=== PATIENT | female | born 1995 | race African-American/Black ===

== ENCOUNTER 2022-11-06 07:58 | Day surgery (SDC) | payer MEDICAID, SELFPAY ==
[2022-11-06] VITALS (9 sets, daily range): BP systolic 87–108; BP diastolic 52–76; PULSE 59–82; RESP 16; TEMP 36.9; O2SAT 95–100; BMI 23.8
[2022-11-06] MEDS: DOXYCYCLINE HYCLATE 200 MG in 0.9 % SODIUM CHLORIDE Mini-bag 100 ML 100 MG IVPB (08:23)
[2022-11-06] MEDS: KETOROLAC 30 MG/ML inj IVP (08:23)
[2022-11-06] MEDS: LACTATED RINGERS 1000 ML 1,000 ML 100 ML IV ×2 (08:25→11:38)
[2022-11-06] MEDS: SODIUM CHLORIDE 0.9 % (FLUSH) 10 ML SYRINGE IVF (09:06)
[2022-11-06 09:10] LABS: Hemoglobin* 10.2 gm/dL (12.0-16.0)
--- NOTE | 2022-11-06 09:55 | W.ANESCHARGE ---
Anesthesia Charges Start Date/Time Anesthesia Start Date: 11/06/22 Anesthesia Start Time: 10:30 Stop Date/Time Anesthesia Stop Date: 11/06/22 Anesthesia Stop Time: 11:55
--- NOTE | 2022-11-06 10:05 | W.PM.H&PU ---
History & Physical Update History & Physical Update H&P Reviewed and patient assessed: No changes noted H&P Updates: Heart - RRR / no M/R/G Lungs - CTAB Hemoglobin 10.2 today.
--- NOTE | 2022-11-06 10:46 | W.ANESCHARGE ---
Anesthesia Charges Start Date/Time Anesthesia Start Date: 11/06/22 Anesthesia Start Time: 10:30 Stop Date/Time Anesthesia Stop Date: 11/06/22 Anesthesia Stop Time: 11:55
--- NOTE | 2022-11-06 12:49 | SUR.PREOP ---
1229: Patient states she needs to use restroom. Patient up to bedside commode with assist. Patient unable to urinate. REturned to bed. Bladder scan completed showing 431 ccs. Patient covered with xi crocker. Cutter Wet Machine will return to room to assist patient in using bedside commode at 1300. Patient has call light available and family at bedside if she needs anything in the mean time.
--- NOTE | 2022-11-06 13:14 | SUR.PHASEII ---
Patient up to bedside commode with stand by assist. Patient able to void. States feeling much better. She states she no longer feels pressure and denies pain.
--- NOTE | 2022-11-06 13:20 | P.GYNPRC_ITS ---
Procedure Note Date of procedure: 11/06/22 Pre-op diagnosis: Retained products of conception after spontaneous Post-op diagnosis: same Procedure: Hysteroscopy, dilation and curettage Anesthesia: MAC and local (10 mL of 1% lidocaine in paracervical block) Complications: None Surgeon: Dr. Brigid De Dios MD Estimated blood loss (mL): 15 IV fluids (mL): 1,000 Urine Output (mL): 15 Pathology: specimen obtained, sent to pathology Condition: stable Disposition: same day Findings: 1. Upon pelvic exam under anesthesia, the cervix and vagina were normal in appearance. Uterus was mobile and anteverted, of normal size and texture. There were no palpable adnexal masses. 2. Upon hysteroscopy, the cervix was noted to be quite patulous, making distension of the uterus and visualization very difficult throughout the procedure. There was abundant placental tissue noted within the uterus. The shape of the cavity was normal. Saline deficit: 10 80 mL, much of which was lost on the OR floor Procedure Description: Procedure in detail: Patient was taken to the operating room with IV running. She was positioned in dorsal lithotomy position with her legs fully supported in Yellofin stirrups. She received doxycycline in preoperative prophylaxis. Monitored anesthesia care was administered. She was prepped and draped in the usual sterile fashion. Exam under anesthesia was performed for the above-noted findings. Speculum was inserted. Cervix visualized and grasped along the anterior lip with an Allis clamp. Cervix was serially dilated to accommodate the TRUCLEAR hysteroscope. This was assembled with saline inflow and outflow in place. The line was flushed of bubbles. The hysteroscope was advanced through the cervix into the endometrial cavity for the above noted findings. The small soft tissue morcellator was then inserted through the operating channel. Window lock was performed. Under direct visualization, some of the retained placenta was removed with this device. However, given the patulous nature of the cervix, and the amount of retained products within the uterus, I was unable to complete the procedure with this smaller tissue morcellator, even after using a ring forcep to partially close off the external os. The hysteroscope was exchanged for slightly larger scope, enabling the use of the soft tissue plus morcellator. Hysteroscopic distention of the endometrial cavity remained difficult due to the patulous cervix, even after application of a ring forcep to the external os. The majority of the retained placental fragments were removed with this larger soft tissue morcellator, and till visualization was lost due to bleeding. The hysteroscope was then removed. Sharp curettage was performed in a circumferential fashion and gritty texture was noted throughout. The hysteroscope was again inserted, and I was able to get brief visualization of t he cavity. There were small irregularities in the endometrium anteriorly and posteriorly, and these were removed with the hysteroscope before visualization was again lost. At the end of the procedure, my impression was that all retained placenta was removed. The hysteroscope and morcellator were then removed from the uterus. Allis clamps was removed from the anterior lip of cervix. Hemostasis was noted. Patient tolerated procedure well. She was taken to recovery area in stable condition.
== END 2022-11-06 13:50 | disposition home or self-care (01) ==
PROVIDERS: PCP Physician Assistant; Visit Provider Obstetrics & Gynecology
PROC: 0UDB8ZZ Extraction of Endometrium, Via Natural or Artificial Opening Endoscopic (ICD-10-PCS; CPT 58558; principal; 2022-11-06 10:00)
DX: O03.4 Incomplete spontaneous abortion without complication (principal)
CPT/HCPCS: 59812; 00952; 36415; 85018; 86850; 86900; 86901; 88305; J1100; J1170; J1885; J2250; J2405; J3010; J7120

== ENCOUNTER 2023-04-09 18:16 | Emergency (ER) | payer MEDICAID, SELFPAY ==
[2023-04-09 18:32] VITALS: BP 99/65; PULSE 112; RESP 20; TEMP 37.7; O2SAT 99
--- NOTE | 2023-04-09 19:32 | ED.NURSE ---
pt. left ER without seeing MD. pt. did not sign refusal form for her and son.
== END 2023-04-09 19:58 | disposition left against medical advice (07) ==
LOC: ED 19:51
PROVIDERS: PCP Physician Assistant
DX: Z53.21 Procedure and treatment not carried out due to patient leaving prior to being seen by health care provider (principal)

== ENCOUNTER 2024-08-16 13:35 | Outpatient (CLI) | payer MEDICAID, SELFPAY | END 2024-08-16 13:36 | disposition home or self-care (01) | PROVIDERS: PCP Physician Assistant; Visit Provider Obstetrics & Gynecology | DX: N96 Recurrent pregnancy loss (principal); D64.9 Anemia, unspecified | CPT/HCPCS: 84146; 84443; 88262 ==

== ENCOUNTER 2025-01-28 19:09 | Emergency (ER) | payer MEDICAID, SELFPAY ==
--- OUTSIDE RECORDS SUMMARY | 2025-01-28 19:12 | XMS_ITS | Clinical Summary ---
Author Organization [employer] [facility] Address [facility] [place] [address] Care Team Providers Care Industrial Trainer Name Role Phone Maryjane Eldridge Unavailable Yen Mckinney MD Primary Care Prov ider Julisa Mc RN Unavailable Ana Maria Ely Unavailable Allergies Active Allergy Reactions Criticality Noted Date Comments Pork/Porcine Containing Products Other - Describe In Comment Field 12/20/2024 Sabian[employer] Medications folic acid 1 mg tabletIndications :Critical illness myopathy Take 1 Tablet (1 mg) by mouth once daily. PROTECT FROM LIGHT 30 Tablet 01/17/20 25 7:09 PM CDT 025 Active methIMAzole (TAPAZOLE) 5 mg tabletIndications :Hyperthyroidism Take one-half Tablet (2.5 mg) by mouth once daily. 15 Tablet 01/17/20 7:09 PM CDT Active valACYclovir (VALTREX) 500 mg tabletIndications :Critical illness myopathy,Cold sore Take 1 Tablet (500 mg) by mouth or nasogastric tube every 24 hours. Can take as 500 mg tablet needed for 7 days at the first sign of cold sores. Follow up with primary care provider. 7 Tablet 01/17/20 7:09 PM CDT Active lidocaine 4 % topical patchIndications: Critical illness myopathy Apply to intact skin to cover most painful area for max 12hr per 24hr period. Remove previous patch before adding new patch.Apply to intact skin to cover the most painful area.Remove old patch(s) and apply a new one if ordered. Patient may have more than one patch per dose. 15 Patch 01/17/20 7:09 PM CDT Active furosemide (LASIX) 40 mg tabletIndications :Critical illness myopathy,MADHAVI (acute kidney injury),Acute kidney failure with lesion of tubular necrosis Take 1 Tablet (40 mg) by mouth once daily if needed (weight gain of 2 pounds and edema). 30 Tablet 01/18/20 10:14 AM CDT Active nutritional supplements liqdIndications:W eight loss,Moderate malnutrition (HC) Take 237 mL by mouth two times daily. 98533 mL 2 Active ondansetron 4 mg disintegrating tabletIndications :Hyperemesis Place 1 Tablet (4 mg) on the tongue every 6 hours. 30 Tablet 3 025 2024 Discontinued(* IP Discontinued) polyethylene glycoL (MIRALAX) 17 gram/scoop powderIndications :Constipation in in first trimester (HC) Mix 1 scoop (17 g) in liquid then take by mouth once daily. 1700 g 025 2024 Discontinued(* IP Discontinued) sennosides (SENNA) 8.6 mg tabletIndications :Constipation in in first trimester (HC) Take 1 Tablet (8.6 mg) by mouth two times daily. 60 Tablet 1 025 2024 Discontinued(* IP Discontinued) scopolamine 1 mg over 3 days (TRANSDERM SCOP) patchIndications: Hyperemesis Apply 1 Patch on dry, clean, hairless skin every 72 hours. Remove old patch before applying new one. 10 Each 3 12/29/19 3:52 PM CDT 2024 Discontinued(* IP Discontinued) methIMAzole (TAPAZOLE) 5 mg tabletIndications :Hyperthyroidism Take 0.5 Tablets (2.5 mg) by mouth once daily. 30 Tablet 2024 Discontinued argatroban 1 mg/mL NaCl 0.9% infusionIndicatio ns:Acute kidney failure with lesion of tubular necrosis Inject 30 mcg/min intravenous continuous. 1 mL 2024 Discontinued(* IP Discontinued) Calcium Acetate (PHOS-LO) 667 mg capsuleIndication s:Acute kidney failure with lesion of tubular necrosis Take 1 Capsule (667 mg) by mouth three times daily with meals. 90 Capsule 2024 Discontinued(* IP Discontinued) b complex-vitamin c-folic acid 1 mg (NEPHROCAPS) 1 mg capsuleIndication s:MADHAVI (acute kidney injury) Take 1 Capsule by mouth once daily with evening meal. 1 Capsule 2024 Discontinued(* IP Discontinued) folic acid 1 mg tabletIndications :Acute kidney failure with lesion of tubular necrosis Take 1 Tablet (1 mg) by mouth once daily. 1 Tablet 2024 Discontinued(* IP Discontinued) valACYclovir (VALTREX) 500 mg tabletIndications :MADHAVI (acute kidney injury) Take 1 Tablet (500 mg) by mouth or nasogastric tube every 24 hours. 31 Tablet 3 025 2024 Discontinued(* IP Discontinued) Active Problems Problem Noted Date Diagnosed Date Acute heart failure, unspecified heart failure t ype 01/25/2025 Paroxysmal tachycardia 01/25/2025 Critical illness myopathy 01/06/2025 Puerperal sepsis with dissem inated intravascular coagulation and septic shock 12/24/2024 Bacteremia due to Klebsiella pneumoniae 12/25/19 ARDS (adult respiratory distress syndrome) 12/24 Acute hypoxemic respiratory failure 12/24/2024 MADHAVI (acute kidney injury) 12/24/2024 DIC (disseminated intravascular coagulation) Shock 12/24/2024 Acute kidney failure with lesion of tubular necr osis 12/23/2024 Acidosis 12/23/2024 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 Retained placenta 12/22/2024 Septic shock 12/22/2024 IUFD at less than 20 weeks of gestation 12/23/19 Acute chorioamnionitis 12/22/2024 Cervical insufficiency durin g in second trimester, antepartum 12/20/2024 Anemia during in second trimester 11/12 Hyperthyroidism 11/16/2024 Previous delivery in second trimester, a ntepartum 11/03/2024 MPP Supervision of high-risk Overview (12/20/2024): Harley Wade : 1995 REFERRING PROVIDER/CLINIC LOCATION/FAX #: Yen Mckinney MD - Marimar Slemp Rafa LOPES approves scheduling of recommended ultrasounds/testing: Yes [facility] ULTRASOUND/TESTING PATIENT [facility] CONSULT ON 12/20/24 Support person name: Its a Girl! ULTRASOUND TYPE: L2, TVUS REASON FOR VISIT: Hyperemesis on TPN, hx 39w IUFD, hx PPROM, hyperthyroid NEXT VISIT ALERTS: Final MONIQUE by LMP LMP Date: Patient's last menstrual period was 08/05/2024 (approximate). MONIQUE: 05/12/25 Early US: Date: 09/30/24 GA: 8w4d MONIQUE: 05/08/24 PrePregnancy Weight: 145 Height: 5ft4in BMI: 24.8 PLANS & FUTURE APPOINTMENTS: ULTRASOUND/GROWTH PLAN: - Through: - Growth: Next TESTING PLAN: - Testing: Through DELIVERY PLAN: - Scheduled delivery: - Preferred delivery location: PRIMARY DIAGNOSIS: 29 y.o. Estimated Date of Delivery: 05/12/25 Hyperemesis on TPN Hyperthyroidism Maternal karyotype was positive for low level Monosomy X 2017 32w6d (PPROM) 2016 39w2d IUFD FAVD (chorio, PPH requiring transfusion, nuchal cord) PREVIOUS ULTRASOUNDS: 12/20/24 19w4d ECHO: SPECIALISTS/CONSULTS: Include: Specialty MD Clinic Name Phone# [place] and ADDED TO PATIENT CARE TEAM Yes Endocrine: Conor Thomas MD [place] 11/07/24, [place] 01/05/25 GENETICS: Not completed Maternal karyotype was positive for low level Monosomy X CARE COORDINATION: PERTINENT LABS: Labs reviewed? Yes Normal? Yes Blood type: O Rh Positive Antibody screen: Negative 11/21/24 TSH 0.01; Free T3 3.15; Free T4 0.93 TPO AB: 1 TRAB: <1 TSI: <89 PERTINENT MEDS: TPN and lipids methimazole PROCEDURES: IF FGR <10% or EFW <2000 grams: Add FGRPCOM PLAN OF CARE: On peripheral parenteral nutrition 10/26/2024 Supervision of high risk in first trim stu 10/26/2024 Hyperemesis affecting , antepartum 09/12 09/21/2024 Overview (09/21/2024): Estimated Date of Delivery: 05/12/25 Patient's last menstrual period was 08/05/2024 (approximate). GBS: 28wk labs: Last Tdap: 2016 Last Flu vaccine: No record OB Labs: No Known Allergies OB History Para Term AB Living 5 2 1 1 2 1 SAB IAB Ectopic Multiple Live Births 2 0 0 0 1 # Outcome Date GA Lbr Mark/2nd Weight Sex Type Anes PTL Lv 5 Current 4 SAB 04/2024 3 SAB 10/2023 2 09/28/16 32w6d M Vag Y THMOAS 1 Term 10/07/15 39w2d F VAGINAL FORC EPI N FD Comments: transfusion PRBCs, RML episiotomy with repair in OR required Complications: Cord around neck with compression (HC), hemorrhage (HC), Chorioamnionitis (HC) Past Medical History: . Date History of blood transfusion Iron deficiency anemia of mother during (HC) Malaria Migraine headache TB lung, latent s/p treatment Vitamin B12 deficiency anemia Past Surgical History: . Laterality Date NO PAST SURGERIES Problems (from 09/21/24 to present) No problems associated with this episode. Minerva De La Cruz RN ....09/21/2024 12:19 PM (normal spontaneous vaginal delivery) 09/28 demise, greater than 22 weeks, antepartum 10/05/2015 Resolved Problems Problem Noted Date Diagnosed Date Resolved Date Cervical insufficiency durin g in first trimester, antepartum 12/20/2024 12/20/2024 labor 09/26/2016 05/28/2022 06/17/2016 11/05/2021 06/17/2016 11/05/2021 04/30/2015 05/28/2022 No Significant Past Medical History 05/28/2022 Encounters Date Type Department Care Team Description 01/27/2025 2:45 PM CDT Orders Only [facility] [address] [place] [address] Lab, [place] Lab 01/27/2025 Travel 01/25/2025 Telephone [facility] [address] [place] [address] Yen Mckinney MD Consult (Landscape Maintenance Internship consult ordered ) 01/24/2025 2:26 PM CDT - 01/24/2025 11:59 PM CDT Hospital Encounter [address] [address] Dominik Coyle DO Noble, Isaac J, PT 01/23/2025 1:00 PM CDT Office Visit [facility] [address] [place] [address] Yen Mckinney MD Hospital F/U (Spitting, nausea) 01/23/2025 8:24 AM CDT - 01/23/2025 11:59 PM CDT Hospital Encounter [address] [address] Dominik Coyle DO Tierney, Doreen A, ASSET PROTECTION SPECIALIST 01/23/2025 Telephone [facility] [address] [place] [address] Yen Mckinney MD Lab (Orders) 01/23/2025 Telephone [facility] [address] [facility] [address] [place] [id number] Unknown, Doctor Lab (Lab Orders) 01/23/2025 Travel 01/20/2025 1:25 PM CDT - 01/20/2025 11:59 PM CDT Hospital Encounter [address] [address] Dominik Coyle, Yen More, OT 01/20/2025 Travel 01/19/2025 Patient Outreach [facility] [address] [place] [id number] [place] [address] Julisa Mc, LINDEN Brain Injury Rehab Care Coordination - [facility] 01/18/2025 Telephone [facility] [address] [place] [address] Yen Mckinney MD Appointment 01/18/2025 Patient Outreach [facility] [address] [place] [address] Tara Cantu, RN Primary RN Care Management; Hospital F/U (D/C [facility] 01/17/25) 01/17/2025 Home Care Visit [facility] [address] [place] [address] Smita Luna, RN EPISODE DISCHARGE 01/06/2025 11:52 AM CDT - 01/17/2025 11:00 AM CDT Hospital Encounter [facility] [address] [place] [address] Justin Myles DO Querubin, Juan Rizal, DO Kalahar, Kari Ann, NP Covington, Susan W, NP Critical illness myopathy (Primary Dx); Hyperthyroidism; Bacteremia due to Klebsiella pneumoniae; Cold sore; MADHAVI (acute kidney injury); Acute kidney failure with lesion of tubular necrosis Discharge Disposition: Home Self Care 12/28/2024 Orders Only [facility] [phone] Yasir Pelaez MD Lab 12/26/2024 Telephone [facility] [address] [place] [address] Dana Bourgeois PA Medication Management (ALLERGIES ) 12/24/2024 Home Care Visit [facility] [address] [place] [address] Afshan Isabel, LINDEN SN - OASIS TRANSFER 12/23/2024 2:12 PM CDT Anesthesia Event [facility] [address] [place] [address] Chidi Arnold, DO Butts, Oswald Gonzalez, JOSE LUIS 12/23/2024 2:00 PM CDT - 12/23/2024 3:56 PM CDT Surgery [facility] [address] [place] [address] Estefanía Osborne MD PLACEMENT ECMO CANNULAS, GROINS TBD, DEFLATION AND REMOVAL OF UTERINE BALLOON, POSS. HYSTERECTOMY. 12/22/2024 8:09 PM CDT Anesthesia Event [facility] [address] [place] [address] Heidi Verma MD 12/22/2024 7:45 PM CDT - 12/22/2024 9:38 PM CDT Surgery [facility] [address] [place] [address] Eva Hogan MD DILATION AND CURETTAGE WITH ULTRASOUND GUIDANCE 12/22/2024 5:34 PM CDT - 01/06/2025 11:30 AM CDT Hospital Encounter [facility] [address] [place] [address] Sumit Thompson, Iker oKng MD Masood, Adnan, MBBS Huelster, Joshua Steffen, MD Onyamb, Karen Long, MD Shadi Gloria, Zac Montgomery MD [facility] Of Acute kidney failure with lesion of tubular necrosis (Primary Dx); MADHAVI (acute kidney injury) Discharge Disposition: Rehab Facility or Unit 12/22/2024 9:04 AM CDT - 12/22/2024 4:05 PM CDT Hospital Encounter [facility] [address] [place] [address] Vamsi Montgomery MD Cardenas-Stophel, Raquel Taresa, DO IUFD at less than 20 weeks of gestation (HC) (Primary Dx); Fever, unspecified fever cause; Nausea and vomiting, unspecified vomiting type Discharge Disposition: Crit Acc Hosp w Planned Readmission 12/22/2024 Orders Only [facility] Emergency Room [address] [place] [address] Katja Hale, Maria EugeniaD <No scans attached> 12/22/2024 Home Care Visit [facility] [address] [place] [address] Tess Trejo RN CARE TRANSITION NOTE 12/22/2024 Telephone [facility] [address] [facility] [address] [place] [address] Tayo Osman Questions 12/22/2024 Travel 12/22/2024 Telephone [facility] [address] [place] [address] Dana Bourgeois PA Appointment 12/21/2024 1:00 PM CDT Home Care Visit [facility] [address] [place] [address] Aiyana Slaughter RN SN - HOME VISIT 12/21/2024 9:50 AM CDT OB Encounter [facility] [address] [place] [address] Yne Mckinney MD Care (19 weeks 5 days ) 12/21/2024 Telephone [facility] [address] [facility] [address] [place] [address] Tayo Osman Care Coordination 12/20/2024 12:30 PM CDT - 12/20/2024 11:59 PM CDT Hospital Encounter [facility] [address] [facility] [address] [place] [address] Cervical insufficiency during in first trimester, antepartum (HC) (Primary Dx); Supervision of high risk in second trimester (HC); High-risk in first trimester (HC); Cervical insufficiency during in second trimester, antepartum (HC); Supervision of high risk in first trimester (HC) 12/20/2024 Orders Only [facility] [address]inder [address] [place] [address] Triny Mehta, MS, CGC <No scans attached> 12/20/2024 Telephone [facility] [address] [place] [address] Yen Mckinney MD Other (Therapy ) 12/20/2024 Travel 12/20/2024 Nurse Triage [facility] [address] [place] [address] Dana Bourgeois PA Medication Management 12/13/2024 1:25 PM CDT OB Encounter [facility] [address] [place] [address] Yen Mckinney MD Care (18 weeks 4 days ) 12/13/2024 4:00 AM CDT Home Care Visit [facility] [address] [place] [address] Afshan Isabel, RN SN - OASIS RECERTIFICATION 12/13/2024 Plan of Care Documentation [facility] [address] [place] [address] 12/13/2024 Home Care Visit [facility] [address] [place] [address] Afshan Isabel, RN CARE COORDINATION 12/13/2024 Travel 12/13/2024 Orders Only [facility] [address] [place] [id number] Dana Bourgeois PA Lab 12/13/2024 Orders Only [facility] [address] [place] [address] Dana Bourgeois PA Lab (Home health) 12/13/2024 Orders Only [facility] [address] [place] [address] Dana Bourgeois PA Lab 12/09/2024 11:00 AM CDT Home Care Visit [facility] [address] [place] [address] Tess Norris, LINDEN SN - HOME VISIT 12/07/2024 Orders Only [facility] [address] [place] [address] Yen Mckinney MD <No scans attached> 12/06/2024 11:30 AM CDT OB Encounter [facility] [address] [place] [address] Yen Mckinney MD Care (17 weeks 4 days ) 12/06/2024 9:30 AM CDT - 12/06/2024 11:59 PM CDT Hospital Encounter [facility] [address] [place] [address] Anemia during in second trimester (HC) (Primary Dx) 12/06/2024 Home Care Visit [facility] [address] [place] [phone] Afshan Isabel, RN CARE COORDINATION 12/06/2024 Orders Only [facility] [address] [place] [address] Yen Mckinney MD <No scans attached> 12/06/2024 Travel 12/05/2024 4:00 AM CDT Home Care Visit [facility] [address] [place] [address] Afshan Isabel, RN SN - HOME VISIT 12/05/2024 Orders Only [facility] [address] [place] [address] Dana Bourgeois PA Lab 12/02/2024 11:00 AM CDT Home Care Visit [facility] [address] [place] [phone] Afshan Isabel, RN SN - HOME VISIT 12/02/2024 Orders Only [facility] [address] [facility] [place] [address] Mercedez Monet MD <No scans attached> 11/30/2024 Telephone [facility] [address] [facility] [place] [address] Yen Mckinney MD Appointment 11/29/2024 2:40 PM CDT OB Encounter [facility] [address] [place] [address] Yen Mckinney MD Care (16 weeks 4 days) 11/29/2024 Travel 11/28/2024 10:30 AM CDT Home Care Visit [facility] [address] [place] [address] Afshan Isabel, RN SN - HOME VISIT 11/28/2024 Orders Only [facility] [address] [place] [address] Dana Bourgeois PA Lab 11/28/2024 Orders Only [facility] [address] [place] [address] Yen Mckinney MD <No scans attached> 11/25/2024 2:00 PM CDT Home Care Visit [facility] [address] [place] [address] Afshan Isabel, LINDEN SN - HOME VISIT 11/25/2024 Orders Only [facility] [address] [facility] [place] [address] Yen Mckinney MD <No scans attached> 11/23/2024 1:50 PM CDT OB Encounter [facility] [address] [facility] [place] [address] Yen Mckinney MD Care (15 weeks 5 days ) 11/23/2024 Travel 11/22/2024 Orders Only [facility] [address] [place] [address] Yen Mckinney MD <No scans attached> 11/21/2024 10:00 AM CDT Home Care Visit [facility] [address] [place] [address] Angie Bloom RN SN - HOME VISIT 11/21/2024 Telephone [facility] [address] [address] Conor Cagle MD Results 11/21/2024 Orders Only [facility] [address] [place] [address] Dana Bourgeois PA Lab 11/21/2024 Orders Only [facility] [address] [place] [phone] Dana Bourgeois PA Lab (Home Health) 11/19/2024 Orders Only [facility] [address] [address] Conor Cagle MD <No scans attached> 11/19/2024 Orders Only [facility] [address] [address] Conor Cagle MD <No scans attached> 11/18/2024 11:30 AM CDT Home Care Visit [facility] [address] [place] [phone] Afshan Isabel RN SN - HOME VISIT 11/18/2024 Telephone [facility] [address] [place] [address] Yen Mckinney MD Medication Management 11/17/2024 Telephone [facility] [address] [place] [address] Yen Mckinney MD TPN Orders 11/17/2024 Orders Only [facility] [address] [place] [address] Yen Mckinney MD 1 scan: (1-Ord) GRUPO MEREDITH, DNA SCREEN RESULTS, 11/09/2024 11/16/2024 1:50 PM CDT OB Encounter [facility] [address] [place] [address] Yen Mckinney MD Care (14weeks 5days) 11/16/2024 Travel 11/14/2024 11:00 AM CDT Home Care Visit [facility] [address] [place] [address] Afshan Isabel, LINDEN SN - HOME VISIT 11/14/2024 Telephone [facility] [address] [place] [address] Afshan Isabel, caramel cutter machine (Patient TPN updates) 11/14/2024 Orders Only [facility] [address] [place] [address] Dana Bourgeois PA Lab 11/11/2024 10:30 AM CDT Home Care Visit [facility] [address] [place] [phone] Afshan Isabel, LINDEN SN - HOME VISIT 11/09/2024 1:50 PM CDT OB Encounter [facility] [address] [place] [address] Yen Mckinney MD Care (13 weeks 5 days) 11/09/2024 Orders Only [facility] [address] [place] [address] Jaja Valencia, R.TJuany (ARRT) 1 scan: (1-Ord) NFLD-EKG-11/09/2024 11/09/2024 Travel 11/07/2024 11:45 AM CDT Office Visit [facility] [address] [place] [address] Conor Cagle MD Consult (Hyperthyroidism) 11/07/2024 9:41 AM CDT Home Care Visit [facility] [address] [place] [address] Afshan Isabel, LINDEN SN - HOME VISIT 11/07/2024 Orders Only [facility] [address] [place] [address] Dana Bourgeois PA Lab 11/07/2024 Travel 11/04/2024 11:58 AM CDT Home Care Visit [facility] [address] [place] [address] Afshan Isabel, LINDEN SN - HOME VISIT 11/03/2024 Telephone [facility] [address] [address] Alysha England CNA 11/03/2024 Telephone [facility] [address] [address] Tayo Osman Appointment 11/03/2024 Telephone [facility] [address] [place] [address] Yen Mckinney MD call back 11/02/2024 9:50 AM CDT OB Encounter [facility] [address] [place] [address] Yen Mckinney MD Care (12 weeks 5 days ) 11/02/2024 Transcribe Orders [facility] [address] [address] Yen Mckinney MD 11/02/2024 Travel 11/02/2024 Telephone [facility] [address] [place] [address] Dana Bourgeois PA Results 11/02/2024 Nurse Triage [facility] [address] [place] [address] Dana Bourgeois PA Home Care 11/02/2024 Orders Only [facility] [address] [place] [address] Dana Bourgeois PA <No scans attached> 11/01/2024 Orders Only [facility] [address] [place] [address] Dana Bourgeois PA <No scans attached> 10/31/2024 12:00 PM CDT Home Care Visit [facility] [address] [place] [address] Afshan Isabel, LINDEN SN - HOME VISIT 10/31/2024 Orders Only [facility] [address] [place] [address] Dana Bourgeois PA Lab 10/31/2024 Orders Only [facility] [address] [place] [address] Dana Bourgeois PA <No scans attached> 10/28/2024 1:00 PM CDT Home Care Visit [facility] [address] [place] [address] Afshan Isabel, LINDEN SN - LONG VISIT (>90 MINUTES) 10/28/2024 Telephone [facility] [place] [address] [place] [address] [phone] [place] [address] Brigid Parnell, PharmD Medication Management ([employer] [facility] Prescription Assistance- Scopolamine Patches/) from Last 3 Months Immunizations Immunization Administration Dates Next Due COVID-19 vaccine ([employer] 30mcg/0.3mL) MABLE RAMIREZ 07/25/2020,07/04/2020 Hepatitis A (Peds) 09/20/2009 Hepatitis B (Peds) 03/04/2006 Human Papilloma Virus Vaccine 09/20/2009, 009 Inactivated Polio Vaccine 03/04/2006 Tdap 09/12/2016, 7,07/24/2015,2005 Varicella Vaccine 11/03/2007 Family History Medical History Relation Name Comments Good Health Brother 1 Good Health Brother 2 Good Health Brother 3 Diabetes Father Good Health Mother Good Health Sister 1 Good Health Sister 2 Good Health Sister 3 Good Health Sister 4 ADD / ADHD Son Good Health Son Relation Name Status Comments Brother 1 Alive Brother 2 Alive Brother 3 Alive Daughter Father Alive Mother Alive Sister 1 Alive Sister 2 Alive Sister 3 Alive Sister 4 Alive Son Alive Social History Tobacco Use Types Packs/Day Years Used Date Smoking Tobacco: Never Smokeless Tobacco: Never Tobacco Cessation:Counseling Given: Yes Alcohol Use Standard Drinks/Week Comments Never 0 (1 standard drink = 0.6 oz pur e alcohol) PHQ-2 Answer Date Recorded PHQ-2 TOTAL SCORE 0 09/21/2024 Social Connections Answer Date Recorded Do you often feel lonely or isolated from those around you? 0 01/06/2025 Financial Resource Strain Answer Date R ecorded Difficulty of Paying Living Expenses 3 08/08/2024 Difficulty of Paying Living Expenses Not on file 08/08/2024 Food Insecurity Answer Date Recorded Do you worry your food will run out before you are able to buy more? 1 01/06/2025 Transportation Needs Answer Date Record ed Does lack of transportation keep you from medica l appointments? 1 01/06/2025 Does lack of transportation keep you from work, meetings or getting things that you need? 1 01/06/2025 Housing Stability Answer Date Recorded What is your housing situation today? 1 01/06/2025 Interpersonal Safety Answer Date Record ed Are you being hit, kicked, p ushed or yelled at (see row info)? No 01/06/2025 Interpersonal Safety Abuse 12 - 18 Not on file 01/06/2025 Interpersonal Safety Ambulatory Vulnerability No t on file 01/06/2025 Utilities Answer Date Recorded Do you have trouble paying f or utilities (for example, heat, electricity, water, phone)? 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 Gender Identity Female 09/23/2024 9:18 AM CDT Sexual Orientation Straight 09/23/2024 9: 18 AM CDT Obstetrics History Para Term AB IAB SAB Ectopic Multiple Livin g Live Births 5 3 1 2 2 2 0 1 1 Date Outcome GA Total Labor Labor/2nd/3rd Weight Sex Type Anes PTL Thomas A1 A5 Name Clin 2015 Term 39w 2d F VAGINA L FORC Epidur al N Demis e Complications:Cord around ne ck with compression (HC), hemorrhage (HC),Chorioamnionitis (HC) Delivery Location:[facility] Comments:transfusion P RBCs, RML episiotomy with repair in OR required 2016 32w 6d M Vag Y Livin g Complications:None Delivery Location:[facility] 4 SAB 5 SAB 2024 19w 6d F Vag-Sp ont Demis e 0 0 Complications:Retained place nta,Intraamniotic Infection Delivery Location:Hospital ( [facility] Last Filed Vital Signs Vital Sign Reading Time Taken Comments Blood Pressure 124/81 01/23/2025 1:04 PM CDT Pulse 87 01/23/2025 1:04 PM CDT Temperature 37.3 C (99.1 F) 01/17/2025 7:00 AM CDT Respiratory Rate 17 01/17/2025 7:00 AM CDT Oxygen Saturation 100% 01/23/2025 1:04 PM CDT Inhaled Oxygen Concentration - - Weight 55.5 kg (122 lb 4 oz) 01/23/2025 1:04 PM CDT Height 162.6 cm (5' 4.02) 12/30/2024 6:00 AM CD T Body Mass Index 20.97 12/30/2024 6:00 AM CDT Plan of Treatment Upcoming Encounters Date Type Department Care Team (Late st Contact Info) Description 01/30/2025 12:30 PM CDT Appointment [address] [address] Vicenta Baltazar, ASSET PROTECTION SPECIALIST [address] [place] [id number] 01/31/2025 8:45 AM CDT Appointment [address] [address] Yen Hutton, OT [address] [address] 02/03/2025 2:45 PM CDT Orders Only [facility] [address] [place] [address] [place], [place] 02/07/2025 9:00 AM CDT Office Visit [facility] [address] [place] [address] Yen Mckinney MD [address] [facility] [place] [address] 02/07/2025 10:30 AM CDT Appointment [address] [address] Vicenta Baltazar, ASSET PROTECTION SPECIALIST [address] [place] [address] 02/07/2025 1:00 PM CDT Appointment [address] [address] Yen Hutton, OT [address] [place] [address] 02/08/2025 11:00 AM CDT Appointment [address] [address] Davis Krishnan, PT [address] [place] [address] 02/14/2025 10:30 AM RADAR MECHANIC Appointment [address] [address] Vicenta Baltazar, ASSET PROTECTION SPECIALIST [address] [place] [address] 02/14/2025 1:00 PM RADAR MECHANIC Appointment [address] [address] Yen Hutton, OT [address] [place] [address] [place] [address] 02/15/2025 11:00 AM RADAR MECHANIC Appointment [address] [address] Davis Krishnan, PT [address] [place] [address] 02/21/2025 9:30 AM RADAR MECHANIC Appointment [address] [address] Yen Hutton, OT [address] [place] [address] 02/21/2025 10:30 AM RADAR MECHANIC Appointment [address] [address] Vicenta Baltazar, ASSET PROTECTION SPECIALIST [address] [place] [address] 02/21/2025 12:35 PM RADAR MECHANIC Office Visit [facility] [address] [address] [place] [address] [place] [address] 02/22/2025 11:00 AM RADAR MECHANIC Appointment [address] [address] Davis Krishnan, PT [address] [place] [address] 02/27/2025 9:15 AM RADAR MECHANIC Office Visit [facility] [address] [facility] [address] [place] [address] Justin Myles, [address] [place] [address] 02/28/2025 10:30 AM RADAR MECHANIC Appointment [address] [place] [address] Vicenta Baltazar, ASSET PROTECTION SPECIALIST 35 [facility] [place] [address] 03/01/2025 11:00 AM RADAR MECHANIC Appointment [address] [place] [address] Davis Krishnan, PT 35 [facility] [place] [address] 03/07/2025 10:30 AM RADAR MECHANIC Appointment [address] [address] Vicenta Baltazar, ASSET PROTECTION SPECIALIST 35 [place] [address] 03/08/2025 11:00 AM RADAR MECHANIC Appointment [address] [address] Davis Krishnan, PT 35 [facility] [place] [address] 03/15/2025 11:00 AM RADAR MECHANIC Appointment [address] [address] Davis Krishnan, PT [address] [place] [address] 07/24/2025 8:30 AM CDT Office Visit [facility] [address] [place] [address] Pete Elizabeth, PhD, [address] [place] [address] Health Maintenance Due Date Last Done Comments Hepatitis B series for 19+ ( 2 of 3 - 3-dose series) 04/01/2006 03/04/2006 HPV series for age 9-45 (3 - 3-dose series) 12/13/2009 09/20/2009, 01/09/2009 Pneumococcal series for age 6-49 (1 of 2 - PCV) 2012 Pap test for age 21-65 11/08/2019 11/07/2016 COVID-19 vaccine series (3 - 2024- season) 2024 07/25/2020, 07/04/2020 Influenza Vaccine (#1) 2024 BMI (ht and wt on same day) for age 18+ 05/11/2025 05/11/2024, 11/05/2021, 04/12/2020, Additional history exists Depression screening for age 12+ 09/21/2025 09/21/2024, 01/20/2023, 04/12/2020, Additional history exists Tetanus booster 09/12/2026 09/12/2016, 08/11, 07/24/2015, Additional history exists RSV vaccine for adults or (1 - 1-dose 75+ series) 2068 Hepatitis C screening for ag e 18-79 Completed 09/28/2024 HIV for age 15-65 Completed 12/24/2024, , 07/26/2015 Procedures Procedure Name Priority Date/Time Associated Diagnosis Comments T4,FREE Routine 01/23/2025 1:55 PM CDT Hyperthyroidism CBC WITH AUTO DIFFERENTIAL Routine 01/23/2025 1:55 PM CDT Acute kidney failure with lesion of tubular necrosis TSH WITH REFLEX Routine 01/23/2025 1:55 PM CDT Hyperthyroidism CBC WITH AUTO DIFFERENTIAL Routine 01/23/2025 1:55 PM CDT Acute kidney failure with lesion of tubular necrosis RENAL FUNCTION PANEL Routine 01/23/2025 1:55 PM CDT Acute kidney failure with lesion of tubular necrosis PHOSPHORUS Today 01/17/2025 9:04 AM CDT BASIC METABOLIC PANEL Today 01/17/2025 9:04 AM CDT IR REMOVE VENOUS PORT/CATH Routine 01/16/2025 2:02 PM CDT BASIC METABOLIC PANEL Timed 01/16/2025 5:59 AM CDT CREATININE CLEARANCE URINE Today 01/15/2025 4:32 PM CDT UREA NITROGEN,TIMED UR Today 4:32 PM CDT RENAL FUNCTION PANEL Early AM 01/15/2025 8:35 AM CDT HEMOGLOBIN Early AM 01/15/2025 8:35 AM CDT CREATININE CLEARANCE SERUM Today 01/15/2025 8:35 AM CDT CREATININE CLEARANCE URINE Today 01/15/2025 8:35 AM CDT RENAL FUNCTION PANEL Early AM 01/14/2025 4:25 AM CDT RENAL FUNCTION PANEL Early AM 01/13/2025 4:26 AM CDT RETICULOCYTES Early AM 01/13/2025 4:26 AM CDT CBC W PLT NO DIFF Early AM 01/13/2025 4:26 AM CDT RBC W/O TYPE & SCREEN Today 01/12/2025 10:59 AM CDT RED BLOOD CELLS EA UNIT Today 01/13/20 10:57 AM CDT TRANSFUSE RBC (NURSE COMMUNICATION ORDER) STAT 01/12/2025 10:31 AM CDT RBC W/O TYPE & SCREEN STAT 01/12/2025 8:35 AM CDT TYPE & SCREEN STAT 01/12/2025 8:25 AM CDT VITAMIN B12 Today 01/12/2025 8:25 AM CDT IRON PLUS IRON BINDING CAP Today 01/12/2025 8:25 AM CDT RED BLOOD CELLS EA UNIT STAT 01/13/20 8:24 AM CDT CWS PATH REVIEW HEMATOLOGY Timed 01/12/2025 7:17 AM CDT EXTRA TUBE LIGHT GREEN Today 7:17 AM CDT CBC W PLT NO DIFF Early AM 01/12/2025 7:17 AM CDT RENAL FUNCTION PANEL Early AM 01/12/2025 4:24 AM CDT EKG 12 LEAD Routine 01/11/2025 1:00 AM CDT APTT Early AM 01/10/2025 4:20 AM CDT RENAL FUNCTION PANEL Early AM 01/10/2025 4:20 AM CDT APTT Today 01/09/2025 4:10 PM CDT RENAL FUNCTION PANEL Early AM 01/09/2025 10:38 AM CDT POTASSIUM Early AM 01/08/2025 10:37 AM CDT SODIUM Early AM 01/08/2025 10:37 AM CDT CREATININE Early AM 01/08/2025 10:37 AM CDT APTT Early AM 01/08/2025 10:37 AM CDT PROCALCITONIN Today 01/07/2025 4:06 PM CDT WHITE BLOOD COUNT Today 01/07/2025 4:06 PM CDT APTT Early AM 01/07/2025 1:05 PM CDT BASIC METABOLIC PANEL Early AM 01/07/2025 1:05 PM CDT CBC W PLT NO DIFF Early AM 01/07/2025 1:05 PM CDT APTT Timed 01/06/2025 6:36 PM CDT EXTRA TUBE LIGHT GREEN Today 7:34 AM CDT APTT STAT 01/06/2025 7:24 AM CDT CBC W PLT NO DIFF Early AM 01/06/2025 7:24 AM CDT RENAL FUNCTION PANEL Early AM 01/06/2025 7:24 AM CDT IR CENTRAL VENOUS ACCESS/PORT Routine 01/05/2025 3:40 PM CDT APTT Early AM 01/05/2025 6:32 AM CDT PLATELET COUNT Timed 01/05/2025 6:32 AM CDT HEMOGLOBIN Timed 01/05/2025 6:32 AM CDT APTT Timed 01/04/2025 6:25 PM CDT WHITE BLOOD COUNT Early AM 01/04/2025 5:54 AM CDT BASIC METABOLIC PANEL EVAN 01/04/2025 5:53 AM CDT APTT Today 01/04/2025 5:53 AM CDT TRIGLYCERIDES Timed 01/04/2025 5:53 AM CDT GLUCOSE METER Timed 01/04/2025 2:49 AM CDT GLUCOSE METER Timed 01/03/2025 11:29 PM CDT APTT Timed 01/03/2025 11:29 PM CDT SCAN-CARDIAC STRIP 01/03/2025 9:01 PM CDT APTT Timed 01/03/2025 4:30 PM CDT SCAN-CARDIAC STRIP 01/03/2025 3:30 PM CDT TRANSFUSE RBC (NURSE COMMUNICATION ORDER) STAT 01/03/2025 1:43 PM CDT RED BLOOD CELLS EA UNIT Today 01/04/20 11:55 AM CDT APTT EVAN 01/03/2025 11:55 AM CDT PROTIME-INR EVAN 01/03/2025 11:55 AM CDT TYPE & SCREEN Today 01/03/2025 11:52 AM CDT RED BLOOD CELLS EA UNIT STAT 01/04/20 11:45 AM CDT RBC W/O TYPE & SCREEN STAT 01/03/2025 11:41 AM CDT COMP METABOLIC PANEL Today 01/03/2025 10:27 AM CDT GLUCOSE METER Timed 01/03/2025 7:58 AM CDT HEMATOCRIT EVAN 01/03/2025 5:41 AM CDT HEMOGLOBIN EVAN 01/03/2025 5:41 AM CDT PLATELET COUNT EVAN 01/03/2025 5:41 AM CDT GLUCOSE METER Timed 01/03/2025 5:41 AM CDT WHITE BLOOD COUNT Early AM 01/03/2025 5:41 AM CDT SCAN-CARDIAC STRIP 01/03/2025 1:08 AM CDT GLUCOSE METER Timed 01/03/2025 12:38 AM CDT GLUCOSE METER Timed 01/02/2025 8:24 PM CDT GLUCOSE METER Timed 01/02/2025 5:06 PM CDT SCAN-CARDIAC STRIP 01/02/2025 4:07 PM CDT GLUCOSE METER Timed 01/02/2025 11:55 AM CDT GLUCOSE METER Timed 01/02/2025 8:44 AM CDT VANCOMYCIN EVAN 01/02/2025 5:26 AM CDT CBC W PLT NO DIFF Early AM 01/02/2025 5:26 AM CDT RENAL FUNCTION PANEL Early AM 01/02/2025 5:26 AM CDT TRIGLYCERIDES Timed 01/02/2025 5:26 AM CDT GLUCOSE METER Timed 01/02/2025 5:24 AM CDT GLUCOSE METER Timed 01/02/2025 12:50 AM CDT GLUCOSE METER Timed 01/01/2025 8:16 PM CDT SCAN-CARDIAC STRIP 01/01/2025 7:30 PM CDT GLUCOSE METER Timed 01/01/2025 3:52 PM CDT GLUCOSE METER Timed 01/01/2025 1:31 PM CDT US VENOUS LOWER EXTREMITY RIGHT PORTABLE Routine 01/01/2025 1:04 PM CDT GLUCOSE METER Timed 01/01/2025 8:57 AM CDT SCAN-CARDIAC STRIP 01/01/2025 7:27 AM CDT BASIC METABOLIC PANEL Early AM 01/01/2025 4:34 AM CDT CBC W PLT NO DIFF Early AM 01/01/2025 4:34 AM CDT [facility] DRAW ONLY Timed 01/01/2025 4:34 AM CDT GLUCOSE METER Timed 01/01/2025 4:32 AM CDT GLUCOSE METER Timed 01/01/2025 12:06 AM CDT GLUCOSE METER Timed 12/31/2024 9:44 PM CDT VANCOMYCIN Timed 12/31/2024 9:06 PM CDT GLUCOSE METER Timed 12/31/2024 4:34 PM CDT XR CHEST 1 VIEW PORTABLE EVAN 025 4:28 PM CDT COMPREHENSIVE BLOOD GAS VENOUS Timed 12/31/2024 4:[address] CHEST ABDOMEN PELVIS WO Routine 12/31/2024 1:57 PM CDT GLUCOSE METER Timed 12/31/2024 1:56 PM CDT BLOOD CULTURE Today 12/31/2024 11:33 AM CDT BLOOD CULTURE Today 12/31/2024 11:33 AM CDT SCAN-CARDIAC STRIP 12/31/2024 9:43 AM CDT GLUCOSE METER Timed 12/31/2024 7:33 AM CDT TYPE & SCREEN Timed 12/31/2024 4:39 AM CDT HBSAG (HBS) EVAN 12/31/2024 4:39 AM CDT PLATELET ESTIMATE Timed 12/31/2024 4:39 AM CDT HEPATIC FUNCTION PANEL Early AM 4:39 AM CDT BASIC METABOLIC PANEL Early AM 12/31/2024 4:39 AM CDT CBC W PLT NO DIFF Early AM 12/31/2024 4:39 AM CDT TRIGLYCERIDES Timed 12/31/2024 4:39 AM CDT FIBRINOGEN,QUANTITATIVE Early AM 01/01/20 4:39 AM CDT LACTATE ARTERIAL Early AM 12/31/2024 4:39 AM CDT ARTERIAL BLOOD GAS Timed 12/31/2024 4:39 AM CDT [facility] DRAW ONLY Timed 12/31/2024 4:39 AM CDT GLUCOSE METER Timed 12/31/2024 4:37 AM CDT GLUCOSE METER Timed 12/31/2024 2:04 AM CDT TRANSFUSE RBC (NURSE COMMUNICATION ORDER) STAT 12/30/2024 10:32 PM CDT RBC W/O TYPE & SCREEN STAT 12/30/2024 9:45 PM CDT RED BLOOD CELLS EA UNIT STAT 12/31/19 9:36 PM CDT RED BLOOD CELLS EA UNIT STAT 12/31/19 9:36 PM CDT PLATELET ESTIMATE Timed 12/30/2024 9:36 PM CDT CBC W PLT NO DIFF Today 12/30/2024 9:36 PM CDT SCAN-CARDIAC STRIP 12/30/2024 9:27 PM CDT GLUCOSE METER Timed 12/30/2024 8:36 PM CDT RENAL FUNCTION PANEL Today 12/30/2024 8:36 PM CDT RED CELL MORPHOLOGY STAT 12/30/2024 5:37 PM CDT PLATELET ESTIMATE STAT 12/30/2024 5:37 PM CDT MANUAL DIFFERENTIAL STAT 12/30/2024 5:37 PM CDT CBC WITH AUTO DIFFERENTIAL STAT 12/30/2024 5:37 PM CDT PROTIME-INR STAT 12/30/2024 5:37 PM CDT [facility] DRAW ONLY STAT 12/30/2024 5:37 PM CDT BASIC METABOLIC PANEL STAT 12/30/2024 5:37 PM CDT CBC WITH AUTO DIFFERENTIAL STAT 12/30/2024 5:37 PM CDT APTT Timed 12/30/2024 5:37 PM CDT GLUCOSE METER Timed 12/30/2024 4:39 PM CDT PHOSPHORUS Timed 12/30/2024 12:47 PM CDT [facility] DRAW ONLY Timed 12/30/2024 12:47 PM CDT CALCIUM Timed 12/30/2024 12:47 PM CDT MAGNESIUM Timed 12/30/2024 12:47 PM CDT ELECTROLYTE PANEL Timed 12/30/2024 12:47 PM CDT GLUCOSE METER Timed 12/30/2024 12:19 PM CDT COMPREHENSIVE BLOOD GAS ARTERIAL Timed 12/30/2024 10:33 AM CDT COMPREHENSIVE BLOOD GAS ARTERIAL Timed 12/30/2024 10:30 AM CDT COMPREHENSIVE BLOOD GAS VENOUS Timed 12/30/2024 10:27 AM CDT APTT Timed 12/30/2024 10:16 AM CDT SCAN-CARDIAC STRIP 12/30/2024 9:23 AM CDT GLUCOSE METER Timed 12/30/2024 8:48 AM CDT COMPREHENSIVE BLOOD GAS VENOUS Timed 12/30/2024 5:59 AM CDT COMPREHENSIVE BLOOD GAS ARTERIAL Timed 12/30/2024 4:12 AM CDT PLATELET ESTIMATE Timed 12/30/2024 4:09 AM CDT CBC W PLT NO DIFF Early AM 12/30/2024 4:09 AM CDT BASIC METABOLIC PANEL Early AM 12/30/2024 4:09 AM CDT FIBRINOGEN,QUANTITATIVE Early AM 12/31/19 4:09 AM CDT LD,TOTAL Early AM 12/30/2024 4:09 AM CDT HEPATIC FUNCTION PANEL Today 4:09 AM CDT LACTATE ARTERIAL Early AM 12/30/2024 4:09 AM CDT PHOSPHORUS Timed 12/30/2024 4:09 AM CDT [facility] DRAW ONLY Timed 12/30/2024 4:09 AM CDT CALCIUM Timed 12/30/2024 4:09 AM CDT MAGNESIUM Timed 12/30/2024 4:09 AM CDT ELECTROLYTE PANEL Timed 12/30/2024 4:09 AM CDT APTT Timed 12/30/2024 4:09 AM CDT GLUCOSE METER Timed 12/30/2024 4:05 AM CDT XR CHEST 1 VIEW PORTABLE Routine 025 2:51 AM CDT COMPREHENSIVE BLOOD GAS ARTERIAL Timed 12/30/2024 12:33 AM CDT GLUCOSE METER Timed 12/30/2024 12:30 AM CDT COMPREHENSIVE BLOOD GAS ARTERIAL Timed 12/29/2024 11:10 PM CDT COMPREHENSIVE BLOOD GAS ARTERIAL Timed 12/29/2024 10:37 PM CDT COMPREHENSIVE BLOOD GAS VENOUS Timed 12/29/2024 10:32 PM CDT COMPREHENSIVE BLOOD GAS ARTERIAL Timed 12/29/2024 10:12 PM CDT APTT Timed 12/29/2024 8:10 PM CDT PHOSPHORUS Timed 12/29/2024 8:10 PM CDT [facility] DRAW ONLY Timed 12/29/2024 8:10 PM CDT CALCIUM Timed 12/29/2024 8:10 PM CDT MAGNESIUM Timed 12/29/2024 8:10 PM CDT ELECTROLYTE PANEL Timed 12/29/2024 8:10 PM CDT GLUCOSE METER Timed 12/29/2024 8:09 PM CDT SCAN-CARDIAC STRIP 12/29/2024 7:32 PM CDT COMPREHENSIVE BLOOD GAS ARTERIAL Timed 12/29/2024 4:02 PM CDT GLUCOSE METER Timed 12/29/2024 3:56 PM CDT APTT Timed 12/29/2024 3:53 PM CDT US VENOUS LOWER EXTREMITY BILATERAL PORTABLE Routine 12/29/2024 3:24 PM CDT GLUCOSE METER Timed 12/29/2024 12:32 PM CDT PERIPHERAL BLD MORPHOLOGY Today 12/29/2024 12:28 PM CDT COPPER SERUM Today 12/29/2024 12:28 PM CDT FOLIC ACID Timed 12/29/2024 12:28 PM CDT FIBRINOGEN,QUANTITATIVE Today 12/30/19 12:28 PM CDT PROTIME-INR Today 12/29/2024 12:28 PM CDT APTT Today 12/29/2024 12:28 PM CDT PHOSPHORUS Timed 12/29/2024 12:28 PM CDT [facility] DRAW ONLY Timed 12/29/2024 12:28 PM CDT CALCIUM Timed 12/29/2024 12:28 PM CDT MAGNESIUM Timed 12/29/2024 12:28 PM CDT ELECTROLYTE PANEL Timed 12/29/2024 12:28 PM CDT COMPREHENSIVE BLOOD GAS ARTERIAL Timed 12/29/2024 11:02 AM CDT COMPREHENSIVE BLOOD GAS ARTERIAL Timed 12/29/2024 10:40 AM CDT APTT Timed 12/29/2024 9:09 AM CDT GLUCOSE METER Timed 12/29/2024 8:18 AM CDT SCAN-CARDIAC STRIP 12/29/2024 7:20 AM CDT SCAN-CARDIAC STRIP 12/29/2024 6:35 AM CDT COMPREHENSIVE BLOOD GAS ARTERIAL Timed 12/29/2024 5:49 AM CDT XR CHEST 1 VIEW PORTABLE STAT 025 5:23 AM CDT COMPREHENSIVE BLOOD GAS ARTERIAL Timed 12/29/2024 4:28 AM CDT RED CELL MORPHOLOGY Timed 12/29/2024 4:25 AM CDT MANUAL DIFFERENTIAL EVAN 12/29/2024 4:25 AM CDT RETICULOCYTES EVAN 12/29/2024 4:25 AM CDT VITAMIN B12 EVAN 12/29/2024 4:25 AM CDT DIFFERENTIAL EVAN 12/29/2024 4:25 AM CDT CWS PATH REVIEW HEMATOLOGY Timed 12/29/2024 4:25 AM CDT PLATELET ESTIMATE Timed 12/29/2024 4:25 AM CDT CBC W PLT NO DIFF Early AM 12/29/2024 4:25 AM CDT TRIGLYCERIDES Timed 12/29/2024 4:25 AM CDT BASIC METABOLIC PANEL Early AM 12/29/2024 4:25 AM CDT FIBRINOGEN,QUANTITATIVE Early AM 12/30/19 4:25 AM CDT LD,TOTAL Early AM 12/29/2024 4:25 AM CDT LACTATE ARTERIAL Early AM 12/29/2024 4:25 AM CDT PHOSPHORUS Timed 12/29/2024 4:25 AM CDT [facility] DRAW ONLY Timed 12/29/2024 4:25 AM CDT CALCIUM Timed 12/29/2024 4:25 AM CDT MAGNESIUM Timed 12/29/2024 4:25 AM CDT ELECTROLYTE PANEL Timed 12/29/2024 4:25 AM CDT APTT Timed 12/29/2024 4:25 AM CDT GLUCOSE METER Timed 12/29/2024 4:23 AM CDT COMPREHENSIVE BLOOD GAS ARTERIAL Timed 12/29/2024 2:40 AM CDT COMPREHENSIVE BLOOD GAS ARTERIAL Timed 12/29/2024 1:07 AM CDT COMPREHENSIVE BLOOD GAS ARTERIAL Timed 12/29/2024 12:08 AM CDT GLUCOSE METER Timed 12/29/2024 12:06 AM CDT COMPREHENSIVE BLOOD GAS ARTERIAL Timed 12/28/2024 10:36 PM CDT COMPREHENSIVE BLOOD GAS VENOUS Timed 12/28/2024 10:33 PM CDT COMPREHENSIVE BLOOD GAS ARTERIAL Timed 12/28/2024 10:30 PM CDT GLUCOSE METER Timed 12/28/2024 8:20 PM CDT APTT Timed 12/28/2024 8:19 PM CDT PHOSPHORUS Timed 12/28/2024 8:19 PM CDT [facility] DRAW ONLY Timed 12/28/2024 8:19 PM CDT CALCIUM Timed 12/28/2024 8:19 PM CDT MAGNESIUM Timed 12/28/2024 8:19 PM CDT ELECTROLYTE PANEL Timed 12/28/2024 8:19 PM CDT SCAN-CARDIAC STRIP 12/28/2024 7:47 PM CDT COMPREHENSIVE BLOOD GAS ARTERIAL Timed 12/28/2024 4:15 PM CDT GLUCOSE METER Timed 12/28/2024 4:10 PM CDT APTT Timed 12/28/2024 1:15 PM CDT PHOSPHORUS Timed 12/28/2024 1:15 PM CDT [facility] DRAW ONLY Timed 12/28/2024 1:15 PM CDT CALCIUM Timed 12/28/2024 1:15 PM CDT MAGNESIUM Timed 12/28/2024 1:15 PM CDT ELECTROLYTE PANEL Timed 12/28/2024 1:15 PM CDT COMPREHENSIVE BLOOD GAS ARTERIAL Timed 12/28/2024 11:57 AM CDT GLUCOSE METER Timed 12/28/2024 11:53 AM CDT COMPREHENSIVE BLOOD GAS ARTERIAL Timed 12/28/2024 11:01 AM CDT COMPREHENSIVE BLOOD GAS ARTERIAL Timed 12/28/2024 10:50 AM CDT LOUIN MISCELLANEOUS SENDOUT Routine 12/28/2024 10:38 AM CDT MISCELLANEOUS SEND OUT Routine 10:38 AM CDT COMPREHENSIVE BLOOD GAS ARTERIAL Timed 12/28/2024 9:32 AM CDT APTT Timed 12/28/2024 8:49 AM CDT GLUCOSE METER Timed 12/28/2024 8:16 AM CDT SCAN-CARDIAC STRIP 12/28/2024 7:27 AM CDT XR CHEST 1 VIEW PORTABLE STAT 025 5:51 AM CDT COMPREHENSIVE BLOOD GAS ARTERIAL Timed 12/28/2024 5:36 AM CDT ARTERIAL BLOOD GAS STAT 12/28/2024 5:02 AM CDT TYPE & SCREEN Timed 12/28/2024 4:16 AM CDT CWS PATH REVIEW HEMATOLOGY EVAN 12/28/2024 4:16 AM CDT RED CELL MORPHOLOGY EVAN 12/28/2024 4:16 AM CDT MANUAL DIFFERENTIAL EVAN 12/28/2024 4:16 AM CDT CBC WITH AUTO DIFFERENTIAL EVAN 12/28/2024 4:16 AM CDT CBC WITH AUTO DIFFERENTIAL EVAN 12/28/2024 4:16 AM CDT PLATELET ESTIMATE Timed 12/28/2024 4:16 AM CDT PLATELET COUNT Early AM 12/28/2024 4:16 AM CDT BASIC METABOLIC PANEL Early AM 12/28/2024 4:16 AM CDT FIBRINOGEN,QUANTITATIVE Early AM 12/29/19 4:16 AM CDT LD,TOTAL Early AM 12/28/2024 4:16 AM CDT HEPATIC FUNCTION PANEL Today 4:16 AM CDT LACTATE ARTERIAL Early AM 12/28/2024 4:16 AM CDT PHOSPHORUS Timed 12/28/2024 4:16 AM CDT [facility] DRAW ONLY Timed 12/28/2024 4:16 AM CDT CALCIUM Timed 12/28/2024 4:16 AM CDT MAGNESIUM Timed 12/28/2024 4:16 AM CDT ELECTROLYTE PANEL Timed 12/28/2024 4:16 AM CDT APTT Timed 12/28/2024 4:16 AM CDT GLUCOSE METER Timed 12/28/2024 4:14 AM CDT COMPREHENSIVE BLOOD GAS ARTERIAL Timed 12/28/2024 2:18 AM CDT COMPREHENSIVE BLOOD GAS ARTERIAL Timed 12/28/2024 12:09 AM CDT GLUCOSE METER Timed 12/28/2024 12:06 AM CDT HEMOGLOBIN STAT 12/27/2024 10:53 PM CDT COMPREHENSIVE BLOOD GAS ARTERIAL Timed 12/27/2024 10:34 PM CDT COMPREHENSIVE BLOOD GAS VENOUS Timed 12/27/2024 10:31 PM CDT COMPREHENSIVE BLOOD GAS ARTERIAL Timed 12/27/2024 10:11 PM CDT APTT Timed 12/27/2024 10:09 PM CDT PHOSPHORUS Timed 12/27/2024 8:27 PM CDT [facility] DRAW ONLY Timed 12/27/2024 8:27 PM CDT CALCIUM Timed 12/27/2024 8:27 PM CDT MAGNESIUM Timed 12/27/2024 8:27 PM CDT ELECTROLYTE PANEL Timed 12/27/2024 8:27 PM CDT SCAN-CARDIAC STRIP 12/27/2024 8:26 PM CDT GLUCOSE METER Timed 12/27/2024 8:26 PM CDT COMPREHENSIVE BLOOD GAS ARTERIAL Timed 12/27/2024 5:22 PM CDT MRSA/SA PCR Today 12/27/2024 5:21 PM CDT COMPREHENSIVE BLOOD GAS ARTERIAL Timed 12/27/2024 4:15 PM CDT GLUCOSE METER Timed 12/27/2024 4:11 PM CDT CARDIAC THROMBOELASTOGRAPHY STAT 12/27/2024 3:08 PM CDT GLUCOSE METER Timed 12/27/2024 2:19 PM CDT COMPREHENSIVE BLOOD GAS ARTERIAL Timed 12/27/2024 12:32 PM CDT PROTIME-INR EVAN 12/27/2024 12:28 PM CDT RED CELL MORPHOLOGY EVAN 12/27/2024 12:28 PM CDT PLATELET ESTIMATE EVAN 12/27/2024 12:28 PM CDT MANUAL DIFFERENTIAL EVAN 12/27/2024 12:28 PM CDT CBC WITH AUTO DIFFERENTIAL EVAN 12/27/2024 12:28 PM CDT CBC WITH AUTO DIFFERENTIAL EVAN 12/27/2024 12:28 PM CDT PLATELET COUNT Today 12/27/2024 12:28 PM CDT PHOSPHORUS Timed 12/27/2024 12:28 PM CDT [facility] D[facility] ONLY Timed 12/27/2024 12:28 PM CDT CALCIUM Timed 12/27/2024 12:28 PM CDT MAGNESIUM Timed 12/27/2024 12:28 PM CDT ELECTROLYTE PANEL Timed 12/27/2024 12:28 PM CDT APTT Timed 12/27/2024 12:28 PM CDT COMPREHENSIVE BLOOD GAS ARTERIAL Timed 12/27/2024 10:43 AM CDT COMPREHENSIVE BLOOD GAS ARTERIAL Timed 12/27/2024 10:22 AM CDT GLUCOSE METER Timed 12/27/2024 10:18 AM CDT SCAN-CARDIAC STRIP 12/27/2024 7:02 AM CDT ARTERIAL BLOOD GAS Timed 12/27/2024 4:31 AM CDT PLATELET COUNT Early AM 12/27/2024 4:28 AM CDT APTT Timed 12/27/2024 4:28 AM CDT BASIC METABOLIC PANEL Early AM 12/27/2024 4:28 AM CDT FIBRINOGEN,QUANTITATIVE Early AM 12/28/19 4:28 AM CDT HEMOGLOBIN,PLASMA Early AM 12/27/2024 4:28 AM CDT LD,TOTAL Early AM 12/27/2024 4:28 AM CDT LACTATE ARTERIAL Early AM 12/27/2024 4:28 AM CDT PHOSPHORUS Timed 12/27/2024 4:28 AM CDT [facility] DRAW ONLY Timed 12/27/2024 4:28 AM CDT CALCIUM Timed 12/27/2024 4:28 AM CDT MAGNESIUM Timed 12/27/2024 4:28 AM CDT ELECTROLYTE PANEL Timed 12/27/2024 4:28 AM CDT TRIGLYCERIDES Timed 12/27/2024 4:28 AM CDT GLUCOSE METER Timed 12/27/2024 4:26 AM CDT TRANSFUSE PLT (NURSE COMMUNICATION ORDER) Today 12/27/2024 1:35 AM CDT PLATELET ORDER Today 12/27/2024 1:24 AM CDT PLATELET EA UNIT Today 12/27/2024 12:48 AM CDT APTT Timed 12/27/2024 12:46 AM CDT GLUCOSE METER Timed 12/26/2024 11:33 PM CDT COMPREHENSIVE BLOOD GAS ARTERIAL Timed 12/26/2024 10:24 PM CDT COMPREHENSIVE BLOOD GAS ARTERIAL Timed 12/26/2024 10:20 PM CDT COMPREHENSIVE BLOOD GAS VENOUS Timed 12/26/2024 10:18 PM CDT TRANSFUSE PLT (NURSE COMMUNICATION ORDER) STAT 12/26/2024 9:26 PM CDT PLATELET ORDER Today 12/26/2024 8:55 PM CDT PLATELET EA UNIT Today 12/26/2024 8:53 PM CDT GLUCOSE METER Timed 12/26/2024 8:22 PM CDT PLATELET COUNT Today 12/26/2024 8:19 PM CDT PHOSPHORUS Timed 12/26/2024 8:19 PM CDT [facility] DRAW ONLY Timed 12/26/2024 8:19 PM CDT CALCIUM Timed 12/26/2024 8:19 PM CDT MAGNESIUM Timed 12/26/2024 8:19 PM CDT ELECTROLYTE PANEL Timed 12/26/2024 8:19 PM CDT US VENOUS UPPER EXTREMITY BILATERAL PORTABLE Routine 12/26/2024 7:53 PM CDT SCAN-CARDIAC STRIP 12/26/2024 7:30 PM CDT APTT Timed 12/26/2024 6:16 PM CDT CK TOTAL STAT 12/26/2024 6:16 PM CDT COMPREHENSIVE BLOOD GAS ARTERIAL Timed 12/26/2024 4:17 PM CDT GLUCOSE METER Timed 12/26/2024 4:14 PM CDT HERPES SIMPLEX VIRUS HSV 1 AND 2 BY NAAT (LESIONS) Today 12/26/2024 2:05 PM CDT PLATELET COUNT Timed 12/26/2024 1:21 PM CDT PHOSPHORUS Timed 12/26/2024 1:21 PM CDT [facility] D[facility] Timed 12/26/2024 1:21 PM CDT CALCIUM Timed 12/26/2024 1:21 PM CDT MAGNESIUM Timed 12/26/2024 1:21 PM CDT ELECTROLYTE PANEL Timed 12/26/2024 1:21 PM CDT APTT Timed 12/26/2024 1:21 PM CDT CK TOTAL STAT 12/26/2024 1:21 PM CDT GLUCOSE METER Timed 12/26/2024 1:[address] CHEST ABDOMEN PELVIS WO Routine 12/26/2024 12:[address] HEAD BRAIN WO EVAN 12/26/2024 12:48 PM CDT COMPREHENSIVE BLOOD GAS ARTERIAL Timed 12/26/2024 10:44 AM CDT COMPREHENSIVE BLOOD GAS VENOUS Timed 12/26/2024 10:40 AM CDT COMPREHENSIVE BLOOD GAS ARTERIAL Timed 12/26/2024 10:36 AM CDT COMPREHENSIVE BLOOD GAS ARTERIAL Timed 12/26/2024 7:57 AM CDT GLUCOSE METER Timed 12/26/2024 7:53 AM CDT SCAN-CARDIAC STRIP 12/26/2024 7:03 AM CDT TRANSFUSE PLT (NURSE COMMUNICATION ORDER) EVAN 12/26/2024 5:41 AM CDT XR CHEST 1 VIEW PORTABLE STAT 025 5:29 AM CDT PLATELET ORDER Today 12/26/2024 5:28 AM CDT PLATELET EA UNIT Today 12/26/2024 5:27 AM CDT COMPREHENSIVE BLOOD GAS ARTERIAL Timed 12/26/2024 4:11 AM CDT CWS PATH REVIEW HEMATOLOGY Timed 12/26/2024 4:05 AM CDT CBC W PLT NO DIFF Early AM 12/26/2024 4:05 AM CDT APTT Timed 12/26/2024 4:05 AM CDT CK TOTAL STAT 12/26/2024 4:05 AM CDT BASIC METABOLIC PANEL Early AM 12/26/2024 4:05 AM CDT FIBRINOGEN,QUANTITATIVE Early AM 12/27/19 4:05 AM CDT HEMOGLOBIN,PLASMA Early AM 12/26/2024 4:05 AM CDT LD,TOTAL Early AM 12/26/2024 4:05 AM CDT HEPATIC FUNCTION PANEL Today 4:05 AM CDT LACTATE ARTERIAL Early AM 12/26/2024 4:05 AM CDT PHOSPHORUS Timed 12/26/2024 4:05 AM CDT [facility] Timed 12/26/2024 4:05 AM CDT MAGNESIUM Timed 12/26/2024 4:05 AM CDT GLUCOSE METER Timed 12/26/2024 4:03 AM CDT GLUCOSE METER Timed 12/26/2024 12:07 AM CDT SCAN-RADIOLOGY REPORT 12/26/2024 12:00 AM CDT GLUCOSE METER Timed 12/25/2024 11:44 PM CDT APTT Timed 12/25/2024 11:44 PM CDT CK TOTAL STAT 12/25/2024 11:44 PM CDT COMPREHENSIVE BLOOD GAS ARTERIAL Timed 12/25/2024 10:00 PM CDT ARTERIAL BLOOD GAS STAT 12/25/2024 9:55 PM CDT COMPREHENSIVE BLOOD GAS VENOUS Timed 12/25/2024 9:54 PM CDT GLUCOSE METER Timed 12/25/2024 9:52 PM CDT COMPREHENSIVE BLOOD GAS ARTERIAL Timed 12/25/2024 8:25 PM CDT PHOSPHORUS Timed 12/25/2024 8:21 PM CDT [facility] Timed 12/25/2024 8:21 PM CDT CALCIUM Timed 12/25/2024 8:21 PM CDT MAGNESIUM Timed 12/25/2024 8:21 PM CDT ELECTROLYTE PANEL Timed 12/25/2024 8:21 PM CDT GLUCOSE METER Timed 12/25/2024 8:19 PM CDT SCAN-CARDIAC STRIP 12/25/2024 7:11 PM CDT COMPREHENSIVE BLOOD GAS ARTERIAL Timed 12/25/2024 6:35 PM CDT COMPREHENSIVE BLOOD GAS ARTERIAL Timed 12/25/2024 5:27 PM CDT APTT Timed 12/25/2024 5:26 PM CDT CK TOTAL STAT 12/25/2024 5:26 PM CDT COMPREHENSIVE BLOOD GAS ARTERIAL Timed 12/25/2024 4:34 PM CDT COMPREHENSIVE BLOOD GAS ARTERIAL Timed 12/25/2024 3:49 PM CDT GLUCOSE METER Timed 12/25/2024 3:44 PM CDT COMPREHENSIVE BLOOD GAS ARTERIAL Timed 12/25/2024 1:25 PM CDT GLUCOSE METER Timed 12/25/2024 1:22 PM CDT PHOSPHORUS Timed 12/25/2024 12:55 PM CDT [facility] Timed 12/25/2024 12:55 PM CDT CALCIUM Timed 12/25/2024 12:55 PM CDT MAGNESIUM Timed 12/25/2024 12:55 PM CDT ELECTROLYTE PANEL Timed 12/25/2024 12:55 PM CDT APTT Timed 12/25/2024 12:55 PM CDT CK TOTAL STAT 12/25/2024 12:55 PM CDT GLUCOSE METER Timed 12/25/2024 12:53 PM CDT SCAN-CARDIAC STRIP 12/25/2024 12:30 PM CDT COMPREHENSIVE BLOOD GAS ARTERIAL Timed 12/25/2024 10:34 AM CDT COMPREHENSIVE BLOOD GAS VENOUS Timed 12/25/2024 10:31 AM CDT TRANSFUSE PLT (NURSE COMMUNICATION ORDER) Today 12/25/2024 10:13 AM CDT PLATELET ORDER Today 12/25/2024 9:52 AM CDT PLATELET EA UNIT Today 12/25/2024 9:41 AM CDT COMPREHENSIVE BLOOD GAS ARTERIAL Timed 12/25/2024 9:21 AM CDT GLUCOSE METER Timed 12/25/2024 9:16 AM CDT GLUCOSE METER Timed 12/25/2024 6:45 AM CDT CBC W PLT NO DIFF STAT 12/25/2024 6:36 AM CDT COMPREHENSIVE BLOOD GAS ARTERIAL Timed 12/25/2024 5:58 AM CDT PERIPHERAL BLD MORPHOLOGY Early AM 12/25/2024 5:08 AM CDT TYPE & SCREEN Timed 12/25/2024 5:08 AM CDT APTT Timed 12/25/2024 5:08 AM CDT CK TOTAL STAT 12/25/2024 5:08 AM CDT BASIC METABOLIC PANEL Early AM 12/25/2024 5:08 AM CDT FIBRINOGEN,QUANTITATIVE Early AM 12/26/19 5:08 AM CDT HEMOGLOBIN,PLASMA Early AM 12/25/2024 5:08 AM CDT LD,TOTAL Early AM 12/25/2024 5:08 AM CDT LACTATE ARTERIAL Early AM 12/25/2024 5:08 AM CDT PHOSPHORUS Timed 12/25/2024 5:08 AM CDT [facility] Timed 12/25/2024 5:08 AM CDT CALCIUM Timed 12/25/2024 5:08 AM CDT MAGNESIUM Timed 12/25/2024 5:08 AM CDT ELECTROLYTE PANEL Timed 12/25/2024 5:08 AM CDT TRIGLYCERIDES Timed 12/25/2024 5:08 AM CDT XR CHEST 1 VIEW PORTABLE Routine 025 5:02 AM CDT GLUCOSE METER Timed 12/25/2024 3:31 AM CDT APTT Timed 12/24/2024 11:58 PM CDT CK TOTAL STAT 12/24/2024 11:58 PM CDT GLUCOSE METER Timed 12/24/2024 11:56 PM CDT COMPREHENSIVE BLOOD GAS ARTERIAL Timed 12/24/2024 10:25 PM CDT COMPREHENSIVE BLOOD GAS VENOUS Timed 12/24/2024 10:22 PM CDT COMPREHENSIVE BLOOD GAS ARTERIAL Timed 12/24/2024 10:10 PM CDT SCAN-CARDIAC STRIP 12/24/2024 8:38 PM CDT GLUCOSE METER Timed 12/24/2024 7:34 PM CDT ANTI HIV 1/2 EVAN 12/24/2024 7:32 PM CDT PHOSPHORUS Timed 12/24/2024 7:32 PM CDT [facility] Timed 12/24/2024 7:32 PM CDT CALCIUM Timed 12/24/2024 7:32 PM CDT MAGNESIUM Timed 12/24/2024 7:32 PM CDT ELECTROLYTE PANEL Timed 12/24/2024 7:32 PM CDT GLUCOSE METER Timed 12/24/2024 6:58 PM CDT GLUCOSE METER Timed 12/24/2024 6:40 PM CDT TRANSFUSE PLT (NURSE COMMUNICATION ORDER) Today 12/24/2024 6:18 PM CDT PLATELET ORDER Today 12/24/2024 5:45 PM CDT PLATELET EA UNIT Today 12/24/2024 5:45 PM CDT APTT Timed 12/24/2024 5:01 PM CDT CK TOTAL STAT 12/24/2024 5:01 PM CDT HEMOGLOBIN Timed 12/24/2024 5:01 PM CDT PLATELET COUNT Timed 12/24/2024 5:01 PM CDT COMPREHENSIVE BLOOD GAS ARTERIAL Timed 12/24/2024 3:38 PM CDT GLUCOSE METER Timed 12/24/2024 3:34 PM CDT TRANSFUSE PLT (NURSE COMMUNICATION ORDER) Today 12/24/2024 1:39 PM CDT PLATELET ORDER Today 12/24/2024 1:18 PM CDT BLOOD CULTURE Today 12/24/2024 1:12 PM CDT PLATELET EA UNIT Today 12/24/2024 1:11 PM CDT BLOOD CULTURE Today 12/24/2024 1:03 PM CDT LACTATE ARTERIAL Today 12/24/2024 1:03 PM CDT HEMOGLOBIN Timed 12/24/2024 12:31 PM CDT PLATELET COUNT Timed 12/24/2024 12:31 PM CDT [facility] Timed 12/24/2024 12:15 PM CDT PHOSPHORUS Timed 12/24/2024 12:11 PM CDT CALCIUM Timed 12/24/2024 12:11 PM CDT MAGNESIUM Timed 12/24/2024 12:11 PM CDT ELECTROLYTE PANEL Timed 12/24/2024 12:11 PM CDT APTT Timed 12/24/2024 12:11 PM CDT GLUCOSE METER Timed 12/24/2024 11:29 AM CDT SCAN-CARDIAC STRIP 12/24/2024 10:37 AM CDT COMPREHENSIVE BLOOD GAS ARTERIAL Timed 12/24/2024 10:11 AM CDT GLUCOSE METER Timed 12/24/2024 10:04 AM CDT COMPREHENSIVE BLOOD GAS ARTERIAL Timed 12/24/2024 10:01 AM CDT LACTATE ARTERIAL Today 12/24/2024 10:01 AM CDT [facility] Early AM 12/24/2024 10:01 AM CDT COMPREHENSIVE BLOOD GAS ARTERIAL Timed 12/24/2024 9:22 AM CDT GLUCOSE METER Timed 12/24/2024 7:58 AM CDT XR CHEST 1 VIEW PORTABLE STAT 025 7:43 AM CDT GLUCOSE METER Timed 12/24/2024 7:41 AM CDT HAPTOGLOBIN EVAN 12/24/2024 6:24 AM CDT CK TOTAL STAT 12/24/2024 6:24 AM CDT APTT Timed 12/24/2024 6:24 AM CDT PHOSPHORUS Timed 12/24/2024 6:24 AM CDT [facility] Timed 12/24/2024 6:24 AM CDT CALCIUM Timed 12/24/2024 6:24 AM CDT MAGNESIUM Timed 12/24/2024 6:24 AM CDT ELECTROLYTE PANEL Timed 12/24/2024 6:24 AM CDT COMPREHENSIVE BLOOD GAS ARTERIAL Timed 12/24/2024 5:06 AM CDT RED CELL MORPHOLOGY Timed 12/24/2024 4:06 AM CDT PLATELET ESTIMATE Timed 12/24/2024 4:06 AM CDT MANUAL DIFFERENTIAL Timed 12/24/2024 4:06 AM CDT CBC WITH AUTO DIFFERENTIAL Early AM 12/24/2024 4:06 AM CDT O2 SATURATION,MEASURED Early AM 4:06 AM CDT CK TOTAL STAT 12/24/2024 4:06 AM CDT CBC WITH AUTO DIFFERENTIAL Early AM 12/24/2024 4:06 AM CDT BASIC METABOLIC PANEL Early AM 12/24/2024 4:06 AM CDT FIBRINOGEN,QUANTITATIVE Early AM 12/25/19 4:06 AM CDT HEMOGLOBIN,PLASMA Early AM 12/24/2024 4:06 AM CDT LD,TOTAL Early AM 12/24/2024 4:06 AM CDT LACTATE ARTERIAL Today 12/24/2024 4:06 AM CDT COMPREHENSIVE BLOOD GAS ARTERIAL Timed 12/24/2024 4:03 AM CDT GLUCOSE METER Timed 12/24/2024 4:02 AM CDT XR ABDOMEN 1 VIEW PORTABLE EVAN 12/24/2024 3:46 AM CDT EKG 12 LEAD Routine 12/24/2024 3:32 AM CDT COMPREHENSIVE BLOOD GAS ARTERIAL Timed 12/24/2024 2:10 AM CDT CK TOTAL STAT 12/24/2024 2:07 AM CDT PHOSPHORUS Timed 12/24/2024 2:07 AM CDT [facility] Timed 12/24/2024 2:07 AM CDT CALCIUM Timed 12/24/2024 2:07 AM CDT MAGNESIUM Timed 12/24/2024 2:07 AM CDT ELECTROLYTE PANEL Timed 12/24/2024 2:07 AM CDT COMPREHENSIVE BLOOD GAS ARTERIAL Timed 12/24/2024 12:18 AM CDT CK TOTAL STAT 12/24/2024 12:18 AM CDT APTT Timed 12/24/2024 12:18 AM CDT GLUCOSE METER Timed 12/24/2024 12:17 AM CDT SCAN-CARDIAC STRIP 12/23/2024 11:32 PM CDT COMPREHENSIVE BLOOD GAS ARTERIAL Timed 12/23/2024 10:54 PM CDT COMPREHENSIVE BLOOD GAS VENOUS Timed 12/23/2024 10:52 PM CDT COMPREHENSIVE BLOOD GAS ARTERIAL Timed 12/23/2024 10:19 PM CDT LACTATE ARTERIAL Today 12/23/2024 10:17 PM CDT PHOSPHORUS Timed 12/23/2024 10:17 PM CDT [facility] Timed 12/23/2024 10:17 PM CDT CALCIUM Timed 12/23/2024 10:17 PM CDT MAGNESIUM Timed 12/23/2024 10:17 PM CDT ELECTROLYTE PANEL Timed 12/23/2024 10:17 PM CDT ARTERIAL BLOOD GAS Today 12/23/2024 9:07 PM CDT HEMOGLOBIN Timed 12/23/2024 9:07 PM CDT APTT Timed 12/23/2024 9:07 PM CDT BLOOD GAS, MIXED VENOUS STAT 12/24/19 9:07 PM CDT US ARTERIAL UPPER EXTREMITY BILATERAL PORTABLE STAT 12/23/2024 8:48 PM CDT GLUCOSE METER Timed 12/23/2024 8:19 PM CDT URINALYSIS MICROSCOPIC Timed 7:46 PM CDT UA W/ SEDIMENT EXAM REFLEXED PER CRITERIA Today 12/23/2024 7:46 PM CDT XR CHEST 1 VIEW PORTABLE STAT 025 7:02 PM CDT XR ABDOMEN 1 VIEW PORTABLE STAT 12/23/2024 6:55 PM CDT PROTIME-INR EVAN 12/23/2024 6:11 PM CDT FIBRINOGEN,QUANTITATIVE Today 12/24/19 25 6:11 PM CDT ARTERIAL BLOOD GAS Today 12/23/2024 6:01 PM CDT COMPREHENSIVE BLOOD GAS ARTERIAL Timed 12/23/2024 5:39 PM CDT LACTATE ARTERIAL Today 12/23/2024 5:36 PM CDT CBC W PLT NO DIFF Today 12/23/2024 5:36 PM CDT APTT Today 12/23/2024 5:36 PM CDT PHOSPHORUS Timed 12/23/2024 5:36 PM CDT [facility] D[facility] Timed 12/23/2024 5:36 PM CDT CALCIUM Timed 12/23/2024 5:36 PM CDT MAGNESIUM Timed 12/23/2024 5:36 PM CDT ELECTROLYTE PANEL Timed 12/23/2024 5:36 PM CDT COMPREHENSIVE BLOOD GAS ARTERIAL Timed 12/23/2024 5:32 PM CDT GLUCOSE METER Timed 12/23/2024 5:28 PM CDT BEDSIDE US STUDY ARCHIVE Routine 025 5:25 PM CDT COMPREHENSIVE BLOOD GAS ARTERIAL Timed 12/23/2024 4:18 PM CDT TRANSFUSE PLASMA (NURSE COMMUNICATION ORDER) STAT 12/23/2024 3:56 PM CDT TRANSFUSE RBC (NURSE COMMUNICATION ORDER) STAT 12/23/2024 3:55 PM CDT COMPREHENSIVE BLOOD GAS ARTERIAL Timed 12/23/2024 3:53 PM CDT TRANSFUSE PLASMA (NURSE COMMUNICATION ORDER) STAT 12/23/2024 3:37 PM CDT TRANSFUSE RBC (NURSE COMMUNICATION ORDER) STAT 12/23/2024 3:37 PM CDT COMPREHENSIVE BLOOD GAS ARTERIAL Timed 12/23/2024 3:10 PM CDT CVL CORONARY ANGIOGRAM POSS PCI Routine 12/23/2024 2:55 PM CDT TRANSFUSE PLT (NURSE COMMUNICATION ORDER) STAT 12/23/2024 2:47 PM CDT TRANSFUSE PLT (NURSE COMMUNICATION ORDER) STAT 12/23/2024 2:47 PM CDT TRANSFUSE PLT (NURSE COMMUNICATION ORDER) STAT 12/23/2024 2:47 PM CDT COMPREHENSIVE BLOOD GAS ARTERIAL Timed 12/23/2024 2:43 PM CDT RED BLOOD CELLS EA UNIT [facility] 12/24/19 25 2:12 PM CDT RED BLOOD CELLS EA UNIT [facility] 12/24/19 25 2:12 PM CDT RED BLOOD CELLS EA UNIT [facility] 12/24/19 25 2:12 PM CDT RED BLOOD CELLS EA UNIT [facility] 12/24/19 25 2:12 PM CDT SECTION 12/23/2024 2:10 PM CDT Recent coagulopathy with Elen balloon in place PLATELET EA UNIT STAT 12/23/2024 2:00 PM CDT PLASMA SNGL DON FFPEA UNIT STAT 12/23/2024 1:52 PM CDT PLASMA SNGL DON FFPEA UNIT STAT 12/23/2024 1:52 PM CDT PLASMA SNGL DON FFPEA UNIT STAT 12/23/2024 1:52 PM CDT PLASMA SNGL DON FFPEA UNIT STAT 12/23/2024 1:52 PM CDT PLASMA SNGL DON FFPEA UNIT STAT 12/23/2024 1:52 PM CDT PLATELET ORDER STAT 12/23/2024 1:40 PM CDT PLATELET ORDER STAT 12/23/2024 1:40 PM CDT GLUCOSE METER Timed 12/23/2024 12:25 PM CDT ARTERIAL BLOOD GAS STAT 12/23/2024 12:20 PM CDT LACTATE ARTERIAL STAT 12/23/2024 12:20 PM CDT CBC W PLT NO DIFF STAT 12/23/2024 12:20 PM CDT US RENAL AND BLADDER COMPLETE PORTABLE EVAN 12/23/2024 11:22 AM CDT ECHO TTE COMPLETE W CONTRAST W BUBBLE Routine 12/23/2024 11:19 AM CDT TRANSFUSE PLT (NURSE COMMUNICATION ORDER) STAT 12/23/2024 10:52 AM CDT PLATELET ORDER STAT 12/23/2024 10:47 AM CDT PLATELET EA UNIT STAT 12/23/2024 10:47 AM CDT PLATELET EA UNIT STAT 12/23/2024 10:32 AM CDT O2 SATURATION,MEASURED STAT 10:31 AM CDT EKG 12 LEAD STAT 12/23/2024 8:23 AM CDT HAPTOGLOBIN EVAN 12/23/2024 8:02 AM CDT MAGNESIUM Timed 12/23/2024 8:02 AM CDT PROTIME-INR Timed 12/23/2024 8:02 AM CDT PHOSPHORUS Timed 12/23/2024 8:02 AM CDT MAGNESIUM Timed 12/23/2024 8:02 AM CDT LACTATE ARTERIAL Timed 12/23/2024 8:02 AM CDT HEPATIC FUNCTION PANEL Timed 8:02 AM CDT FIBRINOGEN,QUANTITATIVE Timed 12/24/19 8:02 AM CDT CBC W PLT NO DIFF Timed 12/23/2024 8:02 AM CDT [facility] D[facility] Timed 12/23/2024 8:02 AM CDT BASIC METABOLIC PANEL Timed 12/23/2024 8:02 AM CDT ARTERIAL BLOOD GAS Timed 12/23/2024 8:02 AM CDT APTT Timed 12/23/2024 8:02 AM CDT GLUCOSE METER Timed 12/23/2024 8:01 AM CDT COMPREHENSIVE BLOOD GAS ARTERIAL Timed 12/23/2024 5:58 AM CDT XR ABDOMEN 1 VIEW PORTABLE Routine 12/23/2024 4:54 AM CDT XR CHEST 1 VIEW PORTABLE Routine 025 4:53 AM CDT COMPREHENSIVE BLOOD GAS ARTERIAL Timed 12/23/2024 4:22 AM CDT PRO-BNP EVAN 12/23/2024 4:19 AM CDT CK TOTAL Add On 12/23/2024 4:19 AM CDT TRIGLYCERIDES Add On 12/23/2024 4:19 AM CDT PROTIME-INR Early AM 12/23/2024 4:19 AM CDT PHOSPHORUS Early AM 12/23/2024 4:19 AM CDT MAGNESIUM Early AM 12/23/2024 4:19 AM CDT LACTATE ARTERIAL Early AM 12/23/2024 4:19 AM CDT HEPATIC FUNCTION PANEL Early AM 4:19 AM CDT FIBRINOGEN,QUANTITATIVE Early AM 12/24/19 25 4:19 AM CDT CBC W PLT NO DIFF Early AM 12/23/2024 4:19 AM CDT [facility] D[facility] Early AM 12/23/2024 4:19 AM CDT BASIC METABOLIC PANEL Early AM 12/23/2024 4:19 AM CDT APTT Early AM 12/23/2024 4:19 AM CDT GLUCOSE METER Timed 12/23/2024 4:18 AM CDT HEMOGLOBIN STAT 12/23/2024 2:11 AM CDT GLUCOSE METER Timed 12/23/2024 1:47 AM CDT XR CHEST 1 VIEW PORTABLE STAT 025 12:46 AM CDT COMPREHENSIVE BLOOD GAS ARTERIAL Timed 12/23/2024 12:20 AM CDT GLUCOSE METER Timed 12/23/2024 12:17 AM CDT PHOSPHORUS STAT 12/23/2024 12:12 AM CDT MAGNESIUM STAT 12/23/2024 12:12 AM CDT LACTATE ARTERIAL STAT 12/23/2024 12:12 AM CDT HEPATIC FUNCTION PANEL STAT 12:12 AM CDT CBC W PLT NO DIFF STAT 12/23/2024 12:12 AM CDT [facility] DRAW ONLY STAT 12/23/2024 12:12 AM CDT BASIC METABOLIC PANEL STAT 12/23/2024 12:12 AM CDT APTT STAT 12/23/2024 12:12 AM CDT FIBRINOGEN,QUANTITATIVE STAT 12/24/19 12:12 AM CDT PROTIME-INR STAT 12/23/2024 12:12 AM CDT HCHG KIT PR5 Routine 12/22/2024 11:53 PM CDT [facility] AN INTRODUCER 1 LUMEN PERFORMABLE Routine 12/22/2024 11:53 PM CDT HCHG DRSG PR1 Routine 12/22/2024 11:53 PM CDT HCHG DRSG PR5 Routine 12/22/2024 11:53 PM CDT HCHG TUBING PR5 Routine 12/22/2024 11:53 PM CDT HCHG KIT MONITORING PR5 Routine 12/23/19 11:53 PM CDT [facility] TUBING PR1 Routine 12/22/2024 11:53 PM CDT [facility] ANES US GUIDE FOR VASC ACCESS Routine 12/22/2024 11:53 PM CDT [facility] STOPCOCK PR5 Routine 12/22/2024 11:53 PM CDT [facility] INTRDCR NON GUIDING NON LASER PR40 Routine 12/22/2024 11:53 PM CDT TRANSFUSE PLASMA (NURSE COMMUNICATION ORDER) STAT 12/22/2024 11:53 PM CDT TRANSFUSE RBC (NURSE COMMUNICATION ORDER) STAT 12/22/2024 11:52 PM CDT IR EMBOLIZATION STAT 12/22/2024 11:48 PM CDT COMPREHENSIVE BLOOD GAS ARTERIAL Timed 12/22/2024 11:41 PM CDT PLATELET EA UNIT STAT 12/22/2024 11:39 PM CDT PLATELET EA UNIT STAT 12/22/2024 11:39 PM CDT PLATELET EA UNIT STAT 12/22/2024 11:39 PM CDT CRYOPRECIPITATE ORDER STAT 12/22/2024 11:29 PM CDT CRYOPRECIPITATE EA UNIT STAT 12/23/19 11:27 PM CDT CRYOPRECIPITATE EA UNIT STAT 12/23/19 11:27 PM CDT CRYOPRECIPITATE EA UNIT STAT 12/23/19 11:27 PM CDT CRYOPRECIPITATE EA UNIT STAT 12/23/19 11:27 PM CDT TRANSFUSE RBC (NURSE COMMUNICATION ORDER) STAT 12/22/2024 11:22 PM CDT TRANSFUSE RBC (NURSE COMMUNICATION ORDER) STAT 12/22/2024 11:22 PM CDT NON-CARDIAC THROMBOELASTOGRAPHY STAT 12/22/2024 11:22 PM CDT COMPREHENSIVE BLOOD GAS ARTERIAL Timed 12/22/2024 11:04 PM CDT TRANSFUSE PLT (NURSE COMMUNICATION ORDER) STAT 12/22/2024 10:56 PM CDT PLASMA SNGL DON FFPEA UNIT STAT 12/22/2024 10:56 PM CDT PLASMA SNGL DON FFPEA UNIT STAT 12/22/2024 10:56 PM CDT PLASMA SNGL DON FFPEA UNIT STAT 12/22/2024 10:56 PM CDT PLASMA SNGL DON FFPEA UNIT STAT 12/22/2024 10:56 PM CDT RED BLOOD CELLS EA UNIT [facility] 12/23/19 25 10:55 PM CDT RED BLOOD CELLS EA UNIT [facility] 12/23/19 25 10:55 PM CDT RED BLOOD CELLS EA UNIT [facility] 12/23/19 25 10:55 PM CDT RED BLOOD CELLS EA UNIT [facility] 12/23/19 25 10:55 PM CDT RED BLOOD CELLS EA UNIT [facility] 12/23/19 25 10:55 PM CDT RED BLOOD CELLS EA UNIT [facility] 12/23/19 25 10:55 PM CDT TRANSFUSE PLT (NURSE COMMUNICATION ORDER) STAT 12/22/2024 10:53 PM CDT TRANSFUSE RBC (NURSE COMMUNICATION ORDER) STAT 12/22/2024 10:52 PM CDT LACTATE ARTERIAL STAT 12/22/2024 10:50 PM CDT THROMBIN TIME STAT 12/22/2024 10:50 PM CDT FIBRINOGEN,QUANTITATIVE STAT 12/23/19 10:50 PM CDT APTT STAT 12/22/2024 10:50 PM CDT [facility] DRAW ONLY STAT 12/22/2024 10:50 PM CDT PROTIME-INR STAT 12/22/2024 10:50 PM CDT PLATELET COUNT STAT 12/22/2024 10:50 PM CDT HEMOGLOBIN STAT 12/22/2024 10:50 PM CDT HEMATOCRIT STAT 12/22/2024 10:50 PM CDT MAGNESIUM STAT 12/22/2024 10:50 PM CDT GLUCOSE, RANDOM STAT 12/22/2024 10:50 PM CDT POTASSIUM STAT 12/22/2024 10:50 PM CDT SODIUM STAT 12/22/2024 10:50 PM CDT TRANSFUSE RBC (NURSE COMMUNICATION ORDER) STAT 12/22/2024 10:46 PM CDT TRANSFUSE RBC (NURSE COMMUNICATION ORDER) STAT 12/22/2024 10:46 PM CDT COMPREHENSIVE BLOOD GAS ARTERIAL Timed 12/22/2024 10:42 PM CDT TRANSFUSE RBC (NURSE COMMUNICATION ORDER) STAT 12/22/2024 10:34 PM CDT PLASMA SNGL DON FFPEA UNIT STAT 12/22/2024 10:25 PM CDT PLASMA SNGL DON FFPEA UNIT STAT 12/22/2024 10:25 PM CDT TRANSFUSE CRYOPRECIPITATE (NURSE COMMUNICATION ORDER) Today 12/22/2024 10:20 PM CDT TRANSFUSE CRYOPRECIPITATE (NURSE COMMUNICATION ORDER) Today 12/22/2024 10:19 PM CDT TRANSFUSE CRYOPRECIPITATE (NURSE COMMUNICATION ORDER) Today 12/22/2024 10:19 PM CDT RED BLOOD CELLS EA UNIT [facility] 12/23/19 10:19 PM CDT RED BLOOD CELLS EA UNIT [facility] 12/23/19 10:19 PM CDT RED BLOOD CELLS EA UNIT [facility] 12/23/19 10:19 PM CDT RED BLOOD CELLS EA UNIT [facility] 12/23/19 10:19 PM CDT TRANSFUSE PLASMA (NURSE COMMUNICATION ORDER) STAT 12/22/2024 10:17 PM CDT PLATELET EA UNIT STAT 12/22/2024 10:17 PM CDT PLATELET EA UNIT STAT 12/22/2024 10:17 PM CDT US PELVIS LIMITED PORTABLE STAT 12/22/2024 10:12 PM CDT TRANSFUSE RBC (NURSE COMMUNICATION ORDER) STAT 12/22/2024 10:11 PM CDT TRANSFUSE RBC (NURSE COMMUNICATION ORDER) STAT 12/22/2024 10:11 PM CDT TRANSFUSE PLASMA (NURSE COMMUNICATION ORDER) STAT 12/22/2024 10:02 PM CDT TRANSFUSE RBC (NURSE COMMUNICATION ORDER) STAT 12/22/2024 10:01 PM CDT TRANSFUSE RBC (NURSE COMMUNICATION ORDER) STAT 12/22/2024 10:01 PM CDT TRANSFUSE PLASMA (NURSE COMMUNICATION ORDER) STAT 12/22/2024 10:00 PM CDT CRYOPRECIPITATE EA UNIT STAT 12/23/19 9:58 PM CDT RED BLOOD CELLS EA UNIT [facility] 12/23/19 9:57 PM CDT RED BLOOD CELLS EA UNIT [facility] 12/23/19 9:57 PM CDT CRYOPRECIPITATE ORDER STAT 12/22/2024 9:54 PM CDT CRYOPRECIPITATE EA UNIT STAT 12/23/19 9:51 PM CDT CRYOPRECIPITATE EA UNIT STAT 12/23/19 9:51 PM CDT COMPREHENSIVE BLOOD GAS ARTERIAL Timed 12/22/2024 9:50 PM CDT PROTIME-INR STAT 12/22/2024 9:49 PM CDT FIBRINOGEN,QUANTITATIVE STAT 12/23/19 9:49 PM CDT NON-CARDIAC THROMBOELASTOGRAPHY STAT 12/22/2024 9:49 PM CDT PLATELET COUNT STAT 12/22/2024 9:49 PM CDT PLATELET EA UNIT STAT 12/22/2024 9:44 PM CDT PLASMA SNGL DON FFPEA UNIT STAT 12/22/2024 9:44 PM CDT PLASMA SNGL DON FFPEA UNIT STAT 12/22/2024 9:44 PM CDT PLASMA SNGL DON FFPEA UNIT STAT 12/22/2024 9:44 PM CDT PLASMA SNGL DON [facility]PEA UNIT STAT 12/22/2024 9:44 PM CDT PLASMA SNGL DON [facility]PEA UNIT STAT 12/22/2024 9:44 PM CDT PLASMA SNGL DON FFPEA UNIT STAT 12/22/2024 9:44 PM CDT PLASMA SNGL DON [facility]PEA UNIT STAT 12/22/2024 9:44 PM CDT PLASMA SNGL DON FFPEA UNIT STAT 12/22/2024 9:44 PM CDT TRANSFUSE PLT (NURSE COMMUNICATION ORDER) STAT 12/22/2024 9:41 PM CDT TRANSFUSE CRYOPRECIPITATE (NURSE COMMUNICATION ORDER) Today 12/22/2024 9:33 PM CDT TRANSFUSE CRYOPRECIPITATE (NURSE COMMUNICATION ORDER) Today 12/22/2024 9:33 PM CDT TRANSFUSE RBC (NURSE COMMUNICATION ORDER) STAT 12/22/2024 9:29 PM CDT RED BLOOD CELLS EA UNIT [facility] 12/23/19 9:28 PM CDT RED BLOOD CELLS EA UNIT [facility] 12/23/19 9:28 PM CDT RED BLOOD CELLS EA UNIT [facility] 12/23/19 9:28 PM CDT RED BLOOD CELLS EA UNIT [facility] 12/23/19 9:28 PM CDT CRYOPRECIPITATE EA UNIT STAT 12/23/19 9:15 PM CDT CRYOPRECIPITATE EA UNIT STAT 12/23/19 9:15 PM CDT CRYOPRECIPITATE ORDER STAT 12/22/2024 9:14 PM CDT TRANSFUSE RBC (NURSE COMMUNICATION ORDER) STAT 12/22/2024 9:13 PM CDT PLASMA SNGL DON FFPEA UNIT STAT 12/22/2024 8:47 PM CDT TRANSFUSE PLASMA (NURSE COMMUNICATION ORDER) STAT 12/22/2024 8:44 PM CDT PATH TISSUE EXAM Today 12/22/2024 8:38 PM CDT BLOOD CULTURE STAT 12/22/2024 7:54 PM CDT BLOOD CULTURE STAT 12/22/2024 7:54 PM CDT TRANSFUSE PLASMA (NURSE COMMUNICATION ORDER) STAT 12/22/2024 7:53 PM CDT DILATION AND EVACUATION Class D Urgent: Inpt requiring surgery 12/22/2024 7:51 PM CDT Retained poc PLATELET ORDER Today 12/22/2024 7:50 PM CDT PLASMA ORDER STAT 12/22/2024 7:50 PM CDT RBC W/O TYPE & SCREEN STAT 12/22/2024 7:49 PM CDT GLUCOSE METER Timed 12/22/2024 7:48 PM CDT ARTERIAL BLOOD GAS Today 12/22/2024 7:48 PM CDT PLATELET EA UNIT STAT 12/22/2024 7:45 PM CDT PLASMA SNGL DON FFPEA UNIT STAT 12/22/2024 7:45 PM CDT PLASMA SNGL DON FFPEA UNIT STAT 12/22/2024 7:45 PM CDT URINALYSIS MICROSCOPIC Timed 7:42 PM CDT UA W/ SEDIMENT EXAM REFLEXED PER CRITERIA Today 12/22/2024 7:42 PM CDT BEDSIDE US STUDY ARCHIVE Routine 025 7:33 PM CDT PLASMA ORDER STAT 12/22/2024 7:23 PM CDT TYPE & SCREEN EVAN 12/22/2024 7:17 PM CDT FIBRINOGEN,QUANTITATIVE STAT 12/23/19 7:17 PM CDT APTT Today 12/22/2024 7:17 PM CDT RED BLOOD CELLS EA UNIT [facility] 12/23/19 7:15 PM CDT RED BLOOD CELLS EA UNIT [facility] 12/23/19 25 7:15 PM CDT RED BLOOD CELLS EA UNIT [facility] 12/23/19 7:15 PM CDT RED BLOOD CELLS EA UNIT [facility] 12/23/19 7:15 PM CDT PLASMA SNGL DON FFPEA UNIT STAT 12/22/2024 7:15 PM CDT PLASMA SNGL DON FFPEA UNIT STAT 12/22/2024 7:15 PM CDT XR CHEST 1 VIEW PORTABLE STAT 025 6:36 PM CDT RED CELL MORPHOLOGY STAT 12/22/2024 6:33 PM CDT PLATELET ESTIMATE STAT 12/22/2024 6:33 PM CDT MANUAL DIFFERENTIAL STAT 12/22/2024 6:33 PM CDT CBC WITH AUTO DIFFERENTIAL STAT 12/22/2024 6:33 PM CDT [facility] DRAW ONLY Today 12/22/2024 6:33 PM CDT MAGNESIUM Today 12/22/2024 6:33 PM CDT BLOOD GAS,VENOUS Today 12/22/2024 6:33 PM CDT PROTIME-INR STAT 12/22/2024 6:33 PM CDT HEPATIC FUNCTION PANEL STAT 6:33 PM CDT CBC WITH AUTO DIFFERENTIAL STAT 12/22/2024 6:33 PM CDT BASIC METABOLIC PANEL STAT 12/22/2024 6:33 PM CDT LACTATE VENOUS STAT 12/22/2024 6:33 PM CDT PATH TISSUE EXAM PLACENTA STAT 12/22/2024 4:23 PM CDT RBC W/O TYPE & SCREEN STAT 12/22/2024 3:11 PM CDT SCAN-CARDIAC STRIP 12/22/2024 2:07 PM CDT EKG 12 LEAD STAT 12/22/2024 2:02 PM CDT FIBRINOGEN,QUANTITATIVE STAT 12/23/19 1:48 PM CDT RED CELL MORPHOLOGY STAT 12/22/2024 1:47 PM CDT PLATELET ESTIMATE STAT 12/22/2024 1:47 PM CDT MANUAL DIFFERENTIAL STAT 12/22/2024 1:47 PM CDT CBC WITH AUTO DIFFERENTIAL STAT 12/22/2024 1:47 PM CDT COMP METABOLIC PANEL STAT 12/22/2024 1:47 PM CDT CBC WITH AUTO DIFFERENTIAL STAT 12/22/2024 1:47 PM CDT LACTATE VENOUS STAT 12/22/2024 1:47 PM CDT KLEIHAUER ( CELL) Today 11:19 AM CDT LUPUS ANTICOAGULANT Today 12/22/2024 11:19 AM CDT BETA 2 GLYCOPROTEIN I ILANA Today 12/22/2024 11:19 AM CDT CARDIOLIPIN ANTIBODY Today 12/22/2024 11:19 AM CDT RED BLOOD CELLS EA UNIT STAT 12/23/19 11:05 AM CDT TYPE & SCREEN Today 12/22/2024 11:05 AM CDT US OB LIMITED ANY TRI TA STAT 10:03 AM CDT XR CHEST 1 VIEW PORTABLE STAT 9:48 AM CDT BLOOD CULTURE STAT 12/22/2024 9:43 AM CDT BLOOD CULTURE MULTIPLEX PCR STAT 12/22/2024 9:37 AM CDT RED CELL MORPHOLOGY STAT 12/22/2024 9:37 AM CDT PLATELET ESTIMATE STAT 12/22/2024 9:37 AM CDT MANUAL DIFFERENTIAL STAT 12/22/2024 9:37 AM CDT HEMOGLOBIN A1C EVAN 12/22/2024 9:37 AM CDT FIBRINOGEN,QUANTITATIVE Today 12/23/19 9:37 AM CDT CBC WITH AUTO DIFFERENTIAL STAT 12/22/2024 9:37 AM CDT PROCALCITONIN STAT 12/22/2024 9:37 AM CDT PROTIME-INR STAT 12/22/2024 9:37 AM CDT COMP METABOLIC PANEL STAT 12/22/2024 9:37 AM CDT BLOOD CULTURE STAT 12/22/2024 9:37 AM CDT CBC WITH AUTO DIFFERENTIAL STAT 12/22/2024 9:37 AM CDT LACTATE VENOUS STAT 12/22/2024 9:37 AM CDT UA W/ SEDIMENT EXAM REFLEXED PER CRITERIA STAT 12/22/2024 9:33 AM CDT AMNISURE ROM STAT 12/22/2024 9:27 AM CDT COVID-19 MOLECULAR STAT 12/22/2024 9:17 AM CDT ED FAST ULTRASOUND Routine 12/22/2024 9:11 AM CDT ED FAST ULTRASOUND Routine 12/22/2024 9:08 AM CDT GC CHLAMYDIA TRACH PROBE EVAN 025 10:47 AM CDT URINALYSIS MICROSCOPIC Routine 10:47 AM CDT Cervical insufficiency in in second trimester, antepartum (HC) URINE CULTURE Routine 12/21/2024 10:47 AM CDT Cervical insufficiency in in second trimester, antepartum (HC) URINALYSIS MACROSCOPIC - [facility] ONLY POC DIP ([facility]) Routine 12/21/2024 10:47 AM CDT Cervical insufficiency in in second trimester, antepartum (HC) TRICHOMONAS, CARSON, AND BACTERIAL VAGINOSIS BY SEVERINO Routine 12/21/2024 10:47 AM CDT Cervical insufficiency in in second trimester, antepartum (HC) US ECHOCARDIOGRAM Routine 12/21/19 25 3:11 PM CDT High-risk in first trimester (HC) US OB DETAIL ANATOMY SINGLE Routine 12/20/2024 3:11 PM CDT High-risk in first trimester (HC) RED CELL MORPHOLOGY Routine 12/13/2024 10:00 AM CDT Routine general medical examination at a health care facility PLATELET ESTIMATE Routine 12/13/2024 10:00 AM CDT Routine general medical examination at a health care facility MANUAL DIFFERENTIAL Routine 12/13/2024 10:00 AM CDT Routine general medical examination at a health care facility CBC WITH AUTO DIFFERENTIAL Routine 12/13/2024 10:00 AM CDT Routine general medical examination at a health care facility TRIGLYCERIDES Routine 12/13/2024 10:00 AM CDT Routine general medical examination at a main campus medical center care facility MAGNESIUM Routine 12/13/2024 10:00 AM CDT Routine general medical examination at a health care facility PHOSPHORUS Routine 12/13/2024 10:00 AM CDT Routine general medical examination at a main campus medical center care facility COMP METABOLIC PANEL Routine 12/13/2024 10:00 AM CDT Routine general medical examination at a main campus medical center care facility CBC WITH AUTO DIFFERENTIAL Routine 12/13/2024 10:00 AM CDT Routine general medical examination at a main campus medical center care facility CBC WITH AUTO DIFFERENTIAL Routine 12/05/2024 11:30 AM CDT Hyperemesis affecting , antepartum (HC) TRIGLYCERIDES Routine 12/05/2024 11:30 AM CDT Hyperemesis affecting , antepartum (HC) PHOSPHORUS Routine 12/05/2024 11:30 AM CDT Hyperemesis affecting , antepartum (HC) MAGNESIUM Routine 12/05/2024 11:30 AM CDT Hyperemesis affecting , antepartum (HC) COMP METABOLIC PANEL Routine 12/05/2024 11:30 AM CDT Hyperemesis affecting , antepartum (HC) CBC WITH AUTO DIFFERENTIAL Routine 12/05/2024 11:30 AM CDT Hyperemesis affecting , antepartum (HC) RED CELL MORPHOLOGY Routine 11/28/2024 11:00 AM CDT Hyperemesis affecting , antepartum (HC) PLATELET ESTIMATE Routine 11/28/2024 11:00 AM CDT Hyperemesis affecting , antepartum (HC) MANUAL DIFFERENTIAL Routine 11/28/2024 11:00 AM CDT Hyperemesis affecting , antepartum (HC) CBC WITH AUTO DIFFERENTIAL Routine 11/28/2024 11:00 AM CDT Hyperemesis affecting , antepartum (HC) TRIGLYCERIDES Routine 11/28/2024 11:00 AM CDT Hyperemesis affecting , antepartum (HC) PHOSPHORUS Routine 11/28/2024 11:00 AM CDT Hyperemesis affecting , antepartum (HC) MAGNESIUM Routine 11/28/2024 11:00 AM CDT Hyperemesis affecting , antepartum (HC) COMP METABOLIC PANEL Routine 11/28/2024 11:00 AM CDT Hyperemesis affecting , antepartum (HC) CBC WITH AUTO DIFFERENTIAL Routine 11/28/2024 11:00 AM CDT Hyperemesis affecting , antepartum (HC) CBC WITH AUTO DIFFERENTIAL Routine 11/21/2024 10:55 AM CDT On peripheral parenteral nutrition TSH Routine 11/21/2024 10:55 AM CDT On peripheral parenteral nutrition T4,FREE Routine 11/21/2024 10:55 AM CDT On peripheral parenteral nutrition T3,FREE Routine 11/21/2024 10:55 AM CDT On peripheral parenteral nutrition TRIGLYCERIDES Routine 11/21/2024 10:55 AM CDT On peripheral parenteral nutrition PHOSPHORUS Routine 11/21/2024 10:55 AM CDT On peripheral parenteral nutrition MAGNESIUM Routine 11/21/2024 10:55 AM CDT On peripheral parenteral nutrition COMP METABOLIC PANEL Routine 11/21/2024 10:55 AM CDT On peripheral parenteral nutrition CBC WITH AUTO DIFFERENTIAL Routine 11/21/2024 10:55 AM CDT On peripheral parenteral nutrition CBC WITH AUTO DIFFERENTIAL Routine 11/14/2024 12:00 PM CDT Hyperemesis affecting , antepartum (HC) TRIGLYCERIDES Routine 11/14/2024 12:00 PM CDT Hyperemesis affecting , antepartum (HC) PHOSPHORUS Routine 11/14/2024 12:00 PM CDT Hyperemesis affecting , antepartum (HC) MAGNESIUM Routine 11/14/2024 12:00 PM CDT Hyperemesis affecting , antepartum (HC) COMP METABOLIC PANEL Routine 11/14/2024 12:00 PM CDT Hyperemesis affecting , antepartum (HC) CBC WITH AUTO DIFFERENTIAL Routine 11/14/2024 12:00 PM CDT Hyperemesis affecting , antepartum (HC) CA READING EKG - NO CHARGE, COMP ONLY Routine 11/09/2024 4:23 PM CDT Nausea and vomiting in (HC) EKG 12 LEAD Routine 11/09/2024 4:23 PM CDT Nausea and vomiting in (HC) DNA SCREEN SEND OUT Routine 11/09/2024 12:00 AM CDT Supervision of high risk in first trimester (HC) T3,FREE Routine 11/07/2024 12:03 PM CDT Hyperthyroidism THYROTROPIN RECEPTOR AB BLOOD Routine 11/07/2024 12:03 PM CDT Hyperthyroidism THYROPEROXIDASE ANTIBODY Routine 025 12:03 PM CDT Hyperthyroidism THYROID STIM IMMUNOGLOBULIN Routine 11/07/2024 12:03 PM CDT Hyperthyroidism CBC WITH AUTO DIFFERENTIAL Routine 11/07/2024 10:10 AM CDT Hyperemesis affecting , antepartum (HC) TRIGLYCERIDES Routine 11/07/2024 10:10 AM CDT Hyperemesis affecting , antepartum (HC) PHOSPHORUS Routine 11/07/2024 10:10 AM CDT Hyperemesis affecting , antepartum (HC) MAGNESIUM Routine 11/07/2024 10:10 AM CDT Hyperemesis affecting , antepartum (HC) COMP METABOLIC PANEL Routine 11/07/2024 10:10 AM CDT Hyperemesis affecting , antepartum (HC) CBC WITH AUTO DIFFERENTIAL Routine 11/07/2024 10:10 AM CDT Hyperemesis affecting , antepartum (HC) T3,TOTAL EVAN 10/31/2024 12:30 PM CDT Hyperemesis affecting , antepartum (HC) Supervision of high risk in first trimester (HC) T4,FREE EVAN 10/31/2024 12:30 PM CDT Hyperemesis affecting , antepartum (HC) Supervision of high risk in first trimester (HC) TSH EVAN 10/31/2024 12:30 PM CDT Hyperemesis affecting , antepartum (HC) Supervision of high risk in first trimester (HC) CBC WITH AUTO DIFFERENTIAL Routine 10/31/2024 12:30 PM CDT Hyperemesis affecting , antepartum (HC) TRIGLYCERIDES Routine 10/31/2024 12:30 PM CDT Hyperemesis affecting , antepartum (HC) PHOSPHORUS Routine 10/31/2024 12:30 PM CDT Hyperemesis affecting , antepartum (HC) MAGNESIUM Routine 10/31/2024 12:30 PM CDT Hyperemesis affecting , antepartum (HC) COMP METABOLIC PANEL Routine 10/31/2024 12:30 PM CDT Hyperemesis affecting , antepartum (HC) CBC WITH AUTO DIFFERENTIAL Routine 10/31/2024 12:30 PM CDT Hyperemesis affecting , antepartum (HC) ANTI HCV Routine 09/28/2024 1:22 PM CDT Encounter for supervision of other normal in first trimester (HC) LOAN INSPECTOR THIN PREP PAP SCREEN IMAGED Routine 11/07/2016 11:06 AM CDT Routine follow-up (HC) from Last 3 Months or Most Recently Relevant to Health Maintenance Results * (ABNORMAL) CBC WITH AUTO DIFFERENTIAL (01/23/2025 1:55 PM CDT) Only the most recent of15 resultswithin the time period is included. WHITE BLOOD CELL COUNT 6.3 3.8 - 10.8 Thousand/ uL 01/24/2025 3:22 AM CDT [facility] RED BLOOD CELL COUNT 3.52(L) 3.80 - 5.10 Million/u L 01/24/2025 3:22 AM CDT [facility] HEMOGLOBIN 10.2(L) 11.7 - 15.5 g/dL 01/24/2025 3:22 AM CDT [facility] HEMATOCRIT 31.2(L) 35.0 - 45.0 % 01/24/2025 3:22 AM CDT [facility] MCV 88.6 80.0 - 100.0 fL 01/24/2025 3:22 AM CDT [facility] MCH 29.0 27.0 - 33.0 pg 01/24/2025 3:22 AM CDT [facility] MCHC 32.7 32.0 - 36.0 g/dL 01/24/2025 3:22 AM CDT [facility] Comment: For adults, a slight decrease in the calculated MCHC value (in the range of 30 to 32 g/dL) is most likely not clinically significant; however, it should be interpreted with caution in correlation with other red cell parameters and the patient's clinical condition. RDW 16.5(H) 11.0 - 15.0 % 01/24/2025 3:22 AM CDT [facility] PLATELET COUNT 349 140 - 400 Thousand/ uL 01/24/2025 3:22 AM CDT [facility] MPV 10.4 7.5 - 12.5 fL 01/24/2025 3:22 AM CDT [facility] NEUTROPHILS 66.7 % 01/24/2025 3:22 AM CDT [facility] LYMPHOCYTES 20.0 % 01/24/2025 3:22 AM CDT [facility] MONOCYTES 11.0 % 01/24/2025 3:22 AM CDT [facility] EOSINOPHILS 1.7 % 01/24/2025 3:22 AM CDT [facility] BASOPHILS 0.6 % 01/24/2025 3:22 AM CDT [facility] ABSOLUTE NEUTROPHILS 4202 1500 - 7800 cells/uL 01/24/2025 3:22 AM CDT [facility] ABSOLUTE LYMPHOCYTES 1260 850 - 3900 cells/uL 01/24/2025 3:22 AM CDT [facility] ABSOLUTE MONOCYTES 693 200 - 950 cells/uL 01/24/2025 3:22 AM CDT [facility] ABSOLUTE EOSINOPHILS 107 15 - 500 cells/uL 01/24/2025 3:22 AM CDT [facility] ABSOLUTE BASOPHILS 38 0 - 200 cells/uL 01/24/2025 3:22 AM CDT [facility] Blood BLOOD SPECIMEN / Unknown [facility] / Unknown 01/23/2025 1:55 PM CDT 01/23/2025 1:55 PM CDT us Yen Mckinney MD HEMATOLOGY Fi nal Result [facility] [address] [place] [address], * (ABNORMAL) TSH WITH REFLEX (01/23/2025 1:55 PM CDT) [facility] TSH W/REFLEX TO FT4 0.14(L) mIU/L 01/24/2025 7:25 AM CDT [facility] Comment: Reference Range > or = 20 Years 0.40-4.50 Ranges First trimester 0.26-2.66 Second trimester 0.55-2.73 Third trimester 0.43-2.91 Blood BLOOD SPECIMEN / Unknown [facility] / Unknown 01/23/2025 1:55 PM CDT 01/23/2025 1:55 PM CDT Yen Mckinney MD CHEMISTRY Fi nal Result Performing Organization Address [facility] [address]/[facility] Co de Phone Number [facility] [address] [address], [place] [phone] * T4,FREE (01/23/2025 1:55 PM CDT) Only the most recent of3 resultswithin the time period is included. [facility] T4, FREE 1.1 0.8 - 1.8 ng/dL 01/24/2025 7:25 AM CDT [facility] Blood BLOOD SPECIMEN / Unknown [facility] / Unknown 01/23/2025 1:55 PM CDT 01/23/2025 1:55 PM CDT Yen Mckinney MD CHEMISTRY Fi nal Result Performing Organization Address [facility] [address]/[facility] Co de Phone Number [facility] [address] [address], [place] [phone] * (ABNORMAL) RENAL FUNCTION PANEL (01/23/2025 1:55 PM CDT) Only the most recent of10 resultswithin the time period is included. [facility] SODIUM 137 135 - 146 mmol/L 01/24/2025 4:16 AM CDT [facility] POTASSIUM 3.2(L) 3.5 - 5.3 mmol/L 01/24/2025 4:16 AM CDT [facility] CHLORIDE 99 98 - 110 mmol/L 01/24/2025 4:16 AM CDT [facility] CARBON DIOXIDE 31 20 - 32 mmol/L 01/24/2025 4:16 AM CDT [facility] GLUCOSE 108(H) 65 - 99 mg/dL 01/24/2025 4:16 AM CDT [facility] Comment: Fasting reference interval For someone without known diabetes, a glucose value between 100 and 125 mg/dL is consistent with prediabetes and should be confirmed with a follow-up test. CALCIUM 9.4 8.6 - 10.2 mg/dL 01/24/2025 4:16 AM CDT [facility] UREA NITROGEN (BUN) 11 7 - 25 mg/dL 01/24/2025 4:16 AM CDT [facility] CREATININE 1.76(H) 0.50 - 0.97 mg/dL 01/24/2025 4:16 AM CDT [facility] BUN/CREATININE RATIO 6 6 - 22 (calc) 01/24/2025 4:16 AM CDT [facility] EGFR 39(L) > OR = 60 mL/min/1.7 3m2 01/24/2025 4:16 AM CDT [facility] PHOSPHATE ( PHOSPHORUS) 3.5 2.5 - 4.5 mg/dL 01/24/2025 4:16 AM CDT [facility] ALBUMIN 4.0 3.6 - 5.1 g/dL 01/24/2025 4:16 AM CDT [facility] Blood BLOOD SPECIMEN / Unknown [facility] / Unknown 01/23/2025 1:55 PM CDT 01/23/2025 1:55 PM CDT Yen Mckinney MD CHEMISTRY Fi nal Result [facility] [address], * PHOSPHORUS (01/17/2025 9:04 AM CDT) Only the most recent of34 resultswithin the time period is included. Pathologist [facility] PHOSPHORUS 3.6 2.5 - 4.5 mg/dL 01/17/2025 9:38 AM CDT [facility] Blood BLOOD SPECIMEN / Unknown Venipuncture / Unknown 01/17/2025 9:04 AM CDT 01/17/2025 9:12 AM CDT us Oswald Ladd MD CHEMISTRY Final Resu lt [facility] [address] [place] [address], [place] * (ABNORMAL) BASIC METABOLIC PANEL (01/17/2025 9:04 AM CDT) Only the most recent of18 resultswithin the time period is included. SODIUM 141 136 - 145 mmol/L 01/17/2025 9:38 AM CDT [facility] POTASSIUM 3.9 3.5 - 5.1 mmol/L 01/17/2025 9:38 AM CDT [facility] CHLORIDE 104 98 - 107 mmol/L 01/17/2025 9:38 AM CDT [facility] CO2,TOTAL 25 22 - 29 mmol/L 01/17/2025 9:38 AM CDT [facility] ANION GAP 12 5 - 18 01/17/2025 9:38 AM CDT [facility] GLUCOSE 99 70 - 99 mg/dL 01/17/2025 9:38 AM T [facility] CALCIUM 8.9 8.8 - 10.4 mg/dL 01/17/2025 9:38 AM T [facility] Comment: Reference ranges for this test were updated on 02/16/2024 to reflect our healthy population more accurately. Reference range changes are not retroactively applied to results, but previous results using the same methodology can be interpreted in the context of the new reference range. BUN 14 6 - 20 mg/dL 01/17/2025 9:38 AM CDT [facility] CREATININE 2.83(H) 0.50 - 0.90 mg/dL 01/17/2025 9:38 AM T [facility] BUN/CREAT RATIO 5(L) 10 - 9:38 AM CDT [facility] eGFR 22(L) >90 mL/min/1. 73m2 01/17/2025 9:38 AM CDT [facility] Comment:As of 2021, eG FR is calculated by the CKD-EPI creatinine equation without race adjustment. eGFR can be influenced by muscle mass, exercise, and diet. The reported eGFR is an estimation only and is only applicable if the renal function is stable. Blood BLOOD SPECIMEN / Unknown Venipuncture / Unknown 01/17/2025 9:04 AM CDT 01/17/2025 9:12 AM CDT Oswald Ladd MD CHEMISTRY Final Resu lt [facility] [address] [place] [address], [place] * IR REMOVE VENOUS PORT/CATH (01/16/2025 2:02 PM CDT) Anatomical Region Laterality Modality X-Ray Angiograph y Narrative 01/16/2025 2:04 PM CDT Procedure: Tunneled central line removal Indication: No longer needed Interventionalist: India Rodríguez DO Fluoroscopy: none Contrast: none Estimated Blood Loss: <10 mL Medications: none. Sedation: none. Complications: None immediate. Technique: The securing stitch of the catheter was cut. The patient's indwelling tunneled central venous catheter was removed with gentle tension. No dissection was necessary. Hemostasis was obtained with manual pressure. A sterile dressing was applied. The patient tolerated the procedure well. Impression: Uneventful removal of tunneled central line us Oswald Ladd MD IR Final Resu lt * (ABNORMAL) CREATININE CLEARANCE URINE (01/15/2025 4:32 PM CDT) TOTAL VOLUME 1,000 mL 01/15/2025 6:40 PM CDT [facility] COLLECTION HRS 24 hr 01/15/2025 6:40 PM CDT [facility] WEIGHT,POUNDS 139.0 lb 01/15/2025 6:40 PM CDT [facility] HEIGHT,INCHES 64.0 in 01/15/2025 6:40 PM CDT [facility] SURFACE AREA 1.68 01/15/2025 6:40 PM CDT [facility] CREATININE RAW URINE 59 mg/dL 01/15/2025 6:40 PM CDT [facility] UNCORRECTED CREAT CLR 13 mL/min 01/15/2025 6:40 PM CDT [facility] CREATININE CLEARANCE 13(L) 66 - 165 ml/min/1.7 3m2 01/15/2025 6:40 PM CDT [facility] Urine URINE SPECIMEN / Unknown Non-Blood / Unknown 01/15/2025 4:32 PM CDT 01/15/2025 5:47 PM CDT Oswald Ladd MD URINE Final Resu lt [facility] [address] [place] [address], * (ABNORMAL) UREA NITROGEN,TIMED UR (01/15/2025 4:32 PM CDT) UREA NITROGEN,RAW UR 121.0 mg/dL 01/15/2025 6:40 PM CDT [facility] TOTAL VOLUME 1,000 mL 01/15/2025 6:40 PM CDT [facility] Comment:ml COLLECTION HRS 24 hr 01/15/2025 6:40 PM CDT [facility] Comment:started 01/14 (1629) ended 01/15 (1629) UREA NITRO,TIMED UR 1.2(L) 12.0 - 20.0 g/24hr 01/15/2025 6:40 PM CDT [facility] Urine URINE SPECIMEN / Unknown Non-Blood / Unknown 01/15/2025 4:32 PM CDT 01/15/2025 5:47 PM CDT Oswald Ladd MD URINE Final Resu lt Performing Organization Address [facility] [address] [facility] Co de Phone Number [facility] [address] [place] [address], * (ABNORMAL) CREATININE CLEARANCE SERUM (01/15/2025 8:35 AM CDT) eGFR 19(L) >90 mL/min/1.7 3m2 01/15/2025 6:17 PM CDT [facility] Comment: As of 2021, eGFR is calculated by the CKD-EPI creatinine equation without race adjustment. eGFR can be influenced by muscle mass, exercise, and diet. The reported eGFR is an estimation only and is only applicable if the renal function is stable. As of 06/25/2021, eGFR is calculated by the CKD-EPI creatinine equation without race adjustment. eGFR can be influenced by muscle mass, exercise, and diet. The reported eGFR is an estimation only and is only applicable if the renal function is stable. CREATININE 3.22(H) 0.50 - 0.90 mg/dL 01/15/2025 6:17 PM CDT [facility] Blood BLOOD SPECIMEN / Unknown Butterfly / Unknown 01/15/2025 8:35 AM CDT 01/15/2025 8:48 AM CDT Oswald Ladd MD CHEMISTRY Final Resu lt Performing Organization Address City/[facility] [address]/[facility] Co de Phone Number [facility] [address] [place] [address], * (ABNORMAL) Hemoglobin AM (01/15/2025 8:35 AM CDT) Only the most recent of9 resultswithin the time period is included. HEMOGLOBIN 9.0(L) 12.0 - 16.0 g/dL 01/15/2025 9:11 AM CDT [facility] MCV 88 80 - 100 fL 01/15/2025 9:11 AM CDT [facility] Blood BLOOD SPECIMEN / Unknown Butterfly / Unknown 01/15/2025 8:35 AM CDT 01/15/2025 8:48 AM CDT us Zac Hsu MD HEMATOLOGY Final Res ult [facility] [address] [place] [address], [place] * (ABNORMAL) CBC W PLT NO DIFF (01/13/2025 4:26 AM CDT) Only the most recent of17 resultswithin the time period is included. WHITE BLOOD COUNT 5.6 4.5 - 11.0 thou/cu mm 01/13/2025 6:05 AM CDT [facility] RED BLOOD COUNT 2.99(L) 4.00 - 5.20 mil/cu mm 01/13/2025 6:05 AM CDT [facility] HEMOGLOBIN 8.6(L) 12.0 - 16.0 g/dL 01/13/2025 6:05 AM CDT [facility] HEMATOCRIT 25.8(L) 33.0 - 51.0 % 01/13/2025 6:05 AM CDT [facility] MCV 86 80 - 100 fL 01/13/2025 6:05 AM CDT [facility] MCH 28.8 26.0 - 34.0 pg 01/13/2025 6:05 AM CDT [facility] MCHC 33.3 32.0 - 36.0 g/dL 01/13/2025 6:05 AM T [facility] RDW 16.0(H) 11.5 - 15.5 % 01/13/2025 6:05 AM CDT [facility] PLATELET COUNT 281 140 - 440 thou/cu mm 01/13/2025 6:05 AM CDT [facility] MPV 10.3 6.5 - 11.0 fL 01/13/2025 6:05 AM CDT [facility] NRBC 0.0 % 01/13/2025 6:05 AM CDT [facility] ABS NRBC 0.0 thou /cu mm 01/13/2025 6:05 AM CDT [facility] Blood BLOOD SPECIMEN / Unknown Butterfly / Unknown 01/13/2025 4:26 AM CDT 01/13/2025 5:51 AM CDT Dominik Coyle DO HEMATOLOGY Final Res ult Performing Organization Address City/[facility] [address]/ZIP Co de Phone Number [facility] [address] [place] [address], * (ABNORMAL) Reticulocyte count AM (01/13/2025 4:26 AM CDT) Only the most recent of2 resultswithin the time period is included. RETIC% 1.7(H) 0.5 - 1.5 % 01/13/2025 6:05 AM CDT [facility] RETIC (ABSOLUTE) 0.05 0.03 - 0.08 mil/cu mm 01/13/2025 6:05 AM CDT [facility] Blood BLOOD SPECIMEN / Unknown Butterfly / Unknown 01/13/2025 4:26 AM CDT 01/13/2025 5:51 AM CDT Zac Hsu MD HEMATOLOGY Final Res ult Performing Organization Address City/[facility] [address]/ZIP Co de Phone Number [facility] [address] [place] [address], * TRANSFUSE RBC (NURSE COMMUNICATION ORDER) (01/12/2025 2:15 PM CDT) Blood BLOOD SPECIMEN / Unknown Dominik Coyle NURSING BLOOD BANK Final Result * RBC W/O TYPE & SCREEN (01/12/2025 10:59 AM CDT) Only the most recent of6 resultswithin the time period is included. QUANTITY 1 01/12/2025 10:59 AM CDT [facility] Blood BLOOD SPECIMEN / Unknown 01/12/2025 10:57 AM CDT Oswald Ladd MD BLOOD BANK Final Resu lt Performing Organization Address [facility] [address]/ZIP Co de Phone Number [facility] [address] [place] [address], * RED BLOOD CELLS EA UNIT (01/12/2025 10:57 AM CDT) Only the most recent of31 resultswithin the time period is included. Pathologist [facility] CROSSMATCH Compatible Compatible [facility] PRODUCT BLOOD TYPE O Rh Positive [facility] PRODUCT ID NUMBER [id number] [facility] B[facility] PRODUCT STATUS /Relea sed [facility] PRODUCT DESCRIPTION RBC -1 LR [facility] PRODUCT CODE [id number] [facility] Oswald Ladd MD BLOOD BANK Edited Res ult - Final Performing Organization Address [facility] [address]/ZIP Co de Phone Number [facility] [address] [place] [address], * TYPE & SCREEN (01/12/2025 8:25 AM CDT) Only the most recent of7 resultswithin the time period is included. Pathologist [facility] ABORH O Rh Positive 01/12/2025 9:13 AM CDT [facility] ANTIBODY SCREEN Negative Negative 01/12/2025 9:13 AM CDT [facility] SPECIMEN EXPIRATION DATE/TIME 01/15/25 23:59 01/12/2025 9:13 AM CDT [facility] Blood BLOOD SPECIMEN / Unknown Butterfly / Unknown 01/12/2025 8:25 AM CDT 01/12/2025 8:32 AM CDT Dominik Coyle DO BLOOD BANK Final Res ult [facility] [address] [place] [address], [place] [phone] * (ABNORMAL) Iron plus iron binding cap AM (01/12/2025 8:25 AM CDT) IRON 49 37 - 145 ug/dL 01/12/2025 9:16 AM CDT [facility] UIBC (UNSATURATED) 172 112 - 347 ug/dL 01/12/2025 9:16 AM CDT [facility] IRON BINDING CAPACITY 221(L) 250 - 400 ug/dL 01/12/2025 9:16 AM CDT [facility] IRON,% SATURATION 22 14 - 50 % 01/12/2025 9:16 AM CDT [facility] Blood BLOOD SPECIMEN / Unknown Butterfly / Unknown 01/12/2025 8:25 AM CDT 01/12/2025 8:32 AM CDT Zac Hsu MD CHEMISTRY Final Res ult Performing Organization Address City/[facility] [address]/ZIP Co de Phone Number [facility] [address] [place] [address], [place] * (ABNORMAL) Vitamin B12 level AM (01/12/2025 8:25 AM CDT) Only the most recent of2 resultswithin the time period is included. VITAMIN B12 1,365(H) 232 - 1,245 pg/mL 01/12/2025 9:44 AM CDT [facility] Blood BLOOD SPECIMEN / Unknown Butterfly / Unknown 01/12/2025 8:25 AM CDT 01/12/2025 8:32 AM CDT Narrative [facility] - 01/12/2025 9:44 AM CDT Biotin supplements may cause clinically significant interference for this test assay. If interference is suspected, it is strongly recommended that biotin is discontinued for at least one week prior to retesting. Zac Hsu MD CHEMISTRY Final Res ult Performing Organization Address [facility] [address]/[facility] Co de Phone Number [facility] [address] [address], [place] * CWS PATH REVIEW HEMATOLOGY (01/12/2025 7:17 AM CDT) Only the most recent of4 resultswithin the time period is included. [facility] PATH COMMENT Comment 01/13/2025 10:23 AM CDT [facility] TRAL [facility]OR[facility] Comment:Reviewed by GL 2024 Blood BLOOD SPECIMEN / Unknown Venipuncture / Unknown 01/12/2025 7:17 AM CDT 01/12/2025 7:24 AM CDT Oswald Ladd MD LABORATORY Final Resu lt Performing Organization Address [facility] [address]/[facility] Co de Phone Number [facility] [address] [address], [place] * EXTRA TUBE LIGHT GREEN (01/12/2025 7:17 AM CDT) Only the most recent of2 resultswithin the time period is included. Blood BLOOD SPECIMEN / Unknown Venipuncture / Unknown 01/12/2025 7:17 AM CDT 01/12/2025 7:24 AM CDT Oswald Ladd MD LABORATORY Final Resu lt Performing Organization Address [facility] [address]/[facility] Co de Phone Number [facility] [address] [address], [place] * EKG 12 LEAD (01/11/2025 1:00 AM CDT) Only the most recent of5 resultswithin the time period is included. Interpretation Normal sinus rhythm Normal ECG When compared with ECG of 24-Dec-2024 03:32, Vent. rate has decreased by 57 bpm BEYOND NOW Ventricular Rate 75 BPM BEYOND NOW Atrial Rate 75 BPM BEYOND NOW P-R Interval 134 ms BEYOND NOW QRS Duration 74 ms BEYOND NOW QT 420 ms BEYOND NOW QTc 469 ms BEYOND NOW P Weston 27 degrees BEYOND NOW R Weston 55 degrees BEYOND NOW T Weston 76 degrees BEYOND NOW 01/11/2025 1:00 AM CDT 01/11/2025 5:16 PM CDT Dominik oCyle DO EKG ORD Final Res ult Performing Organization Address [facility] [address]/[facility] de Phone Number BEYOND NOW [place], [place] * (ABNORMAL) APTT (01/10/2025 4:20 AM CDT) Only the most recent of47 resultswithin the time period is included. APTT 42(H) 25 - 36 sec 01/10/2025 4:55 AM CDT [facility] Blood BLOOD SPECIMEN / Unknown Venipuncture / Unknown 01/10/2025 4:20 AM CDT 01/10/2025 4:34 AM CDT Narrative [facility] - 01/10/2025 4:55 AM CDT Therapeutic Range: 59-89 seconds Kelley Alvarado NP HEMATOLOGY Final Result Performing Organization Address [facility] de Phone Number [facility] [address] [place] [address], [place] * (ABNORMAL) SODIUM (01/08/2025 10:37 AM CDT) Only the most recent of2 resultswithin the time period is included. SODIUM 134(L) 136 - 145 mmol/L 01/08/2025 11:18 AM CDT [facility] Blood BLOOD SPECIMEN / Unknown Venipuncture / Unknown 01/08/2025 10:37 AM CDT 01/08/2025 10:43 AM CDT David Guthrie MD CHEMISTRY Final Resul t Performing Organization Address [facility] [address]/[facility] de Phone Number [facility] [address] [place], [place] [id number], [place] * POTASSIUM (01/08/2025 10:37 AM CDT) Only the most recent of2 resultswithin the time period is included. Pathologist [facility] POTASSIUM 3.5 3.5 - 5.1 mmol/L 01/08/2025 11:18 AM CDT [facility] Blood BLOOD SPECIMEN / Unknown Venipuncture / Unknown 01/08/2025 10:37 AM CDT 01/08/2025 10:43 AM CDT David Guthrie MD CHEMISTRY Final Resul t Performing Organization Address [facility] [address]/[facility] Co de Phone Number [facility] [address] [place] [address], [place] * (ABNORMAL) CREATININE (01/08/2025 10:37 AM CDT) Pathologist [facility] eGFR 15(L) >90 mL/min/1.7 3m2 01/08/2025 11:18 AM CDT [facility] Comment:As of 2021, eG FR is calculated by the CKD-EPI creatinine equation without race adjustment. eGFR can be influenced by muscle mass, exercise, and diet. The reported eGFR is an estimation only and is only applicable if the renal function is stable. CREATININE 3.82(H) 0.50 - 0.90 mg/dL 01/08/2025 11:18 AM CDT [facility] Blood BLOOD SPECIMEN / Unknown Venipuncture / Unknown 01/08/2025 10:37 AM CDT 01/08/2025 10:43 AM CDT David Guthrie MD CHEMISTRY Final Resul t Performing Organization Address City/[facility] [address]/ZIP Co de Phone Number [facility] [address] [address], [place] * (ABNORMAL) PROCALCITONIN (01/07/2025 4:06 PM CDT) Only the most recent of2 resultswithin the time period is included. Pathologist [facility] PROCALCITONIN 1.97(H) ng/ml 01/07/2025 4:51 PM CDT [facility] TRAL LABORATORY Blood BLOOD SPECIMEN / Unknown Venipuncture / Unknown 01/07/2025 4:06 PM CDT 01/07/2025 4:17 PM CDT [facility]ORAT[facility]-CENTRAL LABORATORY - 01/07/2025 4:51 PM CDT Procalcitonin for initial assessment of Lower Respiratory Tract Infection: Results Interpretation <0.10 ng/mL Antibiotic therapy strongly discoraged. Indicates absent of bacterial infection. * 0.10 - 0.25 ng/mL Antibiotic therapy discouraged. Bacterial infection unlikely. * 0.26 - 0.50 ng/mL Antibiotic therapy encouraged. Bacterial infection possible. >0.50 ng/mL Antibiotic therapy strongly encouraged. Suggestive of presence of bacterial infection. *Antibiotic therapy should be considered regardless of PCT result if the patient is clinically unstable, is at high risk for adverse outcome, has strong evidence of bacterial pathogen, or the clinical context indicates antibiotic therapy is warranted. If antibiotics are withheld, reassess if symptoms persist/worsen and/or repeat PCT measurement within 6-24 hours. In order to assess treatment success and to support a decision to discontinue antibiotic therapy, follow up samples should be tested once every 1-2 days, based upon physician discretion taking into account patient's evolution and progress. Procalcitonin for initial assessment of severe sepsis risk: Results Interpretation <0.5 ng/ml A PCT level below 0.5 ng/ml on the first day of ICU admission is associated with a low risk for progression to severe sepsis and/or septic shock. > 2.0 ng/mL A PCT level above 2.0 ng/mL on the first day of ICU admission is associated with a high risk for progression to severe sepsis and/or septic shock. Note: Concentrations < 0.5 ng/mL do not exclude an infection, on account of localized infections (without systemic signs) which can be associated with such low concentrations, or a systemic infection in its initial stages(< 6 hours). Furthermore, increased procalcitonin can occur without infection. PCT concentrations between 0.5 and 2.0 ng/mL should be interpreted taking into account the patient's history. It is recommended to retest PCT within 6-24 hours if any concentrations < 2 ng/mL are obtained. us Ayaz Mccartney MD SEND OUTS Final Result Performing Organization Address [facility] [address]/ZIP Co de Phone Number [facility] [address] [place] [address], [place] * WBC TODAY (01/07/2025 4:06 PM CDT) Only the most recent of3 resultswithin the time period is included. WHITE BLOOD COUNT 7.0 4.5 - 11.0 thou/cu mm 01/07/2025 4:23 PM CDT [facility] NRBC 0.0 % 01/07/2025 4:23 PM CDT [facility] ABS NRBC 0.0 thou /cu mm 01/07/2025 4:23 PM CDT [facility] Blood BLOOD SPECIMEN / Unknown Venipuncture / Unknown 01/07/2025 4:06 PM CDT 01/07/2025 4:17 PM CDT Ayaz Mccartney MD HEMATOLOGY Final Result Performing Organization Address [facility] [address]/[facility] Co de Phone Number [facility] [address] [place] [address], [place] * IR CENTRAL VENOUS ACCESS/PORT (01/05/2025 3:40 PM CDT) Anatomical Region Laterality Modality X-Ray Angiograph y Impressions 01/05/2025 3:48 PM CDT Successful right internal jugular vein approach tunneled hemodialysis catheter placement under sonographic and fluoroscopic guidance. 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 Supervision of moderate sedation was performed by the IR attending. An IR staff sedation RN administered conscious sedation throughout this procedure, with continuous monitoring of the patient's cardiopulmonary status. Total time for sedation was 43 minutes. MEDICATIONS: midazolam 2 mg IV, fentanyl 25 mcg IV, 1% lidocaine 10 mL SQ ACCESS: right internal jugular vein REMOVED (NOT SENT): none SAMPLE: none IMPLANTED DEVICE(S): 23 cm tip-to-cuff 16.5 Fr Equistream ESTIMATED BLOOD LOSS: <10 mL CONTRAST: none COMPLICATIONS: none FLUOROSCOPY TIME: 0.66 minutes RADIATION DOSE: 2 mGy CONSENT: The risks, benefits, and alternatives of the planned procedure were explained in detail to the patient and/or patient's family/DPOA. Questions were answered, and a written informed consent was obtained. TIME OUT: A verification process was completed by the entire team to confirm the patient, procedure, site, allergies, etc. STERILE PREPARATION: All elements of maximal sterile barrier technique were followed, including use of cap, mask, gown, gloves, drapes, chlorhexidine 2%/isopropyl alcohol/povidone-iodine, and hand hygiene. TECHNIQUE/FINDINGS: The patient was placed supine on the fluoroscopy table. The existing right non-tunneled catheter was removed and manual compression held to hemostasis. The right neck and chest was prepped and draped in the usual sterile fashion. A focused ultrasound of theright neck was performed. The right internal jugular vein was patent and compressible. Soft tissues were anesthetized with 1% lidocaine. Under ultrasound guidance, the right internal jugular vein was accessed using a micropuncture kit. An ultrasound picture was saved to PACS. A guidewire was placed into right heart and the venotomy was serially dilated followed by placement of a peel-away sheath. A 23 cm tip-to-cuff dialysis catheter was tunneled through the subcutaneous tissues of the chest and inserted through the peel away sheath. Fluoroscopy demonstrated the tip in the high right atrium and no catheter kinking. Fluoroscopic image was saved to PACS. The catheter aspirated and flushed normally. Catheter was flushed with saline and sutured into place. The ports were locked with ACD. The venotomy site was closed with absorbable suture and liquid skin adhesive. Ultrasound and fluoroscopy was used intermittently throughout the case. The patient tolerated to procedure well. us Gisselle Stephens MD IR Final Resu lt * PLATELET COUNT (01/05/2025 6:32 AM CDT) Only the most recent of11 resultswithin the time period is included. PLATELET COUNT 351 140 - 440 thou/cu mm 01/05/2025 7:05 AM CDT [facility] MPV 9.7 6.5 - 11.0 fL 01/05/2025 7:05 AM CDT [facility] Blood BLOOD SPECIMEN / Unknown Venipuncture / Unknown 01/05/2025 6:32 AM CDT 01/05/2025 6:55 AM CDT Narrative [facility] - 01/05/2025 7:05 AM CDT While on argatroban Q72H while on argatroban us Zac Hsu MD HEMATOLOGY Final Res ult [facility] [address] [place] [address], [place] * (ABNORMAL) TRIGLYCERIDES (01/04/2025 5:53 AM CDT) Only the most recent of14 resultswithin the time period is included. Pathologist [facility] TRIGLYCERIDES 241(H) <150 mg/dL 01/04/2025 6:30 AM CDT [facility] PROVIDER ORDERED STATUS RANDOM 01/04/2025 6:30 AM CDT [facility] Blood BLOOD SPECIMEN / Unknown Venipuncture / Unknown 01/04/2025 5:53 AM CDT 01/04/2025 5:59 AM CDT us Catherine Sales MD CHEMISTRY Final Resu lt [facility] [address] [place] [address], [place] * GLUCOSE METER (01/04/2025 2:49 AM CDT) Only the most recent of81 resultswithin the time period is included. GLUCOSE METER 92 65 - 100 mg/dL 01/04/2025 2:55 AM CDT [facility] Blood BLOOD SPECIMEN / Unknown 01/04/2025 2:49 AM CDT 01/04/2025 2:55 AM CDT us Zac Hsu MD CHEMISTRY Final Res ult [facility] [address] [place] [address], [place] * SCAN-CARDIAC STRIP (01/03/2025 9:01 PM CDT) us Scanner OTHER Final Result * TRANSFUSE RBC (NURSE COMMUNICATION ORDER) (01/03/2025 3:46 PM CDT) Blood BLOOD SPECIMEN / Unknown us Zac Hsu MD NURSING BLOOD BANK Final Result * SCAN-CARDIAC STRIP (01/03/2025 3:30 PM CDT) us Scanner OTHER Final Result * PROTIME-INR (01/03/2025 11:55 AM CDT) Only the most recent of12 resultswithin the time period is included. INR 0.9 <1.3 01/03/2025 12:49 PM CDT [facility] PROTIME 10.7 10.6 - 12.4 sec 01/03/2025 12:49 PM CDT [facility] Blood BLOOD SPECIMEN / Unknown Non-Lab Venipuncture / Unknown 01/03/2025 11:55 AM CDT 01/03/2025 12:14 PM CDT Narrative [facility] - 01/03/2025 12:49 PM CDT Therapeutic Range 2.0-3.0 for most anticoagulated patients 2.5-3.5 or 4.0 for high risk patients The INR is only used for patients on stable oral anticoagulant therapy. It makes no significant contribution to the diagnosis or treatment of patients whose Protime is prolonged for other reasons. INR results are increased when heparin levels exceed 1.0 U/mL, which corresponds to an aPTT >125 seconds if the patient is on UFH. us Zac Hsu MD HEMATOLOGY Final Res ult [facility] [address] [place] [address], * (ABNORMAL) COMP METABOLIC PANEL (01/03/2025 10:27 AM CDT) Only the most recent of10 resultswithin the time period is included. SODIUM 137 136 - 145 mmol/L 01/03/2025 11:42 AM CDT [facility] POTASSIUM 3.8 3.5 - 5.1 mmol/L 01/03/2025 11:42 AM CDT [facility] CHLORIDE 101 98 - 107 mmol/L 01/03/2025 11:42 AM CDT [facility] CO2,TOTAL 29 22 - 29 mmol/L 01/03/2025 11:42 AM T [facility] ANION GAP 7 5 - 18 01/03/2025 11:42 AM CDT [facility] GLUCOSE 114(H) 70 - 99 mg/dL 01/03/2025 11:42 AM T [facility] CALCIUM 8.5(L) 8.8 - 10.4 mg/dL 01/03/2025 11:42 AM T [facility] Comment: Reference ranges for this test were updated on 02/16/2024 to reflect our healthy population more accurately. Reference range changes are not retroactively applied to results, but previous results using the same methodology can be interpreted in the context of the new reference range. BUN 29(H) 6 - 20 mg/dL 01/03/2025 11:42 AM CDT [facility] CREATININE 2.39(H) 0.50 - 0.90 mg/dL 01/03/2025 11:42 AM T [facility] BUN/CREAT RATIO 12 10 - 20 11:42 AM T [facility] eGFR 27(L) >90 mL/min/1. 73m2 01/03/2025 11:42 AM T [facility] Comment:As of 2021, eG FR is calculated by the CKD-EPI creatinine equation without race adjustment. eGFR can be influenced by muscle mass, exercise, and diet. The reported eGFR is an estimation only and is only applicable if the renal function is stable. ALBUMIN 2.5(L) 4.0 - 4.9 g/dL 01/03/2025 11:42 AM CDT [facility] PROTEIN,TOTAL 5.5(L) 6.0 - 8.0 g/dL 01/03/2025 11:42 AM CDT [facility] BILIRUBIN,TOTAL 0.5 0.0 - 1.2 mg/dL 01/03/2025 11:42 AM CDT [facility] ALK PHOSPHATASE 183(H) 35 - 104 IU/L 01/03/2025 11:42 AM CDT [facility] ALT (SGPT) 27 10 - 35 IU/L 01/03/2025 11:42 AM CDT [facility] AST (SGOT) 44(H) 10 - 35 IU/L 01/03/2025 11:42 AM T [facility] Blood BLOOD SPECIMEN / Unknown Non-Lab Venipuncture / Unknown 01/03/2025 10:27 AM CDT 01/03/2025 10:52 AM CDT us Shelbi Fernandez DO CHEMISTRY Fi nal Result [facility] [address] [place] [address], * (ABNORMAL) HEMATOCRIT (01/03/2025 5:41 AM CDT) Only the most recent of2 resultswithin the time period is included. HEMATOCRIT 21.7(L) 33.0 - 51.0 % 01/03/2025 11:30 AM CDT [facility] Blood BLOOD SPECIMEN / Unknown Non-Lab Venipuncture / Unknown 01/03/2025 5:41 AM CDT 01/03/2025 6:04 AM CDT us Zac Hsu MD HEMATOLOGY Final Res ult Performing Organization Address [facility] [address]/ZIP Co de Phone Number [facility] [address] [place] [address], [place] * SCAN-CARDIAC STRIP (01/03/2025 1:08 AM CDT) us Scanner OTHER Final Result * SCAN-CARDIAC STRIP (01/02/2025 4:07 PM CDT) us Scanner OTHER Final Result * VANCOMYCIN (01/02/2025 5:26 AM CDT) Only the most recent of2 resultswithin the time period is included. VANCOMYCIN 17.0 ug/mL 01/02/2025 8:02 AM CDT [facility] Comment:No Reference Range D efined. DATE OF LAST DOSE,RANDOM Not Given 01/02/2025 8:02 AM CDT [facility] TIME OF LAST DOSE,RANDOM Not Given 01/02/2025 8:02 AM CDT [facility] Blood BLOOD SPECIMEN / Unknown Line/Port / Unknown 01/02/2025 5:26 AM CDT 01/02/2025 5:42 AM CDT us Zac Hsu MD CHEMISTRY Final Res ult Performing Organization Address [facility] [address]/ZIP Co de Phone Number [facility] [address] [place] [id number], [place] * SCAN-CARDIAC STRIP (01/01/2025 7:30 PM CDT) us Scanner OTHER Final Result * US VENOUS LOWER EXTREMITY RIGHT PORTABLE (01/01/2025 1:04 PM CDT) Anatomical Region Laterality Modality LEGS, LEG R Ultrasound 01/01/2025 4:29 PM CDT Impressions 01/01/2025 4:29 PM CDT No deep venous thrombosis in the evaluated veins of the right lower extremity, within the limits of the exam. Dictated by Santosh Sharma MD @ 01/01/2025 4:29:00 PM (Electronically Signed) Narrative 01/01/2025 4:29 PM CDT For Patients: As a result of the Cures Act, medical imaging exams and procedure reports are released immediately into your electronic medical record. You may view this report before your referring provider. If you have questions, please contact your health care provider. INDICATION: Swelling. TECHNIQUE: Ultrasound venous duplex lower right extremity. Compression venous exam was performed using lu-scale, color Doppler, and spectral Doppler analysis. COMPARISON: None. FINDINGS: Deep veins: Sonographic imaging demonstrates the right deep femoral, superficial femoral, popliteal, posterior tibial, and peroneal and veins to be fully compressible with normal color Doppler blood flow. The bilateral common femoral veins were not visualized due to overlying bandage material. Superficial veins: Greater saphenous vein is fully compressible. No popliteal cyst. Procedure Note Santosh Sharma MD - 01/01/2025 For Patients: As a result of the Cures Act, medical imagingexams and procedure reports are released immediately into your electronicmedical record. You may view this report before your referring provider.If you have questions, please contact your health care provider. INDICATION: Swelling. TECHNIQUE: Ultrasound venous duplex lower right extremity. Compression venous examwas performed using lu-scale, color Doppler, and spectral Doppleranalysis. COMPARISON: None. FINDINGS: Deep veins: Sonographic imaging demonstrates the right deep femoral,superficial femoral, popliteal, posterior tibial, and peroneal and veinsto be fully compressible with normal color Doppler blood flow. Thebilateral common femoral veins were not visualized due to overlyingbandage material. Superficial veins: Greater saphenous vein is fully compressible. No popliteal cyst. IMPRESSION: No deep venous thrombosis in the evaluated veins of the right lowerextremity, within the limits of the exam. Dictated by Santosh Sharma MD @ 01/01/2025 4:29:00 PM (Electronically Signed) Catherine Sales MD US Final Resu lt * SCAN-CARDIAC STRIP (01/01/2025 7:27 AM CDT) Scanner OTHER Final Result * (ABNORMAL) CALCIUM IONIZED HOSPITAL DRAW ONLY (01/01/2025 4:34 AM CDT) Only the most recent of32 resultswithin the time period is included. CALCIUM,IONIZE D 1.13(L) 1.15 - 1.27 mmol/L 01/01/2025 4:52 AM CDT [facility]ORATORY Blood BLOOD SPECIMEN / Unknown Non-Lab Venipuncture / Unknown 01/01/2025 4:34 AM CDT 01/01/2025 4:49 AM CDT Catherine Sales MD CHEMISTRY Final Resu lt [facility] [address] [address], [place] * XR CHEST 1 VIEW PORTABLE (12/31/2024 4:28 PM CDT) Only the most recent of12 resultswithin the time period is included. Anatomical Region Laterality Modality HEART, THORAX, CHEST Digital Rad iography Narrative 12/31/2024 4:31 PM CDT Indication: Chest tube placement. Comparison: Chest x-ray dated 30 December 2024. Findings: A single portable chest x-ray shows right and left IJ central venous catheters. Enteric tube. Normal cardiac silhouette. The lungs show mild diffuse interstitial prominence. No pneumothorax. Impression: Mild diffuse interstitial prominence. No pneumothorax. Catherine Sales MD GENERAL IMAGING Final Resu lt * (ABNORMAL) COMPREHENSIVE BLOOD GAS VENOUS (12/31/2024 4:02 PM CDT) Only the most recent of12 resultswithin the time period is included. PH, VENOUS 7.48(H) 7.32 - 7.43 12/31/2024 4:02 PM CDT [facility] PCO2, VENOUS 32(L) 41 - 51 mmHg 12/31/2024 4:02 PM CDT [facility] PO2, VENOUS 44(H) 35 - 40 mmHg 12/31/2024 4:02 PM CDT [facility] HCO3,VENOUS 24 22 - 29 mmol/L 12/31/2024 4:02 PM CDT [facility] O2 SATURATION, VENOUS 81(H) 70 - 75 % 12/31/2024 4:02 PM CDT [facility] PATIENT TEMPERATURE 37.0 Degrees C 12/31/2024 4:02 PM CDT [facility] COLLECTION SITE OTHER 4:02 PM CDT [facility] HEMOGLOBIN,BLOO D GAS 8.0(L) 12.0 - 16.0 g/dL 12/31/2024 4:02 PM CDT [facility] Blood BLOOD SPECIMEN / Unknown 12/31/2024 4:02 PM CDT 12/31/2024 4:03 PM CDT us Catherine Sales MD CHEMISTRY Final Resu lt [facility] [address] [place] [address], [place] * CT CHEST ABDOMEN PELVIS WO (12/31/2024 1:57 PM CDT) Only the most recent of2 resultswithin the time period is included. Anatomical Region Laterality Modality Abdomen, Pelvis, AORTA, LIVER, SPLEEN, CHEST Computed Tomography 01/01/2025 3:53 AM CDT Impressions 01/01/2025 3:53 AM CDT 1. Significantly improved aeration of the bilateral lungs with residual mild background mosaic ground-glass opacities, which may represent pulmonary edema or infectious/inflammatory process. 2. Small bilateral pleural effusions with complete collapse of the left lower lobe. 3. Nonspecific haziness with thickening of the left adrenal gland, unchanged. 4. Decreased retroperitoneal fluid/hemorrhage. 5. Mildly decreased size of the uterus. 6. No focal fluid collection as questioned, however evaluation is limited on this noncontrast examination. Please note that all CT scans at this facility use dose modulation, iterative reconstruction, and/or weight-based dosing when appropriate to reduce radiation dose to as low as reasonably achievable. Dictated by Ayaz Fontana MD @ 01/01/2025 3:53:41 AM (Electronically Signed) Narrative 01/01/2025 3:53 AM CDT For Patients: As a result of the Cures Act, medical imaging exams and procedure reports are released immediately into your electronic medical record. You may view this report before your referring provider. If you have questions, please contact your health care provider. INDICATION: Sepsis. TECHNIQUE: CT chest, abdomen, and pelvis without contrast. COMPARISON: CT chest, abdomen, and pelvis 12/26/2024. FINDINGS: CHEST: Lungs and pleura: Significantly improved aeration of the bilateral lungs with residual mild background mosaic ground-glass opacities. Small bilateral pleural effusions with complete collapse of the left lower lobe. No pneumothorax. Cardiovascular structures: Heart size is normal. Thoracic aorta and main pulmonary artery are normal in caliber. Left internal jugular central venous catheter terminates in the SVC. Mediastinum and silvino: No mass or adenopathy. Chest wall and axilla: No mass or adenopathy. Bones: Unremarkable for age. ABDOMEN AND PELVIS: Liver: Unremarkable. Gallbladder and bile ducts: Unremarkable. Spleen: Unremarkable. Adrenal glands: Haziness with thickening of the left adrenal gland, unchanged. Pancreas: Unremarkable. Kidneys: Unremarkable. GI tract: Feeding tube terminates in the proximal jejunum. No evidence of obstruction. Normal appendix. Lymph nodes: Unremarkable. Vascular structures: Abdominal aorta is normal in caliber. Miscellaneous: Small amount of free fluid in the pelvis. Decreased retroperitoneal fluid/hemorrhage. No focal fluid collection. No free air. Bilateral hip/thigh subcutaneous edema. Pelvic organs: Mildly decreased size of the uterus. Bones: Unremarkable for age. Procedure Note Ayaz Fontana MD - 01/01/2025 For Patients: As a result of the 21st Century Cures Act, medical imagingexams and procedure reports are released immediately into your electronicmedical record. You may view this report before your referring provider.If you have questions, please contact your health care provider. INDICATION: Sepsis. TECHNIQUE: CT chest, abdomen, and pelvis without contrast. COMPARISON: CT chest, abdomen, and pelvis 12/26/2024. FINDINGS: CHEST: Lungs and pleura: Significantly improved aeration of the bilateral lungswith residual mild background mosaic ground-glass opacities. Smallbilateral pleural effusions with complete collapse of the left lower lobe.No pneumothorax. Cardiovascular structures: Heart size is normal. Thoracic aorta and mainpulmonary artery are normal in caliber. Left internal jugular centralvenous catheter terminates in the SVC. Mediastinum and silvino: No mass or adenopathy. Chest wall and axilla: No mass or adenopathy. Bones: Unremarkable for age. ABDOMEN AND PELVIS: Liver: Unremarkable. Gallbladder and bile ducts: Unremarkable. Spleen: Unremarkable. Adrenal glands: Haziness with thickening of the left adrenal gland,unchanged. Pancreas: Unremarkable. Kidneys: Unremarkable. GI tract: Feeding tube terminates in the proximal jejunum. No evidence ofobstruction. Normal appendix. Lymph nodes: Unremarkable. Vascular structures: Abdominal aorta is normal in caliber. Miscellaneous: Small amount of free fluid in the pelvis. Decreasedretroperitoneal fluid/hemorrhage. No focal fluid collection. No free air.Bilateral hip/thigh subcutaneous edema. Pelvic organs: Mildly decreased size of the uterus. Bones: Unremarkable for age. IMPRESSION: 1. Significantly improved aeration of the bilateral lungs with residualmild background mosaic ground-glass opacities, which may representpulmonary edema or infectious/inflammatory process. 2. Small bilateral pleural effusions with complete collapse of the leftlower lobe. 3. Nonspecific haziness with thickening of the left adrenal gland,unchanged. 4. Decreased retroperitoneal fluid/hemorrhage. 5. Mildly decreased size of the uterus. 6. No focal fluid collection as questioned, however evaluation is limitedon this noncontrast examination. Please note that all CT scans at this facility use dose modulation,iterative reconstruction, and/or weight-based dosing when appropriate toreduce radiation dose to as low as reasonably achievable. Dictated by Ayaz Fontana MD @ 01/01/2025 3:53:41 AM (Electronically Signed) us Catherine Sales MD CT Final Resu lt * BLOOD CULTURE (12/31/2024 11:33 AM CDT) Only the most recent of8 resultswithin the time period is included. [facility] CULTURE No Growth. 01/05/2025 3:29 PM CDT [facility] Blood BLOOD SPECIMEN / Unknown Non-Lab Venipuncture / Unknown 12/31/2024 11:33 AM CDT 12/31/2024 11:33 AM CDT us Heraclio Casas MD MICROBIOLOGY Final R esult Performing Organization Address City/[facility] [address]/ZIP Co de Phone Number [facility] [address] [address], [place] * SCAN-CARDIAC STRIP (12/31/2024 9:43 AM CDT) Scanner OTHER Final Result * LACTATE ARTERIAL (12/31/2024 4:39 AM CDT) Only the most recent of17 resultswithin the time period is included. [facility] LACTATE,ARTERI AL 0.8 0.5 - 1.6 mmol/L 12/31/2024 5:21 AM CDT [facility] Blood BLOOD SPECIMEN / Unknown Arterial / Unknown 12/31/2024 4:39 AM CDT 12/31/2024 4:54 AM CDT Chidi Zhu MD CHEMISTRY Final Result Performing Organization Address City/[facility] [address]/ZIP Co de Phone Number [facility] [address] [place] [address], [place] * (ABNORMAL) PLATELET ESTIMATE (12/31/2024 4:39 AM CDT) Only the most recent of13 resultswithin the time period is included. [facility] PLATELET ESTIMATE Decreased (A) Adequate, No estimate 12/31/2024 5:52 AM CDT [facility] Blood BLOOD SPECIMEN / Unknown Arterial / Unknown 12/31/2024 4:39 AM CDT 12/31/2024 4:54 AM CDT us Catherine Sales MD HEMATOLOGY Final Resu lt [facility] [address] [place] [address], [place] * HBSAG (HBS) (12/31/2024 4:39 AM CDT) HBSAG Nonreactive Nonreactive 12/31/2024 8:39 PM CDT [facility] Blood BLOOD SPECIMEN / Unknown Arterial / Unknown 12/31/2024 4:39 AM CDT 12/31/2024 4:54 AM CDT us Santosh Dejesus MD SEND OUTS Final Result Performing Organization Address [facility] [address]/[facility] Co de Phone Number [facility] [address] [place] [address], [place] * ARTERIAL BLOOD GAS (12/31/2024 4:39 AM CDT) Only the most recent of9 resultswithin the time period is included. PH, ARTERIAL 7.43 7.35 - 7.45 12/31/2024 4:59 AM CDT [facility] PCO2, ARTERIAL 36 32 - 45 mmHg 01/01/20 4:59 AM CDT [facility] PO2, ARTERIAL 103 83 - 108 mmHg 12/31/2024 4:59 AM CDT [facility] HCO3, ARTERIAL 24 21 - 28 mmol/L 12/31/2024 4:59 AM CDT [facility] BASE EXCESS, ARTERIAL 0.1 -2.0 - 3.0 12/31/2024 4:59 AM CDT [facility] O2 SATURATION, ARTERIAL 98 94 - 98 % 12/31/2024 4:59 AM CDT [facility] INSPIRED O2 12/31/2024 4:59 AM CDT [facility] Comment:Unit of Measure: Lit ers (L) if <=20; Percent (%) if >20 PATIENT TEMPERATURE 37.8 Degrees C 12/31/2024 4:59 AM CDT [facility] Blood ARTERIAL BLOOD SPECIMEN / Unknown Arterial / Unknown 12/31/2024 4:39 AM CDT 12/31/2024 4:54 AM CDT us Wolf De [facility] CHEMISTRY Final R esult [facility] [address] [place] [address], * Fibrinogen Quantitative ECMO (12/31/2024 4:39 AM CDT) Only the most recent of18 resultswithin the time period is included. FIBRINOGEN,ESTELLA NTITATIVE 400 193 - 401 mg/dL 12/31/2024 5:13 AM CDT [facility] Blood BLOOD SPECIMEN / Unknown Arterial / Unknown 12/31/2024 4:39 AM CDT 12/31/2024 4:54 AM CDT us Chidi Zhu MD HEMATOLOGY Final Result Performing Organization Address [facility] [address]/[facility] Co de Phone Number [facility] [address] [place] [address], * (ABNORMAL) HEPATIC FUNCTION PANEL (12/31/2024 4:39 AM CDT) Only the most recent of8 resultswithin the time period is included. ALBUMIN 2.6(L) 4.0 - 4.9 g/dL 12/31/2024 5:29 AM CDT [facility] PROTEIN,TOTAL 5.2(L) 6.0 - 8.0 g/dL 12/31/2024 5:29 AM CDT [facility] BILIRUBIN,TOTAL 0.9 0.0 - 1.2 mg/dL 12/31/2024 5:29 AM CDT [facility] BILIRUBIN,DIRECT 0.5(H) 0.0 - 0.2 mg/dL 12/31/2024 5:29 AM CDT [facility] BILIRUBIN,INDIRE CT 0.4 0.2 - 0.8 mg/dL 12/31/2024 5:29 AM CDT [facility] ALK PHOSPHATASE 237(H) 35 - 104 IU/L 12/31/2024 5:29 AM CDT [facility] ALT (SGPT) 43(H) 10 - 35 IU/L 12/31/2024 5:29 AM CDT [facility] AST (SGOT) 52(H) 10 - 35 IU/L 12/31/2024 5:29 AM CDT [facility] Blood BLOOD SPECIMEN / Unknown Arterial / Unknown 12/31/2024 4:39 AM CDT 12/31/2024 4:54 AM CDT us Catherine Sales MD CHEMISTRY Final Resu lt [facility] [address] [place] [address], [place] * TRANSFUSE RBC (NURSE COMMUNICATION ORDER) (12/31/2024 12:39 AM CDT) Blood BLOOD SPECIMEN / Unknown us Jossue Gerard CRNA NURSING BLOOD BANK Final Result * SCAN-CARDIAC STRIP (12/30/2024 9:27 PM CDT) us Scanner OTHER Final Result * (ABNORMAL) RED CELL MORPHOLOGY (12/30/2024 5:37 PM CDT) Only the most recent of10 resultswithin the time period is included. POLYCHROMASIA Slight 12/30/2024 6:38 PM CDT [facility] SCHISTOCYTES Few 12/30/2024 6:38 PM CDT [facility] RBC COMMENT Present(A) RBC morphology appears normal, RBC morphology within normal limits for newborns. 12/30/2024 6:38 PM CDT [facility] WBC DOHLE BODIES Present 12/31/19 6:38 PM CDT [facility] Blood BLOOD SPECIMEN / Unknown Non-Lab Venipuncture / Unknown 12/30/2024 5:37 PM CDT 12/30/2024 5:45 PM CDT us Wolf Bipierre De [facility] HEMATOLOGY Final R esult [facility] [address] [place] [address], * (ABNORMAL) MANUAL DIFFERENTIAL (12/30/2024 5:37 PM CDT) Only the most recent of10 resultswithin the time period is included. % NEUTROPHILS 85.3 % 12/30/2024 6:38 PM CDT [facility] % LYMPHOCYTES 7.8 % 12/30/2024 6:38 PM CDT [facility] % MONOCYTES 1.7 % 12/30/2024 6:38 PM CDT [facility] % EOSINOPHILS 0.9 % 12/30/2024 6:38 PM CDT [facility] % BASOPHILS 0.0 % 12/30/2024 6:38 PM CDT [facility] % METAMYELOCYTES 3.4(H) <0.1 % 12/31/19 6:38 PM CDT [facility] % MYELOCYTES 0.9(H) <0.1 % 12/30/2024 6:38 PM CDT [facility] NEUTROPHILS ABSOLUTE 35.4(H) 1.7 - 7.0 thou/cu mm 12/30/2024 6:38 PM CDT [facility] LYMPHOCYTES ABSOLUTE 3.2(H) 0.9 - 2.9 thou/cu mm 12/30/2024 6:38 PM CDT [facility] MONOCYTES ABSOLUTE 0.7 <0.9 thou/cu mm 12/30/2024 6:38 PM CDT [facility] EOSINOPHILS ABSOLUTE 0.4 <0.5 thou/cu mm 12/30/2024 6:38 PM CDT [facility] BASOPHILS ABSOLUTE 0.0 <0.3 thou/cu mm 12/30/2024 6:38 PM CDT [facility] ABSOLUTE METAMYELOCYTES 1.4(H) <=0.0 thou/cu mm 12/30/2024 6:38 PM CDT [facility] ABSOLUTE MYELOCYTES 0.4(H) <=0.0 thou/cu mm 12/30/2024 6:38 PM CDT [facility] Blood BLOOD SPECIMEN / Unknown Non-Lab Venipuncture / Unknown 12/30/2024 5:37 PM CDT 12/30/2024 5:45 PM CDT us Wolf De [facility] HEMATOLOGY Final R esult Performing Organization Address City/[facility] [address]/[facility] Co de Phone Number [facility] [address] [place] [address], [place] * Magnesium CRRT (12/30/2024 12:47 PM CDT) Only the most recent of36 resultswithin the time period is included. MAGNESIUM 2.3 1.6 - 2.6 mg/dL 12/30/2024 1:22 PM CDT [facility] Blood BLOOD SPECIMEN / Unknown Non-Lab Venipuncture / Unknown 12/30/2024 12:47 PM CDT 12/30/2024 12:57 PM CDT us Oswald Ladd MD CHEMISTRY Final Resu lt Performing Organization Address City/[facility] [address]/ZIP Co de Phone Number [facility] [address] [place] [address], [place] * (ABNORMAL) Calcium CRRT (12/30/2024 12:47 PM CDT) Only the most recent of22 resultswithin the time period is included. CALCIUM 7.9(L) 8.8 - 10.4 mg/dL 12/30/2024 1:22 PM CDT [facility] Comment: Reference ranges for this test were updated on 02/16/2024 to reflect our healthy population more accurately. Reference range changes are not retroactively applied to results, but previous results using the same methodology can be interpreted in the context of the new reference range. Blood BLOOD SPECIMEN / Unknown Non-Lab Venipuncture / Unknown 12/30/2024 12:47 PM CDT 12/30/2024 12:57 PM CDT Oswald Ladd MD CHEMISTRY Final Resu lt Performing Organization Address [facility] [address]/ZIP Co de Phone Number [facility] [address] [place] [address], * Electrolyte Panel CRRT (12/30/2024 12:47 PM CDT) Only the most recent of22 resultswithin the time period is included. SODIUM 137 136 - 145 mmol/L 12/30/2024 1:22 PM CDT [facility] POTASSIUM 4.9 3.5 - 5.1 mmol/L 12/30/2024 1:22 PM CDT [facility] CHLORIDE 105 98 - 107 mmol/L 12/30/2024 1:22 PM CDT [facility] CO2,TOTAL 25 22 - 29 mmol/L 12/30/2024 1:22 PM CDT [facility] ANION GAP 7 5 - 18 12/30/2024 1:22 PM CDT [facility] Blood BLOOD SPECIMEN / Unknown Non-Lab Venipuncture / Unknown 12/30/2024 12:47 PM CDT 12/30/2024 12:57 PM CDT Oswald Ladd MD CHEMISTRY Final Resu lt Performing Organization Address City/[facility] [address]/ZIP Co de Phone Number [facility] [address] [address], * (ABNORMAL) COMPREHENSIVE BLOOD GAS ARTERIAL (12/30/2024 10:33 AM CDT) Only the most recent of74 resultswithin the time period is included. PH, ARTERIAL 7.50(H) 7.35 - 7.45 12/30/2024 10:33 AM CDT [facility] PCO2, ARTERIAL 31(L) 32 - 45 mmHg 12/30/2024 10:33 AM CDT [facility] PO2, ARTERIAL 76(L) 83 - 108 mmHg 12/30/2024 10:33 AM CDT [facility] HCO3, ARTERIAL 24 21 - 28 mmol/L 12/30/2024 10:33 AM CDT [facility] O2 SATURATION, ARTERIAL 98 94 - 98 % 12/30/2024 10:33 AM CDT [facility] PATIENT TEMPERATURE 37.0 Degrees C 12/30/2024 10:33 AM CDT [facility] COLLECTION SITE ARTERIAL LINE 12/30/2024 10:33 AM CDT [facility] Blood BLOOD SPECIMEN / Unknown 12/30/2024 10:33 AM CDT 12/30/2024 10:33 AM CDT us Catherine Sales MD CHEMISTRY Final Resu lt [facility] [address] [place] [address], * SCAN-CARDIAC STRIP (12/30/2024 9:23 AM CDT) us Scanner OTHER Final Result * (ABNORMAL) LD Total ECMO (12/30/2024 4:09 AM CDT) Only the most recent of7 resultswithin the time period is included. LD,TOTAL 1,160(H) 135 - 214 IU/L 12/30/2024 5:33 AM CDT [facility] Blood BLOOD SPECIMEN / Unknown Non-Lab Venipuncture / Unknown 12/30/2024 4:09 AM CDT 12/30/2024 4:21 AM CDT us Chiid Zhu MD CHEMISTRY Final Result [facility] [address] [place] [address], [place] * SCAN-CARDIAC STRIP (12/29/2024 7:32 PM CDT) us Scanner OTHER Final Result * US VENOUS LOWER EXTREMITY BILATERAL PORTABLE (12/29/2024 3:24 PM CDT) Anatomical Region Laterality Modality LEGS, LEG L, LEG R Ultrasound 12/29/2024 4:05 PM CDT Impressions 12/29/2024 4:05 PM CDT : Unremarkable ultrasound of the bilateral lower extremity veins. No sign of venous thrombus. Dictated by Lucille Guzman MD @ 12/29/2024 4:05:55 PM (Electronically Signed) Narrative 12/29/2024 4:05 PM CDT For Patients: As a result of the Cures Act, medical imaging exams and procedure reports are released immediately into your electronic medical record. You may view this report before your referring provider. If you have questions, please contact your health care provider. INDICATION: Leg pain and swelling. Leukocytosis. TECHNIQUE: Ultrasound venous duplex bilateral lower extremity. Compression venous exam was performed using lu-scale, color Doppler, and spectral Doppler analysis. COMPARISON: None. FINDINGS: Deep veins: The bilateral common femoral, superficial femoral, deep femoral, popliteal, and posterior tibial veins are fully compressible and patent. Superficial veins: Greater saphenous vein is fully compressible. No popliteal cyst. Procedure Note Lucille Guzman MD - 12/29/2024 For Patients: As a result of the Cures Act, medical imagingexams and procedure reports are released immediately into your electronicmedical record. You may view this report before your referring provider.If you have questions, please contact your health care provider. INDICATION: Leg pain and swelling. Leukocytosis. TECHNIQUE: Ultrasound venous duplex bilateral lower extremity. Compression venousexam was performed using lu-scale, color Doppler, and spectral Doppleranalysis. COMPARISON: None. FINDINGS: Deep veins: The bilateral common femoral, superficial femoral, deepfemoral, popliteal, and posterior tibial veins are fully compressible andpatent. Superficial veins: Greater saphenous vein is fully compressible. No popliteal cyst. IMPRESSION: : Unremarkable ultrasound of the bilateral lower extremity veins. No sign ofvenous thrombus. Dictated by Lucille Guzman MD @ 12/29/2024 4:05:55 PM (Electronically Signed) us Catherine Sales MD US Final Resu lt * COPPER SERUM (12/29/2024 12:28 PM CDT) Copper, Serum/Plasma 105 80 - 158 ug/dL 12/31/2024 7:[address] [facility] ([facility]) Comment:Detection Limit = 5 Blood BLOOD SPECIMEN / Unknown Non-Lab Venipuncture / Unknown 12/29/2024 12:28 PM CDT 12/29/2024 12:53 PM CDT Narrative [facility] - 12/31/2024 7:08 PM CDT Test(s) [id number], Serum or Plasma was developed and its performance characteristics determined by [facility]. It has not been cleared or approved by the Food and Drug Administration. Performed at: [address] - [address] [id number] [employer]ose: Ayde Lua MD, Phone: [phone] us Nina MONTERO SEND OUTS Final Re sult [facility] ([facility]) [address] [place] [id number], [place] * PERIPHERAL BLD MORPHOLOGY (12/29/2024 12:28 PM CDT) Only the most recent of2 resultswithin the time period is included. Case Report Special Hematology Report Case: [id number] Authorizing Provider: Nina De Los Santos PA Collected: 12/29/2024 1228 Ordering Location: [facility] Received: 12/29/2024 1252 [facility] Pathologist: Marcelo Mcadams MD Specimen: Blood 12:17 PM CDT [facility] Final Diagnosis PERIPHERAL BLOOD: 1. Normocytic anemia with no morphologic evidence of hemolysis 2. Absolute neutrophilia and monocytosis 3. Absolute lymphocytosis 4. Severe thrombocytopenia 5. See comment 12:17 PM CDT [facility] at 1216 CDT Comment The features of the anemia are nonspecific. The differential includes iron deficiency, anemia of chronic disease, anemia of chronic renal insufficiency, anatomic blood loss and medication effect, among other etiologies. There is no morphologic evidence of hemolysis. The etiology of the neutrophilia and monocytosis is not clear from morphologic review. There is no morphologic atypia. The differential diagnosis includes infection, inflammatory states, medication, smoking, and obesity, among other causes. The lymphocytosis has nonspecific features. The differential diagnosis for lymphocytosis includes infectious disease, drug reactions, severe physiologic/medical stress, asplenia, and lymphoid neoplasia. No atypical lymphocytes are seen. The thrombocytopenia may be secondary to various etiologies, including autoimmune disease (especially SLE), bacterial and viral infections, inherited platelet function disorders, increased clearance, heparin, and other drugs. There is no evidence of microangiopathic hemolysis. If the above etiologies can excluded, the patient may have immune thrombocytopenia. 12:17 PM CDT [facility] Clinical Information Submitted clinical information: 31 spectic shock, ECMO, CRRT, bacteremia. Eval hemolysis, leukoerythroblastic reaction Per chart review: 12/24/24 06:24 HAPTOGLOBIN : <10 (L) (L): Data is abnormally low 12:17 PM CDT [facility]- CENTRAL LABORATORY CBC and Differential HEMATOLOGY PARAMETERS Tested at: Central Laboratory RESULTS EXPECTED VALUES WBC: 59.6 4.5-86c4027/cumm ELEVATED RBC: 2.85 4.00-5.20 mil/cumm DECREASED HGB: 7.9 12-16 gm/dl DECREASED HCT: 24.0 33-51% DECREASED MCV: 84.0 80-100 fl NORMOCYTIC MCH: 27.7 26-34 pg MCHC: 32.9 32-36 gm/dl NORMOCHROMIC RDW: 17.9 11.5-15.5% ELEVATED PLT: 40 [id number]/uL DECREASED MPV: Unable to be determined Retic: 2.2 0.5-1.5% ELEVATED Differential Tested at: Central Laboratory Absolute (%) Expected (%) (x10*9/L) (x10*9/L) Neutrophils: 44.7 (75) 1.7-7.0 (42-72%) ELEVATED Lymphocytes: 3.6 (6) 0.9-2.9 (20-44%) ELEVATED Monocytes: 4.8 (8.1) <0.9 (0-11%) ELEVATED Metamyelocytes: 1.8 (3) <0.1 (<0.1%) ELEVATED Myelocytes: 4.8 (8.1) <0.1 (<0.1%) ELEVATED 5 12:17 PM CDT [facility] Reticulocytes Retic: 2.2 0.5-1.5% ELEVATED 5 12:17 PM CDT [facility] Microscopic Description The final diagnosis is based on microscopic examination of an appropriately stained blood smear. 5 12:17 PM CDT [facility] C[facility] Additional Information Interpreted at [facility] Central Laboratory - [address], [place] [address] 5 12:17 PM T [facility] Blood BLOOD SPECIMEN / Unknown 12/29/2024 12:28 PM CDT 12/29/2024 12:52 PM CDT Comment:CURRENT MEDICATIONSC urrent Facility-Administered Medications: acetaminophen 1,000 mg tablet (TYLENOL EXTRA STRGTH), 1,000 mg, Oral, q6h delmern, Kendra Morrison MD acyclovir (ZOVIRAX) 250 mg in D5W 100 mL, 5 mg/kg (Darwin), Intravenous, q24h, Yen Obrien MD artificial tears drops (propylene glycol containing) 2 Drop, 2 Drop, Both Eyes, q2h prn, Cathreine Sales MD calcium gluconate 2 gram/100 mL NaCl (iso-osmo), 2 g, Intravenous, continuous, Oswald Ladd MD, Last Rate: Stopped (12/29/24 0709) calcium gluconate 4 g in D5W 100 mL, 4 g, Intravenous, continuous, Oswald Ladd MD, Last Rate: Stopped (12/26/24 1400) dexmedeTOMIDine (PRECEDEX) 400 mcg/100 mL (4 mcg/mL) NaCl 0.9% infusion, 0.2-1 mcg/kg/hr, Intravenous, continuous, Wolf De Luna, [facility], Last Rate: 0.2 mcg/kg/hr (12/29/24 0955) dextrose 50 % (D50W) injection syringe 25-100 mL, 12.5-50 g, Intravenous, q15min prn OR dextrose (D10W) 10 % infusion 125-500 mL, 12.5-50 g, Intravenous, q15min prn, Catherine Sales MD dextrose 40 % gel 15-30 g of dextrose 37.5-75 mL, 15-30 g of dextrose, Oral, q15min prn, Catherine Sales MD dialysate premixed (PHOXILLUM BK4/2.5) (CRRT), 1,000 mL/hr, CRRT, continuous, Oswald Ladd MD, Last Rate: 1,000 mL/hr (12/29/24 0953) glucagon (FRESENIUS) 1 mg/mL injection solr 1 mg 1 mL, 1 mg, Intra-Muscular, q15min prn, Catherine Sales MD heparin (porcine) 25,000 unit/250 mL (100 unit/mL) D5W infusion, 100-5,000 Units/hr, Intravenous, continuous, Catherine Sales MD, Last Rate: 680 Units/hr (12/29/24 0950) hydrALAZINE 5-20 mg injection (APRESOLINE), 5-20 mg, Intravenous, q4h prn, Catherine Sales MD hypoglycemia protocol, , Protocol, protocol, Catherine Sales MD insulin aspart (U-100) (NOVOLOG FLEXPEN) 100 unit/mL (3 mL) pen 0-5 unit, 0-5 unit, Subcutaneous, q4h, Catherine Sales MD lansoprazole 30 mg orally disintegrating tablet (PREVACID SOLUTAB), 30 mg, Per NG Tube, daily, Catherine Sales MD LORazepam 0.25-0.5 mg tablet (ATIVAN), 0.25-0.5 mg, Oral, q6h prn, Catherine Sales MD magnesium sulfate 2 gram/50 mL in water 2 g, 2 g, Intravenous, continuous, Oswald Ladd MD, Last Rate: Stopped (12/24/24 1507) magnesium sulfate 4 g/100 mL (0.04 g/mL)(40 mg/mL) sterile water 4 g, 4 g, Intravenous, continuous, Oswald Ladd MD, Last Rate: Stopped (12/26/24 6329) meropenem (MERREM) 500 mg in NaCl 0.9% (MINI-BAG+) 100 mL, 500 mg, Intravenous, q8h, Yen Obrien MD, Last Rate: Stopped (12/29/24 0842) naloxone (NARCAN) 0.4 mg/mL injection vial 0.4 mg, 0.4 mg, Intravenous, q1min prn, [place] Rodríguez DO OLANzapine (ZYPREXA) 5 mg in water sterile, 5 mg, Intravenous, q8h prn, OnWolf saenz MBBC OLANzapine 5 mg orally disintegrating tablet (ZYPREXA ZYDIS), 5 mg, Oral, q6h prn, OnyambWolf talamantes MBBC ondansetron 4 mg injection (ZOFRAN), 4 mg, Intravenous, q8h prn, OncorrinambWolf talamantes MBBCh oxyCODONE (ROXICODONE) immediate release tablet 5 mg, 5 mg, Oral/NG Tube, q4h prn, Catherine Sales MD polyethylene glycol (MIRALAX; GLYCOLAX) 17 g per packet packet 1 Packet, 1 Packet, Oral, daily, Wolf De Luna MBBCh potassium chloride 20 mEq in 50 mL water for injection IVPB, 20 mEq, Intravenous, continuous, Oswald Ladd MD replacement soln PREMIXED(PHOXILLUM BK4/2.5) (CRRT), 300 mL/hr, CRRT, continuous, Oswald Ladd MD, Last Rate: 300 mL/hr (12/28/24 2342) replacement soln PREMIXED(PHOXILLUM BK4/2.5) (CRRT), 1,000 mL/hr, CRRT, continuous, Oswald Ladd MD, Last Rate: 1,000 mL/hr (12/29/24 0954) sennosides-docusate (SENOKOT S) (8.6-50 mg) tablet 1 Tablet, 1 Tablet, Oral, bid, Wolf De Luna MBBCh sodium chloride 0.9 % syringe 10 mL, 10 mL, Intravenous, Each Time PRN, Catherine Sales MD sodium chloride 0.9 % syringe 10 mL, 10 mL, Intravenous, q4h, Catherine Sales MD sodium chloride 0.9 % syringe 20 mL, 20 mL, Intravenous, Each Time PRN, Catherine Sales MD sodium phosphate 15 mmol in NaCl 0.9% 100 mL infusion, 15 mmol, Intravenous, continuous, Oswald Ladd MD sodium phosphate 22.5 mmol in NaCl 0.9% 250 mL infusion, 22.5 mmol, Intravenous, continuous, Oswald Ladd MD, Last Rate: Stopped (12/26/24 0440) us Nina MONTERO HEMATOLOGY Final Re sult [facility] LAB[facility] [address] [place] [address], * (ABNORMAL) FOLIC ACID (12/29/2024 12:28 PM CDT) FOLIC ACID 4.5(L) 4.6 - 34.8 ng/mL 12/29/2024 1:44 PM CDT [facility] Blood BLOOD SPECIMEN / Unknown Non-Lab Venipuncture / Unknown 12/29/2024 12:28 PM CDT 12/29/2024 12:53 PM CDT Narrative [facility] - 12/29/2024 1:44 PM CDT Biotin supplements may cause clinically significant interference for this test assay. If interference is suspected, it is strongly recommended that biotin is discontinued for at least one week prior to retesting. us Nina MONTERO CHEMISTRY Final Re sult Performing Organization Address [facility] [address]/[facility] Co de Phone Number [facility] [address] [place] [address], [place] * SCAN-CARDIAC STRIP (12/29/2024 7:20 AM CDT) us Scanner OTHER Final Result * SCAN-CARDIAC STRIP (12/29/2024 6:35 AM CDT) us Scanner OTHER Final Result * DIFFERENTIAL (12/29/2024 4:25 AM CDT) Blood BLOOD SPECIMEN / Unknown Non-Lab Venipuncture / Unknown 12/29/2024 4:25 AM CDT 12/29/2024 4:39 AM CDT Narrative [facility] - 12/29/2024 11:49 AM CDT WBC MUST ALSO BE ORDERED, [id number] us Nina MONTERO HEMATOLOGY Final Re sult Performing Organization Address [facility] [address]/ZIP Co de Phone Number [facility] 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 In the absence of other complement abnormalities, this is likely due to post blood draw activation. Suggest submission of a new sample to confirm test results if clinically indicated. Is Eculizumab or None Ravulizumab taken? Complement, Total, S 62 U/mL 30-75 Alternative Complement 73 % >=46 Path Func, S This test was developed and its performance characteristics determined by [facility] in a manner consistent with CLIA requirements. This test has not been cleared or approved by the U.S. Food and Drug Administration. Complement C3, S 98 mg/dL 75 - 175 Complement C4, S 25 mg/dL 14 - 40 Factor B Complement 34.0 mg/dL 15.2 - 42.3 Antigen, S This test was developed and its performance characteristics determined by [facility] in a manner consistent with CLIA requirements. This test has not been cleared or approved by the U.S. Food and Drug Administration. Factor H Complement 34.4 mg/dL 18.5 - 40.8 Antigen, S This test was developed and its performance characteristics determined by [facility] in a manner consistent with CLIA requirements. This test has not been cleared or approved by the U.S. Food and Drug Administration. CBb Complement, P 1.8 H mcg/mL <1.7 This test has been modified from the entry level manufacturing engineer's instructions. Its performance characteristics were determined by [facility] in a manner consistent with CLIA requirements. This test has not been cleared or approved by the U.S. Food and Drug Administration. SC5b-9 Complement, P 451 H ng/mL <251 This test was developed and its performance characteristics determined by [facility] in a manner consistent with CLIA requirements. This test has not been cleared or approved by the U.S. Food and Drug Administration. Test Performed by: [facility] [address] [place] [address] Inspector Fuel Hose: Venkat Hardy Ph.D.; CLIA# [id number] Other (Other) Non-Blood / Unknown 12/28/2024 10:38 AM CDT 12/28/2024 10:55 AM CDT Yasir Pelaez MD LABORATORY Final Resul t Performing Organization Address City/[facility] [address]/ZIP Co de Phone Number [facility] [address] [place] [address], * MISCELLANEOUS SEND OUT (12/28/2024 10:38 AM CDT) TEST NAME Atypical Hemolytic Uremic Syndrome complement panel, serum and plasma 12/28/2024 2:03 PM CDT [facility] SOURCE Blood 12/28/2024 2:03 PM CDT [facility] PERFORMING LAB [facility] Lab 12/28 2:03 PM CDT [facility] REFERRAL LAB TEST # [id number] 12/28/2024 2:03 PM CDT [facility] IS THIS A [facility] TEST? No 12/28/2024 2:03 PM CDT [facility] Is this a Jon Test? Yes, See [place] Miscellaneous Sendout result 12/28/2024 2:03 PM CDT [facility] Other (Other) Non-Blood / Unknown 12/28/2024 10:38 AM CDT 12/28/2024 10:55 AM CDT Yasir Pelaez MD SEND OUTS Final Resul t [facility]AL [facility] [address] [place] [address], [place] * SCAN-CARDIAC STRIP (12/28/2024 7:27 AM CDT) us Scanner OTHER Final Result * SCAN-CARDIAC STRIP (12/27/2024 8:26 PM CDT) us Scanner OTHER Final Result * MRSA/SA PCR (12/27/2024 5:21 PM CDT) [facility] MRSA DNA PCR Negative Negative 12/27/2024 8:08 PM CDT [facility] STAPHYLOCOCCUS AUREUS PCR Negative Negative 12/27/2024 8:08 PM CDT [facility] Other SPECIMEN FROM INTERNAL NOSE / Unknown Non-Blood / Unknown 12/27/2024 5:21 PM CDT 12/27/2024 5:29 PM CDT Narrative [facility] - 12/27/2024 8:08 PM CDT Test result does not preclude MRSA or SA nasal colonization. us Yen Obrien MD MICROBIOLOGY Final Result [facility] [address] [place] [address], * (ABNORMAL) CARDIAC THROMBOELASTOGRAPHY (12/27/2024 3:08 PM CDT) [facility] ABDOUL REASON Cardiac Baseline Panel 12/27/2024 4:38 PM CDT [facility] TRAL LABORATORY INTEM CT 189 139 - 205 s 12/27/2024 4:38 PM CDT [facility] INTEM A5 34(L) 36 - 54 mm 12/27/2024 4:38 PM CDT [facility] INTEM A10 45(L) 46 - 63 mm 12/27/2024 4:38 PM CDT [facility] INTEM A20 52(L) 53 - 68 mm 12/27/2024 4:38 PM CDT [facility] INTEM MCF 55 55 - 70 mm 12/27/2024 4:38 PM CDT [facility] INTEM ML 2 0 - 7 % 12/27/2024 4:38 PM CDT [facility] INTEM LI60 99 93 - 100 % 12/27/2024 4:38 PM CDT [facility] TRAL LABORATORY EXTEM CT 67 51 - 73 s 12/27/2024 4:38 PM CDT [facility] EXTEM A5 39 33 - 52 mm 12/27/2024 4:38 PM CDT [facility] EXTEM A10 49 45 - 62 mm 12/27/2024 4:38 PM CDT [facility] EXTEM A20 56 54 - 69 mm 12/27/2024 4:38 PM CDT [facility] EXTEM MCF 58 57 - 72 mm 12/27/2024 4:38 PM CDT [facility] EXTEM ML 2 0 - 6 % 12/27/2024 4:38 PM CDT [facility] EXTEM LI60 98 94 - 100 % 12/27/2024 4:38 PM CDT [facility] FIBTEM A5 18(H) 5 - 16 mm 12/27/2024 4:38 PM CDT [facility] FIBTEM A10 20(H) 6 - 17 mm 12/27/2024 4:38 PM CDT [facility] FIBTEM A20 22(H) 6 - 18 mm 12/27/2024 4:38 PM CDT [facility] FIBTEM MCF 23(H) 6 - 19 mm 12/27/2024 4:38 PM CDT [facility]ORY HEPTEM CT 190 141 - 215 s 12/27/2024 4:38 PM CDT [facility] HEPTEM A5 33 33 - 51 mm 12/27/2024 4:38 PM CDT [facility] HEPTEM A10 44 44 - 61 mm 12/27/2024 4:38 PM CDT [facility] HEPTEM A20 52 52 - 67 mm 12/27/2024 4:38 PM CDT [facility] HEPTEM MCF 55 54 - 69 mm 12/27/2024 4:38 PM CDT [facility] Blood BLOOD SPECIMEN / Unknown Non-Lab Venipuncture / Unknown 12/27/2024 3:08 PM CDT 12/27/2024 3:14 PM CDT Catherine Sales MD HEMATOLOGY Final Resu lt Performing Organization Address City/[facility] [address]/ZIP Co de Phone Number [facility] [address] [place] [address], [place] * SCAN-CARDIAC STRIP (12/27/2024 7:02 AM CDT) Scanner OTHER Final Result * HEMOGLOBIN,PLASMA (12/27/2024 4:28 AM CDT) Only the most recent of4 resultswithin the time period is included. HEMOGLOBIN,PLAS MA <30 <40 mg/dL 12/27/2024 5:06 AM CDT [facility] Comment:The system is linear from 30 mg/dl to 3000 mg/dl. Caution should be taken when evaluating instrument readings between 0 mg/dl and 30 mg/dl. Blood BLOOD SPECIMEN / Unknown Non-Lab Venipuncture / Unknown 12/27/2024 4:28 AM CDT 12/27/2024 4:42 AM CDT us Chidi Zhu MD CHEMISTRY Final Result Performing Organization Address City/[facility] [address]/[facility] Co de Phone Number [facility] [address] [place] [address], [place] * TRANSFUSE PLT (NURSE COMMUNICATION ORDER) (12/27/2024 2:04 AM CDT) Blood BLOOD SPECIMEN / Unknown Keri Garcia MD NURSING BLOOD BANK Mary hussain Result * PLATELET ORDER, 1 unit (12/27/2024 1:24 AM CDT) Only the most recent of10 resultswithin the time period is included. QUANTITY 1 12/27/2024 1:2 4 AM CDT [facility] [employer] BLOOD BANK Blood BLOOD SPECIMEN / Unknown 12/27/2024 12:48 AM CDT Keri Garcia MD BLOOD BANK Final R esult Performing Organization Address City/[facility] [address]/[facility] Co de Phone Number [facility] [employer] BLOOD BANK [address] [place] [address], * PLATELET EA UNIT (12/27/2024 12:48 AM CDT) Only the most recent of16 resultswithin the time period is included. [facility] PRODUCT BLOOD TYPE B Rh Positive [facility] [employer] BLOOD BANK PRODUCT ID NUMBER [id number] [facility] [employer] [facility] BLOOD BANK PRODUCT STATUS Transfused [facility] [employer] BLOOD BANK PRODUCT DESCRIPTION SDP ACD-A IRR LR Pt3 [facility] [employer] BLOOD BANK PRODUCT CODE [id number] [facility] [employer] BLOOD BANK ISSUE DATE/TIME 12/27/24 01:25 [facility] [employer] BLOOD BANK Keri Garcia MD BLOOD BANK Edited Result - Final Performing Organization Address [facility] [address]/[facility] Co de Phone Number [facility] B[facility] [address] [place] [address], * TRANSFUSE PLT (NURSE COMMUNICATION ORDER) (12/26/2024 9:44 PM CDT) Blood BLOOD SPECIMEN / Unknown Coby GRISSOM NURSING BLOOD BANK Final Resul t * US VENOUS UPPER EXTREMITY BILATERAL PORTABLE (12/26/2024 7:53 PM CDT) Anatomical Region Laterality Modality ARMS, ARM L, ARM R Ultrasound 12/27/2024 7:19 AM CDT Narrative 12/27/2024 7:19 AM CDT For Patients: As a result of the Cures Act, medical imaging exams and procedure reports are released immediately into your electronic medical record. You may view this report before your referring provider. If you have questions, please contact your health care provider. Indication: Upper extremity swelling Technique: Grayscale, grayscale compression, color Doppler, spectral Doppler and augmentation technique was utilized for evaluating the bilateral upper extremity venous system. Comparison: None Findings: There is no DVT identified on either side. Thrombus is visualized in the RIGHT basilic vein, a superficial vein in the forearm and the RIGHT cephalic vein, superficial vein, from the antecubital fossa to the wrist. Thrombus is seen in the LEFT cephalic vein in the region of the antecubital fossa. This is a superficial vein The following veins were studied bilaterally: Internal jugular vein, innominate vein, subclavian vein, axillary vein, brachial veins, basilic veins, and cephalic veins Impression: 1. There is no evidence of upper extremity deep venous thrombosis in either side. 2. Superficial venous thrombus BILATERALLY as described in the body of the report Dictated by Yasir Jeffries MD @ 12/27/2024 7:19:28 AM (Electronically Signed) Procedure Note Yasir Jeffries MD - 12/27/2024 For Patients: As a result of the Cures Act, medical imagingexams and procedure reports are released immediately into your electronicmedical record. You may view this report before your referring provider.If you have questions, please contact your health care provider. Indication: Upper extremity swelling Technique: Grayscale, grayscale compression, color Doppler, spectral Doppler andaugmentation technique was utilized for evaluating the bilateral upperextremity venous system. Comparison: None Findings: There is no DVT identified on either side. Thrombus is visualized in the RIGHT basilic vein, a superficial vein inthe forearm and the RIGHT cephalic vein, superficial vein, from theantecubital fossa to the wrist. Thrombus is seen in the LEFT cephalic vein in the region of theantecubital fossa. This is a superficial vein The following veins were studied bilaterally: Internal jugular vein,innominate vein, subclavian vein, axillary vein, brachial veins, basilicveins, and cephalic veins Impression: 1. There is no evidence of upper extremity deep venous thrombosis ineither side. 2. Superficial venous thrombus BILATERALLY as described in the body of thereport Dictated by Yasir Jeffries MD @ 12/27/2024 7:19:28 AM (Electronically Signed) us Catherine Sales MD US Final Resu lt * SCAN-CARDIAC STRIP (12/26/2024 7:30 PM CDT) us Scanner OTHER Final Result * CK Total ECMO (12/26/2024 6:16 PM CDT) Only the most recent of14 resultswithin the time period is included. Pathologist [facility] CK,TOTAL 73 26 - 192 IU/L 12/26/2024 6:55 PM CDT [facility] Blood BLOOD SPECIMEN / Unknown Non-Lab Venipuncture / Unknown 12/26/2024 6:16 PM CDT 12/26/2024 6:30 PM CDT us Chidi Zhu MD CHEMISTRY Final Result [facility] [address] [place] [address], * (ABNORMAL) HERPES SIMPLEX VIRUS HSV 1 AND 2 BY NAAT (LESIONS) (12/26/2024 2:05 PM CDT) Pathologist [facility] HSV 1 Positive(A) Negative 12/28/2024 11:44 AM CDT [facility] TRAL LABOR[facility] HSV 2 Negative Negative 12/28/2024 11:44 AM CDT [facility] LABORAT[facility] Other LESION SPECIMEN / Unknown Non-Blood / Unknown 12/26/2024 2:05 PM CDT 12/26/2024 2:12 PM CDT Narrative [facility] - 12/28/2024 11:44 AM CDT Results from the Aptima HSV 1 & 2 assay should be interpreted in conjunction with other clinical data available to the clinician. us Yen Obrien MD MICROBIOLOGY Final Result [facility] [address] [place] [address], [place] * CT HEAD BRAIN WO (12/26/2024 12:48 PM CDT) Anatomical Region Laterality Modality HEAD, BRAIN Computed Tomogra phy 12/26/2024 1:11 PM CDT Impressions 12/26/2024 1:11 PM CDT IMPRESSION:1. No CT evidence of acute cortical infarct. No acute intracranial hemorrhage. No other acute intracranial findings. Please note that all CT scans at this facility use dose modulation, iterative reconstruction, and/or weight-based dosing when appropriate to reduce radiation dose to as low as reasonably achievable. Dictated by Justin Ospina MD @ 12/26/2024 1:11:00 PM (Electronically Signed) Narrative 12/26/2024 1:11 PM CDT For Patients: As a result of the Cures Act, medical imaging exams and procedure reports are released immediately into your electronic medical record. You may view this report before your referring provider. If you have questions, please contact your health care provider. INDICATION: Altered mental status. TECHNIQUE: CT of the head without contrast. Coronal and sagittal reformats are included. COMPARISON: None. FINDINGS: No CT evidence of acute cortical infarct. No loss of schneider white matter differentiation. No hyperdense vessels to suggest intracranial thrombus. No acute intracranial hemorrhage. No mass effect or midline shift. No hydrocephalus or extra-axial collections. White matter is within normal limits for age. No acute osseous abnormalities. Mastoid air cells and paranasal sinuses are clear. Normal soft tissues. Procedure Note Justin Ospina MD - 12/26/2024 For Patients: As a result of the Cures Act, medical imagingexams and procedure reports are released immediately into your electronicmedical record. You may view this report before your referring provider.If you have questions, please contact your health care provider. INDICATION: Altered mental status. TECHNIQUE: CT of the head without contrast. Coronal and sagittal reformats areincluded. COMPARISON: None. FINDINGS: No CT evidence of acute cortical infarct. No loss of schneider white matterdifferentiation. No hyperdense vessels to suggest intracranial thrombus.No acute intracranial hemorrhage. No mass effect or midline shift. Nohydrocephalus or extra-axial collections. White matter is within normallimits for age. No acute osseous abnormalities. Mastoid air cells and paranasal sinusesare clear. Normal soft tissues. IMPRESSION: IMPRESSION:1. No CT evidence of acute cortical infarct. No acuteintracranial hemorrhage. No other acute intracranial findings. Please note that all CT scans at this facility use dose modulation,iterative reconstruction, and/or weight-based dosing when appropriate toreduce radiation dose to as low as reasonably achievable. Dictated by Justin Ospina MD @ 12/26/2024 1:11:00 PM (Electronically Signed) us Catherine Sales MD CT Final Resu lt * SCAN-CARDIAC STRIP (12/26/2024 7:03 AM CDT) us Scanner OTHER Final Result * TRANSFUSE PLT (NURSE COMMUNICATION ORDER) (12/26/2024 6:04 AM CDT) Blood BLOOD SPECIMEN / Unknown us Keri Garcia MD NURSING BLOOD BANK Mary nixon Result * SCAN-RADIOLOGY REPORT (12/26/2024 12:00 AM CDT) Anatomical Region Laterality Modality Other Narrative 12/26/2024 12:00 AM CDT Ordered by an unspecified provider. us Other Clinical Staff OTHER Final Resul t * SCAN-CARDIAC STRIP (12/25/2024 7:11 PM CDT) us Scanner OTHER Final Result * SCAN-CARDIAC STRIP (12/25/2024 12:30 PM CDT) us Scanner OTHER Final Result * TRANSFUSE PLT (NURSE COMMUNICATION ORDER) (12/25/2024 11:40 AM CDT) Blood BLOOD SPECIMEN / Unknown us Wolf Kumarsalma [facility] NURSING BLOOD BANK Mary l Result * SCAN-CARDIAC STRIP (12/24/2024 8:38 PM CDT) us Scanner OTHER Final Result * ANTI HIV 1/2 (12/24/2024 7:32 PM CDT) HIV-1/HIV-2 SCREEN Non-Reacti ve Non-Reacti ve 12/24/2024 10:47 PM CDT [facility] Comment:HIV-1 p24 and HIV-1/ HIV-2 Ab Not Detected. Blood BLOOD SPECIMEN / Unknown Non-Lab Venipuncture / Unknown 12/24/2024 7:32 PM CDT 12/24/2024 7:41 PM CDT us Shelbi Fernandez DO SEND OUTS Fi nal Result [facility] [address] [place] [id number], [place] * TRANSFUSE PLT (NURSE COMMUNICATION ORDER) (12/24/2024 6:52 PM CDT) Blood BLOOD SPECIMEN / Unknown us Ivonne Jorgensen MD NURSING BLOOD BANK Final Resul t * TRANSFUSE PLT (NURSE COMMUNICATION ORDER) (12/24/2024 6:51 PM CDT) Blood BLOOD SPECIMEN / Unknown us Coby GRISSOM NURSING BLOOD BANK Final Resul t * TRANSFUSE PLT (NURSE COMMUNICATION ORDER) (12/24/2024 2:02 PM CDT) Blood BLOOD SPECIMEN / Unknown us Wolf Virkletty [facility] NURSING BLOOD BANK Mary l Result * SCAN-CARDIAC STRIP (12/24/2024 10:37 AM CDT) us Scanner OTHER Final Result * (ABNORMAL) HAPTOGLOBIN (12/24/2024 6:24 AM CDT) Only the most recent of2 resultswithin the time period is included. Haptoglobin <10(L) 30 - 200 mg/dL 12/24/2024 11:05 AM CDT [facility] Blood BLOOD SPECIMEN / Unknown Non-Lab Venipuncture / Unknown 12/24/2024 6:24 AM CDT 12/24/2024 6:38 AM CDT us Wolf De Luna [facility] CHEMISTRY Final R esult Performing Organization Address City/[facility] [address]/ZIP Co de Phone Number [facility] [address] [place] [id number], [place] * (ABNORMAL) O2 SATURATION,MEASURED (12/24/2024 4:06 AM CDT) Only the most recent of2 resultswithin the time period is included. O2 SATURATION,SHAYE SURED 97 % 12/24/2024 4:26 AM CDT [facility] HEMOGLOBIN,BLO OD GAS 9.6(L) 12.0 - 16.0 g/dL 12/24/2024 4:26 AM CDT [facility] SOURCE, O2M Venous 12/24/2024 4:26 AM CDT [facility] Blood BLOOD SPECIMEN / Unknown Non-Lab Venipuncture / Unknown 12/24/2024 4:06 AM CDT 12/24/2024 4:19 AM CDT Narrative [facility] - 12/24/2024 4:26 AM CDT Reference Range for: Arterial Source (94-98) Non-Arterial Source (70-75) us Keri Garcia MD CHEMISTRY Final R esult Performing Organization Address City/[facility] [address]/ZIP Co de Phone Number [facility] [address] [place] [id number], [place] * XR ABDOMEN 1 VIEW PORTABLE (12/24/2024 3:46 AM CDT) Only the most recent of3 resultswithin the time period is included. Anatomical Region Laterality Modality Abdomen Digital Radiogra phy 12/24/2024 7:28 AM CDT Narrative 12/24/2024 7:28 AM CDT For Patients: As a result of the Cures Act, medical imaging exams and procedure reports are released immediately into your electronic medical record. You may view this report before your referring provider. If you have questions, please contact your health care provider. Indication: Tube placement Technique: Abdomen 1 view. Comparison: Abdomen radiograph 12/23/2024 Findings: Bowel: Nonobstructive bowel gas pattern. Enteric tube with tip in the gastric antrum. Colonic stool is present in this limited view of the abdomen. Other: No pneumoperitoneum on this limited view. Right inferior approach ECMO cannula with tip at the inferior cavoatrial junction. Impression: Enteric tube with tip in the gastric antrum. Dictated by Ashlee Soliz MD @ 12/24/2024 7:28:00 AM (Electronically Signed) Procedure Note Ashlee Soliz MD - 12/24/2024 For Patients: As a result of the Cures Act, medical imagingexams and procedure reports are released immediately into your electronicmedical record. You may view this report before your referring provider.If you have questions, please contact your health care provider. Indication: Tube placement Technique: Abdomen 1 view. Comparison: Abdomen radiograph 12/23/2024 Findings: Bowel: Nonobstructive bowel gas pattern. Enteric tube with tip in thegastric antrum. Colonic stool is present in this limited view of theabdomen. Other: No pneumoperitoneum on this limited view. Right inferior approachECMO cannula with tip at the inferior cavoatrial junction. Impression: Enteric tube with tip in the gastric antrum. Dictated by Ashlee Soliz MD @ 12/24/2024 7:28:00 AM (Electronically Signed) us Chidi Zhu MD GENERAL IMAGING Final Result * SCAN-CARDIAC STRIP (12/23/2024 11:32 PM CDT) us Scanner OTHER Final Result * (ABNORMAL) Blood Gas Mixed Venous ECMO (12/23/2024 9:07 PM CDT) PH, MIXED VENOUS 7.41 7.30 - 7.43 12/23/2024 9:21 PM CDT [facility] PCO2, MIXED VENOUS 32(L) 41 - 51 mmHg 12/23/2024 9:21 PM CDT [facility] PO2, MIXED VENOUS 40 35 - 40 mmHg 12/23/2024 9:21 PM CDT [facility] HCO3, MIXED VENOUS 20(L) 22 - 30 mmol/L 12/23/2024 9:21 PM CDT [facility] BASE EXCESS, MIXED VENOUS -3.6(L) -3 - 3 12/23/2024 9:21 PM CDT [facility] O2 SATURATION, MEASURED, MIXED VENOUS 77(H) 70 - 75 % 12/23/2024 9:21 PM CDT [facility] INSPIRED O2 40 12/23/2024 9:21 PM CDT [facility] Comment:Unit of Measure: Lit ers (L) if <=20; Percent (%) if >20 PATIENT TEMPERATURE 36.3 Degrees C 12/23/2024 9:21 PM CDT [facility] Blood VENOUS BLOOD SPECIMEN / Unknown Line/Port / Unknown 12/23/2024 9:07 PM CDT 12/23/2024 9:14 PM CDT us Chidi Zhu MD CHEMISTRY Final Result [facility] [address] [place] [address], [place] * US ARTERIAL UPPER EXTREMITY BILATERAL PORTABLE (12/23/2024 8:48 PM CDT) Anatomical Region Laterality Modality ARMS, ARM L, ARM R Ultrasound 12/23/2024 9:21 PM CDT Impressions 12/27/2024 2:33 PM CDT Patent upper extremity vasculature bilateral with multi phasic flow in the subclavian artery, axillary artery and brachial artery and monophasic flow in the radial and ulnar arteries bilateral. Dictated by Billy Landon MD @ Dec 27 2024 2:33PM (Electronically Signed) [email or web address] Narrative 12/27/2024 2:33 PM CDT For Patients: As a result of the Cures Act, medical imaging exams and procedure reports are released immediately into your electronic medical record. You may view this report before your referring provider. If you have questions, please contact your health care provider. INDICATION: Left radial arterial line was in place and now removed; decreased extremity pulses. COMPARISON: None. TECHNIQUE: Duplex ultrasound evaluation arterial system both upper extremities; color Doppler duplex assessment; Doppler spectral analysis. FINDINGS: Multiphasic flow identified in the subclavian artery, axillary artery and brachial artery bilaterally. Monophasic flow identified in the radial and ulnar arteries bilateral. No thromboembolic occlusion. Procedure Note Billy Landon, EVANBS - 12/27/2024 For Patients: As a result of the Cures Act, medical imagingexams and procedure reports are released immediately into your electronicmedical record. You may view this report before your referring provider.If you have questions, please contact your health care provider. INDICATION: Left radial arterial line was in place and now removed; decreasedextremity pulses. COMPARISON: None. TECHNIQUE: Duplex ultrasound evaluation arterial system both upper extremities; colorDoppler duplex assessment; Doppler spectral analysis. FINDINGS: Multiphasic flow identified in the subclavian artery, axillary artery andbrachial artery bilaterally. Monophasic flow identified in the radial andulnar arteries bilateral. No thromboembolic occlusion. IMPRESSION: Patent upper extremity vasculature bilateral with multi phasic flow in thesubclavian artery, axillary artery and brachial artery and monophasicflow in the radial and ulnar arteries bilateral. Dictated by Billy Landon MD @ Dec 27 2024 2:33PM (Electronically Signed) [email or web address] us Chidi Zhu MD [place] Final Result * (ABNORMAL) URINALYSIS MICROSCOPIC (12/23/2024 7:46 PM CDT) Only the most recent of3 resultswithin the time period is included. RBC 11-25(A) 0-2, None Seen /HPF 12/23/2024 8:04 PM CDT [facility] WBC 0-2 0-2, 3-5, None Seen /HPF 12/23/2024 8:04 PM CDT [facility] BACTERIA None Seen None Seen, Rare, Few Bacteria/ HPF 12/23/2024 8:04 PM CDT [facility] EPITHELIAL CELLS None Seen None Seen, Few Epi/HPF 12/23/2024 8:04 PM CDT [facility] HYALINE CASTS 0-2 0-2, 3-5 /LPF 12/23/2024 8:04 PM CDT [facility] Urine URINE SPECIMEN / Unknown Non-Blood / Unknown 12/23/2024 7:46 PM CDT 12/23/2024 7:51 PM CDT us Chidi Zhu MD URINE Final Result Performing Organization Address City/State/[facility] Co de Phone Number [facility] [address] [place] [phone], * (ABNORMAL) Urinalysis w Reflex Microscopic if Positive - ECMO (12/23/2024 7:46 PM CDT) Only the most recent of3 resultswithin the time period is included. COLOR Yellow Yellow Color 12/23/2024 8:04 PM CDT [facility] CLARITY Clear Clear Clarity 12/23/2024 8:04 PM CDT [facility] SPECIFIC GRAVITY,URINE 1.010 1.010, 1.015, 1.020, 1.025 12/23/2024 8:04 PM CDT [facility] PH,URINE 7.0 6.0, 7.0, 8.0, 5.5, 6.5, 7.5, 8.5 12/23/2024 8:04 PM CDT [facility] UROBILINOGEN, QUALITATIVE Normal Normal EU/dl 12/23/2024 8:04 PM CDT [facility] PROTEIN, URINE 30(A) Negative mg/dL 12/23/2024 8:04 PM CDT [facility] GLUCOSE, URINE 100(A) Negative mg/dL 12/23/2024 8:04 PM CDT [facility] KETONES,URINE Negative Negative mg/dL 12/23/2024 8:04 PM CDT [facility] BILIRUBIN,URI NE Negative Negative 12/23/2024 8:04 PM CDT [facility] OCCULT BLOOD,URINE Moderate(A) Negative 12/23/2024 8:04 PM CDT [facility] NITRITE Negative Negative 12/23/2024 8:04 PM CDT [facility] LEUKOCYTE ESTERASE Negative Negative 12/23/2024 8:04 PM CDT [facility] Urine URINE SPECIMEN / Unknown Non-Blood / Unknown 12/23/2024 7:46 PM CDT 12/23/2024 7:51 PM CDT us Chidi Zhu MD URINE Final Result [facility] [address] [address], * TRANSFUSE PLASMA (NURSE COMMUNICATION ORDER) (12/23/2024 3:56 PM CDT) Blood BLOOD SPECIMEN / Unknown us Eva Hogan MD NURSING BLOOD BANK Final R esult * TRANSFUSE RBC (NURSE COMMUNICATION ORDER) (12/23/2024 3:55 PM CDT) Blood BLOOD SPECIMEN / Unknown us Eva Hogan MD NURSING BLOOD BANK Final R esult * TRANSFUSE PLASMA (NURSE COMMUNICATION ORDER) (12/23/2024 3:38 PM CDT) Blood BLOOD SPECIMEN / Unknown Result [facility] Eva Hogan MD NURSING BLOOD BANK Final R esult * TRANSFUSE RBC (NURSE COMMUNICATION ORDER) (12/23/2024 3:37 PM CDT) Blood BLOOD SPECIMEN / Unknown Eva Hogan MD NURSING BLOOD BANK Final R esult * CVL CORONARY ANGIOGRAM POSS PCI (12/23/2024 2:55 PM CDT) Anatomical Region Laterality Modality Other 12/23/2024 2:55 PM CDT Narrative Transcriptions Sg Dinh MD, PhD - 12/23/2024 5:00 PM CDT [facility] Cardiac Catheterization Report Name: HARLEY WADE Event Date: 12/23/2024 14:55 Excellian ID #: [id number] LARISA #: [id number] Patient Class: Outpatient Diagnostic Physician: SG DINH [facility] Interventional Physician: SG DINH [facility] Referring Physician: Date: 1995 Gender: Female Age: 29 Summary/Conclusions PRESENTATION / INDICATIONS * 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 Ultrasound was used to confirm vesselpatency, localizing needle into the lumen of the vessel. An image wassaved for the medical record. * Using ultrasound guidance and a percutaneous technique, the rightfemoral vein was accessed. Ultrasound was used to confirm vessel patency,localizing needle into the lumen of the vessel. An image was saved for themedical record. SPECIAL EQUIPMENT * VV ECMO was placed with a 25F cannula to the right common femoral veinand a 21F cannula in the right internal jugular vein. RECOMMENDATIONS & PLAN * Further management per Critical care team Consent & [facility] Protocol The risks, benefits, and alternatives of the procedure were discussed withthe patient and written informed consent was obtained. [facility] protocol was followed. TIME OUT conducted just prior tostarting procedure confirmed patient identity, site/side, procedure,patient position, and availability of correct equipment and implants (ifapplicable). Staff Name Title Sg Dinh Diagnostic Frame Bender Ulises Carreon ELECTRICAL LOGGER Monitor Alexander Oneal CVT Scrub Dennis Everett CVT Scrub Sg Dinh Medical Parasitologist Procedures ? Ultrasound Guided Vascular Access ? Heart Assist Device ECMO Hemodynamics State: Baseline Pressures (mmHg) Site Systolic Diastolic End Diastolic A Wave V Wave Mean AO 163 79 98 AO 132 79 95 AO 131 81 96 Procedure Details Estimated Blood Loss: > 30 ml Specimen Collected: None Level of Sedation Achieved: See Anesthesia Note Procedure Start: 14:55 Fluoroscopy Time: 463.33 min Cumulative Air Kerma: 17 mGy DAP: 495 uGy/M2 Physiologic Data Actual VO2: 307.75 Weight: 67.1 kg BSA: 1.72 m2 Vascular Access Time Access Sheath Size 14:56 Right Femoral Artery, sheath inserted 15:02 Right Femoral Vein, sheath inserted. 15:24 Left Femoral Vein, sheath inserted. Medications Ordered and Administered Start Time Stop Time Medication Dose Units Route Ordered By Given By The anesthesia service monitored the patient?s conscious sedation duringthe procedure. The medications listed above were verbally ordered by me and read back tome as documented above. Refer to the procedure log report for additional case details. electronically signed on 12/23/2024 5:00:12 PM with status of Final Sg Dinh MD [facility] [address] [place] [address] (p) [phone](f) us Provider Referring CV IMAGING Edited Result - Final * TRANSFUSE PLT (NURSE COMMUNICATION ORDER) (12/23/2024 2:47 PM CDT) Blood BLOOD SPECIMEN / Unknown us Eva Hogan MD NURSING BLOOD BANK Final R esult * TRANSFUSE PLT (NURSE COMMUNICATION ORDER) (12/23/2024 2:47 PM CDT) Blood BLOOD SPECIMEN / Unknown Eva Hogan MD NURSING BLOOD BANK Final R esult * TRANSFUSE PLT (NURSE COMMUNICATION ORDER) (12/23/2024 2:47 PM CDT) Blood BLOOD SPECIMEN / Unknown Eva Hogan MD NURSING BLOOD BANK Final R esult * PLASMA SNGL DON FFPEA UNIT (12/23/2024 1:52 PM CDT) Only the most recent of24 resultswithin the time period is included. PRODUCT BLOOD TYPE O Rh Positive [employer] LAB BLOOD BANK PRODUCT ID NUMBER [id number] 6 [employer] LAB BLOOD BANK PRODUCT STATUS /Rele ased [facility]Canal [facility] LAB BLOOD BANK PRODUCT DESCRIPTION FP CPD Thawed [facility]Mesh KoreaCENTRAL LAB BLOOD BANK PRODUCT CODE [id number] [facility] WheelrightCENTRAL LAB BLOOD BANK Eva Hogan MD BLOOD BANK Edited Res ult - Final [facility]Can[facility] Internet-[facility] LAB BLOOD BANK [address] [place] [address], * US RENAL AND BLADDER COMPLETE PORTABLE (12/23/2024 11:22 AM CDT) Anatomical Region Laterality Modality Abdomen, KIDNEYS Ultrasound 12/23/2024 3:02 PM CDT Impressions 12/23/2024 3:02 PM CDT 1. Echogenic bilateral renal cortices suggestive of medical renal disease. 2. Trace bilateral perinephric free fluid. Dictated by Holly Krishnamurthy MD @ 12/23/2024 3:02:17 PM (Electronically Signed) Narrative 12/23/2024 3:02 PM CDT For Patients: As a result of the Century Cures Act, medical imaging exams and procedure reports are released immediately into your electronic medical record. You may view this report before your referring provider. If you have questions, please contact your health care provider. INDICATION: Renal failure TECHNIQUE: Ultrasound renal and bladder complete. Lu-scale and color Doppler sonographic images were acquired of the kidneys and urinary bladder. COMPARISON: CT abdomen and pelvis without contrast 03/23/2021. FINDINGS: Right kidney: Size: 10.7 x 4.6 x 5.4 cm. Morphology: Echogenic cortex. Masses: No suspicious mass. Stones: No. Hydronephrosis: No. Other: Small amount of perinephric fluid. Left kidney: Size: 10 cm. Morphology: Echogenic cortex. Masses: No suspicious mass. Stones: No. Hydronephrosis: No. Other: Small amount of perinephric fluid. Bladder: Decompressed with Miner catheter in place. Procedure Note Holly Krishnamurthy MD - 12/23/2024 For Patients: As a result of the Cures Act, medical imagingexams and procedure reports are released immediately into your electronicmedical record. You may view this report before your referring provider.If you have questions, please contact your health care provider. INDICATION: Renal failure TECHNIQUE: Ultrasound renal and bladder complete. Lu-scale and color Dopplersonographic images were acquired of the kidneys and urinary bladder. COMPARISON: CT abdomen and pelvis without contrast 03/23/2021. FINDINGS: Right kidney: Size: 10.7 x 4.6 x 5.4 cm. Morphology: Echogenic cortex. Masses: No suspicious mass. Stones: No. Hydronephrosis: No. Other: Small amount of perinephric fluid. Left kidney: Size: 10 cm. Morphology: Echogenic cortex. Masses: No suspicious mass. Stones: No. Hydronephrosis: No. Other: Small amount of perinephric fluid. Bladder: Decompressed with Miner catheter in place. IMPRESSION: 1. Echogenic bilateral renal cortices suggestive of medical renal disease. 2. Trace bilateral perinephric free fluid. Dictated by Holly Krishnamurthy MD @ 12/23/2024 3:02:17 PM (Electronically Signed) us Thelma Padilla MD Final Resu lt * ECHO TTE COMPLETE W CONTRAST W BUBBLE (12/23/2024 11:19 AM CDT) AORTIC VALVE MEAN PG 2 mmHg PEAK TR VELOCITY 2.2 m/s LVEDD 4.9 cm EJECTION FRACTION 25 - 30% Anatomical Region Laterality Modality Ultrasound 12/23/2024 9:55 AM CDT Narrative 12/23/2024 11:55 AM CDT ECHOCARDIOGRAM HARLEY WADE : 1995 29 years Study Date: 12/23/2024 9:55:37 AM Gender: F BP: 93/73 mmHg Height: 163.00 cm BSA: 1.72 m Weight: 67.00 kg Tech: SHELBY Referring MD: LUCILLE YANCEY Site: [facility] Reading Location: ANW IP Patient Location: Inpatient. Procedure: 2D w/ Bubbles, 2D w/ Contrast, Color Doppler and Spectral Doppler. Indication for study: Shock Cardiac Rhythm: Sinus tachycardia.Study quality: Good. Imaging limitations: This study was subject to imaging limitations due to lying in a supine position and patient being on a ventilator. Final Impressions: 1. Narrow complex regular tachycardia during the study [HR 140s bpm]. 2. LVEF 25-30%. Normal LV size. 3. Mildly reduced RV function. 4. Reduced LVOT VTI [13 cm]. 5. Mild TR. 6. Negative bubble study. 7. Dilated IVC with abnormal respiratory variability. 8. No LV thrombus [contrast Echo]. Chamber Sizes and Function There is moderate global left ventricular hypokinesis. Regional wall motion assessment not well-visualized. Left atrial size is normal. Right ventricular cavity size is normal, global systolic RV function is mildly reduced. The right atrium is normal. Right atrial volume index is 10 ml/m . Right atrial area is 8 cm . The pulmonary artery is not well visualized. The sinus of Valsalva is normal sized. The ascending aorta is normal sized. Valves, RV Pressures and Diastolic Function The aortic valve is normal in structure and trileaflet, no stenosis and no regurgitation. The mitral valve is normal in structure, trace mitral regurgitation. Indeterminate pattern of LV diastolic filling. The tricuspid valve is normal in structure, mild tricuspid regurgitation. Unable to assess right ventricular systolic pressure. The tricuspid regurgitant velocity is 2.2 m/s, the estimated right ventricular systolic pressure is 18 mmHg plus right atrial pressure. There is normal estimated pulmonary pressure by tricuspid regurgitation velocity and right atrial pressure. The pulmonic valve is not well visualized. No pulmonary regurgitation. Masses, Effusion, Shunts There is no pericardial effusion. The inferior vena cava is dilated, respiratory size variation less than 50%. Agitated saline injection showed no right to left shunt at rest or following Valsalva manuever. No left to right shunting was detected by limited color flow Doppler interrogation of the interatrial septum. MEASUREMENTS AND CALCULATIONS 2-D Measurements and LV Function: LVID (d) 4.9 cm LV FS% (2D) 10 % LVID (s) 4.4 cm LVOT diameter 2.0 cm IVS (d) 0.6 cm HR 141 bpm LVPW (d) 0.8 cm LA Vol index 13 ml/m2 Ao Sinus 3.1 cm RA Vol index 10 ml/m2 Ao Sinus ULN 3.4 cm RA area 8 cm Asc Ao 2.4 cm RV Basal Diam 2.9 cm Asc Ao ULN 3.3 cm RV Mid Diam 1.5 cm Diastology: Mitral Tissue Doppler E Peak 1.0 m/s e', Septum 0.06 m/s A Peak 0.4 m/s e', Lateral 0.16 m/s E/A 2.4 E/e' Average 8.71 DT 129 msec Aortic Valve: Vmax 1.0 m/s JAILYN (V) 2.95 cm VTI 0.13 m JAILYN (I) 3.07 cm LVOT V max 1.0 m/s Max PG 4 mmHg LVOT VTI 0.13 m Mean PG 2 mmHg SV 40 ml Dim Index 0.98 SV index 23 ml/m CO 5.6 l/min CI 3.3 l/min/m Mitral Valve: MVA 5.9 cm MV P 1/2 37 msec Tricuspid Valve and estimated PA pressures: TR Vmax 2.2 m/s TR maxG 18 mmHg Contrast documentation: 2msl ml diluted [employer], lot #[id number][facility] 2001# [id number] was administered peripherally to enhance visualization of all left ventricular segments. . This study was interpreted by an [facility] accredited facility. Final Procedure Note Serjio Olson MD - 12/23/2024 ECHOCARDIOGRAM HARLEY WADE : 1995 29 years Study Date: 12/23/2024 9:55:37 AM Gender: F BP: 93/73 mmHg Height: 163.00 cm BSA: 1.72 m Weight: 67.00 kg Tech: SHELBY Referring MD: LUCILLE YANCEY Site: [facility] Reading Location: ANW IP Patient Location: Inpatient. Procedure: 2D w/ Bubbles, 2D w/ Contrast, Color Doppler and SpectralDoppler. Indication for study: Shock Cardiac Rhythm: Sinus tachycardia.Study quality: Good. Imaging limitations: This study was subject to imaging limitations due tolying in a supine position and patient being on a ventilator. Final Impressions: 1. Narrow complex regular tachycardia during the study [HR 140s bpm]. 2. LVEF 25-30%. Normal LV size. 3. Mildly reduced RV function. 4. Reduced LVOT VTI [13 cm]. 5. Mild TR. 6. Negative bubble study. 7. Dilated IVC with abnormal respiratory variability. 8. No LV thrombus [contrast Echo]. Chamber Sizes and Function There is moderate global left ventricular hypokinesis. Regional wallmotion assessment not well-visualized. Left atrial size is normal. Rightventricular cavity size is normal, global systolic RV function is mildlyreduced. The right atrium is normal. Right atrial volume index is 10ml/m . Right atrial area is 8 cm . The pulmonary artery is not wellvisualized. The sinus of Valsalva is normal sized. The ascending aorta isnormal sized. Valves, RV Pressures and Diastolic Function The aortic valve is normal in structure and trileaflet, no stenosis and noregurgitation. The mitral valve is normal in structure, trace mitralregurgitation. Indeterminate pattern of LV diastolic filling. Thetricuspid valve is normal in structure, mild tricuspid regurgitation.Unable to assess right ventricular systolic pressure. The tricuspidregurgitant velocity is 2.2 m/s, the estimated right ventricular systolicpressure is 18 mmHg plus right atrial pressure. There is normal estimatedpulmonary pressure by tricuspid regurgitation velocity and right atrialpressure. The pulmonic valve is not well visualized. No pulmonaryregurgitation. Masses, Effusion, Shunts There is no pericardial effusion. The inferior vena cava is dilated,respiratory size variation less than 50%. Agitated saline injection showedno right to left shunt at rest or following Valsalva manuever. No left toright shunting was detected by limited color flow Doppler interrogation ofthe interatrial septum. MEASUREMENTS AND CALCULATIONS 2-D Measurements and LV Function: LVID (d) 4.9 cm LV FS% (2D) 10 % LVID (s) 4.4 cm LVOT diameter 2.0 cm IVS (d) 0.6 cm HR 141 bpm LVPW (d) 0.8 cm LA Vol index 13 ml/m2 Ao Sinus 3.1 cm RA Vol index 10 ml/m2 Ao Sinus ULN 3.4 cm RA area 8 cm Asc Ao 2.4 cm RV Basal Diam 2.9 cm Asc Ao ULN 3.3 cm RV Mid Diam 1.5 cm Diastology: Mitral Tissue Doppler E Peak 1.0 m/s e', Septum 0.06 m/s A Peak 0.4 m/s e', Lateral 0.16 m/s E/A 2.4 E/e' Average 8.71 DT 129 msec Aortic Valve: Vmax 1.0 m/s JAILYN (V) 2.95 cm VTI 0.13 m JAILYN (I) 3.07 cm LVOT V max 1.0 m/s Max PG 4 mmHg LVOT VTI 0.13 m Mean PG 2 mmHg SV 40 ml Dim Index 0.98 SV index 23 ml/m CO 5.6 l/min CI 3.3 l/min/m Mitral Valve: MVA 5.9 cm MV P 1/2 37 msec Tricuspid Valve and estimated PA pressures: TR Vmax 2.2 m/s TR maxG 18 mmHg Contrast documentation: 2msl ml diluted Definity, lot #[id number][facility] 2001#[id number] was administered peripherally to enhance visualization of allleft ventricular segments. . This study was interpreted by an [facility] accredited facility. Final Lucille Yancey MD ECHO ORD Final Result * (ABNORMAL) PRO-BNP (12/23/2024 4:19 AM CDT) PRO-BNP 22,596(H) <125 pg/mL 12/23/2024 8:18 AM CDT [facility] Blood BLOOD SPECIMEN / Unknown Non-Lab Venipuncture / Unknown 12/23/2024 4:19 AM CDT 12/23/2024 4:31 AM CDT Narrative [facility] - 12/23/2024 8:18 AM CDT The following cut-points have been suggested for the use of proBNP for the diagnostic evaluation of heart failure (HF) in patient with acute dyspnea. Patients with eGFR >= 60 Diagnosis (rule in CHF) <50 Years Old 450 pg/mL 50 - 75 Years Old 900 pg/mL >75 Years Old 1800 pg/mL Exclusion (rule out CHF) Age Independent 300 pg/mL A cutoff of 1200 pg/mL for patients with an eGFR <60 yields a diagnostic sensitivity of 89% and specificity of 72% for acute congestive heart failure. Coby GRISSOM SEND OUTS Final Result [facility] [address] [place] [address], * HCHG INTRDCR NON GUIDING NON LASER PR40, HCHG STOPCOCK PR5, HCHG ANES US GUIDE FOR VASC ACCESS, HCHG TUBING PR1, HCHG KIT MONITORING PR5, HCHG TUBING PR5, HCHG DRSG PR5, HCHG DRSG PR1, [facility] AN INTRODUCER 1 LUMEN PERFORMABLE, HCHG KIT PR5 (12/22/2024 11:53 PM CDT) Sumit Monterroso MD - 12/22/2024 11:53 PM CDT Sumit Be MD 12/22/2024 11:54 PM CVC Patient location during procedure: OR Indications: CVP monitoring and vascular access Completed: patient identified, risks and benefits discussed, consent obtained, hand hygiene performed, gown, full-body drape, chloraprep used and completely dried prior to procedure, cap, mask, gloves and timeout performed CVC Patient position: Trendelenburg Laterality: right Site: internal jugular Ultrasound guidance: live ultrasound, ultrasound permanent image saved and sterile gel and probe cover used in ultrasound-guided central venous catheter insertion. Needle localization (ultrasound): no pathologic findings, selected vessel patent, anatomically normal, potential access sites evaluated and needle visualized entering selected vessel. Confirmation: wire visualized in vein by ultrasound Port Insertion: all ports aspirated and all ports flushed easily Securement/Dressing: Biopatch applied, line sutured in place, dressing applied Catheter Catheter size: 9 Fr Catheter length: 10 cm Number of Lumens: single lumen Introducer present: yes Introducer type: capped Heidi Verma MD ANESTHESIA PX NOTE ORDE RABMARYCARMEN Final Result * TRANSFUSE PLASMA (NURSE COMMUNICATION ORDER) (12/22/2024 11:53 PM CDT) Blood BLOOD SPECIMEN / Unknown Eva Hogan MD NURSING BLOOD BANK Final R esult * TRANSFUSE RBC (NURSE COMMUNICATION ORDER) (12/22/2024 11:52 PM CDT) Blood BLOOD SPECIMEN / Unknown Eva Hogan MD NURSING BLOOD BANK Final R esult * IR EMBOLIZATION (12/22/2024 11:48 PM CDT) Anatomical Region Laterality Modality X-Ray Angiograph y Narrative 12/29/2024 9:46 AM CDT Procedure: Uterine artery embolization Ultrasound guided access of the right common femoral artery Left internal iliac artery angiogram Left internal iliac anterior division angiogram Embolization of the left internal iliac artery anterior division with Gelfoam Right internal iliac artery angiogram Right common femoral artery angiogram Indication: Hemorragic shock post D/C Comparison: None Interventionalist: India Rodríguez DO Fluoroscopy time: 18.1 minutes. Reference air kerma: 206 mGy. Estimated Blood Loss: <10 mL Medications:1% lidocaine 5 mL subcutaneous Sedation: General anesthesia Complications: None immediate. Technique: The procedure, risks, and alternative therapies were discussed in detail, and written informed consent was obtained. A time out was performed to verify correct patient and procedure. Procedure was performed under general anesthesia. The patient is placed supine on the fluoroscopy table and the left wrist was prepped and draped in the usual sterile fashion. All elements of maximum sterile barrier technique were used. Soft tissues were anesthetized with 1% lidocaine. Under realtime ultrasound guidance, the right common femoral artery was accessed using a micropuncture kit. An ultrasound image was stored and sent to PACS. A 5 Prydeinig sheath was placed. A 0.035 Bentson wire and 5 Fr C2 Glidecath were advanced through the sheath into the left internal iliac artery. Left internal iliac angiogram was performed. Left internal iliac arteriogram revealed the origin of the uterine artery with brisk flow. A 2.4 Fr Progreat catheter and 0.016 Fathom wire were advanced into the anterior division of the left internal iliac artery. Selective angiogram of the left internal iliac artery anterior division was performed, which demonstrates uterine artery origin as the first branch of the anterior division just after the bifurcation of the anterior and posterior division. Subsequent angiograms demonstrate possible areas of active extravasation from the left uterine artery. The uterine artery was attempted to be canalized with the 2.4 Fr Progreat catheter, 0.016 Fathom wire, and 0.016 Synchro standard wire, unsuccessfully. Decision was made to look at the right uterine artery. The micro catheter was removed. With the back end of the Bentson wire, the C2 catheter was formed into a Delaney loop, and the right internal iliac artery was selected. Right internal iliac angiogram was performed, which demonstrates spastic anterior division of the internal iliac artery and spastic uterine artery. Decision was made to non-selectively embolize the left internal iliac artery anterior division, as the right internal iliac artery and uterine artery were diminutive in comparison, and there was more brisk flow through the left uterine artery with possible areas of active extravasation. The C2 catheter and Bentson wire were used to select the left internal iliac artery. A 2.4 Fr Progreat microcatheter and 0.016 Fathom wire were used to select the anterior division of the left internal iliac artery. Angiogram was performed to confirm catheter location for embolization. The anterior division of the left internal iliac artery was embolized with a Gelfoam slurry with normal saline and contrast, under fluoroscopic guidance. Post embolization angiogram demonstrates occlusion of the left uterine artery and distal branches of the anterior division of the left internal iliac artery. The posterior division of the left internal iliac artery is patent. The catheters were removed. A right common femoral artery angiogram was performed through the sheath, which demonstrates diminuitive right external iliac and common femoral artery, not appropriate for device assisted closure. The sheath was removed, and manual compression was held for 15 minutes. Sterile dressing placed. No immediate complications. Findings: Patent left uterine artery originating from the proximal anterior division. There is parenchymal blush with areas suspicious for active extravasation originating from the left uterine artery. Post embolization of the anterior division of the left internal iliac artery, there is occlusion of the left uterine artery and distal anterior division arteries. The proximal anterior division of the internal iliac artery is patent with stagnant contrast. Diminutive and spastic right internal iliac artery and right uterine artery, with less parenchymal blush compared to the left uterine artery. Impression: 1. Successful embolization of the anterior division of the left internal iliac artery. Post procedurally, patient had decreased output from Elen balloon and from vaginal orifice. India Rodríguez DO IR Final Resul t * CRYOPRECIPITATE ORDER, 2 Pools (12/22/2024 11:29 PM CDT) Only the most recent of3 resultswithin the time period is included. QUANTITY 2 12/22/2024 11:29 PM CDT [facility] Blood BLOOD SPECIMEN / Unknown 12/22/2024 11:27 PM CDT Anat Pena [facility] Edited R esult - Final [facility] [address] [place] [address], [place] [phone] * CRYOPRECIPITATE EA UNIT (12/22/2024 11:27 PM CDT) Only the most recent of9 resultswithin the time period is included. PRODUCT BLOOD TYPE O Rh Positive [facility] PRODUCT ID NUMBER [id number] [facility] PRODUCT STATUS Transfused [facility] PRODUCT DESCRIPTION CRYO [facility] PRODUCT CODE [id number] [facility] ISSUE DATE/TIME 12/22/24 23:46 [facility] Anat Pena [facility] Edited R esult - Final [facility] [address] [place] [address], * TRANSFUSE RBC (NURSE COMMUNICATION ORDER) (12/22/2024 11:22 PM CDT) Blood BLOOD SPECIMEN / Unknown us Eva Hogan MD NURSING BLOOD BANK Final R esult * TRANSFUSE RBC (NURSE COMMUNICATION ORDER) (12/22/2024 11:22 PM CDT) Blood BLOOD SPECIMEN / Unknown Eva Hogan MD NURSING BLOOD BANK Final R esult * (ABNORMAL) Non-Cardiac Thromboelastography (12/22/2024 11:22 PM CDT) Only the most recent of2 resultswithin the time period is included. ABDOUL REASON OB bleeding 12/23/2024 12:45 AM CDT [facility] INTEM CT 216(H) 139 - 205 s 12/23/2024 12:45 AM CDT [facility] INTEM A5 34(L) 36 - 54 mm 12/23/2024 12:45 AM CDT [facility] INTEM A10 43(L) 46 - 63 mm 12/23/2024 12:45 AM CDT [facility] INTEM A20 50(L) 53 - 68 mm 12/23/2024 12:45 AM CDT [facility] INTEM MCF 54(L) 55 - 70 mm 12/23/2024 12:45 AM CDT [facility] INTEM ML 0 0 - 7 % 12/23/2024 12:45 AM CDT [facility] INTEM LI60 100 93 - 100 % 12/23/2024 12:45 AM CDT [facility] EXTEM CT 57 51 - 73 s 12/23/2024 12:45 AM CDT [facility] EXTEM A5 38 33 - 52 mm 12/23/2024 12:45 AM CDT [facility] EXTEM A10 48 45 - 62 mm 12/23/2024 12:45 AM CDT [facility] EXTEM A20 54 54 - 69 mm 12/23/2024 12:45 AM CDT [facility] EXTEM MCF 57 57 - 72 mm 12/23/2024 12:45 AM CDT [facility] EXTEM ML 0 0 - 6 % 12/23/2024 12:45 AM CDT [facility] EXTEM LI60 100 94 - 100 % 12/23/2024 12:45 AM CDT [facility] FIBTEM A5 13 5 - 16 mm 12/23/2024 12:45 AM CDT [facility] FIBTEM A10 15 6 - 17 mm 12/23/2024 12:45 AM CDT [facility] FIBTEM A20 16 6 - 18 mm 12/23/2024 12:45 AM CDT [facility] FIBTEM MCF 18 6 - 19 mm 12/23/2024 12:45 AM CDT [facility] HEPTEM CT 203 141 - 215 s 12/23/2024 12:45 AM CDT [facility] HEPTEM A5 35 33 - 51 mm 12/23/2024 12:45 AM CDT [facility] HEPTEM A10 44 44 - 61 mm 12/23/2024 12:45 AM CDT [facility] HEPTEM A20 51(L) 52 - 67 mm 12/23/2024 12:45 AM CDT [facility] HEPTEM MCF 56 54 - 69 mm 12/23/2024 12:45 AM CDT [facility] Blood BLOOD SPECIMEN / Unknown Non-Lab Venipuncture / Unknown 12/22/2024 11:22 PM CDT 12/22/2024 11:29 PM CDT Anat Pena [employer] HEMATOLOGY Final Re sult [facility] [address] [place] [address], [place] * TRANSFUSE PLT (NURSE COMMUNICATION ORDER) (12/22/2024 10:56 PM CDT) Blood BLOOD SPECIMEN / Unknown Eva Hogan MD NURSING BLOOD BANK Final R esult * TRANSFUSE PLT (NURSE COMMUNICATION ORDER) (12/22/2024 10:54 PM CDT) Blood BLOOD SPECIMEN / Unknown Eva Hogan MD NURSING BLOOD BANK Final R esult * TRANSFUSE RBC (NURSE COMMUNICATION ORDER) (12/22/2024 10:53 PM CDT) Blood BLOOD SPECIMEN / Unknown Eva Hogan MD NURSING BLOOD BANK Final R esult * (ABNORMAL) Glucose (12/22/2024 10:50 PM CDT) GLUCOSE,RANDOM 245(H) 70 - 139 mg/dL 12/22/2024 11:31 PM CDT [facility] Blood BLOOD SPECIMEN / Unknown Non-Lab Venipuncture / Unknown 12/22/2024 10:50 PM CDT 12/22/2024 11:02 PM CDT Anat Cristinarichmond Pena CRNA CHEMISTRY Final Re sult Performing Organization Address [facility] [address]/[facility] Co de Phone Number [facility] [address] [place] [address], [place] * (ABNORMAL) Thrombin Time (12/22/2024 10:50 PM CDT) THROMBIN TIME 17(H) <16 sec 12/22/2024 11:25 PM CDT [facility] Blood BLOOD SPECIMEN / Unknown Non-Lab Venipuncture / Unknown 12/22/2024 10:50 PM CDT 12/22/2024 11:03 PM CDT Anat Aubree Pena CRNA HEMATOLOGY Final Re sult Performing Organization Address [facility] [address]/[facility] Phone [facility] [address] [place] [address], [place] * TRANSFUSE RBC (NURSE COMMUNICATION ORDER) (12/22/2024 10:46 PM CDT) Blood BLOOD SPECIMEN / Unknown Eva Hogan MD NURSING BLOOD BANK Final R esult * TRANSFUSE RBC (NURSE COMMUNICATION ORDER) (12/22/2024 10:46 PM CDT) Blood BLOOD SPECIMEN / Unknown Eva Hogan MD NURSING BLOOD BANK Final R esult * TRANSFUSE RBC (NURSE COMMUNICATION ORDER) (12/22/2024 10:34 PM CDT) Blood BLOOD SPECIMEN / Unknown Eva Hogan MD NURSING BLOOD BANK Final R esult * TRANSFUSE CRYOPRECIPITATE (NURSE COMMUNICATION ORDER) (12/22/2024 10:20 PM CDT) Blood BLOOD SPECIMEN / Unknown us Jossue Gerard CRNA NURSING BLOOD BANK Final Result * TRANSFUSE CRYOPRECIPITATE (NURSE COMMUNICATION ORDER) (12/22/2024 10:19 PM CDT) Blood BLOOD SPECIMEN / Unknown us Jossue Gerard [employer]DRESS [employer]ER NURSING BLOOD BANK Final Result * TRANSFUSE CRYOPRECIPITATE (NURSE COMMUNICATION ORDER) (12/22/2024 10:19 PM CDT) Blood BLOOD SPECIMEN / Unknown us Jossue Gerard CRNA NURSING BLOOD BANK Final Result * TRANSFUSE PLASMA (NURSE COMMUNICATION ORDER) (12/22/2024 10:17 PM CDT) Blood BLOOD SPECIMEN / Unknown Eva Hogan MD NURSING BLOOD BANK Final R esult * US PELVIS LIMITED PORTABLE (12/22/2024 10:12 PM CDT) Anatomical Region Laterality Modality Pelvis Ultrasound 12/24/2024 5:53 AM CDT Impressions 12/24/2024 5:53 AM CDT Ultrasound guidance for D&C Dictated by Francis Gamez MD @ 12/24/2024 5:53:45 AM (Electronically Signed) Narrative 12/24/2024 5:53 AM CDT For Patients: As a result of the Cures Act, medical imaging exams and procedure reports are released immediately into your electronic medical record. You may view this report before your referring provider. If you have questions, please contact your health care provider. INDICATION: : Ultrasound guidance for D&C TECHNIQUE: Ultrasound guidance for D&C COMPARISON: None FINDINGS: Ultrasound guidance for D&C. Procedure Note Francis Gamez MD - 12/24/2024 For Patients: As a result of the 21st Century Cures Act, medical imagingexams and procedure reports are released immediately into your electronicmedical record. You may view this report before your referring provider.If you have questions, please contact your health care provider. INDICATION: : Ultrasound guidance for D&C TECHNIQUE: Ultrasound guidance for D&C COMPARISON: None FINDINGS: Ultrasound guidance for D&C. IMPRESSION: Ultrasound guidance for D&C Dictated by Francis Gamez MD @ 12/24/2024 5:53:45 AM (Electronically Signed) Result [facility] Eva Hogan MD Final Resu lt * TRANSFUSE RBC (NURSE COMMUNICATION ORDER) (12/22/2024 10:12 PM CDT) Blood BLOOD SPECIMEN / Unknown Result [facility] Eva Hogan MD NURSING BLOOD BANK Final R esult * TRANSFUSE RBC (NURSE COMMUNICATION ORDER) (12/22/2024 10:12 PM CDT) Blood BLOOD SPECIMEN / Unknown Result [facility] Eva Hogan MD NURSING BLOOD BANK Final R esult * TRANSFUSE PLASMA (NURSE COMMUNICATION ORDER) (12/22/2024 10:03 PM CDT) Blood BLOOD SPECIMEN / Unknown Result [facility] Eva Hogan MD NURSING BLOOD BANK Final R esult * TRANSFUSE RBC (NURSE COMMUNICATION ORDER) (12/22/2024 10:01 PM CDT) Blood BLOOD SPECIMEN / Unknown Result [facility] Eva Hogan MD NURSING BLOOD BANK Final R esult * TRANSFUSE RBC (NURSE COMMUNICATION ORDER) (12/22/2024 10:01 PM CDT) Blood BLOOD SPECIMEN / Unknown Result [facility] Eva Hogan MD NURSING BLOOD BANK Final R esult * TRANSFUSE PLASMA (NURSE COMMUNICATION ORDER) (12/22/2024 10:00 PM CDT) Blood BLOOD SPECIMEN / Unknown Result [facility] Eva Hogan MD NURSING BLOOD BANK Final R esult * TRANSFUSE PLT (NURSE COMMUNICATION ORDER) (12/22/2024 9:41 PM CDT) Blood BLOOD SPECIMEN / Unknown Result [facility] Eva Hogan MD NURSING BLOOD BANK Final R esult * TRANSFUSE CRYOPRECIPITATE (NURSE COMMUNICATION ORDER) (12/22/2024 9:33 PM CDT) Blood BLOOD SPECIMEN / Unknown Result [facility] Jossue Gerard PUBLIC ADDRESS ANNOUNCER NURSING BLOOD BANK Final Result * TRANSFUSE CRYOPRECIPITATE (NURSE COMMUNICATION ORDER) (12/22/2024 9:33 PM CDT) Blood BLOOD SPECIMEN / Unknown Result [facility] Jossue Josemanuelflash Gerard [facility] NURSING BLOOD BANK Final Result * TRANSFUSE RBC (NURSE COMMUNICATION ORDER) (12/22/2024 9:29 PM CDT) Blood BLOOD SPECIMEN / Unknown Result [facility] Eva Hogan MD NURSING BLOOD BANK Final R esult * TRANSFUSE RBC (NURSE COMMUNICATION ORDER) (12/22/2024 9:14 PM CDT) Blood BLOOD SPECIMEN / Unknown Result [facility] Eva Hogan MD NURSING BLOOD BANK Final R esult * TRANSFUSE PLASMA (NURSE COMMUNICATION ORDER) (12/22/2024 8:44 PM CDT) Blood BLOOD SPECIMEN / Unknown Result [facility] Iker Cortes MD NURSING BLOOD BANK F inal Result * PATH TISSUE EXAM (12/22/2024 8:38 PM CDT) Case Report Pathology Report Case: [id number] Authorizing Provider: Eva Hogan MD Collected: 12/22/20242037 Ordering Location: [facility] Received: 12/23/2024 0807 [facility] Pathologist: Agustin Hobbs MD Specimen: Products of Conception 12/28/2024 10:43 AM CDT [facility] Final Diagnosis A) PRODUCTS OF CONCEPTION, CURETTAGE: 1. Fragmented second trimester bryson placenta with the following characteristics: a. Weight: 42 grams b. Membranes/ surface: Severe acute chorioamnionitis (grade 2, stage 2) c. Umbilical cord: Not included for evaluation d. Disc/Villi: Chorionic villi consistent with gestational age Negative for villitis Placental disc without infarcts e. Decidua/basal plate: No diagnostic abnormalities identified 12/28/2024 10:43 AM CDT [facility] at 1042 CDT Clinical Information Septic , septic shock; retained products of conception 12/28/2024 10:43 AM CDT [facility] Gross Description A) Received fresh, labeled with the patient's name and products of conception, is a 4.2 x 2.2 x 1.6 cm aggregate of hemorrhagic, brown fibromembranous tissues admixed with chorionic villi and 42 g, 6.3 x 4.6 x 1.4 cm portion of placental disc with attached membranes. No umbilical cord is identified. On section the placental disc has a red hemorrhagic spongy center throughout. No somatic tissue or hydropic villi are identified. [employer]n [employer] sections are submitted in five cassettes. 1. membranes 2-4. Placental disc, full-thickness 5. Additional POC Time and date in formalin: 831 on 12/23/2024 TRS 12/23/2024 12/28/2024 10:43 AM CDT [facility] Microscopic Description The final diagnosis is based on microscopic examination of appropriate sections of all specimens. 12/28/2024 10:43 AM CDT [facility] Additional Information Interpreted at [facility], Central Laboratory - [address], [place] [address] 12/28/2024 10:43 AM T [facility] POC (Products of Conception) 12/22/2024 8:38 PM CDT 12/23/2024 8:07 AM CDT Eva Hogan MD PATHOLOGY/CYTOLOGY Final R esult [facility] [address] [place] [address], [place] * TRANSFUSE PLASMA (NURSE COMMUNICATION ORDER) (12/22/2024 8:19 PM CDT) Blood BLOOD SPECIMEN / Unknown us Iker Cortes MD NURSING BLOOD BANK F inal Result * PLASMA ORDER, 2 units (12/22/2024 7:50 PM CDT) Only the most recent of2 resultswithin the time period is included. QUANTITY 2 12/22/2024 7:5 0 PM CDT [facility] Blood BLOOD SPECIMEN / Unknown 12/22/2024 7:41 PM CDT Eva Hogan MD BLOOD BANK Edited Res ult - Final Performing Organization Address City/[facility] [address]/ZIP Co de Phone Number [facility] [address] [place] [address], [place] [phone] * BEDSIDE US STUDY ARCHIVE (12/22/2024 7:33 PM CDT) Narrative Iker Cortes MD - 12/22/2024 7:33 PM CDT Iker Cortes MD 12/22/2024 7:34 PM Procedure type Arterial line placement Diagnosis: Shock Consent This procedure was performed with implied/emergent consent Procedure description I led the bedside team in a pre-procedure time out to confirm the patient's name and date of , the procedure type and body site (including laterality), and to review any relevant diagnostics. (Site marking was not required as I remained with the patient from the time of the decision to do the procedure through to the performance of the procedure.) The patient was sedated with IV fentanyl and propofol infusions. I cleansed my hands with alcohol-based hand engineering director, prepped the patient's left wrist with chlorhexidine, and used sterile drape, gown, and gloves. I used dynamic ultrasound to select a patent vessel and provide real-time imaging of needle entry and guidewire position. I saved an image of the vessel to the patient's medical record. I accessed the vessel, advanced the catheter over the guidewire using modified Seldinger technique, secured the line with suture, and placed an antiseptic dressing. The patient tolerated the procedure well without immediate complications. A post-procedure chest radiograph was not indicated. Iker Cortes MD [facility] Iker Cortes MD PROCEDURE ORD Mary l Result * (ABNORMAL) Lactate Venous (12/22/2024 6:33 PM CDT) Only the most recent of3 resultswithin the time period is included. [facility] LACTATE,VENOUS 5.2(H) 0.5 - 2.0 mmol/L 12/22/2024 7:05 PM CDT [facility] Blood BLOOD SPECIMEN / Unknown Non-Lab Venipuncture / Unknown 12/22/2024 6:33 PM CDT 12/22/2024 6:40 PM CDT Kendra Morrison MD CHEMISTRY Final R esult [facility] [address] [place] [address], * (ABNORMAL) BLOOD GAS,VENOUS (12/22/2024 6:33 PM CDT) [facility] PH, VENOUS 7.32 7.32 - 7.43 12/22/2024 6:47 PM CDT [facility] PCO2, VENOUS 34(L) 41 - 51 mmHg 12/22/2024 6:47 PM CDT [facility] PO2, VENOUS 44(H) 35 - 40 mmHg 12/22/2024 6:47 PM CDT [facility] HCO3,VENOUS 18(L) 22 - 29 mmol/L 12/22/2024 6:47 PM CDT [facility] BASE EXCESS, VENOUS, POCT -7.7(L) -2.0 - 3.0 12/22/2024 6:47 PM CDT [facility] O2 SATURATION, VENOUS 77(H) 70 - 75 % 12/22/2024 6:47 PM CDT [facility] PATIENT TEMPERATURE 37.0 Degrees C 12/22/2024 6:47 PM CDT [facility] Blood VENOUS BLOOD SPECIMEN / Unknown Non-Lab Venipuncture / Unknown 12/22/2024 6:33 PM CDT 12/22/2024 6:40 PM CDT Ikersamira Cortes MD CHEMISTRY Mary l Result [facility] [address] [place] [address], * Path Tissue Exam Placenta (12/22/2024 4:23 PM CDT) Case Report Pathology Report Case: [id number] Authorizing Provider: Nichole Andino Collected: 12/22/2024 Pooja Price DO Ordering Location: [facility] Received: 12/22/[address] [place] [address] Pathologist: Mari Nunez MD Specimen: Placenta 12/27/2024 4:27 PM CDT [facility] Final Diagnosis A) PLACENTA, VAGINAL DELIVERY: 1. Fragmented second trimester bryson placenta with the following characteristics: a. Weight: 37 grams b. Membranes/ surface: Pigment consistent with meconium present in membranes Severe acute chorioamnionitis (grade 2, stage 2-3) Acute chorionic plate vasculitis c. Umbilical cord: Not identified d. Disc/Villi: Chorionic villi consistent with gestational age Patchy villous edema Negative for villitis Placental disc without infarcts e. Decidua/basal plate: Disrupted maternal surface, completeness cannot be confirmed 12/27/2024 4:27 PM T [facility] at 1627 CDT Comment Acute chorioamnionitis (maternal inflammatory response) with associated inflammatory response (chorionic plate vasculitis, umbilical phlebitis, or umbilical arteritis) is usually due to an ascending bacterial infection. Although only a small proportion of infants whose placentas show acute chorioamnionitis develop sepsis, the presence of a inflammatory response, especially when severe, increases this risk, as well as the risk of thrombotic diathesis and neurologic impairment. The maternal surface is disrupted, and completeness of removal of placental tissues from the uterine cavity cannot be ensured. Clinical correlation is recommended to determine completeness of removal. 12/27/2024 4:27 PM T [facility] Clinical Information 29 y.o. at 19w6d with demise, Chorioamnionitis with sepsis, Rh + Time of : 11:55 AM Sex: female Wt: 310 g Apgars: 0 & 0 at 1 and 5 min. Nuchal cord: x 1 easily reduced. Thick meconium. Placenta did not deliver spontaneously after 30 minutes 12/27/2024 4:27 PM [facility] Gross Description A) Received in formalin, labeled with the patient's name and placenta, is a 10 x 7 x 1 cm, 37 g aggregate of hemorrhagic, brown fibromembranous tissues admixed with chorionic villi. No somatic tissue or hydropic villi are identified. Kiln Mechanic sections are submitted in five cassettes. JPW 12/23/2024 12/27/2024 4:27 PM [facility] Microscopic Description The final diagnosis is based on microscopic examination of appropriate sections of all specimens. 12/27/2024 4:27 PM [facility] Additional Information Interpreted at [facility] Central Laboratory - [address] [address] Domenico Roe [address], [place] [address] 12/27/2024 4:27 PM CDT [facility] Tissue SPECIMEN FROM PLACENTA / Unknown 12/22/2024 4:23 PM CDT 12/22/2024 4:[address] [facility] GarridoAngelic DO PATHOLOGY/CYTO LOGY Final Result [facility] [address] [place] [address], [place] * SCAN-CARDIAC STRIP (12/22/2024 2:07 PM CDT) us Scanner OTHER Final Result * Beta 2 Glycoprotein ILANA (12/22/2024 11:19 AM CDT) Beta 2 GP1 Ab IgA <4.0 <=20.0 CU 12/23/2024 11:32 AM CDT [facility] Beta 2 GP1 Ab IgG <6.4 <=20.0 CU 12/23/2024 11:32 AM CDT [facility] Beta 2 GP1 Ab IgM <1.1 <=20.0 CU 12/23/2024 11:32 AM CDT [facility] Blood BLOOD SPECIMEN / Unknown Venipuncture / Unknown 12/22/2024 11:19 AM CDT 12/22/2024 11:22 AM CDT Narrative [facility] - 12/23/2024 11:32 AM CDT Negative <=20 Positive >20 These results were obtained with the [employer] Quanta Flash chemiluminescent immunoassay. Values obtained with different manufacturers' assay methods may not be used interchangeably. The magnitude of the reported autoantibody levels cannot always be correlated to an endpoint titer. Nichole VTEXaurelia GarridoStreet[employer], [employer]good DO SEND OUTS Final Result Performing Organization Address City/[facility] [address]/ZIP Co de Phone Number [facility] [address] [place] [id number], [place] * Cardiolipin Antibody (12/22/2024 11:19 AM CDT) Cardiolipin IgA 3.6 <=20.0 CU 11:32 AM CDT [facility] Cardiolipin IgG <2.6 <=20.0 CU 5 11:32 AM CDT [facility] Cardiolipin IgM 1.2 <=20.0 CU 5 11:32 AM CDT [facility] Blood BLOOD SPECIMEN / Unknown Venipuncture / Unknown 12/22/2024 11:19 AM CDT 12/22/2024 11:22 AM CDT Narrative [facility] - 12/23/2024 11:32 AM CDT Interpretation: Moderate to high titers (40 GPL or MPL by IVAN assays) of aCL correlate better with aPL-related clinical events than do lower titers; IgG is more strongly associated with clinical events than is IgM ([facility] 378(21):2010). Insurance Processor's studies have shown the following correlation between anti- cardiolipin antibody levels quantified by the BioFlash Chemiluminescent method compared to IVAN (Antibodies 2016,5,14): For IgG aCL: 95 CU corresponds to 40 GPL For IgM aCL: 31 CU corresponds to 40 MPL Nichole Andino DO SEND OUTS Final Result [facility] [address] [place] [address], [place] * (ABNORMAL) Lupus Anticoagulant (12/22/2024 11:19 AM CDT) PROTIME 14.0(H) 10.6 - 12.4 sec 12/23/2024 10:23 AM CDT [facility] INR 1.2 <1.3 12/23/2024 10:23 AM CDT [facility] THROMBIN TIME 15 <16 sec 12/23/2024 10:23 AM CDT [facility] DRVVT RATIO 1.02 <=1.20 12/23/2024 10:23 AM CDT [facility] SCT RATIO 0.61 <=1.16 12/23/2024 10:23 AM CDT [facility] APTT 30 25 - 36 sec 12/23/2024 10:23 AM CDT [facility] Blood BLOOD SPECIMEN / Unknown Venipuncture / Unknown 12/22/2024 11:19 AM CDT 12/22/2024 11:22 AM CDT Narrative [facility] - 12/23/2024 10:23 AM CDT LUPUS ANTICOAGULANT NOT DETECTED All anticoagulants (Warfarin, High level Heparin, Direct Oral Anticoagulants, Direct Thrombin Inhibitors) cause false positive lupus anticoagulant test results. We recommend disregarding lupus anticoagulant results obtained while patient is on any form of anticoagulation. For [facility] patients consider consulting with Anticoagulation and Thrombophilia Clinic at [phone]. Nichole Andino DO SEND OUTS Final Result [facility] [address] [place] [address], * Kleihauer ( Cells) (12/22/2024 11:19 AM CDT) Case Report Special Hematology Report Case: [id number] Authorizing Provider: Nichole Andino Collected: 12/22/2024 Key Price DO Ordering Location: [facility] Received: 12/22/[address] [place] [address] Pathologist: David Rush MD Specimen: Blood 12/23/2024 2:23 PM CDT [facility] Final Diagnosis KLEIHAUER-BETKE STUDY (FLOW CYTOMETRY) RESULTS: 1. Negative for recent -maternal hemorrhage 2. RhoGam is not indicated (maternal Rh type positive) 3. See comment 12/23/2024 2:23 PM CDT [facility] at 1423 CDT Preliminary result electronically signed by Lakeisha Reyna for David Rush MD on 12/23/2024 at 1354 CDT Comment The negative results listed would suggest that a recent -maternal hemorrhage has not occurred. Delays in sampling could lead to false negative results, especially in cases of significant ABO incompatibility between mother and fetus. Clinical correlation should be considered in final conclusions. 12/23/2024 2:23 PM CDT [facility] Clinical Information Indication: Demise Maternal ABO type: O Maternal Rh type: Positive Gestational age: 19 weeks 12/23/2024 2:23 PM CDT [facility] Flow Cytometry Summary RESULTS The number of events detected by flow cytometry is below the assay sensitivity threshold and is therefore negative. These marker percentages and the flow cytograms have been verified by the signing attending pathologist. QC: FETALtrol control (levels 1, 2, and 3) results are within range. METHODS Flow cytometry detects RBCs by incubating maternal blood with fluoresceinated monoclonal antibody with specificity for hemoglobin F. The lower limit of detection for the assay is 0.04%, provided a minimum of 50,000 RBC events are available for analysis. This test was developed and its performance characteristics determined by the [facility]. It has not been cleared or approved by the [place] Food and Drug Administration. The FDA has determined that such clearance or approval is not necessary. This test is used for clinical purposes. It should not be regarded as investigational or for research. This laboratory is certified under the Clinical Laboratory Improvement Amendments of 1988 (CLIA-88) as qualified to perform high complexity clinical laboratory testing. Test interpreted at [facility]. 12/23/2024 2:23 PM CDT [facility] Blood BLOOD SPECIMEN / Unknown Venipuncture / Unknown 12/22/2024 11:19 AM CDT 12/22/2024 11:18 AM CDT us Nichole Andino DO HEMATOLOGY Final Result [facility] [address] [place] [address], [place] * US OB LIMITED ANY TRI TA (12/22/2024 10:03 AM CDT) Anatomical Region Laterality Modality , 2or 3 TRIMESTER, 1ST TRIMESTER Ultrasound 12/22/2024 10:1 5 AM CDT Narrative 12/22/2024 10:15 AM CDT For Patients: As a result of the Cures Act, medical imaging exams and procedure reports are released immediately into your electronic medical record. You may view this report before your referring provider. If you have questions, please contact your health care provider. INDICATION: No heart tones detected on bedside ultrasound. Known incompetent cervix. TECHNIQUE: Ultrasound OB pelvis transabdominal. Real-time lu-scale imaging of the fetus was performed as well as color Doppler. COMPARISON: 12/20/2024. FINDINGS: Intrauterine is noted in cephalic presentation. No heart tones were able to be detected. Dilated cervix is again seen measuring approximately 5.0 x 3.5 centimeters. IMPRESSION.: 1. No heart tones were able to be detected by the performing gravel wheeler. heart tones were reportedly not visualized on earlier bedside ultrasound. This is evidence of spontaneous . 2. Dilated cervix. Case discussed with Dr. Montgomery at 10:10 a.m. on 12/22/2024. Dictated by Alexei Rivera MD @ 12/22/2024 10:15:58 AM (Electronically Signed) Procedure Note Alexei Rivera MD - 12/22/2024 For Patients: As a result of the Cures Act, medical imagingexams and procedure reports are released immediately into your electronicmedical record. You may view this report before your referring provider.If you have questions, please contact your health care provider. INDICATION: No heart tones detected on bedside ultrasound. Known incompetentcervix. TECHNIQUE: Ultrasound OB pelvis transabdominal. Real-time lu-scale imaging of thefetus was performed as well as color Doppler. COMPARISON: 12/20/2024. FINDINGS: Intrauterine is noted in cephalic presentation. No hearttones were able to be detected. Dilated cervix is again seen measuringapproximately 5.0 x 3.5 centimeters. IMPRESSION.: 1. No heart tones were able to be detected by the performingsonographer. heart tones were reportedly not visualized on earlierbedside ultrasound. This is evidence of spontaneous . 2. Dilated cervix. Case discussed with Dr. Montgomery at 10:10 a.m. on 12/22/2024. Dictated by Alexei Rivera MD @ 12/22/2024 10:15:58 AM (Electronically Signed) Vamsi Montgomery MD Mary nixon Result * (ABNORMAL) BLOOD CULTURE MULTIPLEX PCR (12/22/2024 9:37 AM CDT) Organism(s) Detected Klebsiella pneumoniae group(AA) No organism targets detected., Invalid 12/23/2024 6:41 PM CDT [facility] Resistance Gene(s) None detected None detected 12/23/2024 6:41 PM CDT [facility] CTX-M (ESBL-resistance gene) NOT Detected 12/23/2024 6:41 PM CDT [facility] IMP (carbapenem-resistan ce gene) NOT Detected NOT Detected, N/A 12/23/2024 6:41 PM CDT [facility] KPC (carbapenem-resistan ce gene) NOT Detected NOT Detected, N/A 12/23/2024 6:41 PM CDT [facility] mcr-1 (colistin-resistance gene) NOT Detected 12/23/2024 6:41 PM CDT [facility] mecA/C (methicillin-resista nce gene) N/A 12/23/2024 6:41 PM CDT [facility] mecA/C and MREJ (methicillin-resista nce gene) N/A 12/23/2024 6:41 PM CDT [facility] NDM (carbapenem-resistan ce gene) NOT Detected NOT Detected, N/A 12/23/2024 6:41 PM CDT [facility] OXA-48 like (carbapenem-resistan ce gene) NOT Detected NOT Detected, N/A 12/23/2024 6:41 PM CDT [facility] van A/B (vancomycin-resistan ce genes) N/A 12/23/2024 6:41 PM CDT [facility] VIM (carbapenem-resistan ce gene) NOT Detected NOT Detected, N/A 12/23/2024 6:41 PM CDT [facility] Enterococcus faecalis NOT Detected 12/23/2024 6:41 PM CDT [facility] Enterococcus faecium NOT Detected 6:41 PM CDT [facility] Listeria monocytogenes NOT Detected 12/23/2024 6:41 PM CDT [facility] Staphylococcus NOT Detected 12/24/19 6:41 PM CDT [facility] Staphlococcus aureus NOT Detected 6:41 PM CDT [facility] Staphylococcus epidermidis NOT Detected 12/23/2024 6:41 PM CDT [facility] Staphylococcus lugdunensis NOT Detected 12/23/2024 6:41 PM CDT [facility] Streptococcus NOT Detected 6:41 PM CDT [facility] Streptococcus agalactiae (Group B) NOT Detected 12/23/2024 6:41 PM CDT [facility] Streptococcus pneumoniae NOT Detected 12/23/2024 6:41 PM CDT [facility] Streptococcus pyogenes (Group A) NOT Detected 12/23/2024 6:41 PM CDT [facility] Acinetobacter calcoaceticus-adonis nelson complex NOT Detected 12/23/2024 6:41 PM CDT [facility] Enterobacteriaceae Detected 2024 6:41 PM CDT [facility] Enterobacter cloacae complex NOT Detected 12/23/2024 6:41 PM CDT [facility] Escherichia coli NOT Detected 2024 6:41 PM CDT [facility] Klebsiella oxytoca NOT Detected 12/12 6:41 PM CDT [facility] Klebsiella pneumoniae group Detected 12/23/2024 6:41 PM CDT [facility] Proteus NOT Detected 12/23/2024 6:41 PM CDT [facility] Serratia marcescens NOT Detected 03/2025 6:41 PM CDT [facility] Haemophilus influenzae NOT Detected 12/23/2024 6:41 PM CDT [facility] Neisseria meningitidis NOT Detected 12/23/2024 6:41 PM CDT [facility] Pseudomonas aeruginosa NOT Detected 12/23/2024 6:41 PM CDT [facility] Carson albicans NOT Detected 2024 6:41 PM CDT [facility] Carson glabrata NOT Detected 2024 6:41 PM CDT [facility] Carson krusei NOT Detected 12/24/19 6:41 PM CDT [facility] Carson parapsilosis NOT Detected 6:41 PM CDT [facility] Carson tropicalis NOT Detected 12/12 6:41 PM CDT [facility] Bacteroides fragilis group NOT Detected 12/23/2024 6:41 PM CDT [facility] Klebsiella aerogenes NOT Detected 6:41 PM CDT [facility] Salmonella NOT Detected 12/23/2024 6:41 PM CDT [facility] Stenotrophomonas maltophilia NOT Detected 12/23/2024 6:41 PM CDT [facility] Carson auris NOT Detected 6:41 PM CDT [facility] Cryptococcus neoformans/gattii NOT Detected 12/23/2024 6:41 PM CDT [facility] Blood BLOOD SPECIMEN / Unknown Diversion Device / Unknown 12/22/2024 9:37 AM CDT 12/22/2024 9:46 AM CDT Narrative [facility] - 12/23/2024 6:41 PM CDT Note: Antimicrobial resistance can occur via multiple mechanisms. A Not Detected result for antimicrobial resistance gene(s) does not indicate antimicrobial susceptibility. Subculturing is required for species identification and susceptibility testing of isolates. Note: All BIOFIRE BCID2 Panel results are intended to be interpreted in conjunction with Gram stain results. In some cases, the Gram stain result and the BIOFIRE BCID2 Panel result may be discrepant. In these cases, the BIOFIRE BCID2 Panel results should be confirmed, e.g., by culture or other laboratory, epidemiological, or clinical findings. Blood culture media may contain non-viable organisms and/or nucleic acids that may lead to false positive BIOFIRE BCID2 Panel results. Typically, these false positives present with more than one positive result from the BIOFIRE BCID2 Panel. Vamsi Montgomery MD MICROBIOLOGY Mary l Result Performing Organization Address [facility] [address]/[facility] Co de Phone Number [facility] [address] [place] [phone], * Hemoglobin A1C Screening (12/22/2024 9:37 AM CDT) [facility] HEMOGLOBIN A1C SCREENING 4.4 <=6.4 % 12/22/2024 10:58 AM CDT [facility] Blood BLOOD SPECIMEN / Unknown Diversion Device / Unknown 12/22/2024 9:37 AM CDT 12/22/2024 9:46 AM CDT Narrative [facility] - 12/22/2024 10:58 AM CDT (<5.7%) Normal (5.7% to 6.4%) Indicates prediabetes (>=6.5%) Confirms diabetes Falsely low levels may be seen with: Recent Transfusion, Recent Significant Blood Loss, Hemolytic Diseases, or Falsely elevated levels may be seen with: Untreated Anemias, Splenectomy Nichole Andino DO CHEMISTRY Final Result Performing Organization Address [facility] [address]/[facility] Co de Phone Number [facility] [address] [place] [phone] * (ABNORMAL) AMNISURE ROM (12/22/2024 9:27 AM CDT) [facility] AMNISURE ROM Positive, THERE IS A RUPTURE(A ) Negative, NO MEMBRANES RUPTURE 12/22/2024 9:50 AM CDT [facility] Body Fluid VAGINAL SWAB / Unknown Non-Blood / Unknown 12/22/2024 9:27 AM CDT 12/22/2024 9:41 AM CDT Vamsi Montgomery MD LABORATORY Mary l Result [facility] [address] [place] [address] * COVID-19 MOLECULAR (12/22/2024 9:17 AM CDT) [facility] COVID 19 ALLINA MOLECULAR Not detected Not detected 12/22/2024 10:30 AM CDT [facility] TESTING LABORATORY [facility] 12/22/2024 10:30 AM CDT [facility] Comment:Specimen submitted t o [facility] for testing. Other SPECIMEN FROM NASOPHARYNGEAL STRUCTURE / Unknown Non-Blood / Unknown 12/22/2024 9:17 AM CDT 12/22/2024 10:10 AM CDT Vamsi Montgomery MD MICROBIOLOGY Mary l Result [facility] [address] [place] [address] * TRICHOMONAS, CARSON, AND BACTERIAL VAGINOSIS BY SEVERINO (12/21/2024 10:47 AM CDT) [facility] CARSON SPECIES Negative Negative 9:19 PM CDT [facility] CARSON GLABRATA Negative Negative 12/21/2024 9:19 PM CDT [facility] TRICHOMONAS VVA Negative Negative 9:19 PM CDT [facility] BACTERIAL VAGINOSIS Negative Negative 12/21/2024 9:19 PM CDT [facility] Other VAGINAL SWAB / Unknown Non-Blood / Unknown 12/21/2024 10:47 AM CDT 12/21/2024 11:04 AM CDT us Yen Mckinney MD MICROBIOLOGY Fi nal Result [facility] [address] [place] [phone], * (ABNORMAL) POCT Urinalysis Dipstick Only [[id number]] (12/21/2024 10:47 AM CDT) [facility] Signature SPECIFIC GRAVITY 1.025 1.001 - 1.035 12/21/2024 11:13 AM CDT [facility] PROTEIN TRACE(A) NEGATIVE 12/21/2024 11:13 AM CDT [facility] GLUCOSE NEGATIVE NEGATIVE 12/21/2024 11:13 AM CDT [facility] KETONES 4+(A) NEGATIVE 12/21/2024 11:13 AM CDT [facility] BILIRUBIN 2+(A) NEGATIVE 12/21/2024 11:13 AM CDT [facility] Comment: A false positive may be caused by the drug Lodine. For any presumptive positive bilirubin, consider confirmation by serum bilirubin if clinically indicated. OCCULT BLOOD NEGATIVE NEGATIVE 12/21/2024 11:13 AM CDT [facility] NITRITE NEGATIVE NEGATIVE 12/21/2024 11:13 AM CDT [facility] PH 6.5 5.0 - 8.0 12/21/2024 11:13 AM CDT [facility] LEUKOCYTE ESTERASE TRACE(A) NEGATIVE 12/21/2024 11:13 AM CDT [facility] Urine URINE SPECIMEN / Unknown Non-Blood / Unknown 12/21/2024 10:47 AM CDT 12/21/2024 11:04 AM CDT us Yen Mckinney MD URINE Fi nal Result [facility] [address] [place] [address], [place] [phone] [facility] [address] [place] [address], [place] [phone] * GC CHLAMYDIA TRACH PROBE (12/21/2024 10:47 AM CDT) CHLAMYDIA PROBE Negative 3:16 PM CDT [facility] N GONORRHOEAE PROBE Negative 12/22/2024 3:16 PM CDT [facility] Other VAGINAL SWAB / Unknown Non-Blood / Unknown 12/21/2024 10:47 AM CDT 12/21/2024 11:04 AM CDT us Nichole Andino DO MICROBIOLOGY Final Result Performing Organization Address City/[facility] [address]/ZIP Co de Phone Number [facility] [address] [address], [place] * URINE CULTURE [63195.2] (12/21/2024 10:47 AM CDT) CULTURE <10,000 CFU/mL multiple organisms 12/22/2024 2:44 PM CDT [facility] Urine URINE SPECIMEN / Unknown Non-Blood / Unknown 12/21/2024 10:47 AM CDT 12/21/2024 11:04 AM CDT us Yen Mckinney MD MICROBIOLOGY Fi nal Result [facility] [address] [place] [address], [place] * Echocardiogram (CPT 82822) (12/20/2024 3:11 PM CDT) Anatomical Region Laterality Modality HEART Ultrasound 12/20/2024 3:05 PM CDT Narrative 12/20/2024 4:13 PM CDT Normal Echocardiogram COMMENT The results of the echocardiogram were discussed with the parents. echocardiograms can not rule out some ventricular septal defects, persistent patent ductus arteriosus, atrial septal defect, some abnormalities of systemic and pulmonary venous return, coarctation of the aorta, and minor valve abnormalities. Services Provided: Procedures Code US ECHOCARDIOGRAM 29488.0 US DOPPLER COLOR FLOW VELOCITY MAP 99390.0 Procedure Note Estefanía Osborne MD - 12/20/2024 Normal Echocardiogram COMMENT The results of the echocardiogram were discussed with the parents. echocardiograms can not rule out some ventricular septal defects, persistent patentductus arteriosus, atrial septal defect, some abnormalities of systemic and pulmonary venous return,coarctation of the aorta, and minor valve abnormalities. 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 presentation is Transverse, head to maternal right. EFW 344 grams, percentile: 79. Growth parameters and estimated weight are appropriate for gestational age. No major structural anomalies identified. No markers for aneuploidy identified. Normal Deepest Vertical Pocket of amniotic fluid: 5.78 cm. Placental location: Anterior with rt lat lobe. Placental edge dist from international operations manager os=4 cm The transabdominal cervix appears dilated Sterile speculum exam notable for dilation to 4 cm with memranes protruding from os. RECOMMENDATIONS: - Discussed management options as described below for premature cervical dilation; desires expectant management - She did note slightly increased pressure at the end of the visit and she plans to go to [place] for evaluation tonight. - If she continues the , she will plan a follow up visit with us with limited ultrasound, MD time, and NICU consult to determine gestational age of hospital admission. 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 The previous ultrasound and the records were reviewed. The results of today's ultrasound were communicated to the patient. Reviewed normal anatomy but premature cervical dilation. I reviewed that she is not a candidate for rescue cerclage given her dilation and membrane prolapse. I did review the risks associated with cervical dilation including chorioamnionitis, maternal sepsis, vaginal bleeding, and labor. I discussed that she does not need to be fully 10 cm to deliver and that a periviable delivery is a possibility. I reviewed options including interruption of and expectant management. I did review specifically that if she does acquire chorioamnionitis, she would need to deliver the fetus regardless of gestational age due to risk of maternal sepsis, kidney failure, and . I reviewed precautions for chorioamnionitis, labor. She plans to go in to the hospital likely tonight as she started to feel slight increase in pressure on way out of clinic. We also briefly touched on her TPN - I would recommend to discontinue and remove her PICC if she is eating due to the risks of TPN and PICC line in . I would recommend to continue to follow up with endocrinology regarding TSH. Would recommend serial growth ultrasounds in . She would be an excellent candidate for history indicated cerclage in future , or cervical length screening at minimum. Would recommend preconception consultation in future . Government regulations related to the Century Cures act require that this note be released to the patient immediately, sometimes before the referring provider has been contacted. A portion of the information was presented verbally to the patient. The remainder is submitted as background for the referring provider, to be discussed as needed. 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 presentation is Transverse, head to maternal right. EFW 344 grams, percentile: 79. Growth parameters and estimated weight are appropriate forgestational age. No major structural anomalies identified. No markers for aneuploidy identified. Normal Deepest Vertical Pocket of amniotic fluid: 5.78 cm. Placental location: Anterior with rt lat lobe. Placental edge dist fromintern os=4 cm The transabdominal cervix appears dilated Sterile speculum exam notable for dilation to 4 cm with memranesprotruding from os. RECOMMENDATIONS: - Discussed management options as described below for premature cervicaldilation; desires expectant management - She did note slightly increased pressure at the end of the visit and sheplans to go to [place] evaluation tonight. - If she continues the , she will plan a follow up visit with uswith limited ultrasound, MD time, and NICU consult to determine gestational age ofhospital admission. 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 The previous ultrasoundand the records were reviewed. The results of today's ultrasound werecommunicated to the patient. Reviewed normal anatomy but premature cervical dilation. I reviewedthat she is not a candidate for rescue cerclage given her dilation and membrane prolapse. Idid review the risks associated with cervical dilation including chorioamnionitis, maternalsepsis, vaginal bleeding, and labor. I discussed that she does not need to befully 10 cm to deliver and that a periviable delivery is a possibility. I reviewed optionsincluding interruption of and expectant management. I did review specifically that if radha acquire chorioamnionitis, she would need to deliver the fetus regardless ofgestational age due to risk of maternal sepsis, kidney failure, and . I reviewed precautions forchorioamnionitis, labor. She plans to go in to the hospital likely tonight as she started to feelslight increase in pressure on way out of clinic. We also briefly touched on her TPN - I would recommend to discontinue andremove her PICC if she is eating due to the risks of TPN and PICC line in . I would recommend to continue to follow up with endocrinology regardingTSH. Would recommend serial growth ultrasounds in . She would be an excellent candidate for history indicated cerclage infuture , or cervical length screening at minimum. Would recommend preconceptionconsultation in future . Government regulations related to the Century Cures act require thatthis note be released to the patient immediately, sometimes before the referring provider hasbeen contacted. A portion of the information was presented verbally to the patient. Theremainder is submitted as background for the referring provider, to be discussed as needed. Services Provided: ProceduresCode DETAIL ANATOMY & MPP [id number] Yen Mckinney MD Fi nal Result * (ABNORMAL) TSH (11/21/2024 10:55 AM CDT) Only the most recent of2 resultswithin the time period is included. TSH 0.01(L) 0.27 - 4.20 uIU/mL 11/21/2024 12:31 PM CDT [facility] Blood BLOOD SPECIMEN / Unknown Non-Lab Venipuncture / Unknown 11/21/2024 10:55 AM CDT 11/21/2024 12:04 PM CDT Narrative [facility] - 11/21/2024 12:31 PM CDT In Adults, TSH values between 5.00 and 10.00 uIU/ml do not necessarily indicate the presence of Hypothyroidism. Correlation with clinical findings such as presence of goiter and/or Thyroperoxidase (TPO) Antibody may be helpful. For more information please refer to ASHLEY 2004; 291: 228-238. Dana MONTERO CHEMISTRY Final Resu lt Performing Organization Address City/[facility] [address]/ZIP Co de Phone Number [facility] [address] [place] [address] * T3,FREE (11/21/2024 10:55 AM CDT) Only the most recent of2 resultswithin the time period is included. T3,FREE 3.15 2.00 - 4.40 pg/mL 11/21/2024 11:11 PM CDT [facility] Blood BLOOD SPECIMEN / Unknown Non-Lab Venipuncture / Unknown 11/21/2024 10:55 AM CDT 11/21/2024 12:04 PM CDT Dana MONTERO CHEMISTRY Final Resu lt Performing Organization Address City/[facility] [address]/ZIP Co de Phone Number [facility] [address] [place] [address], [place] * CA READING EKG - NO CHARGE, COMP ONLY (11/09/2024 4:23 PM CDT) Yen Mciknney MD PB - PROVIDER READ INGS Final Result * DNA SCREEN SEND OUT (11/09/2024 12:00 AM CDT) Other (Other) Yen Mckinney MD SEND OUTS Fi nal Result * THYROID STIM IMMUNOGLOBULIN (11/07/2024 12:03 PM CDT) TSI (THYROID STIMULATING IMMUNOGLOBULIN) <89 <140 % baseline [facility], Comment: Thyroid stimulating immunoglobulins (TSI) can engage the TSH receptors resulting in hyperthyroidism in Graves' disease patients. TSI levels can be useful in monitoring the clinical outcome of Graves' disease as well as assessing the potential for hyperthyroidism from maternal- transfer. TSI results greater than or equal to (>=) 140% of the Reference Control are considered positive. NOTE: A serum TSH level greater than 350 micro-International Units/mL can interfere with the TSI bioassay and potentially give false positive results. Patients who are and are suspected of having hyperthyroidism should have both TSI and human Chorionic Gonadotropin (hCG) tests measured. A serum hCG level greater than 40,625 mIU/mL can interfere with the TSI bioassay and may give false negative results. In these patients it is recommended that a second TSI be obtained when the hCG concentration falls below 40,625 mIU/mL (usually after approximately 20-weeks gestation). The analytical performance characteristics of this assay have been determined by [facility]. The modifications have not been cleared or approved by the FDA. This assay has been validated pursuant to the CLIA regulations and is used for clinical purposes. Blood BLOOD SPECIMEN / Unknown 11/07/2024 12:03 PM CDT 11/07/2024 12:04 PM CDT Conor Cagle MD SEND OUTS Final Result [facility] [facility] [address] [place] [address], [facility], [address] [place] [address] * THYROTROPIN RECEPTOR AB BLOOD (11/07/2024 12:03 PM CDT) [facility] TRAB <1.00 < OR = 2.00 IU/L [facility], Comment: This test was performed using the TRAb Antibody IVAN method which is standardized against the 1st International Standard 90/672 and is reported in International Units (IU/L). The reference range reported was established specifically for this test method. Blood BLOOD SPECIMEN / Unknown 11/07/2024 12:03 PM CDT 11/07/2024 12:04 PM CDT Coonr Cagle MD SEND OUTS Final Result [facility] [address] [place] [address], [facility], [address] [place] [address] * THYROPEROXIDASE ANTIBODY (11/07/2024 12:03 PM CDT) [facility] THYROID PEROXIDASE ANTIBODIES 1 <9 IU/mL [facility] Blood BLOOD SPECIMEN / Unknown 11/07/2024 12:03 PM CDT 11/07/2024 12:04 PM CDT Conor Cagle MD SEND OUTS Final Result [facility] [address] [place] [address], [facility] [address] [place] [address] * (ABNORMAL) T3,TOTAL (10/31/2024 12:30 PM CDT) Pathologist [facility] T3,TOTAL 275(H) 85 - 202 ng/dL 11/02/2024 11:41 PM CDT [facility] Blood BLOOD SPECIMEN / Unknown Non-Lab Venipuncture / Unknown 10/31/2024 12:30 PM CDT 10/31/2024 1:18 PM CDT Yen Mckinney MD CHEMISTRY Fi nal Result [facility] [address] [place] [address], [place] * ANTI HCV (09/28/2024 1:22 PM CDT) HEPATITIS C ANTIBODY NON-REACTI VE NON-REACT NOA [facility] Comment: HCV antibody was non-reactive. There is no laboratory evidence of HCV infection. In most cases, no further action is required. However, if recent HCV exposure is suspected, a test for HCV RNA (test code 95755) is suggested. For additional information please refer to http://education.hetras/faq/FUW16q5 (This link is being provided for informational/ educational purposes only.) Blood BLOOD SPECIMEN / Unknown 09/28/2024 1:22 PM CDT 09/28/2024 1:23 PM CDT Yen Mckinney MD SEND OUTS Fi nal Result [facility] [address] [place] [address], [place] [phone] [facility] [address] [place] [address] * (ABNORMAL) LOAN INSPECTOR THIN PREP PAP SCREEN IMAGED (11/07/2016 11:06 AM CDT) Case Report Gynecologic Cytology Report Case: [id number] Authorizing Provider: Gale Vasquez MD Collected: 11/07/2016 1106 Ordering Location: [facility] Received: 11/07/2016 1106 Clinic First Screen: Vicky Hutchinson Rescreen: Amena Costello Specimen: LOAN INSPECTOR ThinPrep Vial Screening, Cervical 11/17/2016 2:25 PM CDT [facility]TRAL [facility] INTERPRETATION /RESULT UNSATISFACTORY FOR EVALUATION (UNS)(A) (none) 11/17/2016 2:25 PM CDT [facility] at 1425 CDT SPECIMEN ADEQUACY Specimen processed and examined, but unsatisfactory for evaluation of epithelial abnormality because of: Scant cellularity 11/17/2016 2:25 PM CDT [facility] HPV REQUEST HPV if ASCUS 11/17/2016 2:25 PM CDT [facility] Date of LMP Recent 017 2:25 PM CDT [facility] Last Pap Date unk 11/17/2016 2:25 PM CDT [facility] Last Pap Result NIL 11/17/2016 2:25 PM CDT [facility] Abnormal Pap or [place] Bx in last 5 years No 11/17/2016 2:25 PM CDT [facility] Menstrual Status Regular Periods 11/17/2016 2:25 PM CDT [facility] [place] Bx Done Today No 11/17/2016 2:25 PM CDT [facility] Additional Information None given 11/17/2016 2:25 PM CDT [facility] Automated Review Failed 11/17/2016 2:25 PM CDT [facility] Comment:Processing failed, m anual screening required. ThinPrep Imaging System, [employer] Note The pap test is a screening technique, not a diagnostic procedure. It is used primarily to screen for squamous cancers and precursor lesions. Published studies have shown that it is subject to both false negative and false positive results. The pap test should not be used as the sole means to diagnose or exclude pre-malignant and malignant lesions. Interpreted at [facility] ([facility], [facility], [facility], [facility], [facility], [facility], [facility], [facility]) 11/17/2016 2:25 PM CDT [facility] LABORATORY-C ENTRAL LABORATORY Other (Cervical) 11/07/2016 11:06 AM CDT 11/07/2016 11:06 AM CDT us Gale Vasquez MD PATHOLOGY/CYTOLOGY Final Res ult [facility] [address] [place] [address], [place] from Last 3 Months or Most Recently Relevant to Health Maintenance Insurance [facility] Advance Directives * Full Code (Latest Code Status on File) Date Activated Date Inactivated Comments 01/06/2025 12:00 PM 01/17/2025 1:43 PM Question Answer Comments Code Status Discussion: Reviewed Preferences * Full Code Date Activated Date Inactivated Comments 12/22/2024 4:24 PM 01/06/2025 11:53 AM Question Answer Comments Code Status Discussion: Reviewed Preferences * Full Code Date Activated Date Inactivated Comments 12/22/2024 10:53 AM 12/22/2024 4:24 PM Question Answer Comments Code Status Discussion: Unable to Assess Preferences, Provider to review later * Full Code Date Activated Date Inactivated Comments 10/03/2024 8:08 AM 10/12/2024 8:02 PM Question Answer Comments Code Status Discussion: Reviewed Preferences * Full Code Date Activated Date Inactivated Comments 10/01/2024 4:04 AM 10/03/2024 8:08 AM Question Answer Comments Code Status Discussion: Unable to Assess Preferences, Provider to review later Care Teams Industrial Trainer Relationship Specialty Start Date End Date Yen Mckinney MD [address] [place] [address] PCP - General Family Practice 01/19/25 [facility] [address] [address] 10/12/24 Julisa Mc, RN [address] [place] [address] Senior Web Architect Registered Nurse 01/19/25 Ana Maria Ely [address] [facility] [address] [place] [address] 01/19/25
[2025-01-28 19:25] VITALS: BP 122/88; PULSE 112; RESP 18; TEMP 37.1; O2SAT 98; BMI 20.9
--- NOTE | 2025-01-28 19:42 | CRLHL7_ITS ---
For Patients: As a result of the Century Cures Act, medical imaging exams and procedure reports are released immediately into your electronic medical record. You may view this report before your referring provider. If you have questions, please contact your health care provider. INDICATION: LOWER ABD PAIN TECHNIQUE: CT abdomen and pelvis without contrast. COMPARISON: None. FINDINGS: Lower chest: Unremarkable. Lack of intravenous contrast limits evaluation of the visceral organs. Liver: Non cirrhotic morphology with no contour deforming mass. Gallbladder and bile ducts: Decompressed with no stones or inflammation. Pancreas: Unremarkable. Spleen: Normal in size. Adrenal glands: Normal in size. No nodules. Kidneys: Normal in size. No perinephric fat stranding. No stones or hydronephrosis. GI tract: Unremarkable. Normal in caliber. No sign of mass or inflammation. Normal appendix. Stomach is decompressed, limiting evaluation, but appears grossly normal. Small and large bowel is normal in caliber without obstruction. Normal appendix (4/141). Moderate colonic stool burden. Vasculature: Abdominal aorta is normal in caliber. Lymph nodes: No lymphadenopathy. Lack of intravenous contrast limits evaluation of the visceral organs. Peritoneum/Abdominal Wall: Unremarkable. No sign of mass or infiltration. No free air or significant free fluid. Pelvis: Unremarkable. No pelvic masses. Bladder is decompressed. Bones: Unremarkable for age. IMPRESSION: Lack of intravenous contrast limits evaluation of the visceral organs. 1. Within these limitations, no acute pathology in the abdomen or pelvis. 2. Nonobstructive bowel. Moderate colonic stool burden. Please note that all CT scans at this facility use dose modulation, iterative reconstruction, and/or weight-based dosing when appropriate to reduce radiation dose to as low as reasonably achievable. Dictated by Duke Us MD @ 01/28/2025 8:18:28 PM (Electronically Signed)
--- NOTE | 2025-01-28 19:42 | ED_ITS ---
HPI - Abdominal Pain General Chief Complaint: Abdominal Pain Stated Complaint: Lower Abdominal Pain Time Seen by Provider: 01/28/25 19:14 History of Present Illness HPI narrative: This 29-year-old female comes in reporting lower abdominal pain this started about 2-1/2 hours prior to arrival. She states that it is almost 10/10 in severity but does not appear to be in much discomfort. She does not report any fever, nausea, vomiting, dysuria, or altered bowel function. She was discharged from the hospital just a couple weeks ago after having a demise and significant problems related to this. She had DIC and had some renal injury. Her kidneys are functioning and improving and she states that her last creatinine was 1.75. Related Data Home Medications ?Medication ?Instructions ?Recorded ?Confirmed ferrous sulfate 325 mg (65 mg 325 mg PO DAILY 11/06/22 08/16/24 iron) tablet,delayed release Allergies Allergy/AdvReac Type Severity Reaction Status Date / Time Pork/Porcine Containing AdvReac Verified 01/28/25 19:31 Products Review of Systems Status of ROS Reports: 10 or more systems reviewed and unremarkable except as noted in History and below Narrative Constitutional: No fevers, no weight gain or loss. Eyes: No discharge. No vision changes. HENT: No congestion, no sore throat, no ear pain. Cardiovascular: No chest pain, no palpitations. Respiratory: No shortness of breath, no wheezes, no cough. Gastrointestinal: No vomiting, no diarrhea. Lower abdominal pain. Genitourinary: No dysuria, no hematuria. Musculoskeletal: Normal range of motion. Skin: No rashes, no pruritis. Neurological: No dizziness, weakness, sensory change, speech change. Endo/Heme/Allergies: No bruising or bleeding. No polydipsia. Pysch: no suicidality, no anxiety, no insomnia. All other systems reviewed and are negative. [facility] Medical History (Updated 01/28/25 @ 20:55 by Brock Cruz MD) Anemia ?D64.9 - Anemia, unspecified (ICD-10) Malaria ?B54 - Unspecified malaria (ICD-10) Tuberculosis ?A15.9 - Respiratory tuberculosis unspecified (ICD-10) Social History Smoking Status: Never smoker How often do you have a drink containing alcohol: never AUDIT-C Alcohol total score: 0 Non-prescribed substance use: denies use Caffeine: Yes (coffee) Exam Narrative: Exam Narrative: Constitutional: Well-developed, well-nourished, no acute distress. HEENT: Normocephalic, atraumatic. Neck: Normal range of motion. Nontender. Supple. Heart: Regular. No murmurs. Normal rate. Intact distal pulses. Lungs: Clear to auscultation. No chest discomfort. No wheezes, rhonchi, or rales. Abdomen: Normal bowel sounds. Diffuse tenderness in lower abdomen. Mild rebound tenderness. Genitalia: Deferred. Back: No midline tenderness. Normal range of motion. Extremities: Normal range of motion. No injury. Skin: Intact. No rash. Warm. No erythema or pallor. Neurologic: No altered sensation. No weakness. Alert and oriented. Psychiatric: No suicidality. No anxiety or depression. No insomnia. Nursing notes and vitals signs are reviewed. Const: Vital Signs, click to edit/add: Vital Signs - 24 hr 01/28/25 19:25 Temperature 98.8 F Pulse Rate [Left P ulse Oximeter] 112 H Respiratory Rate 18 Blood Pressure [Ri ght Upper Arm] 122/88 Pulse Oximetry 98 Oxygen Delivery Me thod Room Air Course Vital Signs Vital signs: Initial Vital Signs Temperature 98.8 F 01/28/25 19:25 Temperature Source Temporal Artery Scan 01/28/25 19:25 Pulse Rate 112 H 01/28/25 19:25 Respiratory Rate 18 01/28/25 19:25 Blood Pressure 122/88 01/28/25 19:25 Blood Pressure Mean 99 01/28/25 19:25 Blood Pressure Position Sitting 01/28/25 19:25 Pulse Oximetry 98 01/28/25 19:25 Oxygen Delivery Method Room Air 01/28/25 19:25 Vital Signs Temperature 98.8 F 01/28/25 19:25 Pulse Rate 112 H 01/28/25 19:25 Respiratory Rate 18 01/28/25 19:25 Blood Pressure 122/88 01/28/25 19:25 Pulse Oximetry 98 01/28/25 19:25 Oxygen Delivery Method Room Air 01/28/25 19:25 Temperature 98.8 F 01/28/25 19:25 Pulse Rate 112 H 01/28/25 19:25 Respiratory Rate 18 01/28/25 19:25 Blood Pressure 122/88 01/28/25 19:25 Pulse Oximetry 98 01/28/25 19:25 Oxygen Delivery Method Room Air 01/28/25 19:25 MDM - Abdominal Pain MDM Narrative Medical decision making narrative: This patient comes in reporting lower abdominal pain. Her vital signs are reassuring except she had some tachycardia initially. She did have a recent hospitalization after demise with DIC. She is recovering nicely from that and currently taking folic acid and a thyroid medicine only. I did check labs and a CT scan without contrast. These returned with reassuring findings. Her hemoglobin is a bit low but this is on its way up. Currently is at 9.7. Her potassium also is low at 2.9. She did receive an oral dose of potassium chloride 40 mEq. I did speak with her regarding sources of potassium as she is not on any medications that would lower potassium. She is okay to be discharged home. Lab Data Labs: Lab Results 01/28/25 01/28/25 Range/Units 19:49 20:05 WBC 6.74 (4.50-11.00) K/uL RBC 3.33 L (4.00-5.20) m/uL Hgb 9.7 L (12.0-16.0) gm/dL Hct 29.4 L (33.0-51.0) % MCV 88 (80-100) fL MCH 29 (26-34) pg MCHC 33 (32-36) gm/dL RDW Coeff of [place] 15.6 H (11.5-15.5) % Plt Count 265 (140-440) K/uL Neut % (Auto) 64.6 (42.0-72.0) % Lymph % (Auto) 22.3 (20-44) % [place] % (Auto) 10.7 (0.0-11.0) % Eos % (Auto) 1.9 (0.0-7.0) % Baso % (Auto) 0.4 (0.0-3.0) % Neut # (Auto) 4.35 (1.7-7.0) K/uL Lymph # (Auto) 1.50 (0.90-2.90) K/uL [place] # (Auto) 0.70 (0.00-0.90) K/UL Eos # (Auto) 0.13 (0.00-0.50) K/uL Baso # (Auto) 0.03 (0.00-0.30) K/uL Abs Immat Gran (auto) 0.01 (0.00-0.30) K/uL Imm/Tot Granulo (auto) 0.1 % Sodium 132 L (135-149) mmol/L Potassium 2.9 L* (3.6-5.1) mmol/L Chloride 97 (96-114) mmol/L Carbon Dioxide 27 (20-32) mmol/L Anion Gap 8 (7-15) mEq/L BUN 13 (5-24) mg/dL Creatinine 1.5 (0.5-1.5) mg/dL Estimated Creat Clear 46.93 Estimated GFR 47 ml/min Glucose 97 (60-115) mg/dL Calcium 9.2 (8.4-10.6) mg/dL Urine Color Yellow (Yellow) Urine Appearance Clear (Clear) Urine pH 7.0 (5.0-8.5) Ur Specific [place] 1.015 (1.000-1.030) Urine Protein 2+ A (Negative) Urine Glucose (UA) Negative (Negative) Urine Ketones Negative (Negative) Urine Blood Negative (Negative) Urine Nitrite Negative (Negative) Urine Bilirubin Negative (Negative) Urine Urobilinogen 0.2 (0.2-1.0) Ur Leukocyte Esterase Negative (Negative) Urine RBC 0-2 (0-2) Urine WBC 0-2 (0-5) Ur Squamous Epith Cells Few (None-Few) Urine Bacteria Few A (None) Imaging Data CT scan - abdomen: Radiologist's impression: 1. Within these limitations, no acute pathology in the abdomen or pelvis. 2. Nonobstructive bowel. Moderate colonic stool burden. Discharge Plan Discharge Clinical Impression: Abdominal pain, Acute hypokalemia Patient Disposition: Home, Self-Care Condition: Stable Additional Instructions: Continue current plans. Follow up with MD as needed or return if symptoms are worsening. Prescriptions: No Action ferrous sulfate 325 mg (65 mg iron) tablet,delayed release (DR/EC) 325 mg PO DAILY Follow Up/Referrals: Dana Bourgeosi PA-C [Primary Care Provider, [facility]] Stand Alone Forms: [employer] Info Instructions
[2025-01-28 19:55] LABS: Appearance Urine Clear (Clear)
[2025-01-28 20:14] LABS: Hematocrit* 29.4 % (33.0-51.0); Hemoglobin* 9.7 gm/dL (12.0-16.0); Immature Granulocytes Abs Auto 0.01 K/uL (0.00-0.30); Immature Granulocytes Pct Auto 0.1 %; Lymphocytes Absolute Auto 1.50 K/uL (0.90-2.90); Mean Corpuscular HGB Conc 33 gm/dL (32-36); Mean Corpuscular Hemoglobin 29 pg (26-34); Mean Corpuscular Volume 88 fL (80-100); RDW Coefficient of Variation % 15.6 % (11.5-15.5); Red Blood Count* 3.33 m/uL (4.00-5.20); White Blood Count* 6.74 K/uL (4.50-11.00)
[2025-01-28 20:23] LABS: Slide Review Reflex No
[2025-01-28 20:25] LABS: Chloride* 97 mmol/L (96-114)
[2025-01-28 20:26] LABS: Sodium* 132 mmol/L (135-149)
[2025-01-28 20:29] LABS: Anion Gap 8 mEq/L (7-15); Blood Urea Nitrogen* 13 mg/dL (5-24); Calcium* 9.2 mg/dL (8.4-10.6); Carbon Dioxide* 27 mmol/L (20-32); Creatinine* 1.5 mg/dL (0.5-1.5); Est. Creatinine Clearance* 46.93; Estimated Glomerular Filt Rate 47 ml/min; Glucose* 97 mg/dL (60-115)
[2025-01-28 20:37] LABS: Potassium* 2.9 mmol/L (3.6-5.1)
[2025-01-28] MEDS: POTASSIUM CHLORIDE 10 MEQ CAPSULE ER 40 MEQ PO (20:55)
== END 2025-01-28 21:01 | disposition home or self-care (01) ==
PROVIDERS: Emergency Provider Emergency Medicine Emergency Medical Services; PCP Physician Assistant
DX: R10.30 Lower abdominal pain, unspecified (principal); E87.6 Hypokalemia
CPT/HCPCS: 36415; 74176; 80048; 81001; 85025; 87086; 99284; A9270

== ENCOUNTER 2025-02-01 18:34 | Emergency (ER) | payer MEDICAID, SELFPAY ==
--- OUTSIDE RECORDS SUMMARY | 2025-02-01 18:38 | XMS_ITS | Clinical Summary ---
Author Organization [facility] Address [facility] [place] [address] Care Team Providers Care Psychology Assistant Name Role Phone Yen Mckinney MD Primary Care Prov ider Julisa Mc RN Unavailable [phone] Ana Maria Ely Unavailable [phone] Allergies Active Allergy Reactions Criticality Noted Date Comments Pork/Porcine Containing Products Other - Describe In Comment Field 12/20/2024 [facility] Medications folic acid 1 mg tabletIndications [...] with primary care provider. 7 Tablet 01/17/20 25 7:09 PM CDT Active lidocaine 4 % [...] 237 mL by mouth two times daily. 80870 mL 2 Active ondansetron 4 mg disintegrating [...] once daily with evening meal. 1 Capsule 025 2024 Discontinued(* IP Discontinued) folic acid 1 [...] LOCATION/FAX #: Yen Mckinney MD - Marimar Buckeye Rafa LOPES approves scheduling of recommended ultrasounds/testing: Yes 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 39w2d IUFD FAVD [...] 10/2023 2 09/28/16 32w6d M Vag Y THOMAS 1 Term 10/07/15 39w2d F VAGINAL FORC [...] Encounters Date Type Department Care Team Description 02/01/2025 Nurse Triage [facility] [address] [place] [address] Yen Mckinney MD Headache 01/28/2025 Orders Only [facility] Scanner 1 scan: (1-Ord) [facility], CT ABDOMEN PELVIS W/O CONTRAST, 01/28/2025 01/27/2025 2:45 PM CDT Orders Only [facility] [address] [place] [address] [place] Lab 01/27/2025 Travel 01/25/2025 Telephone [facility] [address] [place] [address] Yen Mckinney MD Consult (Learning Strategist consult ordered ) 01/24/2025 2:26 PM CDT - 01/24/2025 11:59 PM CDT Hospital Encounter [address] [address] Dominik Coyle, Davis Foss, PT 01/23/2025 1:00 PM CDT Office Visit [facility] [address] [place] [address] Yen Mckinney MD Hospital F/U (Spitting, nausea) 01/23/2025 8:24 AM CDT - 01/23/2025 11:59 PM CDT Hospital Encounter [facility] [address] [place] [address] Dominik Coyle DO Tierney, Doreen A, SLP 01/23/2025 Telephone [facility] [address] [place] [address] Yen Mckinney MD Lab (Orders) 01/23/2025 Telephone [facility] [address] [facility] 1750 [address] Unknown, Doctor Lab (Lab Orders) 01/23/2025 Travel 01/20/2025 1:25 PM CDT - 01/20/2025 11:59 PM CDT Hospital Encounter [address] [address] Dominik Coyle DO Jacobs, Katherine Marie, OT 01/20/2025 Travel 01/19/2025 Patient Outreach [facility] [address] [facility] 1750 [address] Julisa Mc, LINDEN Brain Injury Rehab Care Coordination - [facility] 01/18/2025 Telephone [facility] [address] [place] [address] Yen Mckinney MD Appointment 01/18/2025 Patient Outreach [facility] [address] [place] [address] Tara Cantu, RN Primary RN Care Management; Hospital F/U (D/C [facility] 01/17/25) 01/17/2025 Home Care Visit [facility] [address] [place] [address] Smita Luna, RN EPISODE DISCHARGE 01/06/2025 11:52 AM CDT - 01/17/2025 11:00 AM CDT Hospital Encounter [facility] [address] [address] Shar, Justin Alessio, DO Querubin, Dominik Rizal, DO [place], Misa Delmis, WORSHIP DIRECTOR [place], Jacinta W, WORSHIP DIRECTOR Critical illness myopathy (Primary Dx); Hyperthyroidism; Bacteremia due to Klebsiella pneumoniae; Cold sore; MADHAVI (acute kidney injury); Acute kidney failure with lesion of tubular necrosis Discharge Disposition: Home Self Care 12/28/2024 Orders Only [facility] [phone] Yasir Pelaez MD Lab 12/26/2024 Telephone [facility] [address] [place] [address] Dana Bourgeois PA Medication Management (ALLERGIES ) 12/24/2024 Home Care Visit [facility] [address] [place] [phone] Afshan Isabel RN SN - OASIS TRANSFER 12/23/2024 2:12 PM CDT Anesthesia Event [facility] [address] [place] [address] Chidi Arnold DO Glogowski, James Matthew, CRNA 12/23/2024 2:00 PM CDT - 12/23/2024 3:56 PM CDT Surgery [facility] [address] [place] [address] Estefanía Osborne MD PLACEMENT ECMO CANNULAS, GROINS TBD, DEFLATION AND REMOVAL OF UTERINE BALLOON, POSS. HYSTERECTOMY. 12/22/2024 8:09 PM CDT Anesthesia Event [facility] [address] [place] [address] Heidi Verma MD 12/22/2024 7:45 PM CDT - 12/22/2024 9:38 PM CDT Surgery [facility] [address] [place] [address] Eva Hogan MD DILATION AND CURETTAGE WITH ULTRASOUND GUIDANCE 12/22/2024 5:34 PM CDT - 01/06/2025 11:30 AM CDT Hospital Encounter [facility] [address] [place] [address] Sumit Thompson DO McMenomy, Theodore Joseph, MD Masood, Adnan, MBBS [place], Joshua Steffen, MD Onyambu, EVAN [facility] MónicaCatherine MD Shaikh, Valeed Ahmed, MD [facility] Acute kidney failure with lesion of tubular necrosis (Primary Dx); MADHAVI (acute kidney injury) Discharge Disposition: Rehab Facility or Unit 12/22/2024 9:04 AM CDT - 12/22/2024 4:05 PM CDT Hospital Encounter [facility] [address] [place] [address] Vamsi Montgomery MD Cardenas-Stophel, Raquel Taresa, IUFD at less than 20 weeks of gestation (HC) (Primary Dx); Fever, unspecified fever cause; Nausea and vomiting, unspecified vomiting type Discharge Disposition: Crit Acc Hosp w Planned Readmission 12/22/2024 Orders Only [facility] Emergency Room [address] [place] [address] Katja Hale, Maria EugeniaD <No scans attached> 12/22/2024 Home Care Visit [facility] [address] [place] [address] Tess Trejo RN CARE TRANSITION NOTE 12/22/2024 Telephone [facility] [address] [address] Khushboo Osman Questions 12/22/2024 Travel 12/22/2024 Telephone [facility] [address] [place] [address] Dana Bourgeois PA Appointment 12/21/2024 1:00 PM CDT Home Care Visit [facility] [address] [place] [address] Aiyana Slaughter RN SN - HOME VISIT 12/21/2024 9:50 AM CDT OB Encounter [facility] [address] [place] [address] Yen Mckinney MD Care (19 weeks 5 days ) 12/21/2024 Telephone [facility] [address] [facility] [address] [place] [address] Khushboo Osman Care Coordination 12/20/2024 12:30 PM CDT - 12/20/2024 11:59 PM CDT Hospital Encounter [facility] [address] [place] [address] Cervical insufficiency during in first trimester, antepartum (HC) (Primary Dx); Supervision of high risk in second trimester (HC); High-risk in first trimester (HC); Cervical insufficiency during in second trimester, antepartum (HC); Supervision of high risk in first trimester (HC) 12/20/2024 Orders Only [facility] [address] [place] [address] Triny Mehta, MS, CGC <No scans attached> 12/20/2024 Telephone [facility] [address] [place] [address] Yen Mckinney MD Other (Therapy ) 12/20/2024 Travel 12/20/2024 Nurse Triage [facility] [address] [place] [address] Dana Bourgeois PA Medication Management 12/13/2024 1:25 PM CDT OB Encounter [facility] [address] [place] [address] Yen Mckinney MD Care (18 weeks 4 days ) 12/13/2024 4:00 AM CDT Home Care Visit [facility] [address] [place] [address] Afshan Isabel, LINDEN SN - OASIS RECERTIFICATION 12/13/2024 Plan of Care Documentation [facility] [address] [place] [address] 12/13/2024 Home Care Visit [facility] [address] [place] [address] Afshan Isabel, RN CARE COORDINATION 12/13/2024 Travel 12/13/2024 Orders Only [facility] [address] [place] [phone] Dana Bourgeois PA Lab 12/13/2024 Orders Only [facility] [address] [place] [address] Dana Bourgeois PA Lab (Home health) 12/13/2024 Orders Only [facility] [address] [facility] [place] [address] Dana Bourgeois PA Lab 12/09/2024 11:00 AM CDT Home Care Visit [facility] [address] [place] [address] Tess Norris RN SN - HOME VISIT 12/07/2024 Orders Only [facility] [address] [place] [address] Yen Mckinney MD <No scans attached> 12/06/2024 11:30 AM CDT OB Encounter [facility] [address] [place] [address] Yen Mckinney MD Care (17 weeks 4 days ) 12/06/2024 9:30 AM CDT - 12/06/2024 11:59 PM CDT Hospital Encounter [address] [address] Anemia during in second trimester (HC) (Primary Dx) 12/06/2024 Home Care Visit [facility] [address] [place] [address] Afshan Isabel, RN CARE COORDINATION 12/06/2024 Orders Only [facility] [address] [place] [address] Yen Mckinney MD <No scans attached> 12/06/2024 Travel 12/05/2024 4:00 AM CDT Home Care Visit [facility] [address] [place] [address] Afshan Isabel, RN SN - HOME VISIT 12/05/2024 Orders Only [facility] [address] [place] [address] Dana Bourgeois PA Lab 12/02/2024 11:00 AM CDT Home Care Visit [facility] [address] [place] [address] Afshan Isabel RN SN - HOME VISIT 12/02/2024 Orders Only [facility] [address] [place] [address] Mercedez Monet MD <No scans attached> 11/30/2024 Telephone [facility] [address] [place] [address] Yen Mckinney MD Appointment 11/29/2024 2:40 PM CDT OB Encounter [facility] [address] [place] [address] Yen Mckinney MD Care (16 weeks 4 days) 11/29/2024 Travel 11/28/2024 10:30 AM CDT Home Care Visit [facility] [address] [place] [phone] Afshan Isabel RN SN - HOME VISIT 11/28/2024 Orders Only [facility] [address] [facility] [place] [address] Dana Bourgeois PA Lab 11/28/2024 Orders Only [facility] [address] [place] [address] Yen Mckinney MD <No scans attached> 11/25/2024 2:00 PM CDT Home Care Visit [facility] [address] [place] [address] Afshan Isabel RN SN - HOME VISIT 11/25/2024 Orders Only [facility] [address] [place] [address] Yen Mckinney MD <No scans attached> 11/23/2024 1:50 PM CDT OB Encounter [facility] [address] [place] [address] Yen Mckinney MD Care (15 weeks 5 days ) 11/23/2024 Travel 11/22/2024 Orders Only [facility] [address] [place] [address] Yen Mckinney MD <No scans attached> 11/21/2024 10:00 AM CDT Home Care Visit [facility] [address] [place] [address] Angie Bloom RN SN - HOME VISIT 11/21/2024 Telephone [facility] [address] [address] Conor Cagle MD Results 11/21/2024 Orders Only [facility] [address] [place] [phone] Dana Bourgeois PA Lab 11/21/2024 Orders Only [facility] [address] [place] [phone] Dana Bourgeois PA Lab ([facility]) 11/19/2024 Orders Only [facility] [address] [address] Conor Cagle MD <No scans attached> 11/19/2024 Orders Only [facility] [address] [address] Conor Cagle MD <No scans attached> 11/18/2024 11:30 AM CDT Home Care Visit [facility] [address] [place] [phone] Afshan Isabel RN SN - HOME VISIT 11/18/2024 Telephone [facility] [address] [place] [address] Yen Mckinney MD Medication Management 11/17/2024 Telephone [facility] [address] [facility] [address] Yen Mckinney MD TPN Orders 11/17/2024 Orders Only [facility] [address] [facility] [address] Yen Mckinney MD 1 scan: (1-Ord) [facility]ED[facility], DNA SCREEN RESULTS, 11/09/2024 11/16/2024 1:50 PM CDT OB Encounter [facility] [address] [place] [address] Yen Mckinney MD Care (14weeks 5days) 11/16/2024 Travel 11/14/2024 11:00 AM CDT Home Care Visit [facility] [address] [place] [address] Afshan Isabel, LINDEN SN - HOME VISIT 11/14/2024 Telephone [facility] [address] [place] [address] Afshan Isabel, inset cutter (Patient TPN updates) 11/14/2024 Orders Only [facility] [address] [place] [address] Dana Bourgeois PA Lab 11/11/2024 10:30 AM CDT Home Care Visit [facility] [address] [place] [address] Afshan Isabel, LINDEN SN - HOME VISIT 11/09/2024 1:50 PM CDT OB Encounter [facility] [address] [place] [address] Yen Mckinney MD Care (13 weeks 5 days) 11/09/2024 Orders Only [facility] [address] [facility] [address] Jaja Valencia, RJuanyTJuany (ARRT) 1 scan: (1-Ord) NFLD-EKG-11/09/2024 11/09/2024 Travel 11/07/2024 11:45 AM CDT Office Visit [facility] [address] [facility] [address] [place] [address] Conor Cagle MD Consult (Hyperthyroidism) 11/07/2024 9:41 AM CDT Home Care Visit [facility] [address] [place] [address] Afshan Isabel, LINDEN SN - HOME VISIT 11/07/2024 Orders Only [facility] [address] [place] [address] Dana Bourgeois PA Lab 11/07/2024 Travel 11/04/2024 11:58 AM CDT Home Care Visit [facility] [address] [place] [address] Afshan Isabel RN SN - HOME VISIT 11/03/2024 Telephone [facility] [address] [address] Alysha England CNA 11/03/2024 Telephone [facility] [address] [address] Khushboo Osman Appointment 11/03/2024 Telephone [facility] [address] [place] [address] Yen Mckinney MD call back 11/02/2024 9:50 AM CDT OB Encounter [facility] [address] [place] [address] Yen Mckinney MD Care (12 weeks 5 days ) 11/02/2024 Transcribe Orders [facility] [address] [address] Yen Mckinney MD 11/02/2024 Travel 11/02/2024 Telephone [facility] [address] [place] [address] Dana Bourgeois PA Results 11/02/2024 Nurse Triage [facility] [address] [place] [address] Dana Bourgeois PA Home Care 11/02/2024 Orders Only [facility] [address] [facility] [address] Dana Bourgeois PA <No scans attached> 11/01/2024 Orders Only [facility] [address] [place] [address] Dana Bourgeois PA <No scans attached> from Last 3 Months Immunizations Immunization Administration Dates Next Due COVID-19 vaccine (YouTube 30mcg/0.3mL) MABLE RAMIREZ 07/25/2020,07/04/2020 Hepatitis A (Peds) [...] AM CDT Legal Sex Female 7:42 AM DELICATESSEN SLICER Gender Identity Female 09/23/2024 9:18 AM CDT [...] with compression (HC), hemorrhage (HC),Chorioamnionitis (HC) Delivery Location:[facility] Comments:transfusion P RBCs, RML episiotomy with repair in OR required 2016 32w 6d M Vag Y Livin g Complications:None [facility] SAB 5 SAB 2024 19w 6d F Vag-Sp ont Demis e 0 0 Complications:Retained place nta,Intraamniotic Infection Delivery Location:[facility] Last Filed Vital Signs Vital Sign Reading [...] Care Team (Late st Contact Info) Description 02/03/2025 2:45 PM CDT Orders Only [facility] [address] [place] [address] [place] 02/07/2025 9:00 AM CDT Office Visit [facility] [address] [place] [address] Yen Mckinney MD [address] [place] [address] 02/07/2025 10:30 AM CDT Appointment [address] [address] Vicenta Baltazar, AFFILIATE MARKETING COORDINATOR [address] [place] [address] 02/07/2025 1:00 PM CDT Appointment [address] [address] Yen Hutton, OT [address] [place] [address] 02/08/2025 11:00 AM CDT Appointment [address] [address] Davis Krishnan, PT [address] [place] [address] 02/14/2025 10:30 AM DELICATESSEN SLICER Appointment [address] [address] Vicenta Baltazar, AFFILIATE MARKETING COORDINATOR 35 [place] [address] 02/14/2025 1:00 PM DELICATESSEN SLICER Appointment [address] [address] Yen Hutton, OT [address] [place] [address] 02/15/2025 11:00 AM DELICATESSEN SLICER Appointment [address] [address] Davis Krishnan, PT [address] [place] [address] 02/21/2025 9:30 AM DELICATESSEN SLICER Appointment [address] [address] Yen Hutton, OT [address] [place] [address] 02/21/2025 10:30 AM DELICATESSEN SLICER Appointment [address] [address] Vicenta Baltazar, AFFILIATE MARKETING COORDINATOR [address] [place] [address] 02/21/2025 12:35 PM DELICATESSEN SLICER Office Visit [facility] [address] [address] [place] [address] [place] [address] 02/22/2025 11:00 AM DELICATESSEN SLICER Appointment [address] [place] [address] Davis Krishnan, PT 35 [facility] [place] [address] 02/27/2025 9:15 AM DELICATESSEN SLICER Office Visit [facility] [address] [place] [address] [address] Justin Myles, [address] [place] [address] [address] 02/28/2025 10:30 AM DELICATESSEN SLICER Appointment [address] [address] Vicenta Baltazar, AFFILIATE MARKETING COORDINATOR 35 [place] [address] 03/01/2025 11:00 AM DELICATESSEN SLICER Appointment [address] [address] Davis Krishnan, PT 35 [facility] [place] [address] 03/07/2025 10:30 AM DELICATESSEN SLICER Appointment [address] [address] Vicenta Baltazar, AFFILIATE MARKETING COORDINATOR 35 [facility] [place] [address] 03/08/2025 11:00 AM DELICATESSEN SLICER Appointment [address] [address] Davis Krishnan, PT 35 [facility] [place] [address] 03/15/2025 11:00 AM DELICATESSEN SLICER Appointment [address] [address] Davis Krishnan, PT [address] [place] [address] 07/24/2025 8:30 AM CDT Office Visit [facility] [address] [place] [address] [address] Pete Elizabeth, PhD, LP [address] [place] [address] [address] Health Maintenance Due Date Last Done Comments [...] Procedure Name Priority Date/Time Associated Diagnosis Comments SCAN-CT INTERPRETATION 12:00 AM CDT T4,FREE Routine 01/23/2025 1:55 PM CDT Hyperthyroidism [...] GAS ARTERIAL Timed 12/28/2024 10:50 AM CDT GOSHEN MISCELLANEOUS SENDOUT Routine 12/28/2024 10:38 AM CDT [...] 5:08 AM CDT FIBRINOGEN,QUANTITATIVE Early AM 12/26/19 25 5:08 AM CDT HEMOGLOBIN,PLASMA Early AM 12/25/2024 [...] CDT BLOOD GAS, MIXED VENOUS STAT 12/24/19 25 9:07 PM CDT US ARTERIAL UPPER EXTREMITY [...] RED BLOOD CELLS EA UNIT [facility] 12/24/19 2:12 PM CDT RED BLOOD CELLS EA UNIT [facility] 12/24/19 2:12 PM CDT RED BLOOD CELLS EA UNIT [facility] 12/24/19 2:12 PM CDT SECTION 12/23/2024 2:10 PM [...] KIT PR5 Routine 12/22/2024 11:53 PM CDT [facility] AN INTRODUCER 1 LUMEN PERFORMABLE Routine 12/22/2024 11:53 PM CDT [facility] DRSG PR1 Routine 12/22/2024 11:53 PM CDT [facility] DRSG PR5 Routine 12/22/2024 11:53 PM CDT [facility] TUBING PR5 Routine 12/22/2024 11:53 PM CDT [facility] KIT MONITORING PR5 Routine 12/23/19 11:53 PM CDT [facility] TUBING PR1 Routine 12/22/2024 11:53 PM CDT [facility] ANES US GUIDE FOR VASC ACCESS Routine 12/22/2024 11:53 PM CDT [facility] STOPCOCK PR5 Routine 12/22/2024 11:53 PM CDT [facility] INTRDCR NON GUIDING NON LASER PR40 Routine [...] RED BLOOD CELLS EA UNIT [facility] 12/23/19 10:55 PM CDT RED BLOOD CELLS EA [facility] 12/23/19 10:55 PM CDT RED BLOOD CELLS EA [facility] 12/23/19 10:55 PM CDT RED BLOOD CELLS EA [facility] 12/23/19 10:55 PM CDT RED BLOOD CELLS EA [facility] 12/23/19 10:55 PM CDT RED BLOOD CELLS EA [facility] 12/23/19 10:55 PM CDT TRANSFUSE PLT (NURSE COMMUNICATION [...] RED BLOOD CELLS EA [facility] 12/23/19 10:19 PM CDT RED BLOOD CELLS EA UNIT [facility] 12/23/19 10:19 PM CDT RED BLOOD CELLS EA UNIT [facility] 12/23/19 10:19 PM CDT RED BLOOD CELLS EA UNIT [facility] 12/23/19 10:19 PM CDT TRANSFUSE PLASMA [...] EA UNIT [facility] 12/23/19 9:57 PM CDT CRYOPRECIPITATE ORDER STAT [...] PM CDT RED BLOOD CELLS EA UNIT [facility] 12/23/19 9:28 PM CDT RED BLOOD CELLS EA UNIT [facility] 12/23/19 9:28 PM CDT RED BLOOD CELLS EA UNIT [facility] 12/23/19 9:28 PM CDT RED BLOOD CELLS EA UNIT [facility] 12/23/19 9:28 PM CDT CRYOPRECIPITATE EA [...] 12/22/2024 7:17 PM CDT FIBRINOGEN,QUANTITATIVE STAT 12/23/19 25 7:17 PM CDT APTT Today 12/22/2024 7:17 PM CDT RED BLOOD CELLS EA [facility]IT [facility] 12/23/19 25 7:15 PM CDT RED BLOOD CELLS EA [facility] 12/23/19 25 7:15 PM CDT RED BLOOD CELLS EA [facility] 12/23/19 25 7:15 PM CDT RED BLOOD CELLS EA [facility] 12/23/19 25 7:15 PM CDT PLASMA SNGL DON FFPEA [...] 12/22/2024 2:02 PM CDT FIBRINOGEN,QUANTITATIVE STAT 12/23/19 25 1:48 PM CDT RED CELL MORPHOLOGY STAT [...] CDT Routine general medical examination at a [facility] CBC WITH AUTO DIFFERENTIAL Routine 12/13/2024 10:00 AM CDT Routine general medical examination at a [facility] TRIGLYCERIDES Routine 12/13/2024 10:00 AM CDT Routine general medical examination at a [facility] MAGNESIUM Routine 12/13/2024 10:00 AM CDT Routine general medical examination at a [facility] PHOSPHORUS Routine 12/13/2024 10:00 AM CDT Routine general medical examination at a [facility] COMP METABOLIC PANEL Routine 12/13/2024 [...] PM CDT Hyperemesis affecting , antepartum (HC) UT READING EKG - NO CHARGE, COMP ONLY [...] AM CDT Hyperemesis affecting , antepartum (HC) ANTI HCV Routine 09/28/2024 1:22 PM CDT Encounter for supervision of other normal in first trimester (HC) ELECTRIC ARC FURNACE OPERATOR THIN PREP PAP SCREEN IMAGED Routine 11/07/2016 11:06 AM CDT Routine follow-up (HC) from Last 3 Months or Most Recently Relevant to Health Maintenance Results * SCAN-CT INTERPRETATION (01/28/2025 12:00 AM CDT) Anatomical Region Laterality Modality Other us Scanner OTHER Final Result * (ABNORMAL) CBC WITH AUTO DIFFERENTIAL (01/23/2025 1:55 PM CDT) Only the most recent of14 resultswithin the time period is included. WHITE [...] 01/23/2025 1:55 PM CDT Yen Mckinney MD HEMATOLOGY Fi nal Result Performing Organization Address [facility] Hospital/ZIP Co de Phone Number [facility] [address] [address], [place] [phone] * (ABNORMAL) TSH WITH REFLEX (01/23/2025 1:55 PM CDT) TSH W/REFLEX TO FT4 0.14(L) mIU/L 01/24/2025 7:25 AM CDT [facility] Comment: Reference Range > or = 20 Years 0.40-4.50 Ranges First trimester 0.26-2.66 Second trimester 0.55-2.73 Third trimester 0.43-2.91 Blood BLOOD SPECIMEN / Unknown [facility] / Unknown 01/23/2025 1:55 PM CDT 01/23/2025 1:55 PM CDT Yen Mckinney MD CHEMISTRY Fi nal Result [facility] [address] [place] [address], [place] [phone] * T4,FREE (01/23/2025 1:55 PM CDT) Only the most recent of2 resultswithin the time period is included. T4, FREE 1.1 0.8 - 1.8 ng/dL 01/24/2025 7:25 AM CDT [facility] Blood BLOOD SPECIMEN / Unknown [facility] / Unknown 01/23/2025 1:55 PM CDT 01/23/2025 1:55 PM CDT Yen Mckinney MD CHEMISTRY Fi nal Result [facility] [address] [place] [address], [place] [phone] * (ABNORMAL) RENAL FUNCTION PANEL (01/23/2025 1:55 PM CDT) Only the most recent of10 resultswithin the time period is included. SODIUM 137 135 - 146 mmol/L 01/24/2025 [...] 60 mL/min/1.7 3m2 01/24/2025 4:16 AM CDT [facility] PHOSPHATE ( PHOSPHORUS) 3.5 2.5 - 4.5 mg/dL 01/24/2025 4:16 AM CDT [facility] ALBUMIN 4.0 3.6 - 5.1 g/dL 01/24/2025 4:16 AM CDT [facility] Blood BLOOD SPECIMEN / Unknown [facility] / Unknown 01/23/2025 1:55 PM CDT 01/23/2025 1:55 PM CDT Yen Mckinney MD CHEMISTRY Fi nal Result [facility] [address] [address], * PHOSPHORUS (01/17/2025 9:04 AM CDT) Only the most recent of33 resultswithin the time period is included. PHOSPHORUS 3.6 2.5 - 4.5 mg/dL 01/17/2025 9:38 AM CDT [facility] Blood BLOOD SPECIMEN / Unknown Venipuncture / Unknown 01/17/2025 9:04 AM CDT 01/17/2025 9:12 AM CDT Oswald Ladd MD CHEMISTRY Final Resu lt [facility] [address] [place] [address], * (ABNORMAL) BASIC METABOLIC PANEL (01/17/2025 9:04 AM CDT) Only the most recent of18 resultswithin the time period is included. SODIUM 141 136 - 145 mmol/L 01/17/2025 9:38 AM CDT [facility] POTASSIUM 3.9 3.5 - 5.1 mmol/L 01/17/2025 9:38 AM T [facility] TRAL LABOR[facility]ORY CHLORIDE 104 98 - 107 mmol/L 01/17/2025 9:38 AM T [facility] CO2,TOTAL 25 22 - 29 mmol/L 01/17/2025 9:38 AM CDT [facility] ANION GAP 12 5 - 18 01/17/2025 9:38 AM T [facility] GLUCOSE 99 70 - 99 mg/dL 01/17/2025 9:38 AM T [facility] CALCIUM 8.9 8.8 - 10.4 mg/dL 01/17/2025 9:38 AM T [facility] Comment: Reference ranges for this test were updated on 02/16/2024 to reflect our healthy population more accurately. Reference range changes are not retroactively applied to results, but previous results using the same methodology can be interpreted in the context of the new reference range. BUN 14 6 - 20 mg/dL 01/17/2025 9:38 AM T [facility] CREATININE 2.83(H) 0.50 - 0.90 mg/dL 01/17/2025 9:38 AM T [facility] TRA LABORATORY BUN/CREAT RATIO 5(L) 10 - 9:38 AM T [facility] TRAL [facility] eGFR 22(L) >90 mL/min/1. 73m2 01/17/2025 9:38 AM [facility] TR[facility] Comment:As of 2021, eG FR [...] Oswald Ladd MD CHEMISTRY Final Resu lt [facility] [address] [address], [place] * IR REMOVE VENOUS PORT/CATH (01/16/2025 [...] VOLUME 1,000 mL 01/15/2025 6:40 PM CDT [facility]AL [facility] COLLECTION HRS 24 hr 01/15/2025 6:40 PM CDT [facility] WEIGHT,POUNDS 139.0 lb 01/15/2025 6:40 PM CDT [facility] HEIGHT,INCHES 64.0 in 01/15/2025 6:40 PM CDT [facility] SURFACE AREA 1.68 01/15/2025 6:40 PM CDT [facility] CREATININE RAW URINE 59 mg/dL 01/15/2025 6:40 PM CDT [facility] UNCORRECTED CREAT CLR 13 mL/min 01/15/2025 6:40 PM CDT [facility] CREATININE CLEARANCE 13(L) 66 - 165 ml/min/1.7 3m2 01/15/2025 6:40 PM CDT [facility] Urine URINE SPECIMEN / Unknown Non-Blood / Unknown 01/15/2025 4:32 PM CDT 01/15/2025 5:47 PM CDT Oswald Ladd MD URINE Final Resu lt Performing Organization Address [facility]/ZIP Co de Phone Number [facility] [address] [place] [address], * (ABNORMAL) UREA NITROGEN,TIMED UR (01/15/2025 4:32 PM CDT) UREA NITROGEN,RAW UR 121.0 mg/dL 01/15/2025 6:40 PM CDT [facility] TOTAL VOLUME 1,000 mL 01/15/2025 6:40 PM CDT [facility] Comment:ml COLLECTION HRS 24 hr 01/15/2025 6:40 PM CDT [facility] Comment:started 01/14 (1629) ended 01/15 (1629) UREA NITRO,TIMED UR 1.2(L) 12.0 - 20.0 g/24hr 01/15/2025 6:40 PM CDT [facility] Urine URINE SPECIMEN / Unknown Non-Blood / Unknown 01/15/2025 4:32 PM CDT 01/15/2025 5:47 PM CDT Oswald Ladd MD URINE Final Resu lt Performing Organization Address [facility]/ZIP Co de Phone Number [facility] [address] [place] [address], * (ABNORMAL) CREATININE CLEARANCE SERUM (01/15/2025 8:35 AM CDT) eGFR 19(L) >90 mL/min/1.7 3m2 01/15/2025 6:17 PM CDT [facility] Comment: As of 2021, eGFR [...] - 0.90 mg/dL 01/15/2025 6:17 PM CDT [facility] Blood BLOOD SPECIMEN / Unknown Butterfly / Unknown 01/15/2025 8:35 AM CDT 01/15/2025 8:48 AM CDT Oswald Ladd MD CHEMISTRY Final Resu lt Performing Organization Address [facility] Co de Phone Number [facility] [address] [address], [place] * (ABNORMAL) Hemoglobin AM (01/15/2025 8:35 AM CDT) Only the most recent of9 resultswithin the time period is included. HEMOGLOBIN 9.0(L) 12.0 - 16.0 g/dL 01/15/2025 9:11 AM CDT [facility] MCV 88 80 - 100 fL 01/15/2025 9:11 AM CDT [facility] Blood BLOOD SPECIMEN / Unknown Butterfly / Unknown 01/15/2025 8:35 AM CDT 01/15/2025 8:48 AM CDT us Zac Hsu MD HEMATOLOGY Final Res ult [facility] [address] [place] [address], [place] * (ABNORMAL) CBC W PLT NO DIFF (01/13/2025 4:26 AM CDT) Only the most recent of17 resultswithin the time period is included. WHITE BLOOD COUNT 5.6 4.5 - 11.0 thou/cu mm 01/13/2025 6:05 AM CDT [facility] RED BLOOD COUNT 2.99(L) 4.00 - 5.20 mil/cu mm 01/13/2025 6:05 AM CDT [facility] HEMOGLOBIN 8.6(L) 12.0 - 16.0 g/dL 01/13/2025 6:05 AM CDT [facility] HEMATOCRIT 25.8(L) 33.0 - 51.0 % 01/13/2025 6:05 AM CDT [facility] MCV 86 80 - 100 fL 01/13/2025 6:05 AM CDT [facility] MCH 28.8 26.0 - 34.0 pg 01/13/2025 6:05 AM CDT [facility] MCHC 33.3 32.0 - 36.0 g/dL 01/13/2025 6:05 AM CDT [facility] RDW 16.0(H) 11.5 - 15.5 % 01/13/2025 6:05 AM CDT [facility] PLATELET COUNT 281 140 - 440 thou/cu mm 01/13/2025 6:05 AM CDT [facility] MPV 10.3 6.5 - 11.0 fL 01/13/2025 6:05 AM CDT [facility] NRBC 0.0 % 01/13/2025 6:05 AM CDT [facility] ABS NRBC 0.0 thou /cu mm 01/13/2025 6:05 AM T [facility] Blood BLOOD SPECIMEN / Unknown Butterfly / Unknown 01/13/2025 4:26 AM CDT 01/13/2025 5:51 AM CDT us Dominik Coyle DO HEMATOLOGY Final Res ult [facility] [address] [address], * (ABNORMAL) Reticulocyte count AM (01/13/2025 4:26 AM CDT) Only the most recent of2 resultswithin the time period is included. Pathologist [facility] RETIC% 1.7(H) 0.5 - 1.5 % 01/13/2025 6:05 AM CDT [facility] RETIC (ABSOLUTE) 0.05 0.03 - 0.08 mil/cu mm 01/13/2025 6:05 AM CDT [facility] Blood BLOOD SPECIMEN / Unknown Butterfly / Unknown 01/13/2025 4:26 AM CDT 01/13/2025 5:51 AM CDT Zac Hsu MD HEMATOLOGY Final Res ult [facility] [address] [place] [address], * TRANSFUSE RBC (NURSE COMMUNICATION ORDER) (01/12/2025 2:15 PM CDT) Blood BLOOD SPECIMEN / Unknown Dominik Coyle DO NURSING BLOOD BANK Final Result * RBC W/O TYPE & SCREEN (01/12/2025 10:59 AM CDT) Only the most recent of6 resultswithin the time period is included. Pathologist [facility] QUANTITY 1 01/12/2025 10:59 AM CDT [facility] Blood BLOOD SPECIMEN / Unknown 01/12/2025 10:57 AM CDT Oswald Ladd MD BLOOD BANK Final Resu lt [facility] B[facility] BANK [address] [place] [address], [place] [phone] * RED BLOOD CELLS EA UNIT (01/12/2025 10:57 AM CDT) Only the most recent of31 resultswithin the time period is included. Pathologist [facility] CROSSMATCH Compatible Compatible [facility] BLOOD BANK PRODUCT BLOOD TYPE O Rh Positive [facility] BLOOD B[facility] PRODUCT ID NUMBER [id number] [facility] BLOOD [facility] PRODUCT STATUS /Relea sed [facility] BLOOD [facility] PRODUCT DESCRIPTION RBC -1 LR [facility] BLOOD B[facility] PRODUCT CODE [id number] [facility] BLOOD BANK Oswald Ladd MD BLOOD BANK Edited Res ult - Final [facility] BLOOD BANK [address] [place] [address], [place] [phone] * TYPE & SCREEN (01/12/2025 8:25 AM CDT) Only the most recent of7 resultswithin the time period is included. ABORH O Rh Positive 01/12/2025 9:13 AM CDT [facility] BLOOD BANK ANTIBODY SCREEN Negative Negative 01/12/2025 9:13 AM CDT [facility] [employer] LAB BLOOD BANK SPECIMEN EXPIRATION DATE/TIME 01/15/25 23:59 01/12/2025 9:13 AM CDT [facility] BLOOD BANK Blood BLOOD SPECIMEN / Unknown Butterfly / Unknown 01/12/2025 8:25 AM CDT 01/12/2025 8:32 AM CDT Dominik Coyle DO BLOOD BANK Final Res ult [facility] BLOOD BANK [address] [place] [address], [place] [phone] * (ABNORMAL) Iron plus iron binding cap AM (01/12/2025 8:25 AM CDT) IRON 49 37 - 145 ug/dL 01/12/2025 9:16 AM CDT [facility] UIBC (UNSATURATED) 172 112 - 347 ug/dL 01/12/2025 9:16 AM CDT [facility] IRON BINDING CAPACITY 221(L) 250 - 400 ug/dL 01/12/2025 9:16 AM CDT [facility] IRON,% SATURATION 22 14 - 50 % 01/12/2025 9:16 AM CDT [facility] Blood BLOOD SPECIMEN / Unknown Butterfly / Unknown 01/12/2025 8:25 AM CDT 01/12/2025 8:32 AM CDT Zac Hsu MD CHEMISTRY Final Res ult Performing Organization Address City/[facility]/ZIP Co de Phone Number [facility] [address] [place] [address], [place] * (ABNORMAL) Vitamin B12 level AM (01/12/2025 8:25 AM CDT) Only the most recent of2 resultswithin the time period is included. VITAMIN B12 1,365(H) 232 - 1,245 pg/mL 01/12/2025 9:44 AM CDT [facility] Blood BLOOD SPECIMEN / Unknown Butterfly / Unknown 01/12/2025 8:25 AM CDT 01/12/2025 8:32 AM CDT Narrative [facility] - 01/12/2025 9:44 AM CDT Biotin supplements may cause clinically significant interference for this test assay. If interference is suspected, it is strongly recommended that biotin is discontinued for at least one week prior to retesting. Zac Hsu MD CHEMISTRY Final Res ult [facility] [address] [place] [address], [place] * CWS PATH REVIEW HEMATOLOGY (01/12/2025 7:17 AM CDT) Only the most recent of4 resultswithin the time period is included. PATH COMMENT Comment 01/13/2025 10:23 AM CDT [facility] TRAL [facility] Comment:Reviewed by GL 2024 Blood BLOOD SPECIMEN / Unknown Venipuncture / Unknown 01/12/2025 7:17 AM CDT 01/12/2025 7:24 AM CDT Oswald Ladd MD LABORATORY Final Resu lt Performing Organization Address [facility] de Phone Number [facility] [address] [place] [address], [place] * EXTRA TUBE LIGHT GREEN (01/12/2025 7:17 AM CDT) Only the most recent of2 resultswithin the time period is included. Blood BLOOD SPECIMEN / Unknown Venipuncture / Unknown 01/12/2025 7:17 AM CDT 01/12/2025 7:24 AM CDT Oswald Ladd MD LABORATORY Final Resu lt Performing Organization Address [facility] Phone Number [facility] [address] [place] [address], [place] * EKG 12 LEAD (01/11/2025 1:00 [...] NOW QTc 469 ms BEYOND NOW P [place] 27 degrees BEYOND NOW R [place] 55 degrees BEYOND NOW T [place] 76 degrees BEYOND NOW 01/11/2025 1:00 AM CDT 01/11/2025 5:16 PM CDT Dominik Coyle DO EKG ORD Final Res ult Performing Organization Address [facility] de Phone Number BEYOND NOW [place], [place] * (ABNORMAL) APTT (01/10/2025 4:20 AM CDT) Only the most recent of47 resultswithin the time period is included. APTT 42(H) 25 - 36 sec 01/10/2025 4:55 AM CDT [facility] Blood BLOOD SPECIMEN / Unknown Venipuncture / Unknown 01/10/2025 4:20 AM CDT 01/10/2025 4:34 AM CDT Narrative [facility] - 01/10/2025 4:55 AM CDT Therapeutic Range: 59-89 seconds us Kelley Alvarado NP HEMATOLOGY Final Result Performing Organization Address [facility] Co de Phone Number [facility] [address] [place] [address], [place] * (ABNORMAL) SODIUM (01/08/2025 10:37 AM CDT) Only the most recent of2 resultswithin the time period is included. SODIUM 134(L) 136 - 145 mmol/L 01/08/2025 11:18 AM CDT [facility] Blood BLOOD SPECIMEN / Unknown Venipuncture / Unknown 01/08/2025 10:37 AM CDT 01/08/2025 10:43 AM CDT us David Guthrie MD CHEMISTRY Final Resul t Performing Organization Address [facility] Phone Number [facility] [address] [place] [address], [place] * POTASSIUM (01/08/2025 10:37 AM CDT) Only the most recent of2 resultswithin the time period is included. POTASSIUM 3.5 3.5 - 5.1 mmol/L 01/08/2025 11:18 AM CDT [facility] Blood BLOOD SPECIMEN / Unknown Venipuncture / Unknown 01/08/2025 10:37 AM CDT 01/08/2025 10:43 AM CDT David Guthrie MD CHEMISTRY Final Resul t Performing Organization Address [facility] Co de Phone Number [facility] [address] [place] [address], [place] * (ABNORMAL) CREATININE (01/08/2025 10:37 AM CDT) Pathologist [facility] eGFR 15(L) >90 mL/min/1.7 3m2 01/08/2025 11:18 AM CDT [facility] Comment:As of 2021, eG FR is calculated by the CKD-EPI creatinine equation without race adjustment. eGFR can be influenced by muscle mass, exercise, and diet. The reported eGFR is an estimation only and is only applicable if the renal function is stable. CREATININE 3.82(H) 0.50 - 0.90 mg/dL 01/08/2025 11:18 AM CDT [facility] Blood BLOOD SPECIMEN / Unknown Venipuncture / Unknown 01/08/2025 10:37 AM CDT 01/08/2025 10:43 AM CDT us David Guthrie MD CHEMISTRY Final Resul t [facility] [address] [place] [address], * (ABNORMAL) PROCALCITONIN (01/07/2025 4:06 PM CDT) Only the most recent of2 resultswithin the time period is included. Pathologist [facility] PROCALCITONIN 1.97(H) ng/ml 01/07/2025 4:51 PM CDT [facility] Blood BLOOD SPECIMEN / Unknown Venipuncture / Unknown 01/07/2025 4:06 PM CDT 01/07/2025 4:17 PM CDT Narrative [facility] - 01/07/2025 4:51 PM CDT Procalcitonin [...] any concentrations < 2 ng/mL are obtained. Ayaz Mccartney MD SEND OUTS Final Result [facility] [address] [address], [place] * WBC TODAY (01/07/2025 4:06 PM CDT) Only the most recent of3 resultswithin the time period is included. [facility] Signature WHITE BLOOD COUNT 7.0 4.5 - 11.0 thou/cu mm 01/07/2025 4:23 PM CDT [facility] NRBC 0.0 % 01/07/2025 4:23 PM CDT [facility] ABS NRBC 0.0 thou /cu mm 01/07/2025 4:23 PM CDT [facility] Blood BLOOD SPECIMEN / Unknown Venipuncture / Unknown 01/07/2025 4:06 PM CDT 01/07/2025 4:17 PM CDT us Ayaz Mccartney MD HEMATOLOGY Final Result [facility] [address] [place] [address], * IR CENTRAL VENOUS ACCESS/PORT (01/05/2025 3:40 [...] central venous catheter INDICATION: MADHAVI COMPARISON: None [employer] CONSULTANT(S): India Rodríguez DO SEDATION: Moderate. Supervision of [...] 440 thou/cu mm 01/05/2025 7:05 AM CDT [facility] MPV 9.7 6.5 - 11.0 fL 01/05/2025 7:05 AM CDT [facility] Blood BLOOD SPECIMEN / Unknown Venipuncture / Unknown 01/05/2025 6:32 AM CDT 01/05/2025 6:55 AM CDT [facility] LABORATORY - 01/05/2025 7:05 AM CDT While on argatroban Q72H while on argatroban us Zac Hsu MD HEMATOLOGY Final Res ult [facility] [address] [address], [place] * (ABNORMAL) TRIGLYCERIDES (01/04/2025 5:53 AM CDT) Only the most recent of13 resultswithin the time period is included. TRIGLYCERIDES 241(H) <150 mg/dL 01/04/2025 6:30 AM CDT [facility] TRAL LABORATORY PROVIDER ORDERED STATUS RANDOM 01/04/2025 6:30 AM CDT [facility] Blood BLOOD SPECIMEN / Unknown Venipuncture / Unknown 01/04/2025 5:53 AM CDT 01/04/2025 5:59 AM CDT us Catherine Sales MD CHEMISTRY Final Resu lt Performing Organization Address [facility] Phone Number [facility] [address] [address], [place] * GLUCOSE METER (01/04/2025 2:49 AM CDT) Only the most recent of81 resultswithin the time period is included. GLUCOSE METER 92 65 - 100 mg/dL 01/04/2025 2:55 AM CDT [facility] Blood BLOOD SPECIMEN / Unknown 01/04/2025 2:49 AM CDT 01/04/2025 2:55 AM CDT us Zac Hsu MD CHEMISTRY Final Res ult Performing Organization Address [facility] Co de Phone Number [facility] [address] [address], [place] * SCAN-CARDIAC STRIP (01/03/2025 9:01 PM CDT) us Scanner OTHER Final Result * TRANSFUSE RBC (NURSE COMMUNICATION ORDER) (01/03/2025 3:46 PM CDT) Blood BLOOD SPECIMEN / Unknown Zac Hsu MD NURSING BLOOD BANK Final Result * SCAN-CARDIAC STRIP (01/03/2025 3:30 PM CDT) us Scanner OTHER Final Result * PROTIME-INR (01/03/2025 11:55 AM CDT) Only the most recent of12 resultswithin the time period is included. INR 0.9 <1.3 01/03/2025 12:49 PM CDT [facility] PROTIME 10.7 10.6 - 12.4 sec 01/03/2025 12:49 PM CDT [facility] Blood BLOOD SPECIMEN / Unknown Non-Lab Venipuncture / Unknown 01/03/2025 11:55 AM CDT 01/03/2025 12:14 PM CDT Narrative [facility] - 01/03/2025 12:49 PM CDT [...] Zac Hsu MD HEMATOLOGY Final Res ult [facility] [address] [address], * (ABNORMAL) COMP METABOLIC PANEL (01/03/2025 10:27 AM CDT) Only the most recent of9 resultswithin the time period is included. SODIUM 137 136 - 145 mmol/L 01/03/2025 11:42 AM CDT [facility] TRAL LABORATORY POTASSIUM 3.8 3.5 - 5.1 mmol/L 01/03/2025 11:42 AM CDT [facility] LABOR[facility] CHLORIDE 101 98 - 107 mmol/L 01/03/2025 11:42 AM T [facility] TR[facility] LABOR[facility] CO2,TOTAL 29 22 - 29 mmol/L 01/03/2025 11:42 AM T [facility] TR[facility] LABOR[facility]ORY ANION GAP 7 5 - 18 01/03/2025 11:42 AM [facility] TRAL LABORATORY GLUCOSE 114(H) 70 - 99 mg/dL 01/03/2025 11:42 AM [facility] TRAL LABORATORY CALCIUM 8.5(L) 8.8 - 10.4 mg/dL 01/03/2025 11:42 AM [facility] TRAL LABORATORY Comment: Reference ranges for this test were updated on 02/16/2024 to reflect our healthy population more accurately. Reference range changes are not retroactively applied to results, but previous results using the same methodology can be interpreted in the context of the new reference range. BUN 29(H) 6 - 20 mg/dL 01/03/2025 11:[address] [facility] CREATININE 2.39(H) 0.50 - 0.90 mg/dL 01/03/2025 11:42 AM [facility] TRA LABORATORY BUN/CREAT RATIO 12 10 - 20 11:[address] [facility] eGFR 27(L) >90 mL/min/1. 73m2 01/03/2025 11:42 AM [facility] TRAL LABORATORY Comment:As of 2021, eG FR is calculated by the CKD-EPI creatinine equation without race adjustment. eGFR can be influenced by muscle mass, exercise, and diet. The reported eGFR is an estimation only and is only applicable if the renal function is stable. ALBUMIN 2.5(L) 4.0 - 4.9 g/dL 01/03/2025 11:42 AM [facility] TRAL LABORATORY PROTEIN,TOTAL 5.5(L) 6.0 - 8.0 g/dL 01/03/2025 11:42 AM [facility] BILIRUBIN,TOTAL 0.5 0.0 - 1.2 mg/dL 01/03/2025 11:42 AM CDT [facility] ALK PHOSPHATASE 183(H) 35 - 104 IU/L 01/03/2025 11:42 AM CDT [facility] ALT (SGPT) 27 10 - 35 IU/L 01/03/2025 11:42 AM CDT [facility] AST (SGOT) 44(H) 10 - 35 IU/L 01/03/2025 11:42 AM CDT [facility] Blood BLOOD SPECIMEN / Unknown Non-Lab Venipuncture / Unknown 01/03/2025 10:27 AM CDT 01/03/2025 10:52 AM CDT us Shelbi Fernandez DO CHEMISTRY Fi nal Result Performing Organization Address [facility]/ZIP Co de Phone Number [facility] [address] [place], [place] [id number], [place] * (ABNORMAL) HEMATOCRIT (01/03/2025 5:41 AM CDT) Only the most recent of2 resultswithin the time period is included. HEMATOCRIT 21.7(L) 33.0 - 51.0 % 01/03/2025 11:30 AM CDT [facility] Blood BLOOD SPECIMEN / Unknown Non-Lab Venipuncture / Unknown 01/03/2025 5:41 AM CDT 01/03/2025 6:04 AM CDT us Zac Hsu MD HEMATOLOGY Final Res ult Performing Organization Address City/[facility]/ZIP Co de Phone Number [facility] [address] [place] [id number], [place] * SCAN-CARDIAC STRIP (01/03/2025 1:08 AM CDT) us Scanner OTHER Final Result * SCAN-CARDIAC STRIP (01/02/2025 4:07 PM CDT) us Scanner OTHER Final Result * VANCOMYCIN (01/02/2025 5:26 AM CDT) Only the most recent of2 resultswithin the time period is included. VANCOMYCIN 17.0 ug/mL 01/02/2025 8:02 AM CDT [facility] Comment:No Reference Range D efined. DATE OF LAST DOSE,RANDOM Not Given 01/02/2025 8:02 AM CDT [facility] TIME OF LAST DOSE,RANDOM Not Given 01/02/2025 8:02 AM CDT [facility] Blood BLOOD SPECIMEN / Unknown Line/Port / Unknown 01/02/2025 5:26 AM CDT 01/02/2025 5:42 AM CDT us Zac Hsu MD CHEMISTRY Final Res ult [facility] [address] [address], [place] * SCAN-CARDIAC STRIP (01/01/2025 7:30 PM [...] of the 21st Century Cures Act, medical imaging exams and [...] * SCAN-CARDIAC STRIP (01/01/2025 7:27 AM CDT) us Scanner OTHER Final Result * (ABNORMAL) CALCIUM IONIZED HOSPITAL DRAW ONLY (01/01/2025 4:34 AM CDT) Only the most recent of32 resultswithin the time period is included. CALCIUM,IONIZE D 1.13(L) 1.15 - 1.27 mmol/L 01/01/2025 4:52 AM CDT [facility] Blood BLOOD SPECIMEN / Unknown Non-Lab Venipuncture / Unknown 01/01/2025 4:34 AM CDT 01/01/2025 4:49 AM CDT Catherine Sales MD CHEMISTRY Final Resu lt [facility] [address] [place] [address], [place] * XR CHEST 1 VIEW PORTABLE [...] 7.32 - 7.43 12/31/2024 4:02 PM CDT [facility] PCO2, VENOUS 32(L) 41 - 51 mmHg 12/31/2024 4:02 PM CDT [facility] PO2, VENOUS 44(H) 35 - 40 mmHg 12/31/2024 4:02 PM CDT [facility] HCO3,VENOUS 24 22 - 29 mmol/L 12/31/2024 4:02 PM CDT [facility] O2 SATURATION, VENOUS 81(H) 70 - 75 % 12/31/2024 4:02 PM CDT [facility] PATIENT TEMPERATURE 37.0 Degrees C 12/31/2024 4:02 PM CDT [facility] COLLECTION SITE OTHER 4:02 PM CDT [facility] HEMOGLOBIN,BLOO D GAS 8.0(L) 12.0 - 16.0 g/dL 12/31/2024 4:02 PM CDT [facility] Blood BLOOD SPECIMEN / Unknown 12/31/2024 4:02 PM CDT 12/31/2024 4:03 PM CDT us Catherine Sales MD CHEMISTRY Final Resu lt [facility] [address] [address], [place] * CT CHEST ABDOMEN PELVIS WO [...] of the 21st Century Cures Act, medical imaging exams and [...] MD @ 01/01/2025 3:53:41 AM (Electronically Signed) Catherine Sales MD CT Final Resu lt * BLOOD CULTURE (12/31/2024 11:33 AM CDT) Only the most recent of8 resultswithin the time period is included. CULTURE No Growth. 01/05/2025 3:29 PM CDT [facility] Blood BLOOD SPECIMEN / Unknown Non-Lab Venipuncture / Unknown 12/31/2024 11:33 AM CDT 12/31/2024 11:33 AM CDT us Heraclio Casas MD MICROBIOLOGY Final R esult [facility] [address] [place] [address], [place] * SCAN-CARDIAC STRIP (12/31/2024 9:43 AM CDT) Scanner OTHER Final Result * LACTATE ARTERIAL (12/31/2024 4:39 AM CDT) Only the most recent of17 resultswithin the time period is included. Pathologist [facility] LACTATE,ARTERI AL 0.8 0.5 - 1.6 mmol/L 12/31/2024 5:21 AM CDT [facility] Blood BLOOD SPECIMEN / Unknown Arterial / Unknown 12/31/2024 4:39 AM CDT 12/31/2024 4:54 AM CDT Chidi Zhu MD CHEMISTRY Final Result Performing Organization Address [facility] Co de Phone Number [facility] [address] [place] [address], * (ABNORMAL) PLATELET ESTIMATE (12/31/2024 4:39 AM CDT) Only the most recent of13 resultswithin the time period is included. [facility] PLATELET ESTIMATE Decreased (A) Adequate, No estimate 12/31/2024 5:52 AM CDT [facility] Blood BLOOD SPECIMEN / Unknown Arterial / Unknown 12/31/2024 4:39 AM CDT 12/31/2024 4:54 AM CDT us Catherine Sales MD HEMATOLOGY Final Resu lt Performing Organization Address City/[facility]/ZIP Co de Phone Number [facility] [address] [place] [address], [place] * HBSAG (HBS) (12/31/2024 4:39 AM CDT) [facility] HBSAG Nonreactive Nonreactive 12/31/2024 8:39 PM CDT [facility] Blood BLOOD SPECIMEN / Unknown Arterial / Unknown 12/31/2024 4:39 AM CDT 12/31/2024 4:54 AM CDT us Santosh Dejesus MD SEND OUTS Final Result [facility] [address] [place] [address], [place] * ARTERIAL BLOOD GAS (12/31/2024 4:39 AM CDT) Only the most recent of9 resultswithin the time period is included. PH, ARTERIAL 7.43 7.35 - 7.45 12/31/2024 4:59 AM CDT [facility] PCO2, ARTERIAL 36 32 - 45 mmHg 01/01/20 4:59 AM CDT [facility] PO2, ARTERIAL 103 83 - 108 mmHg 12/31/2024 4:59 AM CDT [facility] HCO3, ARTERIAL 24 21 - 28 mmol/L 12/31/2024 4:59 AM CDT [facility] BASE EXCESS, ARTERIAL 0.1 -2.0 - 3.0 12/31/2024 4:59 AM CDT [facility] O2 SATURATION, ARTERIAL 98 94 - 98 % 12/31/2024 4:59 AM CDT [facility] INSPIRED O2 12/31/2024 4:59 AM CDT [facility] Comment:Unit of Measure: Lit ers (L) if <=20; Percent (%) if >20 PATIENT TEMPERATURE 37.8 Degrees C 12/31/2024 4:59 AM CDT [facility] Blood ARTERIAL BLOOD SPECIMEN / Unknown Arterial / Unknown 12/31/2024 4:39 AM CDT 12/31/2024 4:54 AM CDT us [facility] CHEMISTRY Final R esult [facility] [address] [place] [address], [place] * Fibrinogen Quantitative ECMO (12/31/2024 4:39 AM CDT) Only the most recent of18 resultswithin the time period is included. FIBRINOGEN,ESTELLA NTITATIVE 400 193 - 401 mg/dL 12/31/2024 5:13 AM CDT [facility] Blood BLOOD SPECIMEN / Unknown Arterial / Unknown 12/31/2024 4:39 AM CDT 12/31/2024 4:54 AM CDT Chidi Zhu MD HEMATOLOGY Final Result [facility] [address] [place] [address], * (ABNORMAL) HEPATIC FUNCTION PANEL (12/31/2024 4:39 AM CDT) Only the most recent of8 resultswithin the time period is included. ALBUMIN 2.6(L) 4.0 - 4.9 g/dL 12/31/2024 5:29 AM CDT [facility] PROTEIN,TOTAL 5.2(L) 6.0 - 8.0 g/dL 12/31/2024 5:29 AM T [facility] BILIRUBIN,TOTAL 0.9 0.0 - 1.2 mg/dL 12/31/2024 5:29 AM T [facility] BILIRUBIN,DIRECT 0.5(H) 0.0 - 0.2 mg/dL 12/31/2024 5:29 AM T [facility] BILIRUBIN,INDIRE CT 0.4 0.2 - 0.8 mg/dL 12/31/2024 5:29 AM CDT [facility] ALK PHOSPHATASE 237(H) 35 - 104 IU/L 12/31/2024 5:29 AM T [facility] ALT (SGPT) 43(H) 10 - 35 IU/L 12/31/2024 5:29 AM CDT [facility] AST (SGOT) 52(H) 10 - 35 IU/L 12/31/2024 5:29 AM T [facility] Blood BLOOD SPECIMEN / Unknown Arterial / Unknown 12/31/2024 4:39 AM CDT 12/31/2024 4:54 AM CDT us Catherine Sales MD CHEMISTRY Final Resu lt Performing Organization Address City/[facility]/ZIP Co de Phone Number [facility] [address] [address], [place] * TRANSFUSE RBC (NURSE COMMUNICATION ORDER) (12/31/2024 12:39 AM CDT) Blood BLOOD SPECIMEN / Unknown us Jossue Gerard CRNA NURSING BLOOD BANK Final Result * SCAN-CARDIAC STRIP (12/30/2024 9:27 PM CDT) us Scanner OTHER Final Result * (ABNORMAL) RED CELL MORPHOLOGY (12/30/2024 5:37 PM CDT) Only the most recent of10 resultswithin the time period is included. POLYCHROMASIA Slight 12/30/2024 6:38 PM CDT [facility] SCHISTOCYTES Few 12/30/2024 6:38 PM CDT [facility] RBC COMMENT Present(A) RBC morphology appears normal, RBC morphology within normal limits for newborns. 12/30/2024 6:38 PM CDT [facility] WBC DOHLE BODIES Present 12/31/19 6:38 PM CDT [facility] Blood BLOOD SPECIMEN / Unknown Non-Lab Venipuncture / Unknown 12/30/2024 5:37 PM CDT 12/30/2024 5:45 PM CDT us Wolf De Luna [facility] HEMATOLOGY Final R esult Performing Organization Address City/[facility]/ZIP Co de Phone Number [facility] [address] [place] [address], [place] * (ABNORMAL) MANUAL DIFFERENTIAL (12/30/2024 5:37 PM CDT) Only the most recent of10 resultswithin the time period is included. % NEUTROPHILS 85.3 % 12/30/2024 6:38 PM CDT [facility] % LYMPHOCYTES 7.8 % 12/30/2024 6:38 PM CDT [facility] % MONOCYTES 1.7 % 12/30/2024 6:38 PM CDT [facility] % EOSINOPHILS 0.9 % 12/30/2024 6:38 PM CDT [facility] % BASOPHILS 0.0 % 12/30/2024 6:38 PM CDT [facility] % METAMYELOCYTES 3.4(H) <0.1 % 12/31/19 6:38 PM CDT [facility] % MYELOCYTES 0.9(H) <0.1 % 12/30/2024 6:38 PM T [facility] NEUTROPHILS ABSOLUTE 35.4(H) 1.7 - 7.0 thou/cu mm 12/30/2024 6:38 PM CDT [facility] LYMPHOCYTES ABSOLUTE 3.2(H) 0.9 - 2.9 thou/cu mm 12/30/2024 6:38 PM T [facility] MONOCYTES ABSOLUTE 0.7 <0.9 thou/cu mm 12/30/2024 6:38 PM [facility] EOSINOPHILS ABSOLUTE 0.4 <0.5 thou/cu mm 12/30/2024 6:38 PM T [facility] BASOPHILS ABSOLUTE 0.0 <0.3 thou/cu mm 12/30/2024 6:38 PM T [facility] ABSOLUTE METAMYELOCYTES 1.4(H) <=0.0 thou/cu mm 12/30/2024 6:38 PM T [facility] ABSOLUTE MYELOCYTES 0.4(H) <=0.0 thou/cu mm 12/30/2024 6:38 PM [facility] Blood BLOOD SPECIMEN / Unknown Non-Lab Venipuncture / Unknown 12/30/2024 5:37 PM CDT 12/30/2024 5:45 PM CDT Wolf Kumarsalma [facility] HEMATOLOGY Final R esult [facility] [address] [place] [address], [place] * Magnesium CRRT (12/30/2024 12:47 PM CDT) Only the most recent of35 resultswithin the time period is included. MAGNESIUM 2.3 1.6 - 2.6 mg/dL 12/30/2024 1:22 PM CDT [facility] Blood BLOOD SPECIMEN / Unknown Non-Lab Venipuncture / Unknown 12/30/2024 12:47 PM CDT 12/30/2024 12:57 PM CDT Oswald Ladd MD CHEMISTRY Final Resu lt Performing Organization Address City/[facility]/ZIP Co de Phone Number [facility] [address] [place] [address], [place] * (ABNORMAL) Calcium CRRT (12/30/2024 12:47 PM CDT) Only the most recent of22 resultswithin the time period is included. CALCIUM 7.9(L) 8.8 - 10.4 mg/dL 12/30/2024 1:22 PM CDT [facility] Comment: Reference ranges for this [...] CHEMISTRY Final Resu lt Performing Organization Address [facility]/ZIP Co de Phone Number [facility] [address] [address], * Electrolyte Panel CRRT (12/30/2024 12:47 PM CDT) Only the most recent of22 resultswithin the time period is included. SODIUM 137 136 - 145 mmol/L 12/30/2024 1:22 PM CDT [facility] POTASSIUM 4.9 3.5 - 5.1 mmol/L 12/30/2024 1:22 PM CDT [facility] CHLORIDE 105 98 - 107 mmol/L 12/30/2024 1:22 PM CDT [facility] CO2,TOTAL 25 22 - 29 mmol/L 12/30/2024 1:22 PM CDT [facility] ANION GAP 7 5 - 18 12/30/2024 1:22 PM CDT [facility] Blood BLOOD SPECIMEN / Unknown Non-Lab Venipuncture / Unknown 12/30/2024 12:47 PM CDT 12/30/2024 12:57 PM CDT Oswald Ladd MD CHEMISTRY Final Resu Performing Organization Address [facility] Co de Phone Number [facility] [address] [place] [address], [place] * (ABNORMAL) COMPREHENSIVE BLOOD GAS ARTERIAL (12/30/2024 10:33 AM CDT) Only the most recent of74 resultswithin the time period is included. PH, ARTERIAL 7.50(H) 7.35 - 7.45 12/30/2024 10:33 AM CDT [facility] PCO2, ARTERIAL 31(L) 32 - 45 mmHg 12/30/2024 10:33 AM CDT [facility] PO2, ARTERIAL 76(L) 83 - 108 mmHg 12/30/2024 10:33 AM CDT [facility] HCO3, ARTERIAL 24 21 - 28 mmol/L 12/30/2024 10:33 AM CDT [facility] O2 SATURATION, ARTERIAL 98 94 - 98 % 12/30/2024 10:33 AM CDT [facility] PATIENT TEMPERATURE 37.0 Degrees C 12/30/2024 10:33 AM CDT [facility] COLLECTION SITE ARTERIAL LINE 12/30/2024 10:33 AM CDT [facility] Blood BLOOD SPECIMEN / Unknown 12/30/2024 10:33 AM CDT 12/30/2024 10:33 AM CDT us Catherine Sales MD CHEMISTRY Final Resu lt [facility] [address] [address], [place] * SCAN-CARDIAC STRIP (12/30/2024 9:23 AM CDT) us Scanner OTHER Final Result * (ABNORMAL) LD Total ECMO (12/30/2024 4:09 AM CDT) Only the most recent of7 resultswithin the time period is included. Pathologist [facility] LD,TOTAL 1,160(H) 135 - 214 IU/L 12/30/2024 5:33 AM CDT [facility] Blood BLOOD SPECIMEN / Unknown Non-Lab Venipuncture / Unknown 12/30/2024 4:09 AM CDT 12/30/2024 4:21 AM CDT us Chidi Zhu MD CHEMISTRY Final Result [facility] [address] [place] [address], [place] * SCAN-CARDIAC STRIP (12/29/2024 7:32 PM [...] PM (Electronically Signed) us Catherine Sales MD Final Resu lt * COPPER SERUM (12/29/2024 12:28 PM CDT) Copper, Serum/Plasma 105 80 - 158 ug/dL 12/31/2024 7:08 PM CDT [facility] ([facility]) Comment:Detection Limit = 5 Blood BLOOD SPECIMEN / Unknown Non-Lab Venipuncture / Unknown 12/29/2024 12:28 PM CDT 12/29/2024 12:53 PM CDT Narrative [facility] ([facility]) - 12/31/2024 7:08 PM CDT Test(s) 536228-[id number], Serum or Plasma was developed and its performance characteristics determined by [facility]. It has not been cleared or approved by the Food and Drug Administration. Performed at: 01 - [address] [id number] Cab Worker: Ayde Lua MD, Phone: [phone] Nina MONTERO SEND OUTS Final Re sult [facility] ([facility]) [address] [place] [address], * PERIPHERAL BLD MORPHOLOGY (12/29/2024 12:28 PM CDT) Only the most recent of2 resultswithin the time period is included. Pathologist [facility] Case Report Special Hematology Report Case: [id number] Authorizing Provider: Nina De Los Santos PA Collected: 12/29/2024 1228 Ordering Location: [facility] Received: 12/29/2024 1252 Hospital Pathologist: Marcelo Mcadams MD Specimen: Blood 12:17 PM CDT [facility] Final Diagnosis PERIPHERAL BLOOD: 1. Normocytic anemia with no morphologic evidence of hemolysis 2. Absolute neutrophilia and monocytosis 3. Absolute lymphocytosis 4. Severe thrombocytopenia 5. See comment 12:17 PM CDT [facility] at 1216 CDT Comment The [...] may have immune thrombocytopenia. 12:17 PM CDT [facility] Clinical Information Submitted clinical information: 31 spectic shock, ECMO, CRRT, bacteremia. Eval hemolysis, leukoerythroblastic reaction Per chart review: 12/24/24 06:24 HAPTOGLOBIN : <10 (L) (L): Data is abnormally low 12:17 PM CDT [facility] CBC and Differential HEMATOLOGY PARAMETERS Tested at: Central Laboratory RESULTS EXPECTED VALUES WBC: 59.6 4.5-84e7979/cumm ELEVATED RBC: 2.85 4.00-5.20 mil/cumm DECREASED HGB: 7.9 12-16 gm/dl DECREASED HCT: 24.0 33-51% DECREASED MCV: 84.0 80-100 fl NORMOCYTIC MCH: 27.7 26-34 pg MCHC: 32.9 32-36 gm/dl NORMOCHROMIC RDW: 17.9 11.5-15.5% ELEVATED PLT: 40 [id number]/uL DECREASED MPV: Unable to be determined Retic: 2.2 0.5-1.5% ELEVATED Differential Tested at: [facility] Absolute (%) Expected (%) (x10*9/L) (x10*9/L) Neutrophils: 44.7 (75) 1.7-7.0 (42-72%) ELEVATED Lymphocytes: 3.6 (6) 0.9-2.9 (20-44%) ELEVATED Monocytes: 4.8 (8.1) <0.9 (0-11%) ELEVATED Metamyelocytes: 1.8 (3) <0.1 (<0.1%) ELEVATED Myelocytes: 4.8 (8.1) <0.1 (<0.1%) ELEVATED 5 12:17 PM CDT [facility] Reticulocytes Retic: 2.2 0.5-1.5% ELEVATED 5 12:17 PM CDT [facility] Microscopic Description The final diagnosis is based on microscopic examination of an appropriately stained blood smear. 5 12:17 PM CDT [facility] Additional Information Interpreted at [facility] Central Laboratory - [address] [facility] [address], [place] [address] 5 12:17 PM CDT [facility] Blood BLOOD SPECIMEN / Unknown 12/29/2024 12:28 PM CDT 12/29/2024 12:52 PM CDT Comment:CURRENT MEDICATIONSC urrent Facility-Administered Medications: acetaminophen 1,000 mg tablet (TYLENOL EXTRA STRGTH), 1,000 mg, Oral, q6h prn, Kendra Morrison MD acyclovir (ZOVIRAX) 250 mg in D5W 100 mL, 5 mg/kg ([place]), Intravenous, q24h, Yen Obrien MD artificial tears drops (propylene glycol containing) 2 Drop, 2 Drop, Both Eyes, q2h prn, Catherine Sales MD calcium gluconate 2 gram/100 mL NaCl (iso-osmo), 2 g, Intravenous, continuous, Oswald Ladd MD, Last Rate: Stopped (12/29/24 0709) calcium gluconate 4 g in D5W 100 mL, 4 g, Intravenous, continuous, Oswald Ladd MD, Last Rate: Stopped (12/26/24 1400) dexmedeTOMIDine (PRECEDEX) 400 mcg/100 mL (4 mcg/mL) NaCl 0.9% infusion, 0.2-1 mcg/kg/hr, Intravenous, continuous, Onyambu, Wolf Biko, [facility], Last Rate: 0.2 mcg/kg/hr (12/29/24 0955) dextrose [...] Oswald Ladd MD, Last Rate: Stopped (12/26/24 4919) meropenem (MERREM) 500 mg in NaCl 0.9% (MINI-BAG+) 100 mL, 500 mg, Intravenous, q8h, Yen Obrien MD, Last Rate: Stopped (12/29/24 0842) naloxone (NARCAN) 0.4 mg/mL injection vial 0.4 mg, 0.4 mg, Intravenous, q1min prn, India Rodríguez DO OLANzapine (ZYPREXA) 5 mg in water sterile, 5 mg, Intravenous, q8h prn, Wolf De Luna [facility] OLANzapine 5 mg orally disintegrating tablet (ZYPREXA ZYDIS), 5 mg, Oral, q6h prn, Wolf De Luna [facility] ondansetron 4 mg injection (ZOFRAN), 4 mg, Intravenous, q8h prn, Wolf De Luna [facility] oxyCODONE (ROXICODONE) immediate release tablet 5 [...] Ladd MD, Last Rate: 300 mL/hr (12/28/24 4042) replacement soln PREMIXED(PHOXILLUM BK4/2.5) (CRRT), 1,000 mL/hr, CRRT, continuous, Oswald Ladd MD, Last Rate: 1,000 mL/hr (12/29/24 0954) sennosides-docusate (SENOKOT S) (8.6-50 mg) tablet 1 Tablet, 1 Tablet, Oral, bid, Wolf De Luna, [facility] sodium chloride 0.9 % syringe 10 [...] Ladd MD, Last Rate: Stopped (12/26/24 0440) Nina MONTERO HEMATOLOGY Final Re sult Performing Organization Address [facility] Co de Phone Number [facility] [address] [place] [address], * (ABNORMAL) FOLIC ACID (12/29/2024 12:28 PM CDT) [facility] FOLIC ACID 4.5(L) 4.6 - 34.8 ng/mL 12/29/2024 1:44 PM CDT [facility] Blood BLOOD SPECIMEN / Unknown Non-Lab Venipuncture / Unknown 12/29/2024 12:28 PM CDT 12/29/2024 12:53 PM CDT Narrative [facility] - 12/29/2024 1:44 PM CDT Biotin supplements may cause clinically significant interference for this test assay. If interference is suspected, it is strongly recommended that biotin is discontinued for at least one week prior to retesting. Nina MONTERO CHEMISTRY Final Re sult Performing Organization Address [facility]/ZIP Co de Phone Number [facility] [address] [place] [address], [place] * SCAN-CARDIAC STRIP (12/29/2024 7:20 AM CDT) us Scanner OTHER Final Result * SCAN-CARDIAC STRIP (12/29/2024 6:35 AM CDT) us Scanner OTHER Final Result * DIFFERENTIAL (12/29/2024 4:25 AM CDT) Blood BLOOD SPECIMEN / Unknown Non-Lab Venipuncture / Unknown 12/29/2024 4:25 AM CDT 12/29/2024 4:39 AM CDT Narrative [facility] - 12/29/2024 11:49 AM CDT WBC MUST ALSO BE ORDERED, [id number] us Nina MONTERO HEMATOLOGY Final Re sult [facility] [address] [place] [address], [place] * SCAN-CARDIAC STRIP (12/28/2024 7:47 PM CDT) us Scanner OTHER Final Result * (ABNORMAL) [facility] MISCELLANEOUS SENDOUT (12/28/2024 10:38 AM CDT) [facility] Miscellaneous Sendout SEE COMMENTS( A) 12/30/2024 3:23 PM CDT [facility] Comment: Test Result Flag Unit RefValue [...] developed and its performance characteristics determined by [facility] in a manner consistent with CLIA requirements. This test has not been cleared or approved by the U.S. Food and Drug Administration. Complement C3, S 98 mg/dL 75 - 175 Complement C4, S 25 mg/dL 14 - 40 Factor B Complement 34.0 mg/dL 15.2 - 42.3 Antigen, S This test was developed and its performance characteristics determined by [facility] in a manner consistent with CLIA requirements. This test has not been cleared or approved by the U.S. Food and Drug Administration. Factor H Complement 34.4 mg/dL 18.5 - 40.8 Antigen, S This test was developed and its performance characteristics determined by [facility] in a manner consistent with CLIA requirements. This test has not been cleared or approved by the U.S. Food and Drug Administration. CBb Complement, P 1.8 H mcg/mL <1.7 This test has been modified from the plant safety engineer's instructions. Its performance characteristics were determined by [facility] in a manner consistent with CLIA requirements. This test has not been cleared or approved by the U.S. Food and Drug Administration. SC5b-9 Complement, P 451 H ng/mL <251 This test was developed and its performance characteristics determined by [facility] in a manner consistent with CLIA requirements. This test has not been cleared or approved by the U.S. Food and Drug Administration. Test Performed by: [place] [address] Cab Worker: Venkat Hardy Ph.D.; CLIA# [id number] Other (Other) Non-Blood / Unknown 12/28/2024 10:38 AM CDT 12/28/2024 10:55 AM CDT Yasir Pelaez MD LABORATORY Final Resul t [facility] [address] [place] [address], * MISCELLANEOUS SEND OUT (12/28/2024 10:38 AM CDT) TEST NAME Atypical Hemolytic Uremic Syndrome complement panel, serum and plasma 12/28/2024 2:03 PM CDT [facility] SOURCE Blood 12/28/2024 2:03 PM CDT [facility] PERFORMING LAB [facility] 12/28 2:03 PM CDT [facility] REFERRAL LAB TEST # [id number] 12/28/2024 2:03 PM CDT [facility] IS THIS A [facility] TEST? No 12/28/2024 2:03 PM CDT [facility] Is this a Jon Test? Yes, See Jon Miscellaneous Sendout result 12/28/2024 2:03 PM CDT [facility] Other (Other) Non-Blood / Unknown 12/28/2024 10:38 AM CDT 12/28/2024 10:55 AM CDT us Yasir Pelaez MD SEND OUTS Final Resul t [facility] [address] [place] [address], [place] * SCAN-CARDIAC STRIP (12/28/2024 7:27 AM CDT) us Scanner OTHER Final Result * SCAN-CARDIAC STRIP (12/27/2024 8:26 PM CDT) us Scanner OTHER Final Result * MRSA/SA PCR (12/27/2024 5:21 PM CDT) MRSA DNA PCR Negative Negative 12/27/2024 8:08 PM CDT [facility] STAPHYLOCOCCUS AUREUS PCR Negative Negative 12/27/2024 8:08 PM CDT [facility] Other SPECIMEN FROM INTERNAL NOSE / Unknown Non-Blood / Unknown 12/27/2024 5:21 PM CDT 12/27/2024 5:29 PM CDT Narrative [facility] - 12/27/2024 8:08 PM CDT Test result does not preclude MRSA or SA nasal colonization. us Yen Obrien MD MICROBIOLOGY Final Result [facility] [address] [address], [place] * (ABNORMAL) CARDIAC THROMBOELASTOGRAPHY (12/27/2024 3:08 PM CDT) ABDOUL REASON Cardiac Baseline Panel 12/27/2024 4:38 PM CDT [facility]ATORY INTEM CT 189 139 - 205 s 12/27/2024 4:38 PM CDT [facility] INTEM A5 34(L) 36 - 54 mm 12/27/2024 4:38 PM CDT [facility] INTEM A10 45(L) 46 - 63 mm 12/27/2024 4:38 PM CDT [facility] INTEM A20 52(L) 53 - 68 mm 12/27/2024 4:38 PM CDT [facility] INTEM MCF 55 55 - 70 mm 12/27/2024 4:38 PM CDT [facility] INTEM ML 2 0 - 7 % 12/27/2024 4:38 PM CDT [facility] INTEM LI60 99 93 - 100 % 12/27/2024 4:38 PM CDT [facility] EXTEM CT 67 51 - 73 s 12/27/2024 4:38 PM CDT [facility] EXTEM A5 39 33 - 52 mm 12/27/2024 4:38 PM CDT [facility] EXTEM A10 49 45 - 62 mm 12/27/2024 4:38 PM CDT [facility] EXTEM A20 56 54 - 69 mm 12/27/2024 4:38 PM CDT [facility] EXTEM MCF 58 57 - 72 mm 12/27/2024 4:38 PM CDT [facility] EXTEM ML 2 0 - 6 % 12/27/2024 4:38 PM CDT [facility] EXTEM LI60 98 94 - 100 % 12/27/2024 4:38 PM CDT [facility] FIBTEM A5 18(H) 5 - 16 mm 12/27/2024 4:38 PM CDT [facility] FIBTEM A10 20(H) 6 - 17 mm 12/27/2024 4:38 PM CDT [facility] FIBTEM A20 22(H) 6 - 18 mm 12/27/2024 4:38 PM CDT [facility] FIBTEM MCF 23(H) 6 - 19 mm 12/27/2024 4:38 PM CDT [facility] HEPTEM CT 190 141 - 215 s 12/27/2024 4:38 PM CDT [facility] HEPTEM A5 33 33 - 51 mm 12/27/2024 4:38 PM CDT [facility] HEPTEM A10 44 44 - 61 mm 12/27/2024 4:38 PM CDT [facility] HEPTEM A20 52 52 - 67 mm 12/27/2024 4:38 PM CDT [facility] HEPTEM MCF 55 54 - 69 mm 12/27/2024 4:38 PM CDT [facility] Blood BLOOD SPECIMEN / Unknown Non-Lab Venipuncture / Unknown 12/27/2024 3:08 PM CDT 12/27/2024 3:14 PM CDT us Catherine Sales MD HEMATOLOGY Final Resu lt [facility] [address] [address], * SCAN-CARDIAC STRIP (12/27/2024 7:02 AM CDT) us Scanner OTHER Final Result * HEMOGLOBIN,PLASMA (12/27/2024 4:28 AM CDT) Only the most recent of4 resultswithin the time period is included. [facility] HEMOGLOBIN,PLAS MA <30 <40 mg/dL 12/27/2024 5:06 AM CDT [facility] Comment:The system is linear from 30 mg/dl to 3000 mg/dl. Caution should be taken when evaluating instrument readings between 0 mg/dl and 30 mg/dl. Blood BLOOD SPECIMEN / Unknown Non-Lab Venipuncture / Unknown 12/27/2024 4:28 AM CDT 12/27/2024 4:42 AM CDT Chdii Zhu MD CHEMISTRY Final Result Performing Organization Address City/[facility]/ZIP Co de Phone Number [facility] [address] [place] [address], [place] * TRANSFUSE PLT (NURSE COMMUNICATION ORDER) (12/27/2024 2:04 AM CDT) Blood BLOOD SPECIMEN / Unknown Keri Garcia MD NURSING BLOOD BANK Mary l Result * PLATELET ORDER, 1 unit (12/27/2024 1:24 AM CDT) Only the most recent of10 resultswithin the time period is included. [facility] QUANTITY 1 12/27/2024 1:2 4 AM CDT [facility] [facility] Blood BLOOD SPECIMEN / Unknown 12/27/2024 12:48 AM CDT Keri Garcia MD BLOOD BANK Final R esult [facility] [address] [place] [address], [place] [phone] * PLATELET EA UNIT (12/27/2024 12:48 AM CDT) Only the most recent of16 resultswithin the time period is included. [facility] PRODUCT BLOOD TYPE B Rh Positive [facility] PRODUCT ID NUMBER [id number] [facility] PRODUCT STATUS Transfused [facility] PRODUCT DESCRIPTION SDP ACD-A IRR LR Pt3 [facility] [facility] PRODUCT CODE [id number] [facility] ISSUE DATE/TIME 12/27/24 01:25 [facility] Keri Garcia MD BLOOD BANK Edited Result - Final [facility] [address] [place] [address], * TRANSFUSE PLT (NURSE COMMUNICATION ORDER) (12/26/2024 [...] of14 resultswithin the time period is included. CK,TOTAL 73 26 - 192 IU/L 12/26/2024 6:55 PM CDT [facility] Blood BLOOD SPECIMEN / Unknown Non-Lab Venipuncture / Unknown 12/26/2024 6:16 PM CDT 12/26/2024 6:30 PM CDT Chidi Zhu MD CHEMISTRY Final Result [facility] 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 Yen Obrien MD MICROBIOLOGY Final Result Performing Organization Address [facility] Co de Phone Number [facility] [address] [address], [place] * CT HEAD BRAIN WO (12/26/2024 [...] MD @ 12/26/2024 1:11:00 PM (Electronically Signed) Catherine Sales MD CT Final Resu lt * SCAN-CARDIAC STRIP (12/26/2024 7:03 AM CDT) us Scanner OTHER Final Result * TRANSFUSE PLT (NURSE COMMUNICATION ORDER) (12/26/2024 6:04 AM CDT) Blood BLOOD SPECIMEN / Unknown us Keri Garcia MD NURSING BLOOD BANK Mary l Result * SCAN-RADIOLOGY REPORT (12/26/2024 12:00 AM [...] Blood BLOOD SPECIMEN / Unknown us Wolf Kraig De Luna [facility] NURSING BLOOD BANK Mary l Result * SCAN-CARDIAC STRIP (12/24/2024 8:38 PM CDT) us Scanner OTHER Final Result * ANTI HIV 1/2 (12/24/2024 7:32 PM CDT) HIV-1/HIV-2 SCREEN Non-Reacti ve Non-Reacti ve 12/24/2024 10:47 PM CDT [facility] Comment:HIV-1 p24 and HIV-1/ HIV-2 Ab Not Detected. Blood BLOOD SPECIMEN / Unknown Non-Lab Venipuncture / Unknown 12/24/2024 7:32 PM CDT 12/24/2024 7:41 PM CDT Shelbi Tessjovana Fernandez DO SEND OUTS Fi nal Result Performing Organization Address City/[facility]/ZIP Co de Phone Number [facility] [address] [place] [address], [place] * TRANSFUSE PLT (NURSE COMMUNICATION ORDER) (12/24/2024 6:52 PM CDT) Blood BLOOD SPECIMEN / Unknown Ivonne oJrgensen MD NURSING BLOOD BANK Final Resul t * TRANSFUSE PLT (NURSE COMMUNICATION ORDER) (12/24/2024 6:51 PM CDT) Blood BLOOD SPECIMEN / Unknown Coby GRISSOM NURSING BLOOD BANK Final Resul t * TRANSFUSE PLT (NURSE COMMUNICATION ORDER) (12/24/2024 2:02 PM CDT) Blood BLOOD SPECIMEN / Unknown Wolf De Luna [facility] NURSING BLOOD BANK Mary l Result * SCAN-CARDIAC STRIP (12/24/2024 10:37 AM CDT) Scanner OTHER Final Result * (ABNORMAL) HAPTOGLOBIN (12/24/2024 6:24 AM CDT) Only the most recent of2 resultswithin the time period is included. Haptoglobin <10(L) 30 - 200 mg/dL 12/24/2024 11:05 AM CDT [facility] Blood BLOOD SPECIMEN / Unknown Non-Lab Venipuncture / Unknown 12/24/2024 6:24 AM CDT 12/24/2024 6:38 AM CDT Wolf De Luna [facility] CHEMISTRY Final R esult Performing Organization Address City/[facility]/ZIP Co de Phone Number [facility] [address] [place] [address], [place] * (ABNORMAL) O2 SATURATION,MEASURED (12/24/2024 4:06 AM CDT) Only the most recent of2 resultswithin the time period is included. O2 SATURATION,SHAYE SURED 97 % 12/24/2024 4:26 AM CDT [facility] HEMOGLOBIN,BLO OD GAS 9.6(L) 12.0 - 16.0 g/dL 12/24/2024 4:26 AM CDT [facility] SOURCE, O2M Venous 12/24/2024 4:26 AM CDT [facility] Blood BLOOD SPECIMEN / Unknown Non-Lab Venipuncture / Unknown 12/24/2024 4:06 AM CDT 12/24/2024 4:19 AM CDT Narrative [facility] - 12/24/2024 4:26 AM CDT Reference Range for: Arterial Source (94-98) Non-Arterial Source (70-75) us Keri Garcia MD CHEMISTRY Final R esult [facility] [address] [place] [address], [place] * XR ABDOMEN 1 VIEW PORTABLE [...] MD @ 12/24/2024 7:28:00 AM (Electronically Signed) Chidi Zhu MD GENERAL IMAGING Final Result * SCAN-CARDIAC STRIP (12/23/2024 11:32 PM CDT) us Scanner OTHER Final Result * (ABNORMAL) Blood Gas Mixed Venous ECMO (12/23/2024 9:07 PM CDT) PH, MIXED VENOUS 7.41 7.30 - 7.43 12/23/2024 9:21 PM CDT [facility] PCO2, MIXED VENOUS 32(L) 41 - 51 mmHg 12/23/2024 9:21 PM CDT [facility] PO2, MIXED VENOUS 40 35 - 40 mmHg 12/23/2024 9:21 PM CDT [facility] HCO3, MIXED VENOUS 20(L) 22 - 30 mmol/L 12/23/2024 9:21 PM CDT [facility] BASE EXCESS, MIXED VENOUS -3.6(L) -3 - 3 12/23/2024 9:21 PM CDT [facility] O2 SATURATION, MEASURED, MIXED VENOUS 77(H) 70 - 75 % 12/23/2024 9:21 PM CDT [facility] TRA LABORATORY INSPIRED O2 40 12/23/2024 9:21 PM CDT [facility] Comment:Unit of Measure: Lit ers (L) if <=20; Percent (%) if >20 PATIENT TEMPERATURE 36.3 Degrees C 12/23/2024 9:21 PM CDT [facility] Blood VENOUS BLOOD SPECIMEN / Unknown Line/Port / Unknown 12/23/2024 9:07 PM CDT 12/23/2024 9:14 PM CDT us Chiid Zhu MD CHEMISTRY Final Result [facility] [address] [place] [address], [place] * [place] ARTERIAL UPPER EXTREMITY BILATERAL [...] @ Dec 27 2024 2:33PM (Electronically Signed) [email or web address] Narrative 12/27/2024 2:33 PM CDT For Patients: As a result of the 21st Century Cures Act, medical imaging exams and [...] bilateral. No thromboembolic occlusion. Procedure Note Billy Landon MBBS - 12/27/2024 For Patients: As a result [...] @ Dec 27 2024 2:33PM (Electronically Signed) [email or web address] Chidi Zhu MD Final Result * (ABNORMAL) URINALYSIS MICROSCOPIC (12/23/2024 7:46 PM CDT) Only the most recent of3 resultswithin the time period is included. RBC 11-25(A) 0-2, None Seen /HPF 12/23/2024 8:04 PM CDT [facility] WBC 0-2 0-2, 3-5, None Seen /HPF 12/23/2024 8:04 PM CDT [facility] BACTERIA None Seen None Seen, Rare, Few Bacteria/ HPF 12/23/2024 8:04 PM CDT [facility] EPITHELIAL CELLS None Seen None Seen, Few Epi/HPF 12/23/2024 8:04 PM CDT [facility] HYALINE CASTS 0-2 0-2, 3-5 /LPF 12/23/2024 8:04 PM CDT [facility] Urine URINE SPECIMEN / Unknown Non-Blood / Unknown 12/23/2024 7:46 PM CDT 12/23/2024 7:51 PM CDT us Chidi Zhu MD URINE Final Result [facility] [address] [address], [place] * (ABNORMAL) Urinalysis w Reflex Microscopic if Positive - ECMO (12/23/2024 7:46 PM CDT) Only the most recent of3 resultswithin the time period is included. COLOR Yellow Yellow Color 12/23/2024 8:04 PM CDT [facility] CLARITY Clear Clear Clarity 12/23/2024 8:04 PM CDT [facility] SPECIFIC GRAVITY,URINE 1.010 1.010, 1.015, 1.020, 1.025 12/23/2024 8:04 PM CDT [facility] PH,URINE 7.0 6.0, 7.0, 8.0, 5.5, 6.5, 7.5, 8.5 12/23/2024 8:04 PM CDT [facility] UROBILINOGEN, QUALITATIVE Normal Normal EU/dl 12/23/2024 8:04 PM CDT [facility] PROTEIN, URINE 30(A) Negative mg/dL 12/23/2024 8:04 PM CDT [facility] GLUCOSE, URINE 100(A) Negative mg/dL 12/23/2024 8:04 PM CDT [facility] KETONES,URINE Negative Negative mg/dL 12/23/2024 8:04 PM CDT [facility] BILIRUBIN,URI NE Negative Negative 12/23/2024 8:04 PM CDT [facility] OCCULT BLOOD,URINE Moderate(A) Negative 12/23/2024 8:04 PM CDT [facility]- [facility] LABORATORY NITRITE Negative Negative 12/23/2024 8:04 PM CDT [facility] LAB[facility]AT[facility] LEUKOCYTE ESTERASE Negative Negative 12/23/2024 8:04 PM CDT [facility] Urine URINE SPECIMEN / Unknown Non-Blood / Unknown 12/23/2024 7:46 PM CDT 12/23/2024 7:51 PM CDT us Chidi Zhu MD URINE Final Result [facility] [address] [address], [place] * TRANSFUSE PLASMA (NURSE COMMUNICATION ORDER) (12/23/2024 [...] MD, PhD - 12/23/2024 5:00 PM CDT [facility] Cardiac Catheterization Report Name: HARLEY WADE Event Date: 12/23/2024 14:55 Excellian ID #: [id number] LARISA #: [id number] Patient Class: Outpatient Diagnostic Physician: SG DINH [facility] Interventional Physician: SG DINH [facility] Referring Physician: Date: 1995 Gender: Female [...] management per Critical care team Consent & Woodacre Protocol The risks, benefits, and alternatives of the procedure were discussed withthe patient and written informed consent was obtained. Woodacre protocol was followed. TIME OUT conducted just prior tostarting procedure confirmed patient identity, site/side, procedure,patient position, and availability of correct equipment and implants (ifapplicable). Staff Name Title Sg Dinh Diagnostic Senior Software Quality Engineer Ulises Carreon THERAPEUTIC DIETITIAN Monitor Alexander Oneal CVT Scrub Dennis Everett CVT Scrub Sg Dinh Check Inspector Procedures ? Ultrasound Guided Vascular Access ? [...] with status of Final Sg Dinh MD [facility] [address] [place] [id number] (p) [phone](f) Provider Referring CV IMAGING Edited Result - [...] of24 resultswithin the time period is included. Pathologist [facility] PRODUCT BLOOD TYPE O Rh Positive [employer] LAB BLOOD BANK PRODUCT ID NUMBER [id number] [facility] BLOOD BANK PRODUCT STATUS /Rele ased [employer] [facility] Ninja BlocksCENTRAL LAB BLOOD BANK PRODUCT DESCRIPTION FP CPD Thawed ALLmVisumCENTRAL LAB BLOOD BANK PRODUCT CODE [id number] [facility] Ninja BlocksCENTRAL LAB BLOOD BANK us Eva Hogan MD BLOOD BANK Edited Res ult - Final [facility] B[facility] [address] [place] [address], [place] [phone] * US RENAL AND BLADDER COMPLETE PORTABLE [...] result of the Century Cures Act, medical imagingexams and procedure [...] Tech: SHELBY Referring MD: LUCILLE YANCEY Site: [facility] Reading Location: ANW IP Patient Location: [...] documentation: 2msl ml diluted Definity, lot #[id number], [facility]# [id number] was administered peripherally to enhance visualization of all left ventricular segments. . This study was interpreted by an PSYCHIATRIC accredited facility. Final Procedure Note Serjio Olson MD - 12/23/2024 ECHOCARDIOGRAM HARLEY WADE : 1995 29 years Study Date: 12/23/2024 9:55:37 AM Gender: F BP: 93/73 mmHg Height: 163.00 cm BSA: 1.72 m Weight: 67.00 kg Tech: SHELBY Fortune MD: LUCILLE YANCEY Site: [facility] Reading Location: [facility] Patient Location: Inpatient. Procedure: 2D w/ Bubbles, [...] documentation: 2msl ml diluted Definity, lot #[id number], [facility]#[id number] was administered peripherally to enhance visualization of allleft ventricular segments. . This study was interpreted by an IAC accredited facility. Final Lucille Yancey MD ECHO ORD Final Result * (ABNORMAL) PRO-BNP (12/23/2024 4:19 AM CDT) [facility] PRO-BNP 22,596(H) <125 pg/mL 12/23/2024 8:18 AM CDT [facility] [employer] [facility] Blood BLOOD SPECIMEN / Unknown Non-Lab Venipuncture / Unknown 12/23/2024 4:19 AM CDT 12/23/2024 4:31 AM CDT [facility] - 12/23/2024 8:18 AM CDT The [...] failure. Coby GRISSOM SEND OUTS Final Result [facility] [address] [place] [address], [place] * HCHG INTRDCR NON GUIDING NON LASER PR40, HCHG STOPCOCK PR5, HCHG ANES US GUIDE FOR VASC ACCESS, HCHG TUBING PR1, HCHG KIT MONITORING PR5, HCHG TUBING PR5, HCHG DRSG PR5, HCHG DRSG PR1, [facility] AN INTRODUCER 1 LUMEN PERFORMABLE, HCHG KIT PR5 (12/22/2024 11:53 PM CDT) Narrative Sumit Be MD - 12/22/2024 11:53 PM CDT Sumit [...] lumen Introducer present: yes Introducer type: capped Result [facility] Heidi Verma MD ANESTHESIA PX NOTE VIET BECKETT Final Result * TRANSFUSE PLASMA (NURSE COMMUNICATION ORDER) (12/22/2024 11:53 PM CDT) Blood BLOOD SPECIMEN / Unknown Result [facility] Eva Hogan MD NURSING BLOOD BANK Final R esult * TRANSFUSE RBC (NURSE COMMUNICATION ORDER) (12/22/2024 11:52 PM CDT) Blood BLOOD SPECIMEN / Unknown Result [facility] Eva Hogan MD NURSING BLOOD BANK Final [...] stored and sent to PACS. A 5 Martiniquais sheath was placed. A 0.035 Bentson wire [...] from Elen balloon and from vaginal orifice. Indai Rocaneil Petek DO IR Final Resul t * CRYOPRECIPITATE ORDER, 2 Pools (12/22/2024 11:29 PM CDT) Only the most recent of3 resultswithin the time period is included. QUANTITY 2 12/22/2024 11:29 PM CDT [employer] LAB BLOOD BANK Blood BLOOD SPECIMEN / Unknown 12/22/2024 11:27 PM CDT Anat Pean CRNA BLOOD BANK Edited [employer] Urakkamaailma.fiCENTRAL LAB BLOOD BANK [address] [place] [address], * CRYOPRECIPITATE EA UNIT (12/22/2024 11:27 PM CDT) Only the most recent of9 resultswithin the time period is included. PRODUCT BLOOD TYPE O Rh Positive [facility]kkamaailma.fiCENTRAL LAB BLOOD BANK PRODUCT ID NUMBER [id number] [facility]-CENTRAL LAB BLOOD BANK PRODUCT STATUS Transfused [employer]-CENTRAL LAB BLOOD BANK PRODUCT DESCRIPTION CRYO [facility]-CENTRAL LAB BLOOD BANK PRODUCT CODE [id number] [facility]ITALDo[facility] LAB BLOOD BANK ISSUE DATE/TIME 12/22/24 23:46 [employer] LAB BLOOD BANK Anat Pena CRNA BLOOD BANK Edited R Modulation Therapeuticsult - Final [facility] [address] [place] [address], * TRANSFUSE RBC (NURSE COMMUNICATION ORDER) (12/22/2024 [...] REASON OB bleeding 12/23/2024 12:45 AM CDT [facility] TRAL LABORATORY INTEM CT 216(H) 139 - 205 s 12/23/2024 12:45 AM CDT [facility] INTEM A5 34(L) 36 - 54 mm 12/23/2024 12:45 AM CDT [facility] INTEM A10 43(L) 46 - 63 mm 12/23/2024 12:45 AM CDT [facility] INTEM A20 50(L) 53 - 68 mm 12/23/2024 12:45 AM CDT [facility] INTEM MCF 54(L) 55 - 70 mm 12/23/2024 12:45 AM CDT [facility] INTEM ML 0 0 - 7 % 12/23/2024 12:45 AM CDT [facility] INTEM LI60 100 93 - 100 % 12/23/2024 12:45 AM CDT [facility]ORY EXTEM CT 57 51 - 73 s 12/23/2024 12:45 AM CDT [facility] EXTEM A5 38 33 - 52 mm 12/23/2024 12:45 AM CDT [facility] EXTEM A10 48 45 - 62 mm 12/23/2024 12:45 AM CDT [facility] EXTEM A20 54 54 - 69 mm 12/23/2024 12:45 AM CDT [facility] EXTEM MCF 57 57 - 72 mm 12/23/2024 12:45 AM CDT [facility] EXTEM ML 0 0 - 6 % 12/23/2024 12:45 AM CDT [facility] EXTEM LI60 100 94 - 100 % 12/23/2024 12:45 AM CDT [facility] FIBTEM A5 13 5 - 16 mm 12/23/2024 12:45 AM CDT [facility] FIBTEM A10 15 6 - 17 mm 12/23/2024 12:45 AM CDT [facility] FIBTEM A20 16 6 - 18 mm 12/23/2024 12:45 AM CDT [facility] FIBTEM MCF 18 6 - 19 mm 12/23/2024 12:45 AM CDT [facility] HEPTEM CT 203 141 - 215 s 12/23/2024 12:45 AM CDT [facility] HEPTEM A5 35 33 - 51 mm 12/23/2024 12:45 AM CDT [facility] HEPTEM A10 44 44 - 61 mm 12/23/2024 12:45 AM CDT [facility] HEPTEM A20 51(L) 52 - 67 mm 12/23/2024 12:45 AM CDT [facility] HEPTEM MCF 56 54 - 69 mm 12/23/2024 12:45 AM CDT [facility] Blood BLOOD SPECIMEN / Unknown Non-Lab Venipuncture / Unknown 12/22/2024 11:22 PM CDT 12/22/2024 11:29 PM CDT Anat Pena IMPLEMENTATION SPECIALIST HEMATOLOGY Final Re sult Performing Organization Address [facility]/ZIP Co de Phone Number [facility] [address] [place] [address], [place] * TRANSFUSE PLT (NURSE COMMUNICATION ORDER) [...] - 139 mg/dL 12/22/2024 11:31 PM CDT [facility] Blood BLOOD SPECIMEN / Unknown Non-Lab Venipuncture / Unknown 12/22/2024 10:50 PM CDT 12/22/2024 11:02 PM CDT Anat Pena IMPLEMENTATION SPECIALIST CHEMISTRY Final Re sult Performing Organization Address City/[facility]/ZIP Co de Phone Number [facility] [address] [place] [id number], [place] * (ABNORMAL) Thrombin Time (12/22/2024 10:50 PM CDT) THROMBIN TIME 17(H) <16 sec 12/22/2024 11:25 PM CDT [facility] Blood BLOOD SPECIMEN / Unknown Non-Lab Venipuncture / Unknown 12/22/2024 10:50 PM CDT 12/22/2024 11:03 PM CDT us Anat Pena IMPLEMENTATION SPECIALIST HEMATOLOGY Final Re sult [facility] [address] [place] [address], [place] * TRANSFUSE RBC (NURSE COMMUNICATION ORDER) [...] PM CDT) Blood BLOOD SPECIMEN / Unknown Jossue Gerard IMPLEMENTATION SPECIALIST NURSING BLOOD BANK Final Result * TRANSFUSE CRYOPRECIPITATE (NURSE COMMUNICATION ORDER) (12/22/2024 10:19 PM CDT) Blood BLOOD SPECIMEN / Unknown Jossue Gerard IMPLEMENTATION SPECIALIST NURSING BLOOD BANK Final Result * TRANSFUSE CRYOPRECIPITATE (NURSE COMMUNICATION ORDER) (12/22/2024 10:19 PM CDT) Blood BLOOD SPECIMEN / Unknown Jossue Gerard IMPLEMENTATION SPECIALIST NURSING BLOOD BANK Final Result * TRANSFUSE [...] MD @ 12/24/2024 5:53:45 AM (Electronically Signed) Eva Hogan MD [place] Final Resu lt * TRANSFUSE RBC (NURSE [...] PM CDT) Blood BLOOD SPECIMEN / Unknown Jossue Gerard CRNA NURSING BLOOD BANK Final Result * TRANSFUSE CRYOPRECIPITATE (NURSE COMMUNICATION ORDER) (12/22/2024 9:33 PM CDT) Blood BLOOD SPECIMEN / Unknown Jossue Gerard IMPLEMENTATION SPECIALIST NURSING BLOOD BANK Final Result * TRANSFUSE RBC (NURSE COMMUNICATION ORDER) (12/22/2024 9:29 PM CDT) Blood BLOOD SPECIMEN / Unknown Result [facility] Eva Hogan MD NURSING BLOOD BANK Final R esult * TRANSFUSE RBC (NURSE COMMUNICATION ORDER) (12/22/2024 9:14 PM CDT) Blood BLOOD SPECIMEN / Unknown Eva Hogan MD NURSING BLOOD BANK Final R esult * TRANSFUSE PLASMA (NURSE COMMUNICATION ORDER) (12/22/2024 8:44 PM CDT) Blood BLOOD SPECIMEN / Unknown Result [facility] Iker Cortes MD NURSING BLOOD BANK F inal Result * PATH TISSUE EXAM (12/22/2024 8:38 PM CDT) Case Report Pathology Report Case: [id number] Authorizing Provider: Eva Hogan MD Collected: 12/22/20242037 Ordering Location: [facility] Received: 12/23/[address] [place] [address] Pathologist: Agustin Hobbs MD Specimen: Products of Conception 12/28/2024 10:43 AM CDT [facility] Final Diagnosis A) PRODUCTS OF [...] diagnostic abnormalities identified 12/28/2024 10:43 AM CDT [facility] at 1042 CDT Clinical Information Septic , septic shock; retained products of conception 12/28/2024 10:43 AM CDT [facility] Gross Description A) Received fresh, labeled [...] somatic tissue or hydropic villi are identified. Clinical Technician sections are submitted in five cassettes. 1. membranes 2-4. Placental disc, full-thickness 5. Additional POC Time and date in formalin: 831 on 12/23/2024 TRS 12/23/2024 12/28/2024 10:43 AM CDT [facility] Microscopic Description The final diagnosis is based on microscopic examination of appropriate sections of all specimens. 12/28/2024 10:43 AM CDT [facility] Additional Information Interpreted at [facility], Central Laboratory - [address] [facility] [address], [place] [address] 12/28/2024 10:43 AM CDT [facility] POC (Products of Conception) 12/22/2024 8:38 PM CDT 12/23/2024 8:07 AM CDT Eva Hogan MD PATHOLOGY/CYTOLOGY Final R esult [facility] [address] [place] [address], * TRANSFUSE PLASMA (NURSE COMMUNICATION ORDER) (12/22/2024 8:19 PM CDT) Blood BLOOD SPECIMEN / Unknown us Iker Cortes MD NURSING BLOOD BANK F inal Result * PLASMA ORDER, 2 units (12/22/2024 7:50 PM CDT) Only the most recent of2 resultswithin the time period is included. QUANTITY 2 12/22/2024 7:5 0 PM CDT [facility] BLOOD BANK Blood BLOOD SPECIMEN / Unknown 12/22/2024 7:41 PM CDT us Eva Hogan MD BLOOD BANK Edited Res ult - Final [facility] BLOOD BANK [address] [place] [address], * BEDSIDE US STUDY ARCHIVE (12/22/2024 7:33 [...] I cleansed my hands with alcohol-based hand kalsominer, prepped the patient's left wrist with chlorhexidine, [...] radiograph was not indicated. Iker Cortes MD [facility] Iker Cortes MD PROCEDURE ORD Mary l Result * (ABNORMAL) Lactate Venous (12/22/2024 6:33 PM CDT) Only the most recent of3 resultswithin the time period is included. Pathologist [facility] LACTATE,VENOUS 5.2(H) 0.5 - 2.0 mmol/L 12/22/2024 7:05 PM CDT [facility] Blood BLOOD SPECIMEN / Unknown Non-Lab Venipuncture / Unknown 12/22/2024 6:33 PM CDT 12/22/2024 6:40 PM CDT Kendra Morrison MD CHEMISTRY Final R esult [facility] [address] [place] [address], * (ABNORMAL) BLOOD GAS,VENOUS (12/22/2024 6:33 PM CDT) Pathologist [facility] PH, VENOUS 7.32 7.32 - 7.43 12/22/2024 6:47 PM CDT [facility] PCO2, VENOUS 34(L) 41 - 51 mmHg 12/22/2024 6:47 PM CDT [facility] PO2, VENOUS 44(H) 35 - 40 mmHg 12/22/2024 6:47 PM CDT [facility] HCO3,VENOUS 18(L) 22 - 29 mmol/L 12/22/2024 6:47 PM CDT [facility] TR[facility] LABORATORY BASE EXCESS, VENOUS, POCT -7.7(L) -2.0 - 3.0 12/22/2024 6:47 PM CDT [facility] LAB[facility] O2 SATURATION, VENOUS 77(H) 70 - 75 % 12/22/2024 6:47 PM CDT [facility] LAB[facility] PATIENT TEMPERATURE 37.0 Degrees C 12/22/2024 6:47 PM CDT [facility] Blood VENOUS BLOOD SPECIMEN / Unknown Non-Lab Venipuncture / Unknown 12/22/2024 6:33 PM CDT 12/22/2024 6:40 PM CDT Iker Cortes MD CHEMISTRY Mary l Result [facility] [address] [place] [address], * Path Tissue Exam Placenta (12/22/2024 4:23 PM CDT) Case Report Pathology Report Case: [id number] Authorizing Provider: Nichole Andino Collected: 12/22/[address] [place] [address] Ordering Location: [facility] Received: 12/22/[address] [place] [address] Pathologist: Mari Nunez MD Specimen: Placenta 12/27/2024 4:27 PM CDT [facility]- ENTRAL LABORATORY Final Diagnosis A) PLACENTA, VAGINAL [...] completeness cannot be confirmed 12/27/2024 4:27 PM CDT [facility] ENTRAL LABORATORY at 1627 CDT Comment Acute [...] determine completeness of removal. 12/27/2024 4:27 PM CDT [facility] Clinical Information 29 y.o. at 19w6d with demise, Chorioamnionitis with sepsis, Rh + Time of : 11:55 AM Sex: female Wt: 310 g Apgars: 0 & 0 at 1 and 5 min. Nuchal cord: x 1 easily reduced. Thick meconium. Placenta did not deliver spontaneously after 30 minutes 12/27/2024 4:27 PM CDT [facility] Gross Description A) Received in formalin, labeled with the patient's name and placenta, is a 10 x 7 x 1 cm, 37 g aggregate of hemorrhagic, brown fibromembranous tissues admixed with chorionic villi. No somatic tissue or hydropic villi are identified. Clinical Technician sections are submitted in five cassettes. JPW 12/23/2024 12/27/2024 4:27 PM CDT [facility] Microscopic Description The final diagnosis is based on microscopic examination of appropriate sections of all specimens. 12/27/2024 4:27 PM CDT [facility] Additional Information Interpreted at [facility], Central Laboratory - [address] [facility] [address] [phone] 12/27/2024 4:27 PM CDT [facility] Tissue SPECIMEN FROM PLACENTA / Unknown 12/22/2024 4:23 PM CDT 12/22/2024 4:23 PM CDT us Nichole Andino DO PATHOLOGY/CYTO LOGY Final Result [facility] [address] [place] [address], * SCAN-CARDIAC STRIP (12/22/2024 2:07 PM CDT) us Scanner OTHER Final Result * Beta 2 Glycoprotein ILANA (12/22/2024 11:19 AM CDT) Beta 2 GP1 Ab IgA <4.0 <=20.0 CU 12/23/2024 11:32 AM CDT [facility] Beta 2 GP1 Ab IgG <6.4 <=20.0 CU 12/23/2024 11:32 AM CDT [facility] Beta 2 GP1 Ab IgM <1.1 <=20.0 CU 12/23/2024 11:32 AM CDT [facility] Blood BLOOD SPECIMEN / Unknown Venipuncture / Unknown 12/22/2024 11:19 AM CDT 12/22/2024 11:[address] [facility] - 12/23/2024 11:32 AM CDT Negative <=20 Positive >20 These results were obtained with the Samaresa Flash chemiluminescent immunoassay. Values obtained with different manufacturers' assay methods may not be used interchangeably. The magnitude of the reported autoantibody levels cannot always be correlated to an endpoint titer. Nichole Andino DO SEND OUTS Final Result [facility] [address] [address], * Cardiolipin Antibody (12/22/2024 11:19 AM CDT) Cardiolipin IgA 3.6 <=20.0 CU 11:32 AM CDT [facility] Cardiolipin IgG <2.6 <=20.0 CU 11:32 AM CDT [facility] Cardiolipin IgM 1.2 <=20.0 CU 11:32 AM CDT [facility] Blood BLOOD SPECIMEN / Unknown Venipuncture / Unknown 12/22/2024 11:19 AM CDT 12/22/2024 11:22 AM CDT [facility] 12/23/2024 11:32 AM CDT Interpretation: Moderate to high titers (40 GPL or MPL by IVAN assays) of aCL correlate better with aPL-related clinical events than do lower titers; IgG is more strongly associated with clinical events than is IgM ([facility] 378(21):2010). Senior Account Representative's studies have shown the following correlation between anti- cardiolipin antibody levels quantified by the BioFlash Chemiluminescent method compared to IVAN (Antibodies 2016,5,14): For IgG aCL: 95 CU corresponds to 40 GPL For IgM aCL: 31 CU corresponds to 40 MPL Nichole Andino DO SEND OUTS Final Result [facility] [address] [place] [address], * (ABNORMAL) Lupus Anticoagulant (12/22/2024 11:19 AM CDT) PROTIME 14.0(H) 10.6 - 12.4 sec 12/23/2024 10:23 AM CDT [facility] LAB[facility] INR 1.2 <1.3 12/23/2024 10:23 AM CDT [facility] THROMBIN TIME 15 <16 sec 12/23/2024 10:23 AM CDT [facility] TR[facility] LAB[facility] DRVVT RATIO 1.02 <=1.20 12/23/2024 10:23 AM CDT [facility] LAB[facility] SCT RATIO 0.61 <=1.16 12/23/2024 10:23 AM CDT [facility] APTT 30 25 - 36 sec 12/23/2024 10:23 AM CDT [facility] Blood BLOOD SPECIMEN / Unknown Venipuncture / Unknown 12/22/2024 11:19 AM CDT 12/22/2024 11:22 AM CDT Narrative [facility] - 12/23/2024 10:23 AM CDT LUPUS ANTICOAGULANT NOT DETECTED All anticoagulants (Warfarin, High level Heparin, Direct Oral Anticoagulants, Direct Thrombin Inhibitors) cause false positive lupus anticoagulant test results. We recommend disregarding lupus anticoagulant results obtained while patient is on any form of anticoagulation. For [facility] patients consider consulting with Anticoagulation and Thrombophilia Clinic at [phone]. us Nichole Andino DO SEND OUTS Final Result [facility] [address] [address], [place] * Kleihauer ( Cells) (12/22/2024 11:19 AM CDT) Case Report Special Hematology Report Case: [id number] Authorizing Provider: Nichole Andino Collected: 12/22/2024 111 [address] Ordering Location: [facility] Received: 12/22/[address] [place] [address] Pathologist: David Ruhs MD Specimen: Blood 12/23/2024 2:23 PM CDT [facility] Final Diagnosis KLEIHAUER-BETKE STUDY (FLOW CYTOMETRY) RESULTS: 1. Negative for recent -maternal hemorrhage 2. RhoGam is not indicated (maternal Rh type positive) 3. See comment 12/23/2024 2:23 PM CDT [facility] ENTRAL LABORAT[facility] at 1423 CDT Preliminary [...] in final conclusions. 12/23/2024 2:23 PM CDT [facility] Clinical Information Indication: Demise Maternal ABO type: O Maternal Rh type: Positive Gestational age: 19 weeks 12/23/2024 2:23 PM CDT [facility] Flow Cytometry Summary RESULTS The number [...] and its performance characteristics determined by the [facility] Flow Cytometry Laboratory. It has not been [...] complexity clinical laboratory testing. Test interpreted at [facility]. 12/23/2024 2:23 PM CDT [facility] Blood BLOOD SPECIMEN / Unknown Venipuncture / Unknown 12/22/2024 11:19 AM CDT 12/22/2024 11:18 AM CDT us Nichole Andino DO HEMATOLOGY Final Result [facility] [address] [place] [address], * US OB LIMITED ANY TRI TA (12/22/2024 10:03 AM CDT) Anatomical Region Laterality Modality , 2or 3 TRIMESTER, 1ST TRIMESTER Ultrasound 12/22/2024 10:1 5 AM CDT Narrative 12/22/2024 10:15 AM CDT For Patients: As a result of the 21st Century Cures Act, medical imaging exams and [...] able to be detected by the performing manager spanish. heart tones were reportedly not visualized on [...] targets detected., Invalid 12/23/2024 6:41 PM CDT [facility]-C ENTRAL LABORATORY Resistance Gene(s) None detected None detected 12/23/2024 6:41 PM CDT [facility] CTX-M (ESBL-resistance gene) NOT Detected 12/23/2024 6:41 PM CDT [facility] IMP (carbapenem-resistan ce gene) NOT Detected NOT Detected, N/A 12/23/2024 6:41 PM CDT [facility] KPC (carbapenem-resistan ce gene) NOT Detected NOT Detected, N/A 12/23/2024 6:41 PM CDT [facility] mcr-1 (colistin-resistance gene) NOT Detected 12/23/2024 6:41 PM CDT [facility] mecA/C (methicillin-resista nce gene) N/A 12/23/2024 6:41 PM CDT [facility] mecA/C and MREJ (methicillin-resista nce gene) N/A 12/23/2024 6:41 PM CDT [facility] NDM (carbapenem-resistan ce gene) NOT Detected NOT Detected, N/A 12/23/2024 6:41 PM CDT [facility] OXA-48 like (carbapenem-resistan ce gene) NOT Detected NOT Detected, N/A 12/23/2024 6:41 PM CDT [facility] van A/B (vancomycin-resistan ce genes) N/A 12/23/2024 6:41 PM CDT [facility] VIM (carbapenem-resistan ce gene) NOT Detected NOT Detected, N/A 12/23/2024 6:41 PM CDT [facility] Enterococcus faecalis NOT Detected 12/23/2024 6:41 PM CDT [facility] Enterococcus faecium NOT Detected 6:41 PM CDT [facility] Listeria monocytogenes NOT Detected 12/23/2024 6:41 PM CDT [facility] Staphylococcus NOT Detected 12/24/19 6:41 PM CDT [facility] Staphlococcus aureus NOT Detected 6:41 PM CDT [facility] Staphylococcus epidermidis NOT Detected 12/23/2024 6:41 PM CDT [facility] Staphylococcus lugdunensis NOT Detected 12/23/2024 6:41 PM CDT [facility] Streptococcus NOT Detected 6:41 PM CDT [facility] Streptococcus agalactiae (Group B) NOT Detected 12/23/2024 6:41 PM CDT [facility] Streptococcus pneumoniae NOT Detected 12/23/2024 6:41 PM CDT [facility] Streptococcus pyogenes (Group A) NOT Detected 12/23/2024 6:41 PM CDT [facility] Acinetobacter calcoaceticus-adonis nelson complex NOT Detected 12/23/2024 6:41 PM CDT [facility] Enterobacteriaceae Detected 2024 6:41 PM CDT [facility] Enterobacter cloacae complex NOT Detected 12/23/2024 6:41 PM CDT [facility] Escherichia coli NOT Detected 2024 6:41 PM CDT [facility] Klebsiella oxytoca NOT Detected 12/12 6:41 PM CDT [facility] Klebsiella pneumoniae group Detected 12/23/2024 6:41 PM CDT [facility] Proteus NOT Detected 12/23/2024 6:41 PM CDT [facility] Serratia marcescens NOT Detected 03/2025 6:41 PM CDT [facility] Haemophilus influenzae NOT Detected 12/23/2024 6:41 PM CDT [facility] Neisseria meningitidis NOT Detected 12/23/2024 6:41 PM CDT [facility] Pseudomonas aeruginosa NOT Detected 12/23/2024 6:41 PM CDT [facility] Carson albicans NOT Detected 2024 6:41 PM CDT [facility] Carson glabrata NOT Detected 2024 6:41 PM CDT [facility] Carson krusei NOT Detected 12/24/19 6:41 PM CDT [facility] Carson parapsilosis NOT Detected 6:41 PM CDT [facility] Carson tropicalis NOT Detected 12/12 6:41 PM CDT [facility] Bacteroides fragilis group NOT Detected 12/23/2024 6:41 PM CDT [facility] Klebsiella aerogenes NOT Detected 6:41 PM CDT [facility] Salmonella NOT Detected 12/23/2024 6:41 PM CDT [facility] Stenotrophomonas maltophilia NOT Detected 12/23/2024 6:41 PM CDT [facility] Carson auris NOT Detected 6:41 PM CDT [facility] Cryptococcus neoformans/gattii NOT Detected 12/23/2024 6:41 PM CDT [facility] Blood BLOOD SPECIMEN / Unknown Diversion Device / Unknown 12/22/2024 9:37 AM CDT 12/22/2024 9:46 AM CDT [facility] LABORATORY - 12/23/2024 6:41 PM CDT Note: [...] Vamsi Montgomery MD MICROBIOLOGY Mary l Result [facility]-C[facility]AL LABORATORY [address] [place] [address], * Hemoglobin A1C Screening (12/22/2024 9:37 AM CDT) HEMOGLOBIN A1C SCREENING 4.4 <=6.4 % 12/22/2024 10:58 AM CDT [facility] Blood BLOOD SPECIMEN / Unknown Diversion Device / Unknown 12/22/2024 9:37 AM CDT 12/22/2024 9:46 AM CDT Narrative [facility] - 12/22/2024 10:58 AM CDT (<5.7%) Normal (5.7% to 6.4%) Indicates prediabetes (>=6.5%) Confirms diabetes Falsely low levels may be seen with: Recent Transfusion, Recent Significant Blood Loss, Hemolytic Diseases, or Falsely elevated levels may be seen with: Untreated Anemias, Splenectomy Nichole Andino DO CHEMISTRY Final Result Performing Organization Address City/[facility]/ZIP Co de Phone Number [facility] [address] [place] [address] * (ABNORMAL) AMNISURE ROM (12/22/2024 9:27 AM CDT) AMNISURE ROM Positive, THERE IS A RUPTURE(A ) Negative, NO MEMBRANES RUPTURE 12/22/2024 9:50 AM CDT [facility] Body Fluid VAGINAL SWAB / Unknown Non-Blood / Unknown 12/22/2024 9:27 AM CDT 12/22/2024 9:41 AM CDT Vamsi Montgomery MD LABORATORY Mary l Result [facility] [address] [place] [address] * COVID-19 MOLECULAR (12/22/2024 9:17 AM CDT) Pathologist [facility] COVID 19 [place] MOLECULAR Not detected Not detected 12/22/2024 10:30 AM CDT [facility] TESTING LABORATORY [facility] Laboratory 12/22/2024 10:30 AM CDT [facility] Comment:Specimen submitted t o [facility] Laboratory for testing. Other SPECIMEN FROM NASOPHARYNGEAL STRUCTURE / Unknown Non-Blood / Unknown 12/22/2024 9:17 AM CDT 12/22/2024 10:10 AM CDT us Vamsi Montgomery MD MICROBIOLOGY Mary l Result [facility] [address] [place] [address] * TRICHOMONAS, CARSON, AND BACTERIAL VAGINOSIS BY SEVERINO (12/21/2024 10:47 AM CDT) [facility] CARSON SPECIES Negative Negative 9:19 PM CDT [facility] TR[facility]ORATORY CARSON GLABRATA Negative Negative 12/21/2024 9:19 PM CDT [facility] TRAL LABORATORY TRICHOMONAS VVA Negative Negative 9:19 PM CDT [facility] BACTERIAL VAGINOSIS Negative Negative 12/21/2024 9:19 PM CDT [facility] Other VAGINAL SWAB / Unknown Non-Blood / Unknown 12/21/2024 10:47 AM CDT 12/21/2024 11:04 AM CDT us Yen Mckinney MD MICROBIOLOGY Fi nal Result [facility]-CENTRAL LABORATORY [address] [place], [place] [address] [place] [address] * (ABNORMAL) POCT Urinalysis Dipstick Only [[id number]] (12/21/2024 10:47 AM CDT) [facility] SPECIFIC GRAVITY 1.025 1.001 - 1.035 12/21/2024 11:13 AM CDT [facility] PROTEIN TRACE(A) NEGATIVE 12/21/2024 11:13 AM CDT [facility] GLUCOSE NEGATIVE NEGATIVE 12/21/2024 11:13 AM CDT [facility] KETONES 4+(A) NEGATIVE 12/21/2024 11:13 AM CDT [facility] BILIRUBIN 2+(A) NEGATIVE 12/21/2024 11:13 AM CDT [facility] Comment: A false positive may be caused by the drug Lodine. For any presumptive positive bilirubin, consider confirmation by serum bilirubin if clinically indicated. OCCULT BLOOD NEGATIVE NEGATIVE 12/21/2024 11:13 AM CDT [facility] NITRITE NEGATIVE NEGATIVE 12/21/2024 11:13 AM CDT [facility] PH 6.5 5.0 - 8.0 12/21/2024 11:13 AM CDT [facility] LEUKOCYTE ESTERASE TRACE(A) NEGATIVE 12/21/2024 11:13 AM CDT [facility] Urine URINE SPECIMEN / Unknown Non-Blood / Unknown 12/21/2024 10:47 AM CDT 12/21/2024 11:04 AM CDT Yen Mckinney MD URINE Fi nal Result [employer] [address] [address], [place] [phone] [facility] [address] [place] [address], * GC CHLAMYDIA TRACH PROBE (12/21/2024 10:47 AM CDT) CHLAMYDIA PROBE Negative 3:16 PM CDT [facility] TR[facility] LABORATORY N GONORRHOEAE PROBE Negative 12/22/2024 3:16 PM CDT [facility] Other VAGINAL SWAB / Unknown Non-Blood / Unknown 12/21/2024 10:47 AM CDT 12/21/2024 11:04 AM CDT us Nichole Andino DO MICROBIOLOGY Final Result Performing Organization Address City/[facility]/ZIP Co de Phone Number [facility] [address] [place] [address], [place] * URINE CULTURE [91610.2] (12/21/2024 10:47 AM CDT) CULTURE <10,000 CFU/mL multiple organisms 12/22/2024 2:44 PM CDT [facility] TRAL LAB[facility]ATORY Urine URINE SPECIMEN / Unknown Non-Blood / Unknown 12/21/2024 10:47 AM CDT 12/21/2024 11:04 AM CDT Yen Mckinney MD MICROBIOLOGY Fi nal Result Performing Organization Address [facility] Co de Phone Number [facility] [address] [place] [address], [place] * Echocardiogram (CPT 84657) (12/20/2024 3:11 PM CDT) Anatomical Region Laterality [...] abnormalities. Services Provided: Procedures Code US ECHOCARDIOGRAM 46256.0 US DOPPLER COLOR FLOW VELOCITY MAP 14255.0 Procedure Note Estefanía Osborne MD - 12/20/2024 Normal Echocardiogram COMMENT The results of the echocardiogram were discussed with the parents. echocardiograms can not rule out some ventricular septal defects, persistent patentductus arteriosus, atrial septal defect, some abnormalities of systemic and pulmonary venous return,coarctation of the aorta, and minor valve abnormalities. Services Provided: ProceduresCode US [id number] US DOPPLER COLOR FLOW VELOCITY [id number] us Yen Mckinney MD Fi nal Result * Detailed Anatomy Single (CPT 04516) (12/20/2024 3:11 PM CDT) Anatomical Region Laterality Modality , 2or 3 TRIMESTER Ultrasound 12/20/2024 1:14 PM CDT Narrative 12/20/2024 4:10 PM CDT Referred By: YEN MCKINNEY Indications Code 19 weeks gestation of Z3A.19 Hyperemesis on TPN Hyperthyroidism Maternal karyotype was positive for low level monosomy X Possible Hx malaria, Hx latent TB s/p treatment, denies this history 2016 32w6d (PPROM) 2016 39w2d IUFD FAVD (chorio, [...] rt lat lobe. Placental edge dist from data analysis intern os=4 cm The transabdominal cervix appears dilated Sterile speculum exam notable for dilation to 4 cm with memranes protruding from os. RECOMMENDATIONS: - Discussed management options as described below for premature cervical dilation; desires expectant management - She did note slightly increased pressure at the end of the visit and she plans to go to [place] for evaluation tonight. - If she continues [...] in future - Continue to follow with script worker for hyperthyroidism, may need to increase methimazole [...] Procedures Code DETAIL ANATOMY & MPP ECHO 79668.0 Procedure Note Estefanía Osborne MD - 12/20/2024 Referred By: YEN MCKINNEY IndicationsCode 19 weeks gestation of [id number] Hyperemesis on TPN Hyperthyroidism Maternal karyotype was [...] the visit and sheplans to go to [place] for evaluation tonight. - If she continues [...] in future - Continue to follow with script worker for hyperthyroidism, may need toincrease methimazole dose [...] TPN - I would recommend to discontinue killianve her PICC if she is eating due [...] future . Government regulations related to the Cures act require thatthis note be released to the patient immediately, sometimes before the referring provider hasbeen contacted. A portion of the information was presented verbally to the patient. Theremainder is submitted as background for the referring provider, to be discussed as needed. Services Provided: ProceduresCode DETAIL ANATOMY & MPP [id number] Yen Mckinney MD [facility] Result * (ABNORMAL) TSH (11/21/2024 10:55 AM CDT) TSH 0.01(L) 0.27 - 4.20 uIU/mL 11/21/2024 12:31 PM CDT [facility] Blood BLOOD SPECIMEN / Unknown Non-Lab Venipuncture / Unknown 11/21/2024 10:55 AM CDT 11/21/2024 12:[address] [facility] - 11/21/2024 12:31 PM CDT In Adults, TSH values between 5.00 and 10.00 uIU/ml do not necessarily indicate the presence of Hypothyroidism. Correlation with clinical findings such as presence of goiter and/or Thyroperoxidase (TPO) Antibody may be helpful. For more information please refer to ASHLEY 2004; 291: 228-238. Dana MONTERO CHEMISTRY Final Resu lt [facility] [address] [place] [address] * T3,FREE (11/21/2024 10:55 AM CDT) Only the most recent of2 resultswithin the time period is included. T3,FREE 3.15 2.00 - 4.40 pg/mL 11/21/2024 11:11 PM CDT [facility] Blood BLOOD SPECIMEN / Unknown Non-Lab Venipuncture / Unknown 11/21/2024 10:55 AM CDT 11/21/2024 12:04 PM CDT Dana MONTERO CHEMISTRY Final Resu lt Performing Organization Address [facility] Co de Phone Number [facility] [address] [place] [address], [place] * UT READING EKG - NO CHARGE, COMP ONLY (11/09/2024 4:23 PM CDT) Yen Mckinney MD PB - PROVIDER READ INGS Final Result * DNA SCREEN SEND OUT (11/09/2024 12:00 AM CDT) Other (Other) us Yen Mckinney MD SEND OUTS Fi nal Result * THYROID STIM IMMUNOGLOBULIN (11/07/2024 12:03 PM CDT) TSI (THYROID STIMULATING IMMUNOGLOBULIN) <89 <140 % baseline [facility], Comment: Thyroid stimulating immunoglobulins (TSI) can engage [...] of this assay have been determined by [employer] [facility]. The modifications have not been cleared or approved by the FDA. This assay has been validated pursuant to the CLIA regulations and is used for clinical purposes. Blood BLOOD SPECIMEN / Unknown 11/07/2024 12:03 PM CDT 11/07/2024 12:04 PM CDT Conor Cagle MD SEND OUTS Final Result [employer]/[facility] [address] [place] [address], [employer]/[facility], [address] [place] [address] * THYROTROPIN RECEPTOR AB BLOOD (11/07/2024 12:03 PM CDT) TRAB <1.00 < OR = 2.00 IU/L [facility], Comment: This test was performed using the TRAb Antibody IVAN method which is standardized against the 1st International Standard 90/672 and is reported in International Units (IU/L). The reference range reported was established specifically for this test method. Blood BLOOD SPECIMEN / Unknown 11/07/2024 12:03 PM CDT 11/07/2024 12:04 PM CDT us Conor Cagle MD SEND OUTS Final Result Performing Organization Address City/[facility]/ZIP Co de Phone Number [facility] [address] [place] [address], [facility], [address] [place] [address] * THYROPEROXIDASE ANTIBODY (11/07/2024 12:03 PM CDT) THYROID PEROXIDASE ANTIBODIES 1 <9 IU/mL [facility] Blood BLOOD SPECIMEN / Unknown 11/07/2024 12:03 PM CDT 11/07/2024 12:04 PM CDT Conor Cagle MD SEND OUTS Final Result Performing Organization Address [facility] Co de Phone Number [employer] [address] [address], [facility] [address] [place] [phone] * ANTI HCV (09/28/2024 1:22 PM CDT) HEPATITIS C ANTIBODY NON-REACTI VE NON-REACT NOA [facility] Comment: HCV antibody was non-reactive. There is no laboratory evidence of HCV infection. In most cases, no further action is required. However, if recent HCV exposure is suspected, a test for HCV RNA (test code 32234) is suggested. For additional information please refer to http://education.Trak.CYBRA/faq/DNQ49h1 (This link is being provided for informational/ educational purposes only.) Blood BLOOD SPECIMEN / Unknown 09/28/2024 1:22 PM CDT 09/28/2024 1:23 PM CDT Yen Mckinney MD SEND OUTS Fi nal Result Performing Organization Address [facility]/ZIP Co de Phone Number [employer] [address] [address], [facility] [address] [facility] [place] [address] * (ABNORMAL) ELECTRIC ARC FURNACE OPERATOR THIN PREP PAP SCREEN IMAGED (11/07/2016 11:06 AM CDT) Case Report Gynecologic Cytology Report Case: [id number] Authorizing Provider: Gale Vasquez MD Collected: 11/07/2016 1106 Ordering Location: [facility] Received: 11/07/2016 1106 Clinic First Screen: Vicky Hutchinson Rescreen: Amena Costello Specimen: ELECTRIC ARC FURNACE OPERATOR [facility] Vial Screening, Cervical 11/17/2016 2:25 PM CDT [facility] INTERPRETATION /RESULT UNSATISFACTORY FOR EVALUATION (UNS)(A) (none) 11/17/2016 2:25 PM CDT [facility] ENTRAL LABORATORY at 1425 CDT SPECIMEN ADEQUACY Specimen processed and examined, but unsatisfactory for evaluation of epithelial abnormality because of: Scant cellularity 11/17/2016 2:25 PM CDT [facility] HPV REQUEST HPV if ASCUS 11/17/2016 2:25 PM CDT [facility] Date of LMP Recent 017 2:25 PM CDT [facility] ENTRAL LABORATORY Last Pap Date unk 11/17/2016 2:25 PM CDT [facility] ENTRAL LABORATORY Last Pap Result NIL 11/17/2016 2:25 PM CDT [facility] ENTRAL LABORATORY Abnormal Pap or [place] Bx in last 5 years No 11/17/2016 2:25 PM CDT [facility] ENTRAL LABORATORY Menstrual Status Regular Periods 11/17/2016 2:25 PM CDT [facility] ENTRAL LABORAT[facility] [place] Bx Done Today No 11/17/2016 2:25 PM CDT [facility] ENTRAL LABORAT[facility] Additional Information None given 11/17/2016 2:25 PM CDT [facility] Automated Review Failed 11/17/2016 2:25 PM CDT [facility] Comment:Processing failed, m anual screening required. [facility] System, [employer] Note The pap test is a screening technique, not a diagnostic procedure. It is used primarily to screen for squamous cancers and precursor lesions. Published studies have shown that it is subject to both false negative and false positive results. The pap test should not be used as the sole means to diagnose or exclude pre-malignant and malignant lesions. Interpreted at [facility] ([facility], [facility], [facility], [facility], [facility], [facility], [facility]) 11/17/2016 2:25 PM CDT [facility]- ENTRAL LABORATORY Other (Cervical) 11/07/2016 11:06 AM CDT 11/07/2016 11:06 AM CDT us Gale Vasquez MD PATHOLOGY/CYTOLOGY Final Res ult [facility] [phone], from Last 3 Months or Most Recently Relevant to Health Maintenance Insurance [phone] [facility] Advance Directives * Full Code (Latest Code [...] Preferences, Provider to review later Care Teams Psychology Assistant Relationship Specialty Start Date End Date Yen Mckinney MD [address] [place] [address] PCP - General Family Practice 01/19/25 Julisa Mc, RN [address] [address] Financial Auditor Registered Nurse 01/19/25 Ana Maria Ely [address] Bhupinder [address] [place] [address] 01/19/25
[2025-02-01 19:14] VITALS: BP 119/84; PULSE 96; RESP 16; TEMP 36.6; O2SAT 98; BMI 20.8
[2025-02-01 20:09] LABS: PCR FLU A Negative PCR FLU A (Negative); PCR FLU B Negative PCR FLU B (Negative); PCR RSV Negative PCR RSV (Negative); SARS PCR* Negative SARS-CoV-2 (Negative)
--- NOTE | 2025-02-01 21:46 | ED_ITS ---
HPI - Headache General Time Seen by Provider: 21:46 Date Seen: 02/01/25 Chief Complaint: Headache/Migraine Stated Complaint: R side weakness, headache Time Seen by Provider: 02/01/25 21:46 Source: patient and RN notes reviewed Mode of arrival: ambulatory Limitations: no limitations History of Present Illness HPI Narrative: This 29-year-old female with a recent complex medical history is here with right leg discomfort. She states it feels achy from the groin down the leg. Patient also brought up to triage staff that she had a right-sided headache and went into her neck, had noted some fever the last couple days. She did wait for us to see her due to the acuity and volume in the ER. She states her headache has improved. Her friend or relative who was with her does ask if there are other medicine she can take as she did have renal failure complicating her clinical course recently. She obviously cannot have NSAIDs. Her leg feels funny when she walks, is not necessarily weak which she did state to triage nursing staff. She can walk it just achy. It hurts from the groin down the leg. She was hospitalized December 22 through the I believe, initially started at [facility] in transfer to the ICU at [facility] where she ended up intubated and on ECMO. She had sepsis from probable chorioamnionitis, had IUFD at 19 weeks. There was retained placenta. She had sepsis with Klebsiella. She ended up on ECMO and hemodialysis for renal failure. She had ARDS. Please see below. From discharge from the ICU she went to [facility] for rehab, was discharged on the . She states she is feeling weaker than she did last week while in rehab, still complaining of muscle aching. She notes her mom is had a cold recently but she is not coughing or having cold symptoms. She had a headache present for 3 days but it is resolving now without any intervention. History reviewed and had extensive recent medical issues. Patient was admitted to [facility] for demise with sepsis presumably from chorioamnionitis, subsequently found to be Klebsiella. She was febrile, tachycardic and hypotensive. She was given Zosyn and IV fluids. She was given TXA prior to delivery for concern of increased risk of hemorrhage. She did deliver at 11:55 a.m.. Placenta did not deliver spontaneously after 30 minutes. Patient was given some extra time for delivery and given NV side attack. Patient decompensated around 1:40 p.m. when she became hypotensive and unresponsive. She received norepinephrine, phenylephrine and vasopressin. She required intubation. [facility] hospitalist received the patient in was transferred to the ICU. Well awaiting transfer, bedside D and C under ultrasound guidance was performed. She did get IM Methergine and 1 unit packed red blood cells. They were only getting out fragments of the placenta and procedure was terminated with the knowledge that there still could be cierra ined products of conception. They did do a Miner bulb within the uterus and vaginal packing to aid with hemostasis during transport. The pb henao admission was December 22 and transfer to [facility] the same day. She did have a subsequent D and C and uterine artery embolization on December 23. Her ICU course was long and complicated, she did develop ARDS. She was cannulated with the [facility] on 12/23. She had encephalopathy, oral HSV, renal failure on hemodialysis, thrombocytopenia, leukocytosis thought to be reactive. Since decannulation, patient was having elevated temperatures. Patient was noted to have right lower extremity swelling and had Doppler studies done after the cannula was removed. There is no evidence of DVT. She had a feeding tube initially. [facility]. MD elicited complaint: headache and other (Right leg pain) Related Data Home Medications ?Medication ?Instructions ?Recorded ?Confirmed ferrous sulfate 325 mg (65 mg 325 mg PO DAILY 11/06/22 08/16/24 iron) tablet,delayed release folic acid 1 mg tablet 1 mg PO DAILY 02/01/2502/01 metoclopramide HCl 5 mg tablet 5 mg PO QID 02/01/25 Allergies Allergy/AdvReac Type Severity Reaction Status Date / Time Pork/Porcine Containing AdvReac Verified 01/28/25 19:31 Products Review of Systems Status of ROS: Reports: 6 or more systems reviewed and unremarkable except as noted in History and below [facility] Medical History Anemia ?D64.9 - Anemia, unspecified (ICD-10) Malaria ?B54 - Unspecified malaria (ICD-10) Tuberculosis ?A15.9 - Respiratory tuberculosis unspecified (ICD-10) Social History Smoking Status: Never smoker How often do you have a drink containing alcohol: never AUDIT-C Alcohol total score: 0 Non-prescribed substance use: denies use Caffeine: Yes (coffee) Exam Const: Vital Signs, click to edit/add: Vital Signs - 24 hr 02/01/25 19:14 Temperature 97.9 F Pulse Rate [Pulse Oximeter] 96 Respiratory Rate 16 Blood Pressure [Ri ght Upper Arm] 119/84 Pulse Oximetry 98 Oxygen Delivery Me thod Room Air This 29-year-old female is seen in exam room for, she is alert, interactive, no apparent distress, very pleasant 29-year-old female. Sclera clear, face atraumatic. Lungs are clear come good air entry, no wheezing crackles, no tachypnea, no accessory muscle use. CV regular rate and rhythm, no significant murmur, normal S1-S2, no S3-S4. Abdomen is soft, nontender, nondistended, no organomegaly, rebound or guarding. Her right groin is inspected, can see some well-healed wounds, no scabbing present at this point, skin is completely healed. I can feel her femoral pulse, she is nontender when I palpate, does not feel enlarged cup of no palpable aneurysmal dilation in the groin. Again she is not tender when I palpate over the femoral artery in the groin. There is no masses, no inguinal adenopathy. Both legs have 5/5 symmetric strength from the toes up to the hips she has normal light touch sensation throughout both extremities, there is no lower extremity edema on the right, no pitting edema. Do not feel dorsalis pedis or posterior tibialis pulses of the foot but do not feel it on the left either. Her feet are warm and dry. Documenting provider has reviewed patient's vital signs: yes Course Course ED Course: Patient had the ECMO cannulation on the right side. There does not seem to be any concern for any arterial vascular issue on clinical exam. The leg is not swollen today but she did have prolonged hospitalization and immobilization, do think it is prudent to look at venous ultrasound again. Will look at some baseline labs make sure her kidney functions are stable. As far as her headache, that has resolved without any intervention on our part, do think it might just be routine complicating headache. Will not do any neuro imaging at this time given it has resolved. Reevaluation(s) Time of Reevaluation #1: 23:05 Reevaluation #1: Reviewed with patient that her ultrasound is not showing any blood clot. There is no evidence any clinical arterial issue. She has no paresthesias, strength is normal. We did discuss her labs, her kidney function is stable, potassium is still low at 3.1. She is mildly anemic at 9.3, is likely contributed to by her recent hospitalization and obstetrical issues. Her kidney issues certainly could have complicated that as well. I am sure this is being followed. She has no symptoms or evidence of any acute blood loss happening at this time. Vital Signs Vital signs: Initial Vital Signs Temperature 97.9 F 02/01/25 19:14 Temperature Source Temporal Artery Scan 02/01/25 19:14 Pulse Rate 96 02/01/25 19:14 Respiratory Rate 16 02/01/25 19:14 Blood Pressure 119/84 02/01/25 19:14 Blood Pressure Mean 95 02/01/25 19:14 Blood Pressure Position Sitting 02/01/25 19:14 Pulse Oximetry 98 02/01/25 19:14 Oxygen Delivery Method Room Air 02/01/25 19:14 Vital Signs Temperature 97.9 F 02/01/25 19:14 Pulse Rate 96 02/01/25 19:14 Respiratory Rate 16 02/01/25 19:14 Blood Pressure 119/84 02/01/25 19:14 Pulse Oximetry 98 02/01/25 19:14 Oxygen Delivery Method Room Air 02/01/25 19:14 Temperature 97.9 F 02/01/25 19:14 Pulse Rate 96 02/01/25 19:14 Respiratory Rate 16 02/01/25 19:14 Blood Pressure 119/84 02/01/25 19:14 Pulse Oximetry 98 02/01/25 19:14 Oxygen Delivery Method Room Air 02/01/25 19:14 MDM - Headache Lab Data Attestation: I reviewed the patient's lab results. Labs: Lab Results 02/01/25 02/01/25 Range/Units 19:20 22:07 WBC 6.18 (4.50-11.00) K/uL RBC 3.15 L (4.00-5.20) m/uL Hgb 9.3 L (12.0-16.0) gm/dL Hct 27.7 L (33.0-51.0) % MCV 88 (80-100) fL MCH 30 (26-34) pg MCHC 34 (32-36) gm/dL RDW Coeff of Sharon 15.0 (11.5-15.5) % Plt Count 224 (140-440) K/uL Neut % (Auto) 62.5 (42.0-72.0) % Lymph % (Auto) 23.1 (20-44) % [place] % (Auto) 10.5 (0.0-11.0) % Eos % (Auto) 3.2 (0.0-7.0) % Baso % (Auto) 0.5 (0.0-3.0) % Neut # (Auto) 3.86 (1.7-7.0) K/uL Lymph # (Auto) 1.43 (0.90-2.90) K/uL [place] # (Auto) 0.60 (0.00-0.90) K/UL Eos # (Auto) 0.20 (0.00-0.50) K/uL Baso # (Auto) 0.03 (0.00-0.30) K/uL Abs Immat Gran (auto) 0.01 (0.00-0.30) K/uL Imm/Tot Granulo (auto) 0.2 % Sodium 135 (135-149) mmol/L Potassium 3.1 L (3.6-5.1) mmol/L Chloride 100 (96-114) mmol/L Carbon Dioxide 27 (20-32) mmol/L Anion Gap 8 (7-15) mEq/L BUN 16 (5-24) mg/dL Creatinine 1.6 H (0.5-1.5) mg/dL Estimated Creat Clear 43.99 Estimated GFR 44 ml/min Glucose 97 (60-115) mg/dL Calcium 9.4 (8.4-10.6) mg/dL Total Bilirubin 0.6 (0.1-1.5) mg/dL AST 30 (12-35) U/L ALT 14 (4-35) U/L Alkaline Phosphatase 81 (40-150) U/L Total Creatine Kinase 22 L (41-117) U/L C-Reactive Protein 0.7 (0.5-1.0) mg/dL Total Protein 7.6 (6.0-8.3) g/dL Albumin 3.9 (3.3-5.0) g/dL SARS-CoV-2 (PCR) Negative SARS-CoV-2 (Negative) Influenza Type A (PCR) Negative PCR FLU A (Negative) Influenza Type B (PCR) Negative PCR FLU B (Negative) RSV (PCR) Negative PCR RSV (Negative) Imaging Data Venous US: Attestation: I have reviewed the pertinent imaging results. My impression: Preliminary report per fire regulator is no DVT. Radiologist's impression: Patient: [facility] Facility:?[facility] Patient ID:?[id number] Site Patient ID:?[id number]. Site :?[id number] Study:?US-Extremity Right-02/01/2025 10:51:37 PM Ordering Physician:?Eddie Gonsalez Final Report: Indication: Recent prolonged ICU stay on ECMO, leg pain Technique: DVT ultrasound of the right lower extremity. Grayscale and color Doppler imaging utilized. Duplex/spectral analysis used. Compression and augmentation as clinically warranted. Comparison: None Findings: All vessels are grossly compressible without evidence of filling defect to suggest DVT. No superficial thrombosis appreciated. Soft tissues are unremarkable. Impression: No significant sonographic abnormality appreciated. Dictated by George Pollard MD @ 02/01/2025 11:58:09 PM Signed by:?George Pollard MD @02/01/2025 11:58:09 PM (Electronic Signature) Discharge Plan Discharge Clinical Impression: Arthralgia of right lower leg, Acute hypokalemia, Renal insufficiency Anemia Qualifiers: Anemia type: unspecified type Qualified Code(s): D64.9 - Anemia, unspecified Patient Disposition: Home, Self-Care Condition: Stable Instructions: Hypokalemia (ED), Arthralgia (ED) Additional Instructions: You need to continue to avoid ibuprofen/NSAIDs. Can use Tylenol as needed for discomfort or pain, 1000 mg up to 3 times a day. You can try some heat or heating pads on your right leg, see if that helps. Your potassium is 3.1, talk to your vp ad products and planning or your primary care provider about any further recommendations for potassium supplementation. Do recommend that you schedule follow-up in clinic for recheck with your primary care provider within the next week. You of had a lot happened recently in I think it is important that you have close follow-up in clinic. Activity Level: Activity as Tolerated Discharge Diet: Regular Prescriptions: No Action ferrous sulfate 325 mg (65 mg iron) tablet,delayed release (DR/EC) 325 mg PO DAILY metoclopramide HCl 5 mg tablet 5 mg PO QID folic acid 1 mg tablet 1 mg PO DAILY Follow Up/Referrals: Dana Bourgeois PA-C [Referring, Family Practice] Stand Alone Forms: [employer] (formerly [employer]) Info Instructions
--- NOTE | 2025-02-01 21:52 | CRLHL7_ITS ---
For Patients: As a result of the Century Cures Act, medical imaging exams and procedure reports are released immediately into your electronic medical record. You may view this report before your referring provider. If you have questions, please contact your health care provider. Indication: Recent prolonged ICU stay on ECMO, leg pain Technique: DVT ultrasound of the right lower extremity. Grayscale and color Doppler imaging utilized. Duplex/spectral analysis used. Compression and augmentation as clinically warranted. Comparison: None Findings: All vessels are grossly compressible without evidence of filling defect to suggest DVT. No superficial thrombosis appreciated. Soft tissues are unremarkable. Impression: No significant sonographic abnormality appreciated. Dictated by George Pollard MD @ 02/01/2025 11:58:09 PM (Electronically Signed)
[2025-02-01 22:12] LABS: Hematocrit* 27.7 % (33.0-51.0); Hemoglobin* 9.3 gm/dL (12.0-16.0); Immature Granulocytes Abs Auto 0.01 K/uL (0.00-0.30); Immature Granulocytes Pct Auto 0.2 %; Lymphocytes Absolute Auto 1.43 K/uL (0.90-2.90); Mean Corpuscular HGB Conc 34 gm/dL (32-36); Mean Corpuscular Hemoglobin 30 pg (26-34); Mean Corpuscular Volume 88 fL (80-100); RDW Coefficient of Variation % 15.0 % (11.5-15.5); Red Blood Count* 3.15 m/uL (4.00-5.20); White Blood Count* 6.18 K/uL (4.50-11.00)
[2025-02-01 22:13] LABS: Slide Review Reflex No
[2025-02-01 22:25] LABS: Albumin* 3.9 g/dL (3.3-5.0); Chloride* 100 mmol/L (96-114); Potassium* 3.1 mmol/L (3.6-5.1); Sodium* 135 mmol/L (135-149)
[2025-02-01 22:27] LABS: Blood Urea Nitrogen* 16 mg/dL (5-24); Creatinine* 1.6 mg/dL (0.5-1.5); Est. Creatinine Clearance* 43.99; Estimated Glomerular Filt Rate 44 ml/min
[2025-02-01 22:28] LABS: Alanine Aminotransferase* 14 U/L (4-35); Alkaline Phosphatase* 81 U/L (40-150); Anion Gap 8 mEq/L (7-15); Aspartate Amino Transferase* 30 U/L (12-35); Bilirubin Total* 0.6 mg/dL (0.1-1.5); Calcium* 9.4 mg/dL (8.4-10.6); Carbon Dioxide* 27 mmol/L (20-32); Creatine Kinase* 22 U/L (41-117); Glucose* 97 mg/dL (60-115); Total Protein* 7.6 g/dL (6.0-8.3)
== END 2025-02-01 23:21 | disposition home or self-care (01) ==
PROVIDERS: Emergency Medicine; Emergency Provider Family Medicine; PCP Student in an Organized Health Care Education/Training Program
DX: M79.661 Pain in right lower leg (principal); E87.6 Hypokalemia; N28.9 Disorder of kidney and ureter, unspecified; D64.9 Anemia, unspecified
CPT/HCPCS: 36415; 80053; 82550; 85025; 86140; 87631; 93971; 99284